=== PATIENT | male | born 1950 | race Caucasian/White ===

== ENCOUNTER 2017-08-31 21:15 | Emergency (ER) | payer MEDICARE, OTHER ==
--- NOTE | 2017-08-31 21:42 | ED ---
Recheck HPI - General Chief Complaint: Recheck/Abnormal Lab/Rx Stated Complaint: Dr Sent/Abnormal Lab Time Seen by Provider: 08/31/17 21:28 Source: patient, RN notes reviewed Mode of arrival: ambulatory Limitations: no limitations - History of Present Illness Initial Comments: This a 67-year-old male presents emergency Department with chief complaint of abnormal labs. Patient states that [facility] and told that his potassium was 6.0. Patient was advised well emergency department for evaluation. Patient has no complaints. Time. He does not take any supplemental potassium. Patient states she's had no changes medications. Denies chest pain, shortness breath, fever, chills, headache or dizziness. - Related Data Home Medications Medication Instructions Recorded Confirmed Budesonide-Formot 160-4.5 Mcg 1 puff INHALATION RT-BID 10/05/14 08/31/17 [Symbicort 160-4.5 Mcg Inhaler] Lisinopril [Zestril] 10 mg PO DAILY 10/05/14 08/31/17 Montelukast [Singulair] 10 mg PO DAILY 10/05/14 08/31/17 Naproxen [Naprosyn] 500 mg PO BID 10/05/14 08/31/17 Pravastatin Sodium [Pravachol] 80 mg PO DAILY 10/05/14 08/31/17 glipiZIDE [Glucotrol] 20 mg PO BID 10/05/14 08/31/17 Aspirin [Adult Low Dose Aspirin EC] 81 mg PO DAILY 08/31/17 08/31/17 Clopidogrel [Plavix] 75 mg PO DAILY 08/31/17 08/31/17 Insulin Glargine [Lantus] 20 unit SQ DAILY 08/31/17 08/31/17 Tamsulosin HCl [Flomax] 0.4 mg PO DAILY 08/31/17 08/31/17 metFORMIN HCL 1,000 mg PO BID 08/31/17 08/31/17 Allergies Allergy/AdvReac Type Severity Reaction Status Date / Time No Known Allergies Allergy Verified 08/31/17 21:36 Review of Systems ROS Statement: Those systems with pertinent positive or pertinent negative responses have been documented in the HPI. ROS Other: All systems not noted in ROS Statement are negative. Past Medical History Past Medical History: Asthma, Diabetes Mellitus, Hyperlipidemia, Hypertension Additional Past Medical History / Comment(s): neuropothy, pacreatitis History of Any Multi-Drug Resistant Organisms: None Reported Past Surgical History: Heart Catheterization With Stent Additional Past Surgical History / Comment(s): right hand surgery Past Anesthesia/Blood Transfusion Reactions: No Reported Reaction Past Psychological History: No Psychological Hx Reported Smoking Status: Former smoker Past Alcohol Use History: Occasional Past Drug Use History: None Reported General Exam Limitations: no limitations General appearance: alert, in no apparent distress Head exam: Present: atraumatic, normocephalic, normal inspection Eye exam: Present: normal appearance, PERRL, EOMI. Absent: scleral icterus, conjunctival injection, periorbital swelling ENT exam: Present: normal exam, normal oropharynx, mucous membranes moist Neck exam: Present: normal inspection, full ROM. Absent: tenderness, meningismus, lymphadenopathy Respiratory exam: Present: normal lung sounds bilaterally. Absent: respiratory distress, wheezes, rales, rhonchi, stridor Cardiovascular Exam: Present: regular rate, normal rhythm, normal heart sounds. Absent: systolic murmur, diastolic murmur, rubs, gallop, clicks Neurological exam: Present: alert, oriented X3, CN II-XII intact Skin exam: Present: warm, dry, intact, normal color. Absent: rash Course Vital Signs 08/31/17 21:17 Temperature 97.2 F L Pulse Rate 70 Respiratory 18 Rate Blood Pressure 180/79 O2 Sat by Pulse 97 Oximetry Medical Decision Making - Medical Decision Making 67-year-old male present emergency department for hyperglycemia on labs earlier today. Repeat lab shows potassium of 4.3. Patient will be discharged at this time. patient had mild hyperglycemia patient states he hasn't taken his medication for nighttime. Patient is requesting to be discharged home. - Lab Data Result diagrams: 08/31/17 22:03 08/31/17 22:03 Lab Results 08/31/17 08/31/17 Range/Units 22:03 22:03 WBC 6.2 (3.8-10.6) k/uL RBC 4.73 (4.30-5.90) m/uL Hgb 13.4 (13.0-17.5) gm/dL Hct 40.5 (39.0-53.0) % MCV 85.6 (80.0-100.0) fL MCH 28.3 (25.0-35.0) pg MCHC 33.1 (31.0-37.0) g/dL RDW 15.2 (11.5-15.5) % Plt Count 262 (150-450) k/uL Neutrophils % 63 % Lymphocytes % 23 % Monocytes % 7 % Eosinophils % 4 % Basophils % 1 % Neutrophils # 3.9 (1.3-7.7) k/uL Lymphocytes # 1.4 (1.0-4.8) k/uL Monocytes # 0.4 (0-1.0) k/uL Eosinophils # 0.3 (0-0.7) k/uL Basophils # 0.1 (0-0.2) k/uL Sodium 140 (137-145) mmol/L Potassium 4.3 (3.5-5.1) mmol/L Chloride 103 (98-107) mmol/L Carbon Dioxide 26 (22-30) mmol/L Anion Gap 11 mmol/L BUN 17 (9-20) mg/dL Creatinine 0.90 (0.66-1.25) mg/dL Est GFR (MDRD) Af Amer >60 (>60 ml/min/1.73 sqM) Est GFR (MDRD) Non-Af >60 (>60 ml/min/1.73 sqM) Glucose 327 H (74-99) mg/dL Calcium 9.2 (8.4-10.2) mg/dL Magnesium 1.8 (1.6-2.3) mg/dL Total Bilirubin 0.4 (0.2-1.3) mg/dL AST 22 (17-59) U/L ALT 39 (21-72) U/L Alkaline Phosphatase 78 (38-126) U/L Total Protein 6.6 (6.3-8.2) g/dL Albumin 3.9 (3.5-5.0) g/dL - EKG Data EKG Comments: EKG performed at 22:0 sign sinus rhythm with first-degree AV block rate of 69 AK 212 QRS 98 QT/QTC 418/447 Disposition Clinical Impression: Hyperglycemia Narrative: recheck abnormal labs, hyperkalemia Disposition: HOME SELF-CARE Condition: Stable Instructions: Diabetic Hyperglycemia (ED) Additional Instructions: Make sure you take your medications as directed and recheck her blood sugar. Please return to the Emergency Department if symptoms worsen or any other concerns. Referrals: Bharat Sullivan DO [Primary Care Provider] - 1-2 days Time of Disposition: 22:32
[2017-08-31 22:14] LABS: Basophils # (A) 0.1 k/uL (0-0.2); Basophils % (A) 1 %; Eosinophils # (A) 0.3 k/uL (0-0.7); Eosinophils % (A) 4 %; HCT 40.5 % (39.0-53.0); HGB 13.4 gm/dL (13.0-17.5); Lymphocytes # (A) 1.4 k/uL (1.0-4.8); Lymphocytes % (A) 23 %; MCH 28.3 pg (25.0-35.0); MCHC 33.1 g/dL (31.0-37.0); MCV 85.6 fL (80.0-100.0); Mean Platelet Volume 7.1; Monocytes # (A) 0.4 k/uL (0-1.0); Monocytes % (A) 7 %; Neutrophils # (A) 3.9 k/uL (1.3-7.7); Neutrophils % (A) 63 %; Platelet Count 262 k/uL (150-450); RBC 4.73 m/uL (4.30-5.90); RDW 15.2 % (11.5-15.5); WBC 6.2 k/uL (3.8-10.6)
[2017-08-31 22:25] LABS: ALT 39 U/L (21-72); AST 22 U/L (17-59); Albumin 3.9 g/dL (3.5-5.0); Alkaline Phosphatase 78 U/L (38-126); Anion Gap 11 mmol/L; Blood Urea Nitrogen 17 mg/dL (9-20); Calcium 9.2 mg/dL (8.4-10.2); Carbon Dioxide 26 mmol/L (22-30); Chloride 103 mmol/L (98-107); Glucose 327 mg/dL (74-99); Magnesium 1.8 mg/dL (1.6-2.3); Potassium 4.3 mmol/L (3.5-5.1); Sodium 140 mmol/L (137-145); Total Bilirubin 0.4 mg/dL (0.2-1.3); Total Protein 6.6 g/dL (6.3-8.2)
[2017-08-31 23:03] VITALS: BP 141/65; PULSE 66; RESP 16; TEMP 97.9
== END 2017-08-31 23:03 | disposition home or self-care (01) ==
LOC: EC 21:15
DX: E11.65 Type 2 diabetes mellitus with hyperglycemia (principal); J45.909 Unspecified asthma, uncomplicated; E78.5 Hyperlipidemia, unspecified; I10 Essential (primary) hypertension; E11.40 Type 2 diabetes mellitus with diabetic neuropathy, unspecified; Z87.891 Personal history of nicotine dependence; Z79.4 Long term (current) use of insulin; Z79.01 Long term (current) use of anticoagulants; Z79.82 Long term (current) use of aspirin; Z79.51 Long term (current) use of inhaled steroids; Z79.899 Other long term (current) drug therapy
CPT/HCPCS: 36415; 80053; 83735; 85025; 93005; 99283

== ENCOUNTER 2017-12-01 07:13 | Day surgery (SDC) | payer MEDICARE, OTHER ==
[2017-11-29 10:12] VITALS: BMI 30.9
[~2017-12-01 07:13] MED LIST: LACTATED RINGERS 1,000 ML IV SCH
[2017-12-01 07:29] VITALS: TEMP 97.4
[2017-12-01] MEDS ORDERED: LIDOCAINE 1% 20 ML VIAL (10MG/ML) FOR IV START INTRADERMA ONE (07:48)
[2017-12-01 07:55] LABS: Glucose,Whole Blood 176 mg/dL (75-99)
[2017-12-01] MEDS ORDERED: LIDOCAINE 1% INJ 10MG/ML (20 ML MDV) ONE (08:48)
[2017-12-01] MEDS ORDERED: PROPOFOL 10 MG/ML 20 ML VIAL IV ONE (08:48)
[2017-12-01 09:19] VITALS: RESP 16
--- NOTE | 2017-12-01 09:22 | P.PCN ---
Date of Procedure: 12/01/17 Procedure(s) Performed: Procedure: Total colonoscopy. Preoperative diagnosis: Screening for neoplasia, patient has history of polyps. Postoperative diagnosis: Less than ideal preparation, otherwise, exam to the cecum within normal limits. Preparation: HalfLytely prep. Sedation: Was provided by anesthesia. Brief clinical history: The patient is 67-year-old male with history of polyps who is scheduled for this evaluation part of screening for colon cancer. He has no abdominal complaints, bleeding or anemia. His last exam was more than 5 years ago. This would be his fourth exam. Procedure: With the patient on his left lateral decubitus position and after informed consent and adequate sedation, the perianal area was inspected and it did not show any fissures or fistulas. There were no masses felt on digital rectal examination. The Olympus CFQ 160L video colonoscope was then inserted in the rectum in the usual fashion and advanced to the cecum. Unfortunately, the preparation was less than ideal and there was thick fecal secretions and fecal debris that made it hard to wash and have a clear look of the lining of the bowel wall consistently. There were no obvious large polyps or tumors seen or obvious mucosal changes. I retroflexed the endoscope in the rectum before the endoscope was withdrawn. The patient tolerated the procedure well. Plan: The patient was reassured. In light of his preparation, I recommended repeat exam in 2-3 years after a 2 day prep. He will follow up with you as planned.
[2017-12-01 09:29] VITALS: BP 139/75; PULSE 69
== END 2017-12-01 09:51 | disposition home or self-care (01) ==
LOC: ORWHC2ENDO 07:13
DX: Z12.11 Encounter for screening for malignant neoplasm of colon (principal); Z86.010 Personal history of colon polyps; E11.40 Type 2 diabetes mellitus with diabetic neuropathy, unspecified; J45.909 Unspecified asthma, uncomplicated; I10 Essential (primary) hypertension; E78.5 Hyperlipidemia, unspecified; I25.10 Atherosclerotic heart disease of native coronary artery without angina pectoris; Z95.5 Presence of coronary angioplasty implant and graft; Z79.1 Long term (current) use of non-steroidal anti-inflammatories (NSAID); Z79.02 Long term (current) use of antithrombotics/antiplatelets; Z79.4 Long term (current) use of insulin; Z79.899 Other long term (current) drug therapy; Z87.891 Personal history of nicotine dependence
CPT/HCPCS: J2001; J2704; G0105; 45378

== ENCOUNTER → 2018-01-24 | Outpatient (CLI) | payer MEDICARE, OTHER ==
--- NOTE | 2018-01-25 08:09 | CT ---
EXAMINATION TYPE: CT chest w con DATE OF EXAM: 01/24/2018 COMPARISON: 10/05/2014 HISTORY: Left lower lobe pneumonia. CT DLP: 640 mGycm, Automated exposure control for dose reduction was used. CONTRAST: Performed injected with 100ml mL of Isovue 300. TECHNIQUE: Axial images were obtained at 5 mm thick sections. Reconstructed images are reviewed on [employer] computer in the coronal plane. FINDINGS: Portion of the thyroid visualized is normal. No suspicious lung nodules or focal infiltrates are present. Some calcifications along the central ri ght diaphragm could indicate prior asbestos exposure. Some minimal atelectasis is within the anterior right middle lobe and within the lingula within the mid lung summers. A stable 0.5 cm calcified granu renata is within the anterior lateral left upper lung field. Series 3 image 18.. Tiny stable density in the periphery of the right upper lung field estimated to measure 0.3 cm. Series 3 image 21. A stable 0.3 cm nodules within the right middle lobe. Series 3 image 30. No enlarged mediastinal or hilar adenopathy is evident. The ascending aorta diameter at the level o f the main pulmonary artery is 3.6 cm. The main pulmonary artery diameter at the bifurcation is 2.5 cm. Some coronary artery calcification is present. Limited CT sections are obtained through the upper abdomen. Abdomen is essentially unremarkable. IMPRESSIONS: 1. Mild streak opacities within the anterior lung summers, mild streak atelectasis is favored. 2. Stable Calcified granuloma left midlung. Tiny stable 3 mm densities within the right midlung.
== END | disposition home or self-care (01) ==
LOC: RADCTMAIN 18:07
PROVIDERS: ATTEND Internal Medicine Critical Care Medicine
DX: R91.8 Other nonspecific abnormal finding of lung field (principal); J84.10 Pulmonary fibrosis, unspecified
CPT/HCPCS: 82565; 84520; 71260; 36415; Q9967

== ENCOUNTER 2020-02-20 15:18 | Inpatient (IN) | payer MEDICARE, OTHER ==
--- NOTE | 2020-02-20 15:40 | ED ---
General Adult HPI - General Chief complaint: Chest Pain Stated complaint: irregular heartbeat Time Seen by Provider: 02/20/20 15:26 Source: patient, RN notes reviewed, old records reviewed Mode of arrival: wheelchair Limitations: no limitations - History of Present Illness Initial comments: 69-year-old male with several days of intermittent palpitations and chest pain. Patient states he noted that his heart rate was up to 150. He has no previous history of arrhythmia. He has a history of CAD status post stenting. He is currently on aspirin, Plavix, lisinopril. He denies current chest pain, reports a vague discomfort in the chest. No vomiting. No fever. No diarrhea. Patient has been eating and drinking well. No melena or rectal bleeding. - Related Data Home Medications Medication Instructions Recorded Confirmed Budesonide-Formot 160-4.5 Mcg 1 puff INHALATION RT-BID 10/05/14 12/01/17 [Symbicort 160-4.5 Mcg Inhaler] Montelukast [Singulair] 10 mg PO DAILY 10/05/14 12/01/17 Naproxen [Naprosyn] 500 mg PO BID 10/05/14 12/01/17 Pravastatin Sodium [Pravachol] 80 mg PO DAILY 10/05/14 12/01/17 glipiZIDE [Glucotrol] 20 mg PO BID 10/05/14 12/01/17 Aspirin [Adult Low Dose Aspirin EC] 81 mg PO DAILY 08/31/17 12/01/17 Clopidogrel [Plavix] 75 mg PO DAILY 08/31/17 12/01/17 Insulin Glargine [Lantus] 20 unit SQ DAILY 08/31/17 12/01/17 Tamsulosin HCl [Flomax] 0.4 mg PO DAILY 08/31/17 12/01/17 metFORMIN HCL 1,000 mg PO BID 08/31/17 12/01/17 Lisinopril [Zestril] 20 mg PO DAILY 11/29/17 12/01/17 Allergies Allergy/AdvReac Type Severity Reaction Status Date / Time No Known Allergies Allergy Verified 02/20/20 15:24 Review of Systems ROS Statement: Those systems with pertinent positive or pertinent negative responses have been documented in the HPI. ROS Other: All systems not noted in ROS Statement are negative. Past Medical History Past Medical History: Asthma, Diabetes Mellitus, Hyperlipidemia, Hypertension Additional Past Medical History / Comment(s): neuropothy, pancreatitis History of Any Multi-Drug Resistant Organisms: None Reported Past Surgical History: Appendectomy, Heart Catheterization With Stent, Orthopedic Surgery Additional Past Surgical History / Comment(s): right hand surgery. BILAT CATARACT. BILAT RK SX. COLONOSCOPY Past Anesthesia/Blood Transfusion Reactions: No Reported Reaction Date of Last Stent Placement:: 2015 Past Psychological History: No Psychological Hx Reported Smoking Status: Former smoker - Past Family History Mother Family Medical History: No Reported History General Exam Limitations: no limitations General appearance: alert, in no apparent distress Head exam: Present: atraumatic, normocephalic Eye exam: Present: normal appearance, PERRL ENT exam: Present: normal exam Neck exam: Present: normal inspection. Absent: tenderness, meningismus Respiratory exam: Present: normal lung sounds bilaterally. Absent: respiratory distress, wheezes Cardiovascular Exam: Present: tachycardia, irregular rhythm GI/Abdominal exam: Present: soft. Absent: distended, tenderness, guarding, rebound Extremities exam: Present: normal inspection, normal capillary refill. Absent: pedal edema Neurological exam: Present: alert, oriented X3, CN II-XII intact. Absent: motor sensory deficit Psychiatric exam: Present: normal affect, normal mood Skin exam: Present: warm, dry, intact. Absent: cyanosis, diaphoretic Course Vital Signs 02/20/20 02/20/20 15:19 15:58 Temperature 98.2 F Pulse Rate 134 H Respiratory 18 20 Rate Blood Pressure 160/90 O2 Sat by Pulse 97 Oximetry EKG Findings - EKG Comments: EKG Findings:: EKG: Atrial fibrillation with RVR, left axis, rate of 107, QRS duration 90, QTC 459, no ST segment elevation. Medical Decision Making - Medical Decision Making 69-year-old male presenting with intermittent chest pain and palpitations. Patient found to be in A. fib with RVR, no ST segment elevation EKG. CBC showed mild anemia, otherwise no acute findings, normal access, negative troponin. Patientconsented Cardizem in the emergency department. He started on heparin [id number] is 2. [facility] Patient will be admitted continued on anticoagulation and rate control, cardiology placed on consult. - Lab Data Result diagrams: 02/20/20 15:30 02/20/20 15:30 Lab Results 02/20/20 02/20/20 02/20/20 Range/Units 15:30 15:30 15:30 WBC 6.9 (3.8-10.6) k/uL RBC 4.55 (4.30-5.90) m/uL Hgb 12.4 L (13.0-17.5) gm/dL Hct 38.4 L (39.0-53.0) % MCV 84.3 (80.0-100.0) fL MCH 27.3 (25.0-35.0) pg MCHC 32.4 (31.0-37.0) g/dL RDW 14.7 (11.5-15.5) % Plt Count 282 (150-450) k/uL Neutrophils % 72 % Lymphocytes % 16 % Monocytes % 6 % Eosinophils % 3 % Basophils % 1 % Neutrophils # 4.9 (1.3-7.7) k/uL Lymphocytes # 1.1 (1.0-4.8) k/uL Monocytes # 0.4 (0-1.0) k/uL Eosinophils # 0.2 (0-0.7) k/uL Basophils # 0.0 (0-0.2) k/uL PT (9.0-12.0) sec INR (<1.2) APTT (22.0-30.0) sec Sodium 137 (137-145) mmol/L Potassium 4.9 (3.5-5.1) mmol/L Chloride 103 (98-107) mmol/L Carbon Dioxide 24 (22-30) mmol/L Anion Gap 10 mmol/L BUN 19 (9-20) mg/dL Creatinine 0.95 (0.66-1.25) mg/dL Est GFR (CKD-EPI)AfAm >90 (>60 ml/min/1.73 sqM) Est GFR (CKD-EPI)NonAf 81 (>60 ml/min/1.73 sqM) Glucose 208 H (74-99) mg/dL Calcium 9.6 (8.4-10.2) mg/dL Magnesium 1.9 (1.6-2.3) mg/dL Total Bilirubin 0.5 (0.2-1.3) mg/dL AST 22 (17-59) U/L ALT 20 (4-49) U/L Alkaline Phosphatase 69 (38-126) U/L Total Creatine Kinase 147 (55-170) U/L CK-MB (CK-2) 4.4 H (0.0-2.4) ng/mL CK-MB (CK-2) Rel Index 3.0 Troponin I <0.012 (0.000-0.034) ng/mL Total Protein 6.7 (6.3-8.2) g/dL Albumin 4.3 (3.5-5.0) g/dL 02/20/20 Range/Units 15:30 WBC (3.8-10.6) k/uL RBC (4.30-5.90) m/uL Hgb (13.0-17.5) gm/dL Hct (39.0-53.0) % MCV (80.0-100.0) fL MCH (25.0-35.0) pg MCHC (31.0-37.0) g/dL RDW (11.5-15.5) % Plt Count (150-450) k/uL Neutrophils % % Lymphocytes % % Monocytes % % Eosinophils % % Basophils % % Neutrophils # (1.3-7.7) k/uL Lymphocytes # (1.0-4.8) k/uL Monocytes # (0-1.0) k/uL Eosinophils # (0-0.7) k/uL Basophils # (0-0.2) k/uL PT 9.7 (9.0-12.0) sec INR 0.9 (<1.2) APTT 24.0 (22.0-30.0) sec Sodium (137-145) mmol/L Potassium (3.5-5.1) mmol/L Chloride (98-107) mmol/L Carbon Dioxide (22-30) mmol/L Anion Gap mmol/L BUN (9-20) mg/dL Creatinine (0.66-1.25) mg/dL Est GFR (CKD-EPI)AfAm (>60 ml/min/1.73 sqM) Est GFR (CKD-EPI)NonAf (>60 ml/min/1.73 sqM) Glucose (74-99) mg/dL Calcium (8.4-10.2) mg/dL Magnesium (1.6-2.3) mg/dL Total Bilirubin (0.2-1.3) mg/dL AST (17-59) U/L ALT (4-49) U/L Alkaline Phosphatase (38-126) U/L Total Creatine Kinase (55-170) U/L CK-MB (CK-2) (0.0-2.4) ng/mL CK-MB (CK-2) Rel Index Troponin I (0.000-0.034) ng/mL Total Protein (6.3-8.2) g/dL Albumin (3.5-5.0) g/dL Critical Care Time Critical Care Time: Yes Total Critical Care Time: 35 Disposition Clinical Impression: Atrial fibrillation with RVR Disposition: ADMITTED IP TO THIS [facility] Condition: Stable Is patient prescribed a controlled substance at d/c from ED?: No Referrals: [facility],Clinic [Primary Care Provider] - 1-2 days Decision to Admit Reason: Admit from EC Decision Date: 02/20/20 Decision Time: 18:56
[2020-02-20 15:59] LABS: Basophils % (A) 1 %; Eosinophils # (A) 0.2 k/uL (0-0.7); Eosinophils % (A) 3 %; HCT 38.4 % (39.0-53.0); HGB 12.4 gm/dL (13.0-17.5); Lymphocytes # (A) 1.1 k/uL (1.0-4.8); Lymphocytes % (A) 16 %; MCH 27.3 pg (25.0-35.0); MCHC 32.4 g/dL (31.0-37.0); MCV 84.3 fL (80.0-100.0); Mean Platelet Volume 6.9; Monocytes # (A) 0.4 k/uL (0-1.0); Monocytes % (A) 6 %; Neutrophils # (A) 4.9 k/uL (1.3-7.7); Neutrophils % (A) 72 %; Platelet Count 282 k/uL (150-450); RBC 4.55 m/uL (4.30-5.90); RDW 14.7 % (11.5-15.5); WBC 6.9 k/uL (3.8-10.6)
[2020-02-20 16:05] LABS: Creatine Kinase 147 U/L (55-170)
[2020-02-20 16:07] LABS: ALT 20 U/L (4-49); AST 22 U/L (17-59); African American GFR (CKD) >90 (>60 ml/min/1.73 sqM); Albumin 4.3 g/dL (3.5-5.0); Alkaline Phosphatase 69 U/L (38-126); Anion Gap 10 mmol/L; Blood Urea Nitrogen 19 mg/dL (9-20); Calcium 9.6 mg/dL (8.4-10.2); Carbon Dioxide 24 mmol/L (22-30); Chloride 103 mmol/L (98-107); Glucose 208 mg/dL (74-99); Magnesium 1.9 mg/dL (1.6-2.3); Non-African American GFR(CKD) 81 (>60 ml/min/1.73 sqM); Potassium 4.9 mmol/L (3.5-5.1); Sodium 137 mmol/L (137-145); Total Bilirubin 0.5 mg/dL (0.2-1.3); Total Protein 6.7 g/dL (6.3-8.2)
[2020-02-20 16:09] LABS: INR 0.9 (<1.2); Prothrombin Time 9.7 sec (9.0-12.0)
[2020-02-20] MEDS ORDERED: DILTIAZEM 125 MG in SODIUM CHLORIDE 0.9% 100 ML IV STA (16:17)
[2020-02-20] MEDS ORDERED: DILTIAZEM DRIP BOLUS FROM BAG 1 MG SOLN IV STA (16:17)
[2020-02-20 16:18] LABS: Creatine Kinase MB 4.4 ng/mL (0.0-2.4); Troponin I <0.012 ng/mL (0.000-0.034)
--- NOTE | 2020-02-20 16:19 | XR ---
EXAMINATION TYPE: XR chest 2V DATE OF EXAM: 02/20/2020 COMPARISON: 05/08/2016 INDICATION: Dysrhythmia TECHNIQUE: Frontal and lateral views of the chest are obtained. FINDINGS: The heart size is normal. The pulmonary vasculature is normal. There is some streak opacity within the left base extending towards the cardiac apex. Correlate for a telectasis. Suspicious focal consolidation is not otherwise evident.. IMPRESSION: 1. Streak atelectasis left base.
[2020-02-20] MEDS ORDERED: HEPARIN SODIUM,PORCINE 5,000 UNIT/ML 1 ML VIAL IV PRN (18:40)
[2020-02-20] MEDS ORDERED: HEPARIN SODIUM,PORCINE 5,000 UNIT/ML 1 ML VIAL IV ONE (18:40)
[2020-02-21] MEDS: INSULIN ASPART (NovoLOG) 100 UNIT/ML VIAL SQ SCH ×3 (06:07→12:26)
[2020-02-21] MEDS: HEPARIN SOD,PORK IN 0.45% NACL 25,000 UNIT in 0.45% NACL 1 250ML.BAG IV SCH ×2 (06:15→09:04)
[2020-02-21 06:26] LABS: Basophils % (A) 1 %; Eosinophils # (A) 0.3 k/uL (0-0.7); Eosinophils % (A) 5 %; HCT 35.8 % (39.0-53.0); HGB 12.3 gm/dL (13.0-17.5); Lymphocytes # (A) 1.1 k/uL (1.0-4.8); Lymphocytes % (A) 19 %; MCH 29.2 pg (25.0-35.0); MCHC 34.3 g/dL (31.0-37.0); Mean Platelet Volume 7.3; Monocytes # (A) 0.4 k/uL (0-1.0); Monocytes % (A) 8 %; Neutrophils # (A) 3.6 k/uL (1.3-7.7); Neutrophils % (A) 65 %; Platelet Count 253 k/uL (150-450); RBC 4.21 m/uL (4.30-5.90); RDW 14.6 % (11.5-15.5); WBC 5.5 k/uL (3.8-10.6)
[2020-02-21] MEDS ORDERED: SYMBICORT 160-4.5 MCG INHALER INHALATION SCH (08:00)
[2020-02-21] MEDS ORDERED: MONTELUKAST 10 MG TAB PO SCH (09:00)
[2020-02-21] MEDS ORDERED: CLOPIDOGREL 75 MG TAB PO SCH (09:00)
[2020-02-21] MEDS ORDERED: glipiZIDE 10 MG TAB PO SCH (09:00)
[2020-02-21] MEDS ORDERED: LISINOPRIL 20 MG TAB PO SCH (09:00)
[2020-02-21] MEDS ORDERED: TAMSULOSIN 0.4 MG CAP.ER.24H PO SCH (09:00)
[2020-02-21] MEDS ORDERED: ASPIRIN 81 MG PO SCH (09:00)
[2020-02-21] MEDS ORDERED: INSULIN DETEMIR (LEVEMIR) 100 UNIT/ML SYR SQ SCH (09:00)
[2020-02-21] MEDS ORDERED: metFORMIN 500 MG TAB PO SCH (09:00)
[2020-02-21] MEDS ORDERED: ATORVASTATIN 40 MG TAB PO SCH (09:00)
[2020-02-21] MEDS ORDERED: METOPROLOL TARTRATE 25 MG TAB PO SCH (11:30)
[2020-02-21 11:57] LABS: Glucose,Whole Blood 146 mg/dL (75-99)
--- NOTE | 2020-02-21 15:21 | P.HPIM ---
History of Present Illness Patient is a pleasant 69-year-old male came in with the comments of intermittent tach palpitations denied any chest pain was having some shortness of breath which appears to be his baseline patient does have asthma doesn't smoke. Prakash meyers does have history of coronary artery disease with previous stents in the past. Patient denied any fever chills patient had dysuria nausea vomiting diarrhea. Patient was on IV Cardizem drip which will be discontinued and patient was started on metoprolol if his heart rate remains controlled patient will be discharged patient remains in atrial fibrillation. Patient will be started on Eliquis discontinue heparin. Echocardiogram was ordered. Review of Systems REVIEW OF SYSTEMS: CONSTITUTIONAL: No fever, no malaise, no fatigue. HEENT: No recent visual problems or hearing problems. Denied any sore throat. CARDIOVASCULAR: No chest pain, orthopnea, PND, no syncope. PULMONARY: No shortness of breath, no cough, no hemoptysis. GASTROINTESTINAL: No diarrhea, no nausea, no vomiting, no abdominal pain. NEUROLOGICAL: No headaches, no weakness, no numbness. HEMATOLOGICAL: Denies any bleeding or petechiae. GENITOURINARY: Denies any burning micturition, frequency, or urgency. MUSCULOSKELETAL/RHEUMATOLOGICAL: Denies any joint pain, swelling, or any muscle pain. ENDOCRINE: Denies any polyuria or polydipsia. The rest of the 14-point review of systems is negative. Past Medical History Past Medical History: Asthma, Diabetes Mellitus, Hyperlipidemia, Hypertension Additional Past Medical History / Comment(s): neuropothy, pancreatitis History of Any Multi-Drug Resistant Organisms: None Reported Past Surgical History: Appendectomy, Heart Catheterization With Stent, Orthopedic Surgery Additional Past Surgical History / Comment(s): right hand surgery. BILAT CATARACT. BILAT RK SX. COLONOSCOPY Past Anesthesia/Blood Transfusion Reactions: No Reported Reaction Date of Last Stent Placement:: 2015 Past Psychological History: No Psychological Hx Reported Smoking Status: Former smoker Past Alcohol Use History: Occasional Additional Past Alcohol Use History / Comment(s): QUIT SMOKING 1997 Past Drug Use History: None Reported - Past Family History Mother Family Medical History: No Reported History Medications and Allergies Home Medications Medication Instructions Recorded Confirmed Type Budesonide-Formot 160-4.5 Mcg 2 puff INHALATION RT-BID 10/05/14 02/20/20 History [Symbicort 160-4.5 Mcg Inhaler] Montelukast [Singulair] 10 mg PO DAILY 10/05/14 02/20/20 History glipiZIDE [Glucotrol] 20 mg PO BID 10/05/14 02/20/20 History Aspirin [Adult Low Dose Aspirin EC] 81 mg PO DAILY 08/31/17 02/20/20 History Insulin Glargine [Lantus] 40 unit SQ DAILY 08/31/17 02/20/20 History Tamsulosin HCl [Flomax] 0.8 mg PO DAILY 08/31/17 02/20/20 History Rosuvastatin Calcium [Crestor] 20 mg PO DAILY 02/20/20 02/20/20 History metFORMIN HCL 1,000 mg PO BID 02/20/20 02/20/20 History Apixaban [Eliquis] 5 mg PO BID #60 tab 02/21/20 Rx Lisinopril [Zestril] 10 mg PO DAILY tab 02/21/20 Rx Metoprolol Tartrate [Lopressor] 50 mg PO BID #60 tab 02/21/20 Rx Allergies Allergy/AdvReac Type Severity Reaction Status Date / Time No Known Allergies Allergy Verified 02/20/20 15:24 Physical Exam Vitals: Vital Signs Temp Pulse Pulse Resp BP BP Pulse Ox 02/21/20 12:00 98.1 F 66 16 116/70 02/21/20 08:00 98 F 69 18 109/57 98 02/21/20 03:15 97.6 F 67 112/58 98 02/20/20 23:30 97.5 F L 80 133/75 97 02/20/20 20:45 97.5 F L 89 20 147/81 98 02/20/20 19:43 97.9 F 89 18 153/97 98 02/20/20 19:00 84 20 157/84 02/20/20 18:23 96 20 120/63 02/20/20 17:23 90 20 126/62 98 02/20/20 16:23 20 02/20/20 15:58 20 02/20/20 15:23 20 02/20/20 15:19 98.2 F 134 H 18 160/90 97 Intake and Output 02/21/20 02/21/20 02/21/20 06:59 14:59 22:59 Intake Total 236 Balance 236 Intake: Oral 236 Other: # Voids 1 1 Weight 101.5 kg PHYSICAL EXAMINATION: GENERAL: The patient is alert and oriented x3, not in any acute distress. Well developed, well nourished. HEENT: Pupils are round and equally reacting to light. EOMI. No scleral icterus. No conjunctival pallor. Normocephalic, atraumatic. No pharyngeal erythema. No thyromegaly. CARDIOVASCULAR: S1 and S2 present. No murmurs, rubs, or gallops. Irregularly irregular rhythm PULMONARY: Chest is clear to auscultation, no wheezing or crackles. ABDOMEN: Soft, nontender, nondistended, normoactive bowel sounds. No palpable organomegaly. MUSCULOSKELETAL: No joint swelling or deformity. EXTREMITIES: No cyanosis, clubbing, or pedal edema. NEUROLOGICAL: Gross neurological examination did not reveal any focal deficits. SKIN: No rashes. Results CBC & Chem 7: 02/21/20 05:56 02/20/20 15:30 Labs: Abnormal Lab Results - Last 24 Hours (Table) 02/20/20 02/20/20 02/20/20 Range/Units 15:30 15:30 15:30 RBC (4.30-5.90) m/uL Hgb 12.4 L (13.0-17.5) gm/dL Hct 38.4 L (39.0-53.0) % Glucose 208 H (74-99) mg/dL POC Glucose (mg/dL) (75-99) mg/dL CK-MB (CK-2) 4.4 H (0.0-2.4) ng/mL 02/21/20 02/21/20 Range/Units 05:56 11:55 RBC 4.21 L (4.30-5.90) m/uL Hgb 12.3 L (13.0-17.5) gm/dL Hct 35.8 L (39.0-53.0) % Glucose (74-99) mg/dL POC Glucose (mg/dL) 146 H (75-99) mg/dL CK-MB (CK-2) (0.0-2.4) ng/mL Thrombosis Risk Factor Assmnt - Choose All That Apply Any of the Below Risk Factors Present?: Yes Each Factor Represents 1 point: Obesity (BMI >25) Other Risk Factors: Yes Each Risk Factor Represents 2 Points: Age 61-74 years Thrombosis Risk Factor Assessment Total Risk Factor Score: 3 Thrombosis Risk Factor Assessment Level: Moderate Risk Assessment and Plan Plan: Atrial fibrillation with rapid unclear. Presently rate controlled remains in A. fib patient probably has proximal A. fib is new onset atrial fibrillation patient will be started on Eliquis will obtain echocardiogram his heart rate is presently controlled was switched to metoprolol if he remains rate controlled patient will be discharged later in the day will be given a dose of Eliquis before discharge. Echo results are pending. Ruled out acute chronic syndromes -Coronary artery disease: Patient cardiac catheterization stenting was done more than 40 years ago because of which are loose can you Plavix patient will continue his aspirin and patient will continue Eliquis -Hypertension -Type 2 diabetes mellitus: Patient will continue his home regimen and 10- hyperlipidemia -Benign prostatic hypertrophy -Asthma without any acute exacerbation
--- NOTE | 2020-02-21 15:22 | P.DS ---
Providers Date of admission: 02/20/20 18:45 Attending physician: Mauro Atkins Primary care physician: [facility] Course: As mentioned in HPI Patient Condition at Discharge: Stable Plan - Discharge Summary New Discharge Prescriptions: New Apixaban [Eliquis] 5 mg PO BID #60 tab Metoprolol Tartrate [Lopressor] 50 mg PO BID #60 tab Lisinopril [Zestril] 10 mg PO DAILY tab Continue glipiZIDE [Glucotrol] 20 mg PO BID Montelukast [Singulair] 10 mg PO DAILY Budesonide-Formot 160-4.5 Mcg [Symbicort 160-4.5 Mcg Inhaler] 2 puff INHALATION RT-BID Insulin Glargine [Lantus] 40 unit SQ DAILY Aspirin [Adult Low Dose Aspirin EC] 81 mg PO DAILY Tamsulosin HCl [Flomax] 0.8 mg PO DAILY metFORMIN HCL 1,000 mg PO BID Rosuvastatin Calcium [Crestor] 20 mg PO DAILY Discontinued Naproxen [Naprosyn] 500 mg PO BID Clopidogrel [Plavix] 75 mg PO DAILY Lisinopril [Zestril] 20 mg PO DAILY Hydrochlorothiazide [Hydrodiuril] 12.5 mg PO DAILY Discharge Medication List Budesonide-Formot 160-4.5 Mcg [Symbicort 160-4.5 Mcg Inhaler] 2 puff INHALATION RT-BID 10/05/14 [History] Montelukast [Singulair] 10 mg PO DAILY 10/05/14 [History] glipiZIDE [Glucotrol] 20 mg PO BID 10/05/14 [History] Aspirin [Adult Low Dose Aspirin EC] 81 mg PO DAILY 08/31/17 [History] Insulin Glargine [Lantus] 40 unit SQ DAILY 08/31/17 [History] Tamsulosin HCl [Flomax] 0.8 mg PO DAILY 08/31/17 [History] Rosuvastatin Calcium [Crestor] 20 mg PO DAILY 02/20/20 [History] metFORMIN HCL 1,000 mg PO BID 02/20/20 [History] Apixaban [Eliquis] 5 mg PO BID #60 tab 02/21/20 [Rx] Lisinopril [Zestril] 10 mg PO DAILY tab 02/21/20 [Rx] Metoprolol Tartrate [Lopressor] 50 mg PO BID #60 tab 02/21/20 [Rx] Follow up Appointment(s)/Referral(s): Summer Membreno MD [STAFF PHYSICIAN] - 1 Week [facility],Clinic [Primary Care Provider] - 1-2 days Activity/Diet/Wound Care/Special Instructions: fax new med list to [facility] [phone] Discharge Disposition: HOME SELF-CARE
[2020-02-21 15:36] LABS: Glucose,Whole Blood 200 mg/dL (75-99)
[2020-02-21 15:41] LABS: Glucose,Whole Blood 145 mg/dL (75-99)
[2020-02-21] MEDS ORDERED: APIXABAN 5 MG TAB PO SCH (21:00)
[2020-02-22] MEDS ORDERED: LISINOPRIL 10 MG TAB PO SCH (09:00)
[2020-02-22 09:33] VITALS: BP 120/72; PULSE 69; RESP 18; TEMP 98.1
--- NOTE | 2020-02-22 10:00 | ECHOF ---
Referral Reason:atrial fib MEASUREMENTS -------- HEIGHT: 177.8 cm WEIGHT: 101.2 kg BP: 116/70 RVIDd: 3.1 cm (< 3.3) IVSd: 1.4 cm (0.6 - 1.1) LVIDd: 3.8 cm (3.9 - 5.3) LVPWd: 1.3 cm (0.6 - 1.1) IVSs: 1.8 cm LVIDs: 3.0 cm LVPWs: 1.7 cm LA Diam: 3.9 cm (2.7 - 3.8) LAESV Index (A-L): 32.72 ml/m Ao Diam: 3.4 cm (2.0 - 3.7) AV Cusp: 2.0 cm (1.5 - 2.6) MV EXCURSION: 16.226 mm (> 18.000) MV EF SLOPE: 56 mm/s (70 - 150) EPSS: 0.6 cm AV maxP.29 mmHg AV meanP.00 mmHg RAP: 5.00 mmHg RVSP: 33.48 mmHg FINDINGS -------- Atrial fibrillation. This was a technically difficult study with suboptimal views. The left ventricular size is normal. There is moderate concentric left ventricular hypertrophy. O verall left ventricular systolic function is normal with, an EF between 55 - 60 %. The right ventricle is normal in size. LA is midly dilated 29-33ml/m2. The right atrial size is normal. 5.0mg of Lumason was utilized for enhancement of images There is moderate aortic valve sclerosis. There is mild aortic stenosis present. Peak/mean gradie nt across the Aortic Valve is 26.29mmHg / 16.00mmHg. Mild mitral annular calcification present. Mild mitral regurgitation is present. Mild tricuspid regurgitation present. There is no evidence of pulmonary hypertension. The right v entricular systolic pressure, as measured by Doppler, is 33.48mmHg. The pulmonic valve was not well visualized. There is no pulmonic regurgitation present. The aortic root size is normal. IVC Not well visulized. There is no pericardial effusion. CONCLUSIONS -------- 1. Atrial fibrillation. 2. There is moderate concentric left ventricular hypertrophy. 3. Overall left ventricular systolic function is normal with, an EF between 55 - 60 %. 4. LA is midly dilated 29-33ml/m2. 5. 5.0mg of Lumason was utilized for enhancement of images 6. There is moderate aortic valve sclerosis. 7. There is mild aortic stenosis present. 8. Peak/mean gradient across the Aortic Valve is 26.29mmHg / 16.00mmHg. 9. Mild mitral annular calcification present. 10. Mild mitral regurgitation is present. 11. Mild tricuspid regurgitation present. 12. There is no pericardial effusion. STEAMFITTER SUPERVISOR: Danni Baldwin RDCS
== END 2020-02-21 16:11 | disposition home or self-care (01) | DRG 310 ==
LOC: EC 15:18 → 3SCARD 18:45
PROVIDERS: ADMIT Hospitalist; ATTEND Hospitalist
DX: I48.0 Paroxysmal atrial fibrillation (principal); Z79.01 Long term (current) use of anticoagulants; D64.9 Anemia, unspecified; E11.40 Type 2 diabetes mellitus with diabetic neuropathy, unspecified; Z79.4 Long term (current) use of insulin; E78.5 Hyperlipidemia, unspecified; I10 Essential (primary) hypertension; I25.10 Atherosclerotic heart disease of native coronary artery without angina pectoris; J45.909 Unspecified asthma, uncomplicated; N40.0 Benign prostatic hyperplasia without lower urinary tract symptoms; Z79.02 Long term (current) use of antithrombotics/antiplatelets; Z79.51 Long term (current) use of inhaled steroids; Z79.82 Long term (current) use of aspirin; Z79.899 Other long term (current) drug therapy; Z87.891 Personal history of nicotine dependence; Z95.5 Presence of coronary angioplasty implant and graft; Z98.42 Cataract extraction status, left eye; Z98.41 Cataract extraction status, right eye; Z11.59 Encounter for screening for other viral diseases; Z90.49 Acquired absence of other specified parts of digestive tract
CPT/HCPCS: 36415; 71046; 80053; 82550; 82553; 83735; 84484; 85025; 85610; 85730; 93306; 94640; 99291

== ENCOUNTER 2020-04-25 23:22 | Emergency (ER) | payer MEDICARE, OTHER ==
[2020-04-26] MEDS ORDERED: ENOXAPARIN 100 MG/ML SYRINGE SQ STA (00:08)
[2020-04-26] MEDS ORDERED: METOPROLOL TARTRATE 5 MG/5 ML VIAL IVP STA (00:10)
--- NOTE | 2020-04-26 00:14 | ED ---
Chest Pain HPI - General Chief Complaint: Chest Pain Stated Complaint: chest pain Time Seen by Provider: 04/25/20 23:47 Source: patient, family Mode of arrival: ambulatory Limitations: no limitations - History of Present Illness Initial Comments: Patient is 69-year-old man who presents to be evaluated for left chest pain. States that this developed probably 2 hours ago while he was playing solitaire on computer. He also noticed that his heart was at times racing. He states he was recently diagnosed with atrial fibrillation and the [facility] had sent him a 30 day supply medications which ran out yesterday. Prior to that he had been on metoprolol and eiliquis. The patient states that his pain had resolved by time he arrived here. He denies any anginal symptoms, including no dyspnea, diaphoresis, nausea or vomiting. MD Complaint: chest pain Onset/Timin -: hour(s) Onset: during rest Pain Location: left chest Pain Radiation: none Quality: heaviness Consistency: now resolved Improves With: nothing Worsens With: nothing Treatments Prior to Arrival: none - Related Data Home Medications Medication Instructions Recorded Confirmed Budesonide-Formot 160-4.5 Mcg 2 puff INHALATION RT-BID 10/05/14 02/20/20 [Symbicort 160-4.5 Mcg Inhaler] Montelukast [Singulair] 10 mg PO DAILY 10/05/14 02/20/20 glipiZIDE [Glucotrol] 20 mg PO BID 10/05/14 02/20/20 Aspirin [Adult Low Dose Aspirin EC] 81 mg PO DAILY 08/31/17 02/20/20 Insulin Glargine [Lantus] 40 unit SQ DAILY 08/31/17 02/20/20 Tamsulosin HCl [Flomax] 0.8 mg PO DAILY 08/31/17 02/20/20 Rosuvastatin Calcium [Crestor] 20 mg PO DAILY 02/20/20 02/20/20 metFORMIN HCL 1,000 mg PO BID 02/20/20 02/20/20 Previous Rx's Medication Instructions Recorded Apixaban [Eliquis] 5 mg PO BID #60 tab 02/21/20 Metoprolol Tartrate [Lopressor] 50 mg PO BID #60 tab 02/21/20 lisinopriL [Zestril] 10 mg PO DAILY tab 02/21/20 Apixaban [Eliquis] 5 mg PO BID #60 tab 04/26/20 Metoprolol Tartrate [Lopressor] 50 mg PO BID #60 tab 04/26/20 Allergies Allergy/AdvReac Type Severity Reaction Status Date / Time No Known Allergies Allergy Verified 04/25/20 23:29 Review of Systems ROS Statement: Those systems with pertinent positive or pertinent negative responses have been documented in the HPI. ROS Other: All systems not noted in ROS Statement are negative. Constitutional: Denies: fever, chills, weakness Respiratory: Denies: cough, dyspnea Cardiovascular: Reports: as per HPI, chest pain, palpitations. Denies: orthopnea, edema, syncope Gastrointestinal: Denies: abdominal pain, nausea, vomiting, melena, hematochezia Genitourinary: Denies: dysuria, hematuria Musculoskeletal: Denies: back pain Skin: Denies: rash Neurological: Denies: headache, weakness Past Medical History Past Medical History: Atrial Fibrillation, Asthma, Diabetes Mellitus, Hyperlipidemia, Hypertension Additional Past Medical History / Comment(s): neuropothy, pancreatitis History of Any Multi-Drug Resistant Organisms: None Reported Past Surgical History: Appendectomy, Heart Catheterization With Stent, Orthopedic Surgery Additional Past Surgical History / Comment(s): right hand surgery. BILAT CATARACT. BILAT RK SX. COLONOSCOPY Past Anesthesia/Blood Transfusion Reactions: No Reported Reaction Date of Last Stent Placement:: 2015 Past Psychological History: No Psychological Hx Reported Smoking Status: Former smoker Past Alcohol Use History: Occasional Past Drug Use History: None Reported - Past Family History Mother Family Medical History: No Reported History General Exam Limitations: no limitations General appearance: alert, in no apparent distress Head exam: Present: atraumatic, normocephalic Eye exam: Present: normal appearance. Absent: scleral icterus, conjunctival injection ENT exam: Present: normal oropharynx Respiratory exam: Present: normal lung sounds bilaterally. Absent: respiratory distress, wheezes, rales, rhonchi, stridor Cardiovascular Exam: Present: tachycardia, irregular rhythm, normal heart sounds. Absent: systolic murmur, diastolic murmur, rubs, gallop GI/Abdominal exam: Present: soft. Absent: distended, tenderness, guarding, rebound, rigid, mass Extremities exam: Present: normal inspection, normal capillary refill. Absent: pedal edema, calf tenderness Back exam: Present: normal inspection. Absent: CVA tenderness (R), CVA tenderness (L) Neurological exam: Present: alert Skin exam: Present: warm, dry, intact, normal color. Absent: rash Course Vital Signs 04/25/20 04/26/20 23:25 01:00 Temperature 98.8 F 98 F Pulse Rate 122 H 89 Respiratory 20 18 Rate Blood Pressure 184/104 124/94 O2 Sat by Pulse 97 97 Oximetry Disposition Clinical Impression: Atrial fibrillation, Hyperglycemia, Chest pain Disposition: HOME SELF-CARE Condition: Good Instructions (If sedation given, give patient instructions): A-fib (Atrial Fibrillation) (DC), Diabetic Hyperglycemia (ED) Prescriptions: Apixaban [Eliquis] 5 mg PO BID #60 tab Metoprolol Tartrate [Lopressor] 50 mg PO BID #60 tab Is patient prescribed a controlled substance at d/c from ED?: No Referrals: [facility],Clinic [Primary Care Provider] - 1-2 days
[2020-04-26 00:32] LABS: Basophils # (A) 0.1 k/uL (0-0.2); Basophils % (A) 1 %; Eosinophils # (A) 0.2 k/uL (0-0.7); Eosinophils % (A) 3 %; HCT 39.4 % (39.0-53.0); HGB 13.1 gm/dL (13.0-17.5); Lymphocytes # (A) 1.3 k/uL (1.0-4.8); Lymphocytes % (A) 18 %; MCH 27.9 pg (25.0-35.0); MCHC 33.3 g/dL (31.0-37.0); MCV 83.8 fL (80.0-100.0); Mean Platelet Volume 7.5; Monocytes # (A) 0.5 k/uL (0-1.0); Monocytes % (A) 7 %; Neutrophils # (A) 4.8 k/uL (1.3-7.7); Neutrophils % (A) 69 %; Platelet Count 252 k/uL (150-450); RDW 13.8 % (11.5-15.5); WBC 7.1 k/uL (3.8-10.6)
[2020-04-26 00:41] LABS: African American GFR (CKD) >90 (>60 ml/min/1.73 sqM); Albumin 4.3 g/dL (3.5-5.0); Anion Gap 9 mmol/L; Calcium 9.4 mg/dL (8.4-10.2); Carbon Dioxide 25 mmol/L (22-30); Chloride 102 mmol/L (98-107); Glucose 359 mg/dL (74-99); Magnesium 1.8 mg/dL (1.6-2.3); Non-African American GFR(CKD) 88 (>60 ml/min/1.73 sqM); Sodium 136 mmol/L (137-145); Total Bilirubin 0.4 mg/dL (0.2-1.3); Total Protein 6.8 g/dL (6.3-8.2)
[2020-04-26 00:54] LABS: AST 26 U/L (17-59); Blood Urea Nitrogen 19 mg/dL (9-20); Potassium 4.3 mmol/L (3.5-5.1)
[2020-04-26 00:55] LABS: ALT 23 U/L (4-49); Alkaline Phosphatase 63 U/L (38-126)
--- NOTE | 2020-04-26 01:13 | XR ---
EXAMINATION TYPE: XR chest 2V DATE OF EXAM: 04/26/2020 COMPARISON: 02/20/2020 HISTORY: Chest pain TECHNIQUE: FINDINGS: There is some mild atelectasis at the lung bases. There is no heart failure. Heart size is normal. There are chest leads. Bony thorax is intact. IMPRESSION: Mild atelectasis at the lung bases similar to old exam. Normal heart.
[2020-04-26 01:17] LABS: INR 0.9 (<1.2); Partial Thromboplastin Time 25.3 sec (22.0-30.0); Prothrombin Time 9.6 sec (9.0-12.0)
[2020-04-26 01:19] VITALS: PULSE 89
[2020-04-26] MEDS ORDERED: INSULIN REGULAR 100 UNIT/ML VIAL SQ STA (01:19)
[2020-04-26] MEDS ORDERED: SODIUM CHLORIDE 0.9% 1,000 ML IV ONE (01:19)
[2020-04-26 02:32] VITALS: BP 126/79; RESP 19; TEMP 98.2
== END 2020-04-26 02:10 | disposition home or self-care (01) ==
LOC: EC 23:22
DX: I48.91 Unspecified atrial fibrillation (principal); E11.65 Type 2 diabetes mellitus with hyperglycemia; J45.909 Unspecified asthma, uncomplicated; E78.5 Hyperlipidemia, unspecified; I10 Essential (primary) hypertension; E11.40 Type 2 diabetes mellitus with diabetic neuropathy, unspecified; Z79.4 Long term (current) use of insulin; Z79.51 Long term (current) use of inhaled steroids; Z79.899 Other long term (current) drug therapy; Z79.82 Long term (current) use of aspirin; Z95.5 Presence of coronary angioplasty implant and graft; Z87.891 Personal history of nicotine dependence
CPT/HCPCS: 36415; 93005; 83880; 80053; 83735; 84484; 85025; 85610; 85730; 71046; 96374; 99285; J1650

== ENCOUNTER 2020-07-04 01:12 | Emergency (ER) | payer MEDICARE, OTHER ==
[2020-07-04 01:20] VITALS: TEMP 97.9
--- NOTE | 2020-07-04 01:33 | ED ---
Chest Pain HPI - General Chief Complaint: Chest Pain Stated Complaint: Chest pain Time Seen by Provider: 07/04/20 01:32 Source: patient, RN notes reviewed, old records reviewed Mode of arrival: ambulatory Limitations: no limitations - History of Present Illness Initial Comments: This is a 68-year-old male with significant history of heart disease and one prior stent recent diagnosis of atrial fibrillation on [place]. Patient comes in with chest pain today which she believes was heartburn secondary to [place] 8. I did again like well for sleep some sweating and shortness of breath. These are symptoms that are persistent. But now resolved on arrival to the ER. Again strong cardiac history but otherwise right now asymptomatic MD Complaint: chest pain -: hour(s) Onset: during rest Pain Location: substernal, epigastric Pain Radiation: none Severity: moderate Severity scale (1-10): 4 Quality: tightness, heaviness Consistency: constant, now resolved Improves With: nitroglycerin Worsens With: nothing Anginal Symptoms: diaphoresis, dyspnea Other Symptoms: palpitations Treatments Prior to Arrival: none - Related Data Home Medications Medication Instructions Recorded Confirmed Budesonide-Formot 160-4.5 Mcg 2 puff INHALATION RT-BID 10/05/14 02/20/20 [Symbicort 160-4.5 Mcg Inhaler] Montelukast [Singulair] 10 mg PO DAILY 10/05/14 02/20/20 glipiZIDE [Glucotrol] 20 mg PO BID 10/05/14 02/20/20 Aspirin [Adult Low Dose Aspirin EC] 81 mg PO DAILY 08/31/17 02/20/20 Insulin Glargine [Lantus] 40 unit SQ DAILY 08/31/17 02/20/20 Tamsulosin HCl [Flomax] 0.8 mg PO DAILY 08/31/17 02/20/20 Rosuvastatin Calcium [Crestor] 20 mg PO DAILY 02/20/20 02/20/20 metFORMIN HCL 1,000 mg PO BID 02/20/20 02/20/20 Previous Rx's Medication Instructions Recorded Apixaban [Eliquis] 5 mg PO BID #60 tab 02/21/20 Metoprolol Tartrate [Lopressor] 50 mg PO BID #60 tab 02/21/20 lisinopriL [Zestril] 10 mg PO DAILY tab 02/21/20 Apixaban [Eliquis] 5 mg PO BID #60 tab 04/26/20 Metoprolol Tartrate [Lopressor] 50 mg PO BID #60 tab 04/26/20 Allergies Allergy/AdvReac Type Severity Reaction Status Date / Time No Known Allergies Allergy Verified 07/04/20 01:20 Review of Systems ROS Statement: Those systems with pertinent positive or pertinent negative responses have been documented in the HPI. ROS Other: All systems not noted in ROS Statement are negative. EKG Findings - EKG Comments: EKG Findings:: EKG is sinus rhythm 64 AL 284 QRS 90 QTC 451 Past Medical History Past Medical History: Atrial Fibrillation, Asthma, Diabetes Mellitus, Hyperlipidemia, Hypertension Additional Past Medical History / Comment(s): neuropothy, pancreatitis History of Any Multi-Drug Resistant Organisms: None Reported Past Surgical History: Appendectomy, Heart Catheterization With Stent, Orthopedic Surgery Additional Past Surgical History / Comment(s): right hand surgery. BILAT CATARACT. BILAT RK SX. COLONOSCOPY Past Anesthesia/Blood Transfusion Reactions: No Reported Reaction Date of Last Stent Placement:: 2015 Past Psychological History: No Psychological Hx Reported Smoking Status: Former smoker Past Alcohol Use History: Occasional Past Drug Use History: None Reported - Past Family History Mother Family Medical History: No Reported History General Exam Limitations: no limitations General appearance: alert, in no apparent distress Head exam: Present: atraumatic, normocephalic, normal inspection Eye exam: Present: normal appearance, PERRL, EOMI. Absent: scleral icterus, conjunctival injection, periorbital swelling ENT exam: Present: normal exam, mucous membranes moist Neck exam: Present: normal inspection. Absent: tenderness, meningismus, lymphadenopathy Respiratory exam: Present: normal lung sounds bilaterally. Absent: respiratory distress, wheezes, rales, rhonchi, stridor Cardiovascular Exam: Present: regular rate, normal rhythm, normal heart sounds. Absent: systolic murmur, diastolic murmur, rubs, gallop, clicks GI/Abdominal exam: Present: soft, normal bowel sounds. Absent: distended, tenderness, guarding, rebound, rigid Extremities exam: Present: normal inspection, full ROM, normal capillary refill. Absent: tenderness, pedal edema, joint swelling, calf tenderness Back exam: Present: normal inspection Neurological exam: Present: alert, oriented X3, CN II-XII intact Psychiatric exam: Present: normal affect, normal mood Skin exam: Present: warm, dry, intact, normal color. Absent: rash Course Vital Signs 07/04/20 07/04/20 01:15 01:32 Temperature 97.9 F Pulse Rate 63 76 Respiratory 18 16 Rate Blood Pressure 175/76 170/83 O2 Sat by Pulse 98 98 Oximetry - Reevaluation(s) Reevaluation #1: 07/04/20 03:34 Medical records reviewed Reevaluation #2: 07/04/20 03:34 Resting comfortably with no chest pain here in the ER Reevaluation #3: 07/04/20 03:34 Patient informed of results and questions answered Reevaluation #4: 07/04/20 03:34 Patient advised for admission which she refuses Chest Pain MDM - [facility] 70 male with history of heart disease and ACS coming in with chest pain. EKG and troponin are unremarkable here in the ER patient refusing admission and will be discharged home Disposition Clinical Impression: Chest pain Disposition: HOME SELF-CARE Condition: Undetermined Instructions (If sedation given, give patient instructions): Chest Pain (ED) Is patient prescribed a controlled substance at d/c from ED?: No Referrals: [facility],Clinic [Primary Care Provider] - 1-2 days
[2020-07-04 01:48] LABS: Basophils # (A) 0.1 k/uL (0-0.2); Basophils % (A) 1 %; Eosinophils # (A) 0.2 k/uL (0-0.7); Eosinophils % (A) 3 %; HCT 36.7 % (39.0-53.0); HGB 12.5 gm/dL (13.0-17.5); Lymphocytes # (A) 1.4 k/uL (1.0-4.8); Lymphocytes % (A) 23 %; MCH 28.1 pg (25.0-35.0); MCV 82.8 fL (80.0-100.0); Monocytes # (A) 0.4 k/uL (0-1.0); Monocytes % (A) 7 %; Neutrophils # (A) 3.9 k/uL (1.3-7.7); Neutrophils % (A) 64 %; Platelet Count 247 k/uL (150-450); RBC 4.44 m/uL (4.30-5.90); RDW 13.9 % (11.5-15.5); WBC 6.1 k/uL (3.8-10.6)
[2020-07-04 01:53] LABS: ALT 21 U/L (4-49); AST 21 U/L (17-59); African American GFR (CKD) >90 (>60 ml/min/1.73 sqM); Alkaline Phosphatase 66 U/L (38-126); Anion Gap 6 mmol/L; Blood Urea Nitrogen 18 mg/dL (9-20); Calcium 9.2 mg/dL (8.4-10.2); Carbon Dioxide 27 mmol/L (22-30); Chloride 104 mmol/L (98-107); Glucose 289 mg/dL (74-99); INR 0.9 (<1.2); Lipase 104 U/L (23-300); Non-African American GFR(CKD) 78 (>60 ml/min/1.73 sqM); Partial Thromboplastin Time 27.3 sec (22.0-30.0); Potassium 4.3 mmol/L (3.5-5.1); Prothrombin Time 9.6 sec (9.0-12.0); Sodium 137 mmol/L (137-145); Total Bilirubin 0.4 mg/dL (0.2-1.3); Total Protein 6.6 g/dL (6.3-8.2)
--- NOTE | 2020-07-04 02:10 | XR ---
EXAM: XR Chest, 2 Views CLINICAL HISTORY: ITS.REASON XR Reason: Chest Pain TECHNIQUE: Frontal and lateral views of the chest. COMPARISON: April 26, 2020 FINDINGS: Lungs: There is linear scarring in the left lung base, similar to previous. No acute airspace infiltrate is identified. Pleural space: Unremarkable. No pneumothorax. Heart: The cardiac silhouette is mildly enlarged. Mediastinum: Unremarkable. Bones/joints: Mild to moderate osteophytosis throughout the mid to lower thoracic spine, similar to previous. Upper abdomen: No pneumoperitoneum under the diaphragm. IMPRESSION: Mild cardiomegaly and left basilar scarring, similar to previous. No acute process or acute change identified.
[2020-07-04 03:46] VITALS: BP 142/65; PULSE 67; RESP 17
== END 2020-07-04 03:43 | disposition home or self-care (01) ==
LOC: EC 01:12
DX: R07.9 Chest pain, unspecified (principal); R00.2 Palpitations; R06.00 Dyspnea, unspecified; I48.91 Unspecified atrial fibrillation; J45.909 Unspecified asthma, uncomplicated; I10 Essential (primary) hypertension; E78.5 Hyperlipidemia, unspecified; E11.9 Type 2 diabetes mellitus without complications; Z79.51 Long term (current) use of inhaled steroids; Z79.82 Long term (current) use of aspirin; Z79.899 Other long term (current) drug therapy; Z79.4 Long term (current) use of insulin; Z95.5 Presence of coronary angioplasty implant and graft; Z87.891 Personal history of nicotine dependence
CPT/HCPCS: 36415; 71046; 80053; 83690; 83735; 83880; 84484; 85025; 85610; 85730; 93005; 99285

== ENCOUNTER 2020-10-23 15:26 | Emergency (ER) | payer MEDICARE, OTHER ==
--- NOTE | 2020-10-23 16:48 | US ---
EXAMINATION TYPE: US venous doppler duplex LE RT DATE OF EXAM: 10/23/2020 4:17 PM COMPARISON: NONE CLINICAL HISTORY: r/o dvt. edema SIDE PERFORMED: Right TECHNIQUE: The lower extremity deep venous system is examined utilizing real time linear array sonog adriana with graded compression, doppler sonography and color-flow sonography. VESSELS IMAGED: Common Femoral Vein Deep Femoral Vein Greater Saphenous Vein * Femoral Vein Popliteal Vein Small Saphenous Vein * Proximal Calf Veins (* superficial vessels) Grayscale, color doppler, spectral doppler imaging performed of the deep veins of the right lower ext remity. There is normal flow, compressibility, vascular waveforms. Right Leg: Negative for DVT IMPRESSION: No ultrasound evidence for acute DVT in the right lower extremity.
--- NOTE | 2020-10-23 17:18 | ED ---
Extremity Problem HPI - General Chief complaint: Extremity Problem,Nontraumatic Stated complaint: Leg Swelling Time Seen by Provider: 10/23/20 16:03 Source: patient Mode of arrival: ambulatory Limitations: no limitations - History of Present Illness Initial comments: 70-year-old male presents to emergency room with a chief complaint of leg swelling. Patient reports for the past 2 weeks she developed bilateral lower extremity edema. Right side greater versus left. He denies any calf tenderness. States he saw his primary care physician at the [facility] who advised him to come to emergency department for DVT rule out. Patient denies any chest pain or shortness of breath. He denies one-sided weakness or paresthesias. Denies any numbness or tingling in the lower extremities. Denies changes in urine output. Denies any hematuria. - Related Data Home Medications Medication Instructions Recorded Confirmed Budesonide-Formot 160-4.5 Mcg 2 puff INHALATION RT-BID 10/05/14 10/23/20 [Symbicort 160-4.5 Mcg Inhaler] Montelukast [Singulair] 10 mg PO HS 10/05/14 10/23/20 glipiZIDE [Glucotrol] 20 mg PO BID 10/05/14 10/23/20 Aspirin [Adult Low Dose Aspirin EC] 81 mg PO DAILY 08/31/17 10/23/20 Tamsulosin HCl [Flomax] 0.8 mg PO DAILY 08/31/17 10/23/20 Rosuvastatin Calcium [Crestor] 40 mg PO HS 02/20/20 10/23/20 Albuterol Sulfate [Proair Hfa] 2 puff INHALATION RT-Q6H PRN 10/23/20 10/23/20 Insulin Glargine,Hum.rec.anlog 40 unit SQ DAILY 10/23/20 10/23/20 [Lantus Solostar] lisinopriL [Zestril] 20 mg PO DAILY 10/23/20 10/23/20 metFORMIN HCL [Glucophage] 1,000 mg PO BID 10/23/20 10/23/20 Previous Rx's Medication Instructions Recorded Apixaban [Eliquis] 5 mg PO BID #60 tab 04/26/20 Metoprolol Tartrate [Lopressor] 50 mg PO BID #60 tab 04/26/20 Allergies Allergy/AdvReac Type Severity Reaction Status Date / Time No Known Allergies Allergy Verified 10/23/20 16:42 Review of Systems ROS Statement: Those systems with pertinent positive or pertinent negative responses have been documented in the HPI. ROS Other: All systems not noted in ROS Statement are negative. Past Medical History Past Medical History: Atrial Fibrillation, Asthma, Diabetes Mellitus, Hyperlipidemia, Hypertension Additional Past Medical History / Comment(s): neuropothy, pancreatitis History of Any Multi-Drug Resistant Organisms: None Reported Past Surgical History: Appendectomy, Heart Catheterization With Stent, Orthopedic Surgery Additional Past Surgical History / Comment(s): right hand surgery. BILAT CATARACT. BILAT RK SX. COLONOSCOPY Past Anesthesia/Blood Transfusion Reactions: No Reported Reaction Date of Last Stent Placement:: 2015 Past Psychological History: No Psychological Hx Reported Smoking Status: Former smoker Past Alcohol Use History: Occasional Past Drug Use History: None Reported - Past Family History Mother Family Medical History: No Reported History General Exam Limitations: no limitations General appearance: alert, in no apparent distress Head exam: Present: atraumatic, normocephalic, normal inspection Eye exam: Present: normal appearance, PERRL, EOMI Pupils: Present: normal accommodation ENT exam: Present: normal exam, normal oropharynx, mucous membranes moist Neck exam: Present: normal inspection, full ROM. Absent: tenderness Respiratory exam: Present: normal lung sounds bilaterally. Absent: respiratory distress Cardiovascular Exam: Present: regular rate, normal rhythm, normal heart sounds Extremities exam: Present: normal inspection, full ROM, normal capillary refill, pedal edema (+2 bilateral lower extremity edema. Right > left.), other (Palpable DP and PT bilaterally.). Absent: tenderness (Tenderness), joint swelling, calf tenderness (Negative Homans bilaterally) Back exam: Present: normal inspection, full ROM Neurological exam: Present: alert, oriented X3, normal gait Psychiatric exam: Present: normal affect, normal mood Skin exam: Present: warm, dry, intact, normal color Course Vital Signs 10/23/20 10/23/20 15:46 18:23 Temperature 98.2 F 98.1 F Pulse Rate 64 66 Respiratory 18 17 Rate Blood Pressure 159/69 146/78 O2 Sat by Pulse 96 98 Oximetry Medical Decision Making - Medical Decision Making 70-year-old male presents to emergency Department with chief complaint of leg swelling. Patient was sent from his [place] clinic for DVT rule out. Bilateral lower extremity Doppler ultrasound reveals no signs of a DVT. He does not have any chest pain or shortness of breath. His primary care physician is doing further workup. Vitals within normal limits. Strict return parameters were thoroughly discussed patient was upsetting agreeable. Case discussed with Dr. Powell. Disposition Clinical Impression: Lower extremity edema Disposition: HOME SELF-CARE Condition: Stable Instructions (If sedation given, give patient instructions): Leg Edema (ED) Additional Instructions: Please return to the Emergency Department if symptoms worsen or any other concerns. Is patient prescribed a controlled substance at d/c from ED?: No Referrals: [facility],Clinic [Primary Care Provider] - 1-2 days Time of Disposition: 17:51
--- NOTE | 2020-10-23 17:34 | US ---
EXAMINATION TYPE: US venous doppler duplex LE LT DATE OF EXAM: 10/23/2020 5:24 PM COMPARISON: Right lower extremity venous ultrasound performed earlier today CLINICAL HISTORY: r/o dvt. mild swelling in left leg, no pain, no h/o dvt SIDE PERFORMED: Left TECHNIQUE: The lower extremity deep venous system is examined utilizing real time linear array sonog adriana with graded compression, doppler sonography and color-flow sonography. VESSELS IMAGED: Common Femoral Vein Deep Femoral Vein Greater Saphenous Vein * Femoral Vein- duplicate mid fv Popliteal Vein Small Saphenous Vein * Proximal Calf Veins (* superficial vessels) Left Leg: Negative for DVT Grayscale, color doppler, spectral doppler imaging performed of the deep veins of the left lower extr emity. There is normal flow, compressibility, vascular waveforms. IMPRESSION: No ultrasound evidence for acute DVT in the left lower extremity.
[2020-10-23 18:24] VITALS: BP 146/78; PULSE 66; RESP 17; TEMP 98.1
== END 2020-10-23 18:23 | disposition home or self-care (01) ==
LOC: EC 15:26
DX: R60.0 Localized edema (principal); I48.91 Unspecified atrial fibrillation; J45.909 Unspecified asthma, uncomplicated; E11.9 Type 2 diabetes mellitus without complications; E78.5 Hyperlipidemia, unspecified; I10 Essential (primary) hypertension; Z95.5 Presence of coronary angioplasty implant and graft; Z90.49 Acquired absence of other specified parts of digestive tract; Z87.891 Personal history of nicotine dependence; Z79.4 Long term (current) use of insulin; Z79.01 Long term (current) use of anticoagulants; Z79.82 Long term (current) use of aspirin
CPT/HCPCS: 99283

== ENCOUNTER 2022-02-24 06:48 | Day surgery (SDC) | payer MEDICARE, OTHER ==
[2022-02-19 13:59] VITALS: BMI 29.8
[2022-02-24 08:07] VITALS: TEMP 97
[2022-02-24 08:10] LABS: Glucose,Whole Blood 152 mg/dL (70-110)
[2022-02-24] MEDS ORDERED: PROPOFOL 10 MG/ML 20 ML VIAL IV ONE (08:41)
--- NOTE | 2022-02-24 09:07 | P.PCN ---
Date of Procedure: 02/24/22 Procedure(s) Performed: BRIEF HISTORY: Patient is a 71-year-old pleasant white male scheduled for an elective colonoscopy as a part of screening for colorectal neoplasia. PROCEDURE PERFORMED: Colonoscopy with snare polypectomy. PREOPERATIVE DIAGNOSIS: Screening for colon cancer. IV sedation per Anesthesia. PROCEDURE: After informed consent was obtained, the patient, was brought into the endoscopy unit. IV sedation was administered by Anesthesia under continuous monitoring. Digital rectal examination was normal. Initially the Olympus CF-160 flexible video colonoscope was then inserted in the rectum, gradually advanced into the cecum without any difficulty. Careful examination was performed as the scope was gradually being withdrawn. Ileocecal valve and the appendiceal orifice were visualized and appeared normal. Prep was excellent. Mucosa of the cecum, ascending colon, transverse colon, appeared normal. In the descending colon there was a 5 mm polyp that was removed by snare polypectomy. Rest of the descending colon, sigmoid colon, and rectum appeared normal. Retroflexion was performed in the rectum and no lesions were seen. The patient tolerated the procedure well. IMPRESSION: 5 mm descending colon polyp status post polypectomy Rest of the colon appeared normal RECOMMENDATIONS: Findings of this examination were discussed with the patient well as his family. He was advised to follow with the biopsy results. If the biopsy reveals adenoma he can have a repeat colonoscopy in 5 years..
[2022-02-24 09:30] VITALS: BP 154/92; PULSE 88; RESP 17
== END 2022-02-24 09:47 | disposition home or self-care (01) ==
LOC: ORWHC2ENDO 06:48
PROVIDERS: ATTEND Internal Medicine Gastroenterology
DX: Z12.11 Encounter for screening for malignant neoplasm of colon (principal); D12.4 Benign neoplasm of descending colon; I48.91 Unspecified atrial fibrillation; I10 Essential (primary) hypertension; E78.5 Hyperlipidemia, unspecified; Z87.891 Personal history of nicotine dependence; M19.90 Unspecified osteoarthritis, unspecified site; Z97.2 Presence of dental prosthetic device (complete) (partial); E11.9 Type 2 diabetes mellitus without complications; Z79.4 Long term (current) use of insulin; Z79.01 Long term (current) use of anticoagulants; Z79.84 Long term (current) use of oral hypoglycemic drugs; Z79.899 Other long term (current) drug therapy
CPT/HCPCS: 88305; 45385; J2704

== ENCOUNTER 2022-07-20 09:46 | Inpatient (IN) | payer OTHER, MEDICARE ==
[2022-07-20] MEDS ORDERED: FUROSEMIDE 10 MG/ML 4 ML VIAL IV STA (10:05)
--- NOTE | 2022-07-20 10:14 | ED ---
General Adult HPI - General Chief complaint: Shortness of Breath Stated complaint: SOB Time Seen by Provider: 07/20/22 10:00 Source: patient, EMS, RN notes reviewed, old records reviewed Mode of arrival: EMS Limitations: no limitations - History of Present Illness Initial comments: This is a 72-year-old male who presents to the emergency department complaining of difficulty breathing. Patient states he recently had open heart surgery approximately 2 weeks ago. Surgery was for an aortic valve replacement and he also at the time had an ablation done but was unsuccessful. Patient states since then he's been getting more swelling in the legs and difficulty breathing. Patient denies any chest pain or palpitations. Patient denies any fevers chil ls or cough. Patient denies any lightheadedness dizziness. Patient denies any headache patient has numbness weakness per patient denies abdominal pain patient denies nausea vomiting diarrhea. Patient states the swelling is legs his slowly increased. Eyes any calf pain. Patient states she's on eliquis. - Related Data Home Medications Medication Instructions Recorded Confirmed Montelukast [Singulair] 10 mg PO DAILY 10/05/14 02/19/22 Tamsulosin HCl [Flomax] 0.8 mg PO DAILY 08/31/17 02/19/22 Insulin Glargine,Hum.rec.anlog 40 unit SQ QAM 10/23/20 02/19/22 [Lantus Solostar] lisinopriL [Zestril] 20 mg PO QAM 10/23/20 02/19/22 Apixaban [Eliquis] 10 mg PO DAILY 02/19/22 02/19/22 DULoxetine HCL [Cymbalta] 30 mg PO QAM 02/19/22 02/19/22 Dulera (Unknown Dose) 2 puff INHALATION BID 02/19/22 02/19/22 Empagliflozin [Jardiance] 10 mg PO DAILY 02/19/22 02/19/22 Finasteride [Proscar] 5 mg PO DAILY 02/19/22 02/19/22 Insulin Aspart [NovoLOG] 10 units SQ TID 02/19/22 02/19/22 Omeprazole (Unknown Dose) 1 tab PO QAM 02/19/22 02/19/22 Rosuvastatin [Crestor] 20 mg PO DAILY 02/19/22 02/19/22 metFORMIN HCL [Glucophage] 1,000 mg PO BID 02/19/22 02/19/22 Previous Rx's Medication Instructions Recorded Metoprolol Tartrate [Lopressor] 50 mg PO BID #60 tab 04/26/20 Allergies Allergy/AdvReac Type Severity Reaction Status Date / Time No Known Allergies Allergy Verified 02/19/22 14:00 Review of Systems ROS Statement: Those systems with pertinent positive or pertinent negative responses have been documented in the HPI. ROS Other: All systems not noted in ROS Statement are negative. Past Medical History Past Medical History: Atrial Fibrillation, Asthma, Diabetes Mellitus, Hearing Disorder / Deafness, Hyperlipidemia, Hypertension, Osteoarthritis (OA) Additional Past Medical History / Comment(s): Neuropathy, hx pancreatitis, bilateral hearing aid use. History of Any Multi-Drug Resistant Organisms: None Reported Past Surgical History: Appendectomy, Heart Catheterization With Stent, Orthopedic Surgery Additional Past Surgical History / Comment(s): Right hand surgery, bilateral cataract surgery, bilateral eye surgery, colonoscopy. Past Anesthesia/Blood Transfusion Reactions: No Reported Reaction Date of Last Stent Placement:: 2015 Past Psychological History: No Psychological Hx Reported Smoking Status: Former smoker Past Alcohol Use History: Occasional Past Drug Use History: None Reported - Past Family History Mother Family Medical History: No Reported History General Exam - General Exam Comments Initial Comments: GENERAL: Patient is well-developed and well-nourished. Patient is nontoxic and well- hydrated and is in mild distress. ENT: Neck is soft and supple. No significant lymphadenopathy is noted. Oropharynx is clear. Moist mucous membranes. Neck has full range of motion without eliciting any pain. EYES: The sclera were anicteric and conjunctiva were pink and moist. Extraocular movements were intact and pupils were equal round and reactive to light. E yelids were unremarkable. PULMONARY: Unlabored respirations. Good breath sounds bilaterally. Patient has crackles in the bases.. CARDIOVASCULAR: Patient has no regularly irregular heartbeat. Strong the chest is healing nicely. ABDOMEN: Soft and nontender with normal bowel sounds. SKIN: Skin is clear with no lesions or rashes and otherwise unremarkable. NEUROLOGIC: Patient is alert and oriented x3. Cranial nerves II through XII are grossly intact. Motor and sensory are also intact. Normal speech, volume and content. Symmetrical smile. MUSCULOSKELETAL: Normal extremities with adequate strength and full range of motion. 2+ edema LYMPHATICS: No significant lymphadenopathy is noted PSYCHIATRIC: Normal psychiatric evaluation. Limitations: no limitations Course Vital Signs 07/20/22 09:51 Temperature 97.8 F Pulse Rate 107 H Respiratory 18 Rate Blood Pressure 142/92 O2 Sat by Pulse 100 Oximetry Medical Decision Making - Medical Decision Making I interpreted EKG EKG shows atrial fibrillation with rapid ventricular response at 107 bpm QRS is 96 QT interval 357 QTC is 420. Patient's EKG shows no ST segment elevation or depression. Chest x-ray was ordered by me. Chest x-ray shows bilateral pleural effusions and cardiomegaly. Cephalization. Consistent with pulmonary edema. Patient received Lasix in the emergency department. Family and patient is requesting to stay at our facility. I spoke with sheet agreed to accept the patient I sent the patient I wrote admitting orders. Patient will have repeat CBCs done - Lab Data Result diagrams: 07/20/22 10:41 07/20/22 10:41 Lab Results 07/20/22 07/20/22 07/20/22 Range/Units 10:41 10:41 10:41 WBC 12.6 H (3.8-10.6) k/uL RBC 3.16 L (4.30-5.90) m/uL Hgb 7.7 L (13.0-17.5) gm/dL Hct 25.0 L (39.0-53.0) % MCV 79.4 L (80.0-100.0) fL MCH 24.4 L (25.0-35.0) pg MCHC 30.7 L (31.0-37.0) g/dL RDW 17.2 H (11.5-15.5) % Plt Count 472 H (150-450) k/uL MPV 7.2 Neutrophils % 90 % Lymphocytes % 4 % Monocytes % 5 % Eosinophils % 1 % Basophils % 0 % Neutrophils # 11.3 H (1.3-7.7) k/uL Lymphocytes # 0.5 L (1.0-4.8) k/uL Monocytes # 0.6 (0-1.0) k/uL Eosinophils # 0.1 (0-0.7) k/uL Basophils # 0.0 (0-0.2) k/uL Hypochromasia Marked Poikilocytosis Slight Anisocytosis Slight Microcytosis Slight PT 11.1 (9.0-12.0) sec INR 1.1 (<1.2) APTT 27.3 (22.0-30.0) sec Sodium 137 (137-145) mmol/L Potassium 5.3 H (3.5-5.1) mmol/L Chloride 102 (98-107) mmol/L Carbon Dioxide 27 (22-30) mmol/L Anion Gap 8 mmol/L BUN 37 H (9-20) mg/dL Creatinine 1.71 H (0.66-1.25) mg/dL Est GFR (CKD-EPI)AfAm 45 (>60 ml/min/1.73 sqM) Est GFR (CKD-EPI)NonAf 39 (>60 ml/min/1.73 sqM) Glucose 126 H (74-99) mg/dL Plasma Lactic Acid Antony (0.7-2.0) mmol/L Calcium 8.4 (8.4-10.2) mg/dL Magnesium 2.3 (1.6-2.3) mg/dL Total Bilirubin 0.4 (0.2-1.3) mg/dL AST 30 (17-59) U/L ALT 23 (4-49) U/L Alkaline Phosphatase 148 H (38-126) U/L Troponin I (0.000-0.034) ng/mL NT-Pro-B Natriuret Pep pg/mL Total Protein 6.3 (6.3-8.2) g/dL Albumin 3.6 (3.5-5.0) g/dL 07/20/22 07/20/22 07/20/22 Range/Units 10:41 10:41 10:41 WBC (3.8-10.6) k/uL RBC (4.30-5.90) m/uL Hgb (13.0-17.5) gm/dL Hct (39.0-53.0) % MCV (80.0-100.0) fL MCH (25.0-35.0) pg MCHC (31.0-37.0) g/dL RDW (11.5-15.5) % Plt Count (150-450) k/uL MPV Neutrophils % % Lymphocytes % % Monocytes % % Eosinophils % % Basophils % % Neutrophils # (1.3-7.7) k/uL Lymphocytes # (1.0-4.8) k/uL Monocytes # (0-1.0) k/uL Eosinophils # (0-0.7) k/uL Basophils # (0-0.2) k/uL Hypochromasia Poikilocytosis Anisocytosis Microcytosis PT (9.0-12.0) sec INR (<1.2) APTT (22.0-30.0) sec Sodium (137-145) mmol/L Potassium (3.5-5.1) mmol/L Chloride (98-107) mmol/L Carbon Dioxide (22-30) mmol/L Anion Gap mmol/L BUN (9-20) mg/dL Creatinine (0.66-1.25) mg/dL Est GFR (CKD-EPI)AfAm (>60 ml/min/1.73 sqM) Est GFR (CKD-EPI)NonAf (>60 ml/min/1.73 sqM) Glucose (74-99) mg/dL Plasma Lactic Acid Antony 1.3 (0.7-2.0) mmol/L Calcium (8.4-10.2) mg/dL Magnesium (1.6-2.3) mg/dL Total Bilirubin (0.2-1.3) mg/dL AST (17-59) U/L ALT (4-49) U/L Alkaline Phosphatase (38-126) U/L Troponin I 0.394 H* (0.000-0.034) ng/mL NT-Pro-B Natriuret Pep 2180 pg/mL Total Protein (6.3-8.2) g/dL Albumin (3.5-5.0) g/dL Critical Care Time Critical Care Time: Yes Total Critical Care Time: 35 Disposition Clinical Impression: Pulmonary edema, Status post aortic valve repair, Anemia, Elevated troponin, Acute renal failure Disposition: ADMITTED IP TO THIS HOSP Referrals: [facility],Clinic [Primary Care Provider] - 1-2 days Time of Disposition: 12:00
[2022-07-20 10:52] LABS: Anisocytosis Slight; Basophils % (A) 0 %; Eosinophils # (A) 0.1 k/uL (0-0.7); Eosinophils % (A) 1 %; HGB 7.7 gm/dL (13.0-17.5); Hypochromasia Marked; Lymphocytes # (A) 0.5 k/uL (1.0-4.8); Lymphocytes % (A) 4 %; MCH 24.4 pg (25.0-35.0); MCHC 30.7 g/dL (31.0-37.0); MCV 79.4 fL (80.0-100.0); Mean Platelet Volume 7.2; Microcytosis Slight; Monocytes # (A) 0.6 k/uL (0-1.0); Monocytes % (A) 5 %; Neutrophils # (A) 11.3 k/uL (1.3-7.7); Neutrophils % (A) 90 %; Platelet Count 472 k/uL (150-450); Poikilocytosis Slight; RBC 3.16 m/uL (4.30-5.90); RDW 17.2 % (11.5-15.5); WBC 12.6 k/uL (3.8-10.6)
--- NOTE | 2022-07-20 11:04 | XR ---
EXAMINATION TYPE: XR chest 2V DATE OF EXAM: 07/20/2022 10:54 AM COMPARISON: Chest radiographs from 11/28/2020. TECHNIQUE: XR chest 2V Frontal and lateral views of the chest. CLINICAL INDICATION:Male, 72 years old with history of difficulty breathing; FINDINGS: Lungs/Pleura: Small bilateral pleural effusions with patchy left basilar opacities. No pneumothorax. Heart/mediastinum: Cardiomediastinal silhouette is enlarged and stable. Atherosclerotic calcificatio ns are seen in the aorta. Musculoskeletal: No acute osseous pathology. Midline sternotomy wires are noted and stable. Old left- sided rib fractures. IMPRESSION: Small bilateral pleural effusions with left basilar patchy airspace opacities which may represent ate lectasis and/or infiltrate.
[2022-07-20 11:11] LABS: Albumin 3.6 g/dL (3.5-5.0); Calcium 8.4 mg/dL (8.4-10.2); Magnesium 2.3 mg/dL (1.6-2.3); Potassium 5.3 mmol/L (3.5-5.1); Total Bilirubin 0.4 mg/dL (0.2-1.3); Total Protein 6.3 g/dL (6.3-8.2)
[2022-07-20 11:16] LABS: INR 1.1 (<1.2); Partial Thromboplastin Time 27.3 sec (22.0-30.0); Prothrombin Time 11.1 sec (9.0-12.0)
[2022-07-20 14:44] LABS: Anisocytosis Slight; HCT 25.5 % (39.0-53.0); HGB 7.7 gm/dL (13.0-17.5); Hypochromasia Marked; MCH 24.2 pg (25.0-35.0); MCV 80.5 fL (80.0-100.0); Mean Platelet Volume 8.3; Microcytosis Slight; Platelet Count 497 k/uL (150-450); RBC 3.16 m/uL (4.30-5.90); RDW 17.2 % (11.5-15.5); WBC 13.2 k/uL (3.8-10.6)
[2022-07-20] MEDS ORDERED: DEXTROSE 50% SYRINGE 50 ML IVP PRN ×2 (16:25)
[2022-07-20 18:31] LABS: Glucose,Whole Blood 222 mg/dL (70-110)
[2022-07-20] MEDS: INSULIN ASPART (NovoLOG) 100 UNIT/ML VIAL SQ SCH ×2 (18:51→21:28)
[2022-07-20 19:59] LABS: Glucose,Whole Blood 221 mg/dL (70-110)
[2022-07-20] MEDS: ALBUTEROL NEBULIZED 2.5 MG/3 ML INHALATION PRN (20:02)
[2022-07-20] MEDS ORDERED: APIXABAN 5 MG TAB PO SCH (21:00)
[2022-07-20] MEDS: FUROSEMIDE 10 MG/ML 4 ML VIAL IV SCH (21:28)
[2022-07-20] MEDS: TAMSULOSIN 0.4 MG CAP.ER.24H PO SCH (21:29)
--- NOTE | 2022-07-20 21:50 | P.HPIM ---
History of Present Illness H&P Date: 07/20/22 Chief Complaint: Shortness of breath Patient is a 72-year-old male with a known history of recent open heart surgery with aortic valve replacement followed by ablation on number 2021, atrial fibrillation on anticoagulation with Eliquis, hypertension, diabetes type 2 ins ulin-dependent, coronary disease history of stent placement, COPD, prior history of smoking presents to ER with complaints of shortness of breath and worsening bilateral leg swelling. Patient states that he had aortic valve replacement and ablation the following day which was unsuccessful. Patient states that he has been having worsening leg swelling and shortness of breath for the past 2 weeks since his discharge from hospital. Denies any complaints of chest pain. No palpitations. No fever no chills. No nausea vomiting abdominal pain or diarrhea. Denied any dizziness or lightheadedness. EKG showed atrial fibrillation with rapid regular rate heart rate 107 Chest x-ray showed small bilateral pleural effusions with left basilar patchy airspace opacities which may represent atelectasis/infiltrate. Laboratory test showed WBC 12.6 hemoglobin 7.7 and platelets 472 MCV 79.4 and RDW 17.2 Sodium 137 potassium 5.3 chloride 102 bicarb is 27 BUN 37 creatinine 1.31 Alk phos 148 and troponin 0.394, 0.382 and proBNP is 2180 Review of Systems Constitutional: Patient denies any fever or chills . Generalized weakness and fatigue.. Abdomen: Patient denied any nausea or vomiting or abd. pain Cardiovascular: Patient denies any chest pain. No palpitations. Patient does have shortness of breath and worsening leg swelling. Respiratory: patient denied any cough . no sputum production. Positive for shortness of breath Neurologic: Patient denied any numbness or tingling headache. Musculoskeletal: Patient denies any complaints of joint swelling or deformity. Skin: Negative Psychiatric: Negative Endocrine: No heat or cold intolerance. No recent weight gain. Genitourinary: No dysuria or hematuria. All other 14 point ROS negative except the above Past Medical History Past Medical History: Atrial Fibrillation, Asthma, Diabetes Mellitus, Hearing Disorder / Deafness, Hyperlipidemia, Hypertension, Osteoarthritis (OA) Additional Past Medical History / Comment(s): Neuropathy, hx pancreatitis, bi lateral hearing aid use. History of Any Multi-Drug Resistant Organisms: None Reported Past Surgical History: Appendectomy, Heart Catheterization With Stent, Orthopedic Surgery Additional Past Surgical History / Comment(s): Right hand surgery, bilateral cataract surgery, bilateral eye surgery, colonoscopy. Past Anesthesia/Blood Transfusion Reactions: No Reported Reaction Date of Last Stent Placement:: 2015 Smoking Status: Former smoker - Past Family History Mother Family Medical History: No Reported History Medications and Allergies Home Medications Medication Instructions Recorded Confirmed Type Montelukast [Singulair] 10 mg PO DAILY 10/05/14 07/20/22 History Tamsulosin HCl [Flomax] 0.8 mg PO HS 08/31/17 07/20/22 History Insulin Glargine,Hum.rec.anlog 40 unit SQ DAILY 10/23/20 07/20/22 History [Lantus Solostar] Apixaban [Eliquis] 5 mg PO BID 02/19/22 07/20/22 History DULoxetine HCL [Cymbalta] 30 mg PO DAILY 02/19/22 07/20/22 History Finasteride [Proscar] 5 mg PO DAILY 02/19/22 07/20/22 History Insulin Aspart [NovoLOG] 6 - 10 units SQ AC-TID 02/19/22 07/20/22 History Albuterol Nebulized [Ventolin 2.5 mg INHALATION Q4H PRN 07/20/22 07/20/22 History Nebulized] Albuterol Sulfate [Albuterol 1 puff PO RT-TID PRN 07/20/22 07/20/22 History Sulfate Hfa] Alprostadil 40mcg/Cartridge Inj 40 mcg INTRA-CAVE DIRECTED PRN 07/20/22 07/20/22 History System Amiodarone HCl [Pacerone] 200 mg PO DAILY 07/20/22 07/20/22 History Aspirin EC [Ecotrin Low Dose] 81 mg PO DAILY 07/20/22 07/20/22 History Empagliflozin [Jardiance] 25 mg PO DAILY 07/20/22 07/20/22 History Furosemide [Lasix] 20 mg PO DAILY 07/20/22 07/20/22 History Mometasone/Formoterol [Dulera 100 2 puff PO RT-BID 07/20/22 07/20/22 History Mcg-5 Mcg Inhaler] Omeprazole [PriLOSEC] 20 mg PO DAILY 07/20/22 07/20/22 History Rosuvastatin Calcium [Crestor] 20 mg PO DAILY 07/20/22 07/20/22 History metFORMIN HCL ER [Glucophage XR] 1,000 mg PO BID 07/20/22 07/20/22 History oxyCODONE HCL 5 mg PO Q4H PRN 07/20/22 07/20/22 History Allergies Allergy/AdvReac Type Severity Reaction Status Date / Time No Known Allergies Allergy Verified 07/20/22 12:05 Physical Exam Vitals: Vital Signs Temp Pulse Pulse Resp BP BP Pulse Ox 07/20/22 20:13 118 H 07/20/22 20:05 121 H 98 07/20/22 17:15 98.2 F 107 H 18 126/73 97 07/20/22 16:53 83 24 162/63 94 L 07/20/22 16:44 78 18 136/76 98 07/20/22 15:44 99 18 118/76 100 07/20/22 15:13 95 18 133/84 100 07/20/22 12:32 117 H 18 121/75 99 07/20/22 11:00 99 16 138/88 98 07/20/22 09:51 97.8 F 107 H 18 142/92 100 Intake and Output 07/20/22 07/20/22 07/20/22 06:59 14:59 22:59 Other: Voiding Method Toilet Urinal Weight 102.33 kg 102.33 kg PHYSICAL EXAMINATION: Patient is lying in the bed comfortably, no acute distress, awake alert and oriented.. HEENT: Normocephalic. Neck is supple. Pupils reactive. Nostrils clear. Oral cavity is moist. Neck reveals no JVD, carotid bruits, or thyromegaly. CHEST EXAMINATION: Trachea is central. Symmetrical expansion. Bibasilar crackles and diminished sounds.. CARDIAC: Normal S1, S2 with no gallops. No murmurs ABDOMEN: Soft. Bowel sounds present. Nontender. No organomegaly. No abdominal bruits. Extremities: Bilateral 2+ pedal edema. No clubbing or cyanosis Neurologically awake, alert, oriented x3 with well-coordinated movements. No focal deficits noted Skin: No rash or skin lesions. Psychiatric: Coperative. Nonsuicidal, Musculoskeletal: No joint swelling or deformity. Normal range of motion. Results CBC & Chem 7: 07/20/22 14:10 07/20/22 10:41 Labs: Abnormal Lab Results - Last 24 Hours (Table) 07/20/22 07/20/22 07/20/22 Range/Units 10:41 10:41 10:41 WBC 12.6 H (3.8-10.6) k/uL RBC 3.16 L (4.30-5.90) m/uL Hgb 7.7 L (13.0-17.5) gm/dL Hct 25.0 L (39.0-53.0) % MCV 79.4 L (80.0-100.0) fL MCH 24.4 L (25.0-35.0) pg MCHC 30.7 L (31.0-37.0) g/dL RDW 17.2 H (11.5-15.5) % Plt Count 472 H (150-450) k/uL Neutrophils # 11.3 H (1.3-7.7) k/uL Lymphocytes # 0.5 L (1.0-4.8) k/uL Potassium 5.3 H (3.5-5.1) mmol/L BUN 37 H (9-20) mg/dL Creatinine 1.71 H (0.66-1.25) mg/dL Glucose 126 H (74-99) mg/dL POC Glucose (mg/dL) (70-110) mg/dL Alkaline Phosphatase 148 H (38-126) U/L Troponin I 0.394 H* (0.000-0.034) ng/mL 07/20/22 07/20/22 07/20/22 Range/Units 14:10 14:10 18:30 WBC 13.2 H (3.8-10.6) k/uL RBC 3.16 L (4.30-5.90) m/uL Hgb 7.7 L (13.0-17.5) gm/dL Hct 25.5 L (39.0-53.0) % MCV (80.0-100.0) fL MCH 24.2 L (25.0-35.0) pg MCHC 30.0 L (31.0-37.0) g/dL RDW 17.2 H (11.5-15.5) % Plt Count 497 H (150-450) k/uL Neutrophils # (1.3-7.7) k/uL Lymphocytes # (1.0-4.8) k/uL Potassium (3.5-5.1) mmol/L BUN (9-20) mg/dL Creatinine (0.66-1.25) mg/dL Glucose (74-99) mg/dL POC Glucose (mg/dL) 222 H (70-110) mg/dL Alkaline Phosphatase (38-126) U/L Troponin I 0.382 H* (0.000-0.034) ng/mL 07/20/22 Range/Units 19:57 WBC (3.8-10.6) k/uL RBC (4.30-5.90) m/uL Hgb (13.0-17.5) gm/dL Hct (39.0-53.0) % MCV (80.0-100.0) fL MCH (25.0-35.0) pg MCHC (31.0-37.0) g/dL RDW (11.5-15.5) % Plt Count (150-450) k/uL Neutrophils # (1.3-7.7) k/uL Lymphocytes # (1.0-4.8) k/uL Potassium (3.5-5.1) mmol/L BUN (9-20) mg/dL Creatinine (0.66-1.25) mg/dL Glucose (74-99) mg/dL POC Glucose (mg/dL) 221 H (70-110) mg/dL Alkaline Phosphatase (38-126) U/L Troponin I (0.000-0.034) ng/mL Thrombosis Risk Factor Assmnt - DVT/VTE Prophylaxis DVT/VTE Prophylaxis: Pharmacologic Prophylaxis ordered Assessment and Plan Assessment: Worsening shortness of breath secondary to acute CHF. Ejection fraction not known at this time. Possible anemia contributing. Recent history of aortic valve replacement on July 07 2022 Elevated troponin level Coronary artery disease with history of stent placement Chronic atrial fibrillation on anticoagulation with Eliquis Acute on chronic kidney disease stage III. Creatinine 1.71 on admission Mild hyperkalemia secondary to acute kidney injury Microcytic anemia rule out iron deficiency Hypertension Diabetes type 2 insulin-dependent COPD Prior history of smoking Osteoarthritis Diabetic peripheral neuropathy DVT and GI prophylaxis Plan: Patient will be continued on telemetry monitoring. Continue with Lasix 40 mg twice daily. Continue with amiodarone Continue with aspirin, statins. Cardiology and pulmonary consult. Monitor H&H. Follow-up FOBT level. Anticoagulation on hold pending anemia work-up. Continue with PPI and general surgery evaluation. Continue with insulin regimen and follow closely. Prognosis is guarded with multiple medical problems and comorbid conditions. Time with Patient: Greater than 30
[2022-07-20] MEDS: PANTOPRAZOLE 40 MG TABLET PO SCH (23:16)
[2022-07-21] MEDS: ACETAMINOPHEN TAB 325 MG TAB PO PRN (05:02)
[2022-07-21 05:53] LABS: Glucose,Whole Blood 155 mg/dL (70-110)
[2022-07-21] MEDS: PANTOPRAZOLE 40 MG TABLET PO SCH (06:51)
[2022-07-21] MEDS: INSULIN ASPART (NovoLOG) 100 UNIT/ML VIAL SQ SCH ×4 (06:52→21:04)
[2022-07-21] MEDS ORDERED: PANTOPRAZOLE 40 MG TABLET PO SCH (07:30)
[2022-07-21 08:09] LABS: Anisocytosis Slight; Basophils # (A) 0.1 k/uL (0-0.2); Basophils % (A) 1 %; Eosinophils # (A) 0.1 k/uL (0-0.7); Eosinophils % (A) 1 %; HCT 25.5 % (39.0-53.0); HGB 7.5 gm/dL (13.0-17.5); Hypochromasia Marked; Lymphocytes # (A) 0.6 k/uL (1.0-4.8); Lymphocytes % (A) 5 %; MCH 23.5 pg (25.0-35.0); MCHC 29.3 g/dL (31.0-37.0); MCV 80.3 fL (80.0-100.0); Mean Platelet Volume 7.4; Microcytosis Slight; Monocytes # (A) 0.7 k/uL (0-1.0); Monocytes % (A) 6 %; Neutrophils # (A) 10.9 k/uL (1.3-7.7); Neutrophils % (A) 86 %; Platelet Count 530 k/uL (150-450); RBC 3.18 m/uL (4.30-5.90); RDW 17.1 % (11.5-15.5); WBC 12.6 k/uL (3.8-10.6)
[2022-07-21 08:22] LABS: Calcium 8.7 mg/dL (8.4-10.2); Potassium 4.7 mmol/L (3.5-5.1)
[2022-07-21] MEDS ORDERED: APIXABAN 5 MG TAB PO SCH (09:00)
[2022-07-21] MEDS: SYMBICORT 80-4.5 MCG INHALER INHALATION SCH ×2 (09:05→20:09)
[2022-07-21] MEDS: INSULIN DETEMIR (LEVEMIR) 100 UNIT/ML SYR SQ SCH (09:44)
[2022-07-21] MEDS: DULoxetine HCL 30 MG CAPSULE.DR PO SCH (09:45)
[2022-07-21] MEDS: MONTELUKAST 10 MG TAB PO SCH (09:45)
[2022-07-21] MEDS: AMIODARONE 200 MG TAB PO SCH (09:45)
[2022-07-21] MEDS: ATORVASTATIN 40 MG TAB PO SCH (09:45)
[2022-07-21] MEDS: ASPIRIN 81 MG PO SCH (09:45)
[2022-07-21] MEDS: FUROSEMIDE 10 MG/ML 4 ML VIAL IV SCH ×2 (09:45→21:03)
[2022-07-21] MEDS: FINASTERIDE 5 MG TAB PO SCH (09:45)
--- NOTE | 2022-07-21 10:39 | P.CRDCN ---
History of Present Illness History of present illness: Patient is a 72-year-old male with a known history of recent open heart surgery with aortic valve replacement July 07 2022 at [facility] in [place], persistent atrial fibrillation on anticoagulation with Eliquis s/p ablation after Valve surgery which was unsuccessful, hypertension, diabetes type 2 insulin-dependent, coronary disease history of stent placement, COPD, prior history of smoking. He follows with [facility] at [facility]. We are consulted for CHF. Patient presents to ER with complaints of shortness of breath and worsening bilateral leg swelling. He underwent aortic valve replacement on 07/07/2022 he was discharged on Tuesday07/16/2022, the day after On Tuesday 07/17 he began to have worsening shortness of breath, bilateral lower extremity edema, orthopnea, PND. His symptoms p rogressively got worse. He presented to the emergency department for further evaluation. He was started on IV Lasix and admitted. He endorses compliance to his medication. He is not as compliant with his diet. He denies any current tobacco use. He denies any lightheadedness, dizziness, syncope or near syncope. He denies any dark stools or bleeding. DIAGNOSTICS * EKG reveals atrial fibrillation, heart rate 107, no significant ST- T wave abnormalities to suggests ischemia * Telemetry tracings indicate atrial fibrillation HR 90s-115 * Chest xray bilateral pleural effusions, small with left basilar patchy airspace opacity. * Laboratory reviewed, WC 12.621 7.5, platelets 530, sodium 135, potassium 4.7, BUN 32, serum creatinine 1.72, troponin 0.39, 0.38, magnesium 2.3 * Current home cardiac medications include amiodarone 200 mg daily, aspirin 81 mg daily, Eliquis 5 mg twice a day, Lasix 20 mg daily, simvastatin 20 mg daily * Echocardiogram in 2019 revealed EF 5560 percent, moderate aortic valve sclerosis, mild aortic stenosis, peak/mean gradient of 26 mmHg/60 no murmurs were creatinine at time. REVIEW OF SYSTEMS At the time of my exam: CONSTITUTIONAL: Denies fever or chills. CARDIOVASCULAR: Denies chest pain, +shortness of breath,+ orthopnea,+ PND Denies palpitations. RESPIRATORY: Denies cough. GASTROINTESTINAL: Denies abdominal pain, diarrhea, constipation, nausea or vomiting. MUSCULOSKELETAL: Denies myalgias. NEUROLOGIC: Denies numbness, tingling, headacbe or weakness. ENDOCRINE: Denies fatigue, weight change, polydipsia or polyurina. GENITOURINARY: Denies burning, hematuria or urgency with micturation. HEMATOLOGIC: +anemia, denies bleeding PHYSICAL EXAMINATION Vitals reviewed CONSTITUTIONAL: No apparent distress. HEENT: Head is normocephalic. Pupils are equal, round. Sclerae anicteric. Mucous membranes of the mouth are moist. CHEST EXAMINATION: Lungs are diminished, mild crackles in the basesto auscultation. No chest wall tenderness is noted on palpation or with deep breathing. HEART EXAMINATION: Irregular rate and rhythm. S1, S2 heard. No murmurs, gallops or rub. ABDOMEN: Soft, nontender. Positive bowel sounds. EXTREMITIES: 2+ peripheral pulses, severe 4+ bilateral lower extremity edema and no calf tenderness. NEUROLOGIC EXAMINATION: Patient is awake, alert and oriented x3. ASSESSMENT Acute on chronic heart failure, echocardiogram pending Elevated troponin, likely related to recent AV surgery Aortic valve replacement recently on July 07 2022 at [facility] in [place] Persistent atrial fibrillation on anticoagulation with Eliquis s/p ablation a fter Valve surgery which was unsuccessful Hypertension, diabetes type 2 insulin-dependent Coronary artery disease history of stent placement, unknown details COPD Prior history of tobacco use PLAN Obtain 2D echocardiogram and doppler study to assess cardiac structure and function. Continue IV Lasix Stop IV heparin, transition to Eliquis 5mg BID Monitor renal function and electrolytes Monitor I/Os, daily weights Continue home medications amiodarone, atorvastatin Further recommendations based on clinical course Nurse practitioner note has been reviewed by physician. Signing provider agrees with the documented findings, assessment, and plan of care. Past Medical History Past Medical History: Atrial Fibrillation, Asthma, Diabetes Mellitus, Hearing Disorder / Deafness, Hyperlipidemia, Hypertension, Osteoarthritis (OA) Additional Past Medical History / Comment(s): Neuropathy, hx pancreatitis, bilateral hearing aid use. History of Any Multi-Drug Resistant Organisms: None Reported Past Surgical History: Appendectomy, Heart Catheterization With Stent, Orthopedic Surgery Additional Past Surgical History / Comment(s): Right hand surgery, bilateral cataract surgery, bilateral eye surgery, colonoscopy. Past Anesthesia/Blood Transfusion Reactions: No Reported Reaction Date of Last Stent Placement:: 2015 Smoking Status: Former smoker - Past Family History Mother Family Medical History: No Reported History Medications and Allergies Home Medications Medication Instructions Recorded Confirmed Type Montelukast [Singulair] 10 mg PO DAILY 10/05/14 07/20/22 History Tamsulosin HCl [Flomax] 0.8 mg PO HS 08/31/17 07/20/22 History Insulin Glargine,Hum.rec.anlog 40 unit SQ DAILY 10/23/20 07/20/22 History [Lantus Solostar] Apixaban [Eliquis] 5 mg PO BID 02/19/22 07/20/22 History DULoxetine HCL [Cymbalta] 30 mg PO DAILY 02/19/22 07/20/22 History Finasteride [Proscar] 5 mg PO DAILY 02/19/22 07/20/22 History Insulin Aspart [NovoLOG] 6 - 10 units SQ AC-TID 02/19/22 07/20/22 History Albuterol Nebulized [Ventolin 2.5 mg INHALATION Q4H PRN 07/20/22 07/20/22 History Nebulized] Albuterol Sulfate [Albuterol 1 puff PO RT-TID PRN 07/20/22 07/20/22 History Sulfate Hfa] Alprostadil 40mcg/Cartridge Inj 40 mcg INTRA-CAVE DIRECTED PRN 07/20/22 07/20/22 History System Amiodarone HCl [Pacerone] 200 mg PO DAILY 07/20/22 07/20/22 History Aspirin EC [Ecotrin Low Dose] 81 mg PO DAILY 07/20/22 07/20/22 History Empagliflozin [Jardiance] 25 mg PO DAILY 07/20/22 07/20/22 History Furosemide [Lasix] 20 mg PO DAILY 07/20/22 07/20/22 History Mometasone/Formoterol [Dulera 100 2 puff PO RT-BID 07/20/22 07/20/22 History Mcg-5 Mcg Inhaler] Omeprazole [PriLOSEC] 20 mg PO DAILY 07/20/22 07/20/22 History Rosuvastatin Calcium [Crestor] 20 mg PO DAILY 07/20/22 07/20/22 History metFORMIN HCL ER [Glucophage XR] 1,000 mg PO BID 07/20/22 07/20/22 History oxyCODONE HCL 5 mg PO Q4H PRN 07/20/22 07/20/22 History Allergies Allergy/AdvReac Type Severity Reaction Status Date / Time No Known Allergies Allergy Verified 07/20/22 12:05 Physical Exam Vitals: Vital Signs Temp Pulse Pulse Resp BP BP Pulse Ox 07/21/22 04:00 98.0 F 98 22 98/58 91 L 07/21/22 02:00 114 H 18 07/21/22 00:00 97.8 F 114 H 18 100/54 94 L 07/20/22 20:13 118 H 07/20/22 20:05 121 H 98 07/20/22 20:00 98.5 F 110 H 20 145/70 95 07/20/22 17:15 98.2 F 107 H 18 126/73 97 07/20/22 16:53 83 24 162/63 94 L 07/20/22 16:44 78 18 136/76 98 07/20/22 15:44 99 18 118/76 100 07/20/22 15:13 95 18 133/84 100 07/20/22 12:32 117 H 18 121/75 99 07/20/22 11:00 99 16 138/88 98 07/20/22 09:51 97.8 F 107 H 18 142/92 100 Intake and Output 07/20/22 07/21/22 07/21/22 22:59 06:59 14:59 Output Total 1825 Balance -1825 Output: Urine 1825 Other: Voiding Method Toilet Urinal # Voids 2 Weight 102.33 kg 100.2 kg Results 07/21/22 07:17 07/21/22 07:17 Cardiac Enzymes 07/20/22 07/20/22 07/20/22 Range/Units 10:41 10:41 14:10 AST 30 (17-59) U/L Troponin I 0.394 H* 0.382 H* (0.000-0.034) ng/mL Coagulation 07/20/22 Range/Units 10:41 PT 11.1 (9.0-12.0) sec APTT 27.3 (22.0-30.0) sec CBC 07/20/22 07/20/22 Range/Units 10:41 14:10 WBC 12.6 H 13.2 H (3.8-10.6) k/uL RBC 3.16 L 3.16 L (4.30-5.90) m/uL Hgb 7.7 L 7.7 L (13.0-17.5) gm/dL Hct 25.0 L 25.5 L (39.0-53.0) % Plt Count 472 H 497 H (150-450) k/uL Comprehensive Metabolic Panel 07/20/22 Range/Units 10:41 Sodium 137 (137-145) mmol/L Potassium 5.3 H (3.5-5.1) mmol/L Chloride 102 (98-107) mmol/L Carbon Dioxide 27 (22-30) mmol/L BUN 37 H (9-20) mg/dL Creatinine 1.71 H (0.66-1.25) mg/dL Glucose 126 H (74-99) mg/dL Calcium 8.4 (8.4-10.2) mg/dL AST 30 (17-59) U/L ALT 23 (4-49) U/L Alkaline Phosphatase 148 H (38-126) U/L Total Protein 6.3 (6.3-8.2) g/dL Albumin 3.6 (3.5-5.0) g/dL Current Medications Generic Name Dose Route Start Last Admin Trade Name Freq PRN Reason Stop Dose Admin Acetaminophen 650 mg 07/21/22 04:43 07/21/22 05:02 Acetaminophen Tab 325 Mg Tab PO 650 mg Q6HR PRN Administration Fever and/ or Pain Albuterol Sulfate 2.5 mg 07/20/22 16:22 07/20/22 20:02 Albuterol Nebulized 2.5 Mg/3 Ml INHALATION 2.5 mg Q4H PRN Administration Shortness Of Breath Amiodarone HCl 200 mg 07/21/22 09:00 Amiodarone 200 Mg Tab PO DAILY [facility] Aspirin 81 mg 07/21/22 09:00 Aspirin 81 Mg PO DAILY [facility] Atorvastatin Calcium 40 mg 07/21/22 09:00 Atorvastatin 40 Mg Tab PO DAILY [facility] Budesonide/Formoterol Fumarate 2 puff 07/21/22 08:00 Symbicort 80-4.5 Mcg Inhaler INHALATION RT-BID [facility] Dextrose/Water 25 ml 07/20/22 16:25 Dextrose 50% Syringe 50 Ml IVP PER PROTOCOL PRN Hypoglycemia Protocol Dextrose/Water 50 ml 07/20/22 16:25 Dextrose 50% Syringe 50 Ml IVP PER PROTOCOL PRN Hypoglycemia Protocol Duloxetine HCl 30 mg 07/21/22 09:00 Duloxetine Hcl 30 Mg Capsule.Dr PO DAILY CORINNA Finasteride 5 mg 07/21/22 09:00 Finasteride 5 Mg Tab PO DAILY [facility] Furosemide 40 mg 07/20/22 21:00 07/20/22 21:28 Furosemide 10 Mg/Ml 4 Ml Vial IV 40 mg Q12HR CORINNA Administration Insulin Aspart 0 unit 07/20/22 17:30 07/21/22 06:52 Insulin Aspart (Novolog) 100 Unit/Ml Vial SQ 1 unit ACHS CORINNA Administration Protocol Insulin Detemir 30 unit 07/21/22 07:00 Insulin Detemir (Levemir) 100 Unit/Ml Syr SQ DAILY@0700 [facility] Montelukast Sodium 10 mg 07/21/22 09:00 Montelukast 10 Mg Tab PO DAILY CORINNA Pantoprazole Sodium 40 mg 07/20/22 21:15 07/21/22 06:51 Pantoprazole 40 Mg Tablet PO 40 mg AC-BRKFST CORINNA Administration Tamsulosin HCl 0.8 mg 07/20/22 21:00 07/20/22 21:29 Tamsulosin 0.4 Mg Cap.Er.24h PO 0.8 mg HS CORINNA Administration Intake and Output 07/20/22 07/21/22 07/21/22 22:59 06:59 14:59 Output Total 1825 Balance -1825 Output: Urine 1825 Other: Voiding Method Toilet Urinal # Voids 2 Weight 102.33 kg 100.2 kg 07/20/22 14:10 07/20/22 10:41
[2022-07-21 10:59] LABS: % Iron Saturation 21.78 (15.00-50.00)
[2022-07-21 11:38] LABS: Glucose,Whole Blood 192 mg/dL (70-110)
--- NOTE | 2022-07-21 12:55 | CA ---
Transthoracic Echo Report Name: Fermin Stallworth Age: 72 Gender: M : 1950 Exam Date: 07/21/2022 08:37 Exam Location: [place] [facility] Ht (in): 62 Wt (lb): 220 Ordering Physician: Pepe Sctot MD Attending/Referring Phys: [employer] Clothier Carole Dodge RDCS Procedure CPT: Indications: chf Cardiac Hx: PT IS S/P AOV REPLACMENT 07/07/22 Technical Quality: Contrast 1: Total Dose (mL): Contrast 2: Total Dose (mL): MEASUREMENTS (Male / Female) Normal Values 2D ECHO LV Diastolic Diameter PLAX 5.1 cm 4.2 - 5.9 / 3.9 - 5.3 cm LV Systolic Diameter PLAX 3.0 cm IVS Diastolic Thickness 1.4 cm 0.6 - 1.0 / 0.6 - 0.9 cm LVPW Diastolic Thickness 2.5 cm 0.6 - 1.0 / 0.6 - 0.9 cm LV Relative Wall Thickness 0.8 RV Internal Dim ED PLAX 3.4 cm LA Systolic Diameter LX 4.4 cm 3.0 - 4.0 / 2.7 - 3.8 cm LA Volume 75.0 cm??? 18 - 58 / 22 - 52 cm??? M-MODE Aortic Root Diameter MM 2.3 cm LA Systolic Diameter MM 4.5 cm LA Ao Ratio MM 2.0 AV Cusp Separation MM 1.5 cm DOPPLER AV Peak Velocity 180.3 cm/s AV Peak Gradient 13.0 mmHg AV Mean Velocity 116.2 cm/s AV Mean Gradient 6.3 mmHg AV Velocity Time Integral 23.0 cm LVOT Peak Velocity 110.2 cm/s LVOT Peak Gradient 4.9 mmHg MV Area PHT 5.6 cm??? Mitral E Point Velocity 80.9 cm/s Mitral A Point Velocity 26.1 cm/s Mitral E to A Ratio 3.1 MV Deceleration Time 134.7 ms TR Peak Velocity 216.4 cm/s TR Peak Gradient 18.7 mmHg Right Ventricular Systolic Press 23.7 mmHg FINDINGS Left Ventricle Moderately increased septal wall thickness. Left ventricular ejection fraction is estimated at 55%. Right Ventricle Normal right ventricular size and function. Right ventricular systolic pressure within normal limits. Right Atrium Normal right atrial size. Left Atrium Mildly increased left atrial diameter. Moderately increased left atrial volume. Mitral Valve Structurally normal mitral valve. Mild mitral regurgitation. Aortic Valve Normally functioning bioprosthetic aortic valve without stenosis with a peak velocity of 1m/s, peak gradient 13 mmHg, mean gradient 6mmHg,. Tricuspid Valve Structurally normal tricuspid valve. Mild tricuspid regurgitation. Pulmonic Valve Structurally normal pulmonic valve. Pericardium Moderate pericardial effusion. Aorta Normal size aortic root and proximal ascending aorta. CONCLUSIONS Normally functioning bioprosthetic aortic valve Preserved LV systolic function Previewed by: Dr. Blu Figueroa MD (Electronically Signed) Final Date: 21 July 2022 12:54
[2022-07-21 13:36] VITALS: BMI 31.6
--- NOTE | 2022-07-21 14:34 | P.CNPUL ---
History of Present Illness Consult date: 07/21/22 Requesting physician: Ander Salas Reason for consult: dyspnea, hypoxemia, abnormal CXR/CT Chief complaint: Shortness of breath. History of present illness: Pulmonary consult dated 07/21/2022. 72-year-old male who presents to the emergency department on July complaining of shortness of breath. He was brought in by EMS. The patient had recent open heart surgery done at [facility], on July 07. He had a valve replacement there. He had an aortic valve replacement. In addition, he had an ablation. He apparently was complaining of shortness of breath, weight gain, and swelling in the legs, but denied any chest pain, fever, chills, or phlegm production. He also mentioned to me that he was quite anemic. White count 12.6, he will been some 0.5, hematocrit 25.5, and platelet count 530,000. Sodium 135, potassium 4.7, chlorides 100, CO2 25, BUN 32, and cre atinine 1.75. The patient's troponin was 0.382. N-terminal proBNP was 2180. Chest x-ray shows small bilateral pleural effusions, with patchy basilar airspace opacities, which could represent atelectasis or infiltrate. Currently, the patient's resting comfortably. He is not on any IV fluids, or on any oxygen at this time. His resting saturation was apparently 98%. Review of Systems REVIEW OF SYSTEMS: CONSTITUTIONAL: [Negative.] NEUROLOGIC: [ Negative.] HEENT: [ Negative.] CARDIAC: Recent aortic valve replacement. Worsening leg edema. PULMONARY: Shortness of breath. GI: [Negative.] : [Negative.] RHEUMATOLOGIC: [ Negative.] IMMUNOLOGIC: [ Negative.] ENDOCRINE: [Negative. ] DERMATOLOGIC: [Negative.] Past Medical History Past Medical History: Atrial Fibrillation, Asthma, Diabetes Mellitus, Hearing Disorder / Deafness, Hyperlipidemia, Hypertension, Osteoarthritis (OA) Additional Past Medical History / Comment(s): Neuropathy, hx pancreatitis, bilateral hearing aid use. History of Any Multi-Drug Resistant Organisms: None Reported Past Surgical History: Appendectomy, Heart Catheterization With Stent, Orthopedic Surgery Additional Past Surgical History / Comment(s): Right hand surgery, bilateral cataract surgery, bilateral eye surgery, colonoscopy. Past Anesthesia/Blood Transfusion Reactions: No Reported Reaction Date of Last Stent Placement:: 2015 Smoking Status: Former smoker - Past Family History Mother Family Medical History: No Reported History Medications and Allergies Home Medications Medication Instructions Recorded Confirmed Type Montelukast [Singulair] 10 mg PO DAILY 10/05/14 07/20/22 History Tamsulosin HCl [Flomax] 0.8 mg PO HS 08/31/17 07/20/22 History Insulin Glargine,Hum.rec.anlog 40 unit SQ DAILY 10/23/20 07/20/22 History [Lantus Solostar] Apixaban [Eliquis] 5 mg PO BID 02/19/22 07/20/22 History DULoxetine HCL [Cymbalta] 30 mg PO DAILY 02/19/22 07/20/22 History Finasteride [Proscar] 5 mg PO DAILY 02/19/22 07/20/22 History Insulin Aspart [NovoLOG] 6 - 10 units SQ AC-TID 02/19/22 07/20/22 History Albuterol Nebulized [Ventolin 2.5 mg INHALATION Q4H PRN 07/20/22 07/20/22 His tory Nebulized] Albuterol Sulfate [Albuterol 1 puff PO RT-TID PRN 07/20/22 07/20/22 History Sulfate Hfa] Alprostadil 40mcg/Cartridge Inj 40 mcg INTRA-CAVE DIRECTED PRN 07/20/22 07/20/22 History System Amiodarone HCl [Pacerone] 200 mg PO DAILY 07/20/22 07/20/22 History Aspirin EC [Ecotrin Low Dose] 81 mg PO DAILY 07/20/22 07/20/22 History Empagliflozin [Jardiance] 25 mg PO DAILY 07/20/22 07/20/22 History Furosemide [Lasix] 20 mg PO DAILY 07/20/22 07/20/22 History Mometasone/Formoterol [Dulera 100 2 puff PO RT-BID 07/20/22 07/20/22 History Mcg-5 Mcg Inhaler] Omeprazole [PriLOSEC] 20 mg PO DAILY 07/20/22 07/20/22 History Rosuvastatin Calcium [Crestor] 20 mg PO DAILY 07/20/22 07/20/22 History metFORMIN HCL ER [Glucophage XR] 1,000 mg PO BID 07/20/22 07/20/22 History oxyCODONE HCL 5 mg PO Q4H PRN 07/20/22 07/20/22 History Allergies Allergy/AdvReac Type Severity Reaction Status Date / Time No Known Allergies Allergy Verified 07/20/22 12:05 Physical Exam Osteopathic Statement: *. No significant issues noted on an osteopathic structural exam other than those noted in the History and Physical/Consult. Vitals: Vital Signs Temp Pulse Pulse Resp BP BP Pulse Ox 07/21/22 12:19 97.7 F 103 H 18 134/74 98 07/21/22 08:31 97.9 F 102 H 20 129/72 96 07/21/22 04:00 98.0 F 98 22 98/58 91 L 07/21/22 02:00 114 H 18 07/21/22 00:00 97.8 F 114 H 18 100/54 94 L 07/20/22 20:13 118 H 07/20/22 20:05 121 H 98 07/20/22 20:00 98.5 F 110 H 20 145/70 95 07/20/22 17:15 98.2 F 107 H 18 126/73 97 07/20/22 16:53 83 24 162/63 94 L 07/20/22 16:44 78 18 136/76 98 07/20/22 15:44 99 18 118/76 100 07/20/22 15:13 95 18 133/84 100 Intake and Output 07/20/22 07/21/22 07/21/22 22:59 06:59 14:59 Intake Total 480 Output Total 1825 1200 Balance -1825 -720 Intake: Oral 480 Output: Urine 1825 1200 Other: Voiding Method Toilet Toilet Urinal Urinal # Voids 2 2 # Bowel Movements 1 Weight 102.33 kg 100.2 kg 100.2 kg No acute distress, oriented 3. No use of accessory muscles or conversational dyspnea. Room air saturation 98%. HEENT examination is grossly unremarkable. Neck supple. Full range of motion. No adenopathy thyromegaly or neck vein distention. Cardiovascular examination reveals regular rhythm rate. S1-S2 normal. No S3 or S4. No discernible murmur noted. Heart rate 98 bpm. Lungs reveal mild scattered rhonchi. No wheezes or crackles. Breath sounds equal. A fresh median sternotomy scar is noted. Abdomen soft bowel sounds are heard. No masses or tenderness. Extremities are intact. No cyanosis clubbing or edema. Skin is without rash or lesion. Neurologic examination is brief but nonfocal. Results - Laboratory Findings CBC and BMP: 07/21/22 07:17 07/21/22 07:17 PT/INR, D-dimer PT 11.1 sec (9.0-12.0) 07/20/22 10:41 INR 1.1 (<1.2) 07/20/22 10:41 Abnormal lab findings: Abnormal Labs 07/20/22 07/20/22 07/20/22 10:41 10:41 10:41 WBC 12.6 H RBC 3.16 L Hgb 7.7 L Hct 25.0 L MCV 79.4 L MCH 24.4 L MCHC 30.7 L RDW 17.2 H Plt Count 472 H Neutrophils # 11.3 H Lymphocytes # 0.5 L Sodium Potassium 5.3 H BUN 37 H Creatinine 1.71 H Glucose 126 H POC Glucose (mg/dL) Alkaline Phosphatase 148 H Troponin I 0.394 H* 07/20/22 07/20/22 07/20/22 14:10 14:10 18:30 WBC 13.2 H RBC 3.16 L Hgb 7.7 L Hct 25.5 L MCV MCH 24.2 L MCHC 30.0 L RDW 17.2 H Plt Count 497 H Neutrophils # Lymphocytes # Sodium Potassium BUN Creatinine Glucose POC Glucose (mg/dL) 222 H Alkaline Phosphatase Troponin I 0.382 H* 07/20/22 07/21/22 07/21/22 19:57 05:52 07:17 WBC RBC Hgb Hct MCV MCH MCHC RDW Plt Count Neutrophils # Lymphocytes # Sodium 135 L Potassium BUN 32 H Creatinine 1.75 H Glucose 137 H POC Glucose (mg/dL) 221 H 155 H Alkaline Phosphatase Troponin I 07/21/22 07/21/22 07:17 11:37 WBC 12.6 H RBC 3.18 L Hgb 7.5 L Hct 25.5 L MCV MCH 23.5 L MCHC 29.3 L RDW 17.1 H Plt Count 530 H Neutrophils # 10.9 H Lymphocytes # 0.6 L Sodium Potassium BUN Creatinine Glucose POC Glucose (mg/dL) 192 H Alkaline Phosphatase Troponin I - Diagnostic Findings Chest x-ray: image reviewed Assessment and Plan Assessment: Shortness of breath, likely multifactorial, in part related to fluid overload, but also secondary to underlying anemia. Recent aortic valve replacement, [facility], July 07. History of chronic atrial fibrillation. History of hypertension. History of CAD with previous stent placement. History of COPD. History of diabetes mellitus. History of hyperlipidemia. History of osteoarthritis. Prior history of tobacco use. Plan: Plan dated the 07/21/2022. The patient appears to be doing reasonably well. He is on room air. Saturations are 98%. He's not receiving any IV fluids. Labs, x-rays, and medications are all reviewed. He has been seen by cardiology. The patient COPD does not appear to be active. He continues on Symbicort, Singulair, and a rescue inhaler. We will continue to follow make recommendations were appropriate. Prognosis is guarded. Time with Patient: Greater than 30
--- NOTE | 2022-07-21 15:25 | P.GSCN ---
History of Present Illness Consult date: 07/21/22 History of present illness: CHIEF COMPLAINT: Shortness of breath HISTORY OF PRESENT ILLNESS: This is a 72-year-old male who presented to the hospital for complaints of shortness of breath. Patient had aortic valve replacement with an unsuccessful cardiac ablation 2 weeks ago at [facility]. He is on Eliquis for his atrial fibrillation. Patient is currently on IV Lasix for an acute CHF exacerbation. Patient's hemoglobin is low at 7.5. His stool for occult blood is positive. Patient denies any bloody or black stools. He denies abdominal pain. Denies any nausea or vomiting. He reports his last EGD was in May of this year 2021 reported as negative. Last colonoscopy 2 months ago reports that is negative. He has had colon polyps in the past. On patient is followed by both cardiology and pulmonary service. Surgical service is consulted for evaluation of patient's anemia. Patient seen and examined with Dr. gomez PAST MEDICAL HISTORY: See below PAST SURGICAL HISTORY: See below MEDICATIONS: See below ALLERGIES: See below SOCIAL HISTORY: No illicit drug use. REVIEW OF SYSTEMS: CONSTITUTIONAL: Denies fever or chills. HEENT: Denies blurred vision, vision changes, or eye pain. Denies hemoptysis CARDIOVASCULAR: Denies chest pain or pressure. RESPIRATORY: No shortness of breath. GASTROINTESTINAL: See HPI for pertinent findings HEMATOLOGIC: Denies bleeding disorders. GENITOURINARY: Denies any blood in urine or increased urinary frequency. SKIN: Denies pruitis. Denies rash. PHYSICAL EXAM: VITAL SIGNS: Reviewed GENERAL: Well-developed in no acute distress. HEENT: No sclera icterus. Extraocular movements grossly intact. Moist buccal mucosa. Head is atraumatic, normocephalic. No nasal drainage. ABDOMEN: Soft. Nondistended. Nontender NEUROLOGIC: Alert and oriented. Cranial nerves II through XII grossly intact. Extremities: Bilateral lower extremity edema LABORATORY DATA: WBC 13.2 down to 12.6 hemoglobin 7.7-7.5 platelets 530. Hemoglobin in June 2020 11.5 Sodium is 135 potassium 4.7 creatinine 1.75 iron 99 Stool for occult blood positive IMAGING: Chest x-ray small bilateral pleural effusions with left basilar patchy airspace opacities which may represent atelectasis and/or infiltrate ASSESSMENT: 1. Microcytic anemia with stool for occult blood positive 2. Shortness of breath likely multifactorial due to patient's anemia and CHF exacerbation 3. Acute CHF exacerbation managed by cardiology service PLAN: -Recommended both EGD and colonoscopy for patient for further evaluation of his anemia. Patient has declined colonoscopy at this time. But he is agreeable to proceed with EGD -Patient is scheduled for EGD tomorrow with Dr. gomez -Okay for regular diet today -Nothing by mouth after midnight -Hold anticoagulation -Change by mouth Protonix to IV -Continue to monitor hemoglobin -Continue monitor for any signs or symptoms of bleeding Physician Soft Tile Setter note has been reviewed by physician. Signing provider agrees with the documented findings, assessment, and plan of care. Past Medical History Past Medical History: Atrial Fibrillation, Asthma, Diabetes Mellitus, Hearing Disorder / Deafness, Hyperlipidemia, Hypertension, Osteoarthritis (OA) Additional Past Medical History / Comment(s): Neuropathy, hx pancreatitis, bilateral hearing aid use. History of Any Multi-Drug Resistant Organisms: None Reported Past Surgical History: Appendectomy, Heart Catheterization With Stent, Orthopedic Surgery Additional Past Surgical History / Comment(s): Right hand surgery, bilateral cataract surgery, bilateral eye surgery, colonoscopy. Past Anesthesia/Blood Transfusion Reactions: No Reported Reaction Date of Last Stent Placement:: 2015 Smoking Status: Former smoker - Past Family History Mother Family Medical History: No Reported History Medications and Allergies Home Medications Medication Instructions Recorded Confirmed Type Montelukast [Singulair] 10 mg PO DAILY 10/05/14 07/20/22 History Tamsulosin HCl [Flomax] 0.8 mg PO HS 08/31/17 07/20/22 History Insulin Glargine,Hum.rec.anlog 40 unit SQ DAILY 10/23/20 07/20/22 History [Lantus Solostar] Apixaban [Eliquis] 5 mg PO BID 02/19/22 07/20/22 History DULoxetine HCL [Cymbalta] 30 mg PO DAILY 02/19/22 07/20/22 History Finasteride [Proscar] 5 mg PO DAILY 02/19/22 07/20/22 History Insulin Aspart [NovoLOG] 6 - 10 units SQ AC-TID 02/19/22 07/20/22 History Albuterol Nebulized [Ventolin 2.5 mg INHALATION Q4H PRN 07/20/22 07/20/22 History Nebulized] Albuterol Sulfate [Albuterol 1 puff PO RT-TID PRN 07/20/22 07/20/22 History Sulfate Hfa] Alprostadil 40mcg/Cartridge Inj 40 mcg INTRA-CAVE DIRECTED PRN 07/20/22 07/20/22 History System Amiodarone HCl [Pacerone] 200 mg PO DAILY 07/20/22 07/20/22 History Aspirin EC [Ecotrin Low Dose] 81 mg PO DAILY 07/20/22 07/20/22 History Empagliflozin [Jardiance] 25 mg PO DAILY 07/20/22 07/20/22 History Furosemide [Lasix] 20 mg PO DAILY 07/20/22 07/20/22 History Mometasone/Formoterol [Dulera 100 2 puff PO RT-BID 07/20/22 07/20/22 History Mcg-5 Mcg Inhaler] Omeprazole [PriLOSEC] 20 mg PO DAILY 07/20/22 07/20/22 History Rosuvastatin Calcium [Crestor] 20 mg PO DAILY 07/20/22 07/20/22 History metFORMIN HCL ER [Glucophage XR] 1,000 mg PO BID 07/20/22 07/20/22 History oxyCODONE HCL 5 mg PO Q4H PRN 07/20/22 07/20/22 History Allergies Allergy/AdvReac Type Severity Reaction Status Date / Time No Known Allergies Allergy Verified 07/20/22 12:05 Surgical - Exam Vital Signs Temp Pulse Resp BP Pulse Ox 97.8 F 107 H 18 142/92 100 07/20/22 09:51 07/20/22 09:51 07/20/22 09:51 07/20/22 09:51 07/20/22 09:51 Results - Labs 07/21/22 07:17 07/21/22 07:17 Abnormal Lab Results - Last 24 Hours (Table) 07/20/22 07/20/22 07/20/22 Range/Units 10:41 10:41 10:41 WBC 12.6 H (3.8-10.6) k/uL RBC 3.16 L (4.30-5.90) m/uL Hgb 7.7 L (13.0-17.5) gm/dL Hct 25.0 L (39.0-53.0) % MCV 79.4 L (80.0-100.0) fL MCH 24.4 L (25.0-35.0) pg MCHC 30.7 L (31.0-37.0) g/dL RDW 17.2 H (11.5-15.5) % Plt Count 472 H (150-450) k/uL Neutrophils # 11.3 H (1.3-7.7) k/uL Lymphocytes # 0.5 L (1.0-4.8) k/uL Sodium (137-145) mmol/L Potassium 5.3 H (3.5-5.1) mmol/L BUN 37 H (9-20) mg/dL Creatinine 1.71 H (0.66-1.25) mg/dL Glucose 126 H (74-99) mg/dL POC Glucose (mg/dL) (70-110) mg/dL Alkaline Phosphatase 148 H (38-126) U/L Troponin I 0.394 H* (0.000-0.034) ng/mL 07/20/22 07/20/22 07/20/22 Range/Units 14:10 14:10 18:30 WBC 13.2 H (3.8-10.6) k/uL RBC 3.16 L (4.30-5.90) m/uL Hgb 7.7 L (13.0-17.5) gm/dL Hct 25.5 L (39.0-53.0) % MCV (80.0-100.0) fL MCH 24.2 L (25.0-35.0) pg MCHC 30.0 L (31.0-37.0) g/dL RDW 17.2 H (11.5-15.5) % Plt Count 497 H (150-450) k/uL Neutrophils # (1.3-7.7) k/uL Lymphocytes # (1.0-4.8) k/uL Sodium (137-145) mmol/L Potassium (3.5-5.1) mmol/L BUN (9-20) mg/dL Creatinine (0.66-1.25) mg/dL Glucose (74-99) mg/dL POC Glucose (mg/dL) 222 H (70-110) mg/dL Alkaline Phosphatase (38-126) U/L Troponin I 0.382 H* (0.000-0.034) ng/mL 07/20/22 07/21/22 07/21/22 Range/Units 19:57 05:52 07:17 WBC (3.8-10.6) k/uL RBC (4.30-5.90) m/uL Hgb (13.0-17.5) gm/dL Hct (39.0-53.0) % MCV (80.0-100.0) fL MCH (25.0-35.0) pg MCHC (31.0-37.0) g/dL RDW (11.5-15.5) % Plt Count (150-450) k/uL Neutrophils # (1.3-7.7) k/uL Lymphocytes # (1.0-4.8) k/uL Sodium 135 L (137-145) mmol/L Potassium (3.5-5.1) mmol/L BUN 32 H (9-20) mg/dL Creatinine 1.75 H (0.66-1.25) mg/dL Glucose 137 H (74-99) mg/dL POC Glucose (mg/dL) 221 H 155 H (70-110) mg/dL Alkaline Phosphatase (38-126) U/L Troponin I (0.000-0.034) ng/mL 07/21/22 Range/Units 07:17 WBC 12.6 H (3.8-10.6) k/uL RBC 3.18 L (4.30-5.90) m/uL Hgb 7.5 L (13.0-17.5) gm/dL Hct 25.5 L (39.0-53.0) % MCV (80.0-100.0) fL MCH 23.5 L (25.0-35.0) pg MCHC 29.3 L (31.0-37.0) g/dL RDW 17.1 H (11.5-15.5) % Plt Count 530 H (150-450) k/uL Neutrophils # 10.9 H (1.3-7.7) k/uL Lymphocytes # 0.6 L (1.0-4.8) k/uL Sodium (137-145) mmol/L Potassium (3.5-5.1) mmol/L BUN (9-20) mg/dL Creatinine (0.66-1.25) mg/dL Glucose (74-99) mg/dL POC Glucose (mg/dL) (70-110) mg/dL Alkaline Phosphatase (38-126) U/L Troponin I (0.000-0.034) ng/mL Diabetes panel 07/20/22 07/21/22 Range/Units 10:41 07:17 Sodium 137 135 L (137-145) mmol/L Potassium 5.3 H 4.7 (3.5-5.1) mmol/L Chloride 102 100 (98-107) mmol/L Carbon Dioxide 27 25 (22-30) mmol/L BUN 37 H 32 H (9-20) mg/dL Creatinine 1.71 H 1.75 H (0.66-1.25) mg/dL Glucose 126 H 137 H (74-99) mg/dL Calcium 8.4 8.7 (8.4-10.2) mg/dL AST 30 (17-59) U/L ALT 23 (4-49) U/L Alkaline Phosphatase 148 H (38-126) U/L Total Protein 6.3 (6.3-8.2) g/dL Albumin 3.6 (3.5-5.0) g/dL Calcium panel 07/20/22 07/21/22 Range/Units 10:41 07:17 Calcium 8.4 8.7 (8.4-10.2) mg/dL Albumin 3.6 (3.5-5.0) g/dL Pituitary panel 07/20/22 07/21/22 Range/Units 10:41 07:17 Sodium 137 135 L (137-145) mmol/L Potassium 5.3 H 4.7 (3.5-5.1) mmol/L Chloride 102 100 (98-107) mmol/L Carbon Dioxide 27 25 (22-30) mmol/L BUN 37 H 32 H (9-20) mg/dL Creatinine 1.71 H 1.75 H (0.66-1.25) mg/dL Glucose 126 H 137 H (74-99) mg/dL Calcium 8.4 8.7 (8.4-10.2) mg/dL Adrenal panel 07/20/22 07/21/22 Range/Units 10:41 07:17 Sodium 137 135 L (137-145) mmol/L Potassium 5.3 H 4.7 (3.5-5.1) mmol/L Chloride 102 100 (98-107) mmol/L Carbon Dioxide 27 25 (22-30) mmol/L BUN 37 H 32 H (9-20) mg/dL Creatinine 1.71 H 1.75 H (0.66-1.25) mg/dL Glucose 126 H 137 H (74-99) mg/dL Calcium 8.4 8.7 (8.4-10.2) mg/dL Total Bilirubin 0.4 (0.2-1.3) mg/dL AST 30 (17-59) U/L ALT 23 (4-49) U/L Alkaline Phosphatase 148 H (38-126) U/L Total Protein 6.3 (6.3-8.2) g/dL Albumin 3.6 (3.5-5.0) g/dL
[2022-07-21 16:34] LABS: Glucose,Whole Blood 282 mg/dL (70-110)
[2022-07-21] MEDS: ALBUTEROL NEBULIZED 2.5 MG/3 ML INHALATION PRN (19:54)
[2022-07-21 20:04] LABS: Glucose,Whole Blood 246 mg/dL (70-110)
[2022-07-21] MEDS: PANTOPRAZOLE 40 MG/10 ML VIAL IVP SCH (21:03)
[2022-07-21] MEDS: TAMSULOSIN 0.4 MG CAP.ER.24H PO SCH (21:04)
--- NOTE | 2022-07-22 05:35 | P.PN ---
Subjective Progress Note Date: 07/21/22 Patient is a 72-year-old male with a known history of recent open heart surgery with aortic valve replacement followed by ablation on number 2021, atrial fibrillation on anticoagulation with Eliquis, hypertension, diabetes type 2 insulin-dependent, coronary disease history of stent placement, COPD, prior history of smoking presents to ER with complaints of shortness of breath and worsening bilateral leg swelling. Patient states that he had aortic valve replacement and ablation the following day which was unsuccessful. Patient states that he has been having worsening leg swelling and shortness of breath for the past 2 weeks since his discharge from hospital. Denies any complaints of chest pain. No palpitations. No fever no chills. No nausea vomiting abdominal pain or diarrhea. Denied any dizziness or lightheadedness. EKG showed atrial fibrillation with rapid regular rate heart rate 107 Chest x-ray showed small bilateral pleural effusions with left basilar patchy airspace opacities which may represent atelectasis/infiltrate. Laboratory test showed WBC 12.6 hemoglobin 7.7 and platelets 472 MCV 79.4 and RDW 17.2 Sodium 137 potassium 5.3 chloride 102 bicarb is 27 BUN 37 creatinine 1.31 Alk phos 148 and troponin 0.394, 0.382 and proBNP is 2180 07/21/2022 Patient is seen and evaluated in follow-up this morning with no acute overnight issues noted. Patient with multiple medical consultations including pulmonary, cardiology, and general surgery following. Patient with acute CHF exacerbation maintained on IV Lasix twice daily. 2-D echo is currently ordered and pending at this time. Patient was continued on IV heparin although being transitioned to eliquis per cardiology. Hemoglobin has been dropping and general surgery was consulted for positive vocal blood. Patient denies any active bleeding and denies any dark stools noted. Patient recently had an EGD and colonoscopy within this year that were negative. General surgery recommending EGD/colonoscopy to assess for any bleeding. Recommend holding anticoagulation and possible EGD tomorrow. Patient refused colonoscopy. Patient is afebrile denies chest pain or worsening shortness of breath. Patient continued on current diet and will be nothing by mouth at midnight. Review of systems: Constitutional: No reports of fatigue, fever, or chills Cardiovascular: No reports of chest pain or palpitations Respiratory: reports of shortness of breath GI: No reports of nausea, vomiting, or diarrhea : No reports of dysuria or retention Neurovascular: No reports of weakness or numbness All medications have been reviewed Active Medications Acetaminophen (Acetaminophen Tab 325 Mg Tab) 650 mg PO Q6HR PRN PRN Reason: Fever and/ or Pain Last Admin: 07/21/22 05:02 Dose: 650 mg Albuterol Sulfate (Albuterol Nebulized 2.5 Mg/3 Ml) 2.5 mg INHALATION Q4H PRN PRN Reason: Shortness Of Breath Last Admin: 07/20/22 20:02 Dose: 2.5 mg Amiodarone HCl (Amiodarone 200 Mg Tab) 200 mg PO DAILY [facility] Last Admin: 07/21/22 09:45 Dose: 200 mg Aspirin (Aspirin 81 Mg) 81 mg PO DAILY [facility] Last Admin: 07/21/22 09:45 Dose: 81 mg Atorvastatin Calcium (Atorvastatin 40 Mg Tab) 40 mg PO DAILY [facility] Last Admin: 07/21/22 09:45 Dose: 40 mg Budesonide/Formoterol Fumarate (Symbicort 80-4.5 Mcg Inhaler) 2 puff INHALATION RT-BID [facility] Last Admin: 07/21/22 09:05 Dose: Not Given Dextrose/Water (Dextrose 50% Syringe 50 Ml) 25 ml IVP PER PROTOCOL PRN; Protocol PRN Reason: Hypoglycemia Dextrose/Water (Dextrose 50% Syringe 50 Ml) 50 ml IVP PER PROTOCOL PRN; Protocol PRN Reason: Hypoglycemia Duloxetine HCl (Duloxetine Hcl 30 Mg Capsule.Dr) 30 mg PO DAILY [facility] Last Admin: 07/21/22 09:45 Dose: 30 mg Finasteride (Finasteride 5 Mg Tab) 5 mg PO DAILY [facility] Last Admin: 07/21/22 09:45 Dose: 5 mg Furosemide (Furosemide 10 Mg/Ml 4 Ml Vial) 40 mg IV Q12HR [facility] Last Admin: 07/21/22 09:45 Dose: 40 mg Insulin Aspart (Insulin Aspart (Novolog) 100 Unit/Ml Vial) 0 unit SQ [facility]; Protocol Last Admin: 07/21/22 12:14 Dose: 1 unit Insulin Detemir (Insulin Detemir (Levemir) 100 Unit/Ml Syr) 30 unit SQ DAILY@0700 [facility] Last Admin: 07/21/22 09:44 Dose: 30 unit Montelukast Sodium (Montelukast 10 Mg Tab) 10 mg PO DAILY [facility] Last Admin: 07/21/22 09:45 Dose: 10 mg Pantoprazole Sodium (Pantoprazole 40 Mg/10 Ml Vial) 40 mg IVP BID [facility] Tamsulosin HCl (Tamsulosin 0.4 Mg Cap.Er.24h) 0.8 mg PO HS [facility] Last Admin: 07/20/22 21:29 Dose: 0.8 mg Physical exam: Patient is sitting up in the bed comfortably, no acute distress, awake alert and oriented.. HEENT: Normocephalic. Neck is supple. Pupils reactive. Nostrils clear. Oral cavity is moist. Neck reveals no JVD, carotid bruits, or thyromegaly. CHEST EXAMINATION: Trachea is central. Symmetrical expansion. Bibasilar crackles and diminished sounds.. CARDIAC: Normal S1, S2 with no gallops. No murmurs ABDOMEN: Soft. Bowel sounds present. Nontender. No organomegaly. No abdominal bruits. Extremities: Bilateral 2+ pedal edema. No clubbing or cyanosis Neurologically awake, alert, oriented x3 with well-coordinated movements. No focal deficits noted Skin: No rash or skin lesions. Psychiatric: Cooperative. Non-suicidal, Musculoskeletal: No joint swelling or deformity. Normal range of motion. Assessment: Worsening shortness of breath secondary to acute CHF. Ejection fraction not known at this time. Possible anemia contributing. Recent history of aortic valve replacement on July 07 2022 Elevated troponin level Coronary artery disease with history of stent placement Chronic atrial fibrillation on anticoagulation with Eliquis Acute on chronic kidney disease stage III. Creatinine 1.71 on admission Mild hyperkalemia secondary to acute kidney injury Microcytic anemia rule out iron deficiency Hypertension Diabetes type 2 insulin-dependent COPD Prior history of smoking Osteoarthritis Diabetic peripheral neuropathy DVT and GI prophylaxis Plan: Patient will be continued on telemetry monitoring. Continue with Lasix 40 mg twice daily. Continue with amiodarone, aspirin, and statin Cardiology and pulmonary following along with general surgery for evaluation of anemia. Recommending EGD/colonoscopy, plan is for EGD in am Monitor H&H. Anticoagulation on hold pending anemia work-up. Continue with PPI Recommend accuchecks achs and will continue current medication regimen Due to multiple complex medical issues, prognosis is guarded Recommend am labs. The impression and plan of care has been dictated by Joselin Woodson, Nurse Practitioner as directed. Dr. Sonia MD I have performed a history and examination and MDM of this patient, discussed the same with the dictator, and agree with the dictator's assessment and plan as written ,documented as a scribe. Based on total visit time, I have performed more than 50% of the visit. Objective - Vital Signs Vital signs: Vital Signs Temp 97.9 F 07/21/22 08:31 Pulse 102 H 07/21/22 08:31 Resp 20 07/21/22 08:31 BP 129/72 07/21/22 08:31 Pulse Ox 96 07/21/22 08:31 FiO2 Intake & Output 07/20/22 07/21/22 07/21/22 18:59 06:59 18:59 Intake Total 480 Output Total 1825 Balance -1825 480 Weight 102.33 kg 100.2 kg Intake: Oral 480 Output: Urine 1825 Other: Voiding Method Toilet Toilet Urinal Urinal # Voids 2 - Labs CBC & Chem 7: 07/21/22 07:17 07/21/22 07:17 Labs: Abnormal Lab Results - Last 24 Hours (Table) 07/20/22 07/20/22 07/20/22 Range/Units 10:41 10:41 10:41 WBC 12.6 H (3.8-10.6) k/uL RBC 3.16 L (4.30-5.90) m/uL Hgb 7.7 L (13.0-17.5) gm/dL Hct 25.0 L (39.0-53.0) % MCV 79.4 L (80.0-100.0) fL MCH 24.4 L (25.0-35.0) pg MCHC 30.7 L (31.0-37.0) g/dL RDW 17.2 H (11.5-15.5) % Plt Count 472 H (150-450) k/uL Neutrophils # 11.3 H (1.3-7.7) k/uL Lymphocytes # 0.5 L (1.0-4.8) k/uL Sodium (137-145) mmol/L Potassium 5.3 H (3.5-5.1) mmol/L BUN 37 H (9-20) mg/dL Creatinine 1.71 H (0.66-1.25) mg/dL Glucose 126 H (74-99) mg/dL POC Glucose (mg/dL) (70-110) mg/dL Alkaline Phosphatase 148 H (38-126) U/L Troponin I 0.394 H* (0.000-0.034) ng/mL 07/20/22 07/20/22 07/20/22 Range/Units 14:10 14:10 18:30 WBC 13.2 H (3.8-10.6) k/uL RBC 3.16 L (4.30-5.90) m/uL Hgb 7.7 L (13.0-17.5) gm/dL Hct 25.5 L (39.0-53.0) % MCV (80.0-100.0) fL MCH 24.2 L (25.0-35.0) pg MCHC 30.0 L (31.0-37.0) g/dL RDW 17.2 H (11.5-15.5) % Plt Count 497 H (150-450) k/uL Neutrophils # (1.3-7.7) k/uL Lymphocytes # (1.0-4.8) k/uL Sodium (137-145) mmol/L Potassium (3.5-5.1) mmol/L BUN (9-20) mg/dL Creatinine (0.66-1.25) mg/dL Glucose (74-99) mg/dL POC Glucose (mg/dL) 222 H (70-110) mg/dL Alkaline Phosphatase (38-126) U/L Troponin I 0.382 H* (0.000-0.034) ng/mL 07/20/22 07/21/22 07/21/22 Range/Units 19:57 05:52 07:17 WBC (3.8-10.6) k/uL RBC (4.30-5.90) m/uL Hgb (13.0-17.5) gm/dL Hct (39.0-53.0) % MCV (80.0-100.0) fL MCH (25.0-35.0) pg MCHC (31.0-37.0) g/dL RDW (11.5-15.5) % Plt Count (150-450) k/uL Neutrophils # (1.3-7.7) k/uL Lymphocytes # (1.0-4.8) k/uL Sodium 135 L (137-145) mmol/L Potassium (3.5-5.1) mmol/L BUN 32 H (9-20) mg/dL Creatinine 1.75 H (0.66-1.25) mg/dL Glucose 137 H (74-99) mg/dL POC Glucose (mg/dL) 221 H 155 H (70-110) mg/dL Alkaline Phosphatase (38-126) U/L Troponin I (0.000-0.034) ng/mL 07/21/22 Range/Units 07:17 WBC 12.6 H (3.8-10.6) k/uL RBC 3.18 L (4.30-5.90) m/uL Hgb 7.5 L (13.0-17.5) gm/dL Hct 25.5 L (39.0-53.0) % MCV (80.0-100.0) fL MCH 23.5 L (25.0-35.0) pg MCHC 29.3 L (31.0-37.0) g/dL RDW 17.1 H (11.5-15.5) % Plt Count 530 H (150-450) k/uL Neutrophils # 10.9 H (1.3-7.7) k/uL Lymphocytes # 0.6 L (1.0-4.8) k/uL Sodium (137-145) mmol/L Potassium (3.5-5.1) mmol/L BUN (9-20) mg/dL Creatinine (0.66-1.25) mg/dL Glucose (74-99) mg/dL POC Glucose (mg/dL) (70-110) mg/dL Alkaline Phosphatase (38-126) U/L Troponin I (0.000-0.034) ng/mL
[2022-07-22] MEDS: INSULIN ASPART (NovoLOG) 100 UNIT/ML VIAL SQ SCH ×4 (05:42→21:17)
[2022-07-22] MEDS: INSULIN DETEMIR (LEVEMIR) 100 UNIT/ML SYR SQ SCH (05:42)
[2022-07-22 05:54] LABS: Glucose,Whole Blood 173 mg/dL (70-110)
[2022-07-22 08:15] LABS: Calcium 8.6 mg/dL (8.4-10.2); Potassium 4.6 mmol/L (3.5-5.1)
[2022-07-22 08:47] LABS: Anisocytosis Slight; HCT 25.5 % (39.0-53.0); HGB 7.7 gm/dL (13.0-17.5); Hypochromasia Marked; MCH 24.5 pg (25.0-35.0); MCHC 30.3 g/dL (31.0-37.0); Mean Platelet Volume 7.1; Platelet Count 514 k/uL (150-450); RBC 3.15 m/uL (4.30-5.90); RDW 16.9 % (11.5-15.5); WBC 10.3 k/uL (3.8-10.6)
[2022-07-22] MEDS: SYMBICORT 80-4.5 MCG INHALER INHALATION SCH ×2 (08:55→20:33)
[2022-07-22] MEDS: ASPIRIN 81 MG PO SCH (09:57)
[2022-07-22] MEDS: ATORVASTATIN 40 MG TAB PO SCH (09:57)
[2022-07-22] MEDS: PANTOPRAZOLE 40 MG/10 ML VIAL IVP SCH ×2 (09:58→21:17)
[2022-07-22] MEDS: DULoxetine HCL 30 MG CAPSULE.DR PO SCH (09:58)
[2022-07-22] MEDS: MONTELUKAST 10 MG TAB PO SCH (09:58)
[2022-07-22] MEDS: FINASTERIDE 5 MG TAB PO SCH (09:58)
[2022-07-22] MEDS: AMIODARONE 200 MG TAB PO SCH (09:58)
--- NOTE | 2022-07-22 11:24 | P.PN ---
Subjective Patient is a 72-year-old male with a known history of recent open heart surgery with aortic valve replacement July 07 2022 at [facility] in [place], persistent atrial fibrillation on anticoagulation with Eliquis s/p ablation after Valve surgery which was unsuccessful, hypertension, diabetes type 2 insulin-dependent, coronary disease history of stent placement, COPD, prior history of smoking. He follows with Nurse Administrator at [facility]. We are consulted for CHF. Patient presents to ER with complaints of shortness of breath and worsening bilateral leg swelling. He underwent aortic valve replacement on 07/07/2022 he was discharged on Tuesday07/16/2022, the day after On Tuesday 07/17 he began to have worsening shortness of breath, bilateral lower extremity edema, orthopnea, PND. His symptoms progressively got worse. He presented to the emergency department for further evaluation. He was started on IV Lasix and admitted. 07/22/2022 Patient seen and examined at bedside, continues to have significant Shortness of breath and bilateral lower extremity edema, slowly improving. Continues to be on IV Lasix. His anticoagulation is on hold secondary to an EGD being performed for evaluation of anemia. He has had 1.8 liter urine output the past 5 hours, decreased weight noted. Echocardiogram revealed EF 55%, normally functioning bioprosthetic aortic valve PHYSICAL EXAMINATION Vitals reviewed CONSTITUTIONAL: No apparent distress. HEENT: Head is normocephalic. Pupils are equal, round. Sclerae anicteric. Mucous membranes of the mouth are moist. CHEST EXAMINATION: Lungs are diminished, mild crackles in the basesto auscultation. No chest wall tenderness is noted on palpation or with deep breathing. HEART EXAMINATION: Irregular rate and rhythm. S1, S2 heard. No murmurs, gallops or rub. ABDOMEN: Soft, nontender. Positive bowel sounds. EXTREMITIES: 2+ peripheral pulses, 3+ bilateral lower extremity edema and no calf tenderness. NEUROLOGIC EXAMINATION: Patient is awake, alert and oriented x3. ASSESSMENT Acute on chronic heart failure with preserved ejection fraction Elevated troponin, likely related to recent AV surgery Aortic valve replacement recently on July 07 2022 at [facility] in [place] Persistent atrial fibrillation on anticoagulation with Eliquis s/p ablation after Valve surgery which was unsuccessful Hypertension, diabetes type 2 insulin-dependent Coronary artery disease history of stent placement, unknown details COPD Prior history of tobacco use Anemia, recent AV surgery PLAN Continue IV Lasix Continue Eliquis 5mg BID, currently on hold per surgery for EGD, restart when cleared by surgery Monitor renal function and electrolytes Monitor I/Os, daily weights Continue home medications amiodarone, atorvastatin Further recommendations based on clinical course Nurse practitioner note has been reviewed by physician. Signing provider agrees with the documented findings, assessment, and plan of care. Objective - Vital Signs Vital signs: Vital Signs Temp 98.6 F 07/22/22 09:55 Pulse 102 H 07/22/22 10:06 Resp 17 07/22/22 09:55 BP 143/73 07/22/22 09:55 Pulse Ox 94 L 07/22/22 09:55 FiO2 Intake & Output 07/21/22 07/22/22 07/22/22 18:59 06:59 18:59 Intake Total 480 Output Total 1800 800 650 Balance -1320 -800 -650 Weight 100.2 kg 99.7 kg Intake: Oral 480 Output: Urine 1800 800 650 Other: Voiding Method Toilet Toilet Toilet Urinal Urinal Urinal # Voids 2 # Bowel Movements 1 - Labs CBC & Chem 7: 07/22/22 07:20 07/22/22 07:20 Labs: Abnormal Lab Results - Last 24 Hours (Table) 07/21/22 07/21/22 07/21/22 Range/Units 11:37 16:33 20:01 RBC (4.30-5.90) m/uL Hgb (13.0-17.5) gm/dL Hct (39.0-53.0) % MCH (25.0-35.0) pg MCHC (31.0-37.0) g/dL RDW (11.5-15.5) % Plt Count (150-450) k/uL BUN (9-20) mg/dL Creatinine (0.66-1.25) mg/dL Glucose (74-99) mg/dL POC Glucose (mg/dL) 192 H 282 H 246 H (70-110) mg/dL 07/22/22 07/22/22 07/22/22 Range/Units 05:53 07:20 07:20 RBC 3.15 L (4.30-5.90) m/uL Hgb 7.7 L (13.0-17.5) gm/dL Hct 25.5 L (39.0-53.0) % MCH 24.5 L (25.0-35.0) pg MCHC 30.3 L (31.0-37.0) g/dL RDW 16.9 H (11.5-15.5) % Plt Count 514 H (150-450) k/uL BUN 29 H (9-20) mg/dL Creatinine 1.72 H (0.66-1.25) mg/dL Glucose 171 H (74-99) mg/dL POC Glucose (mg/dL) 173 H (70-110) mg/dL
[2022-07-22 11:46] LABS: Glucose,Whole Blood 184 mg/dL (70-110)
--- NOTE | 2022-07-22 12:26 | P.PN ---
Subjective Progress Note Date: 07/22/22 Principal diagnosis: Shortness of breath. Pulmonary consult dated 07/21/2022. 72-year-old male who presents to the emergency department on July complaining of shortness of breath. He was brought in by EMS. The patient had recent open heart surgery done at [facility], on July 07. He had a valve replacement there. He had an aortic valve replacement. In addition, he had an ablation. He apparently was complaining of shortness of breath, weight gain, and swelling in the legs, but denied any chest pain, fever, chills, or phlegm production. He also mentioned to me that he was quite anemic. White count 12.6, he will been some 0.5, hematocrit 25.5, and platelet count 530,000. Sodium 135, potassium 4.7, chlorides 100, CO2 25, BUN 32, and cre atinine 1.75. The patient's troponin was 0.382. N-terminal proBNP was 2180. Chest x-ray shows small bilateral pleural effusions, with patchy basilar airspace opacities, which could represent atelectasis or infiltrate. Currently, the patient's resting comfortably. He is not on any IV fluids, or on any oxygen at this time. His resting saturation was apparently 98%. Progress note dated 07/22/2022. The patient is seen in room 360. He is resting comfortably. He is currently on room air. No IV fluids. He is scheduled for an EGD today, because of his anemia. He apparently was seen by cardiology and had an echocardiogram. He states that everything was fine according to them. White count 10.3, hemoglobin 7.7, hematocrit 25.5, platelet count 514,000. Electrolytes normal. BUN 29, and creatinine 1.72. Objective - Vital Signs Vital signs: Vital Signs Temp 98.6 F 07/22/22 09:55 Pulse 105 H 07/22/22 12:04 Resp 16 07/22/22 12:04 BP 138/80 07/22/22 12:04 Pulse Ox 96 07/22/22 12:04 FiO2 Intake & Output 07/21/22 07/22/22 07/22/22 18:59 06:59 18:59 Intake Total 480 Output Total 1800 800 950 Balance -1320 -800 -950 Weight 100.2 kg 99.7 kg Intake: Oral 480 Output: Urine 1800 800 950 Other: Voiding Method Toilet Toilet Toilet Urinal Urinal Urinal # Voids 2 # Bowel Movements 1 - Exam No acute distress, oriented 3. No use of accessory muscles or conversational dyspnea. Room air saturation 96 %. HEENT examination is grossly unremarkable. Neck supple. Full range of motion. No adenopathy thyromegaly or neck vein distention. Cardiovascular examination reveals regular rhythm rate. S1-S2 normal. No S3 or S4. No discernible murmur noted. Heart rate 98 bpm. Lungs reveal mild scattered rhonchi. No wheezes or crackles. Breath sounds equal. A fresh median sternotomy scar is noted. Abdomen soft bowel sounds are heard. No masses or tenderness. Extremities are intact. No cyanosis or clubbing. Mild edema. Skin is without rash or lesion. Neurologic examination is brief but nonfocal. - Labs CBC & Chem 7: 07/22/22 07:20 07/22/22 07:20 Labs: Abnormal Lab Results - Last 24 Hours (Table) 07/21/22 07/21/22 07/22/22 Range/Units 16:33 20:01 05:53 RBC (4.30-5.90) m/uL Hgb (13.0-17.5) gm/dL Hct (39.0-53.0) % MCH (25.0-35.0) pg MCHC (31.0-37.0) g/dL RDW (11.5-15.5) % Plt Count (150-450) k/uL BUN (9-20) mg/dL Creatinine (0.66-1.25) mg/dL Glucose (74-99) mg/dL POC Glucose (mg/dL) 282 H 246 H 173 H (70-110) mg/dL 07/22/22 07/22/22 07/22/22 Range/Units 07:20 07:20 11:44 RBC 3.15 L (4.30-5.90) m/uL Hgb 7.7 L (13.0-17.5) gm/dL Hct 25.5 L (39.0-53.0) % MCH 24.5 L (25.0-35.0) pg MCHC 30.3 L (31.0-37.0) g/dL RDW 16.9 H (11.5-15.5) % Plt Count 514 H (150-450) k/uL BUN 29 H (9-20) mg/dL Creatinine 1.72 H (0.66-1.25) mg/dL Glucose 171 H (74-99) mg/dL POC Glucose (mg/dL) 184 H (70-110) mg/dL Assessment and Plan Assessment: Shortness of breath, likely multifactorial, in part related to fluid overload, but also secondary to underlying anemia. Recent aortic valve replacement, [facility], July 07. History of chronic atrial fibrillation. History of hypertension. History of CAD with previous stent placement. History of COPD. History of diabetes mellitus. History of hyperlipidemia. History of osteoarthritis. Prior history of tobacco use. Plan: Plan dated the 07/21/2022. The patient appears to be doing reasonably well. He is on room air. Saturations are 98%. He's not receiving any IV fluids. Labs, x-rays, and medications are all reviewed. He has been seen by cardiology. The patient COPD does not appear to be active. He continues on Symbicort, Singulair, and a rescue inhaler. We will continue to follow make recommendations were appropriate. Prognosis is guarded. Plan dated 07/22/2022. The patient's currently on room air. He denies being short of breath at this time. He's not receiving any IV fluids. Because of his anemia, the patient is scheduled to have an EGD today. We will continue to follow make recommendations along the way. Labs, x-rays, medications are all reviewed. Prognosis is guarded. He was seen in consultation yesterday. Time with Patient: Less than 30
[2022-07-22] MEDS ORDERED: SODIUM CHLORIDE 0.9% 500 ML 500 ML IV ONE (12:48)
[2022-07-22] MEDS ORDERED: LIDOCAINE 2% INJ 20 MG/ML (2 ML VIAL) ONE (12:50)
[2022-07-22] MEDS ORDERED: PROPOFOL 10 MG/ML 20 ML VIAL IV ONE (12:50)
--- NOTE | 2022-07-22 12:58 | P.OP ---
Date of Procedure: 07/22/22 Preoperative Diagnosis: Anemia GI bleed Postoperative Diagnosis: Mild antral gastritis No evidence of GI bleed Procedure(s) Performed: EGD Anesthesia: MAC Surgeon: iMn Rhodes Pathology: other (Antrum) Condition: stable Disposition: PACU Description of Procedure: The patient's placed on the endoscopy table in the lateral position. He received IV sedation. The gastroscope placed oropharynx passed in the esophagus and into the stomach. The scope was then placed through the pylorus. The first and second portion of the duodenum appeared normal. There is no blood in the duodenum. The scope was then brought back the antrum and this appeared minimally inflamed. A biopsies performed. The scope was then retroflexed and the remainder the stomach appeared normal. There is no evidence of upper GI bleed in the stomach. The GE junction was at 40 cm. The distal esophagus. Normal the proximal esophagus appeared normal. Scope withdrawn for patient. No evidence of upper GI bleed.
[2022-07-22] MEDS: FUROSEMIDE 10 MG/ML 4 ML VIAL IV SCH ×2 (13:42→21:17)
[2022-07-22 16:22] LABS: Glucose,Whole Blood 304 mg/dL (70-110)
[2022-07-22 20:26] LABS: Glucose,Whole Blood 260 mg/dL (70-110)
[2022-07-22] MEDS: ALBUTEROL NEBULIZED 2.5 MG/3 ML INHALATION PRN (20:33)
[2022-07-22] MEDS: TAMSULOSIN 0.4 MG CAP.ER.24H PO SCH (21:17)
[2022-07-23 04:51] VITALS: RESP 18
--- NOTE | 2022-07-23 05:37 | P.PN ---
Subjective Progress Note Date: 07/22/22 Patient is a 72-year-old male with a known history of recent open heart surgery with aortic valve replacement followed by ablation on number 2021, atrial fibrillation on anticoagulation with Eliquis, hypertension, diabetes type 2 insulin-dependent, coronary disease history of stent placement, COPD, prior history of smoking presents to ER with complaints of shortness of breath and worsening bilateral leg swelling. Patient states that he had aortic valve replacement and ablation the following day which was unsuccessful. Patient states that he has been having worsening leg swelling and shortness of breath for the past 2 weeks since his discharge from hospital. Denies any complaints of chest pain. No palpitations. No fever no chills. No nausea vomiting abdominal pain or diarrhea. Denied any dizziness or lightheadedness. EKG showed atrial fibrillation with rapid regular rate heart rate 107 Chest x-ray showed small bilateral pleural effusions with left basilar patchy airspace opacities which may represent atelectasis/infiltrate. Laboratory test showed WBC 12.6 hemoglobin 7.7 and platelets 472 MCV 79.4 and RDW 17.2 Sodium 137 potassium 5.3 chloride 102 bicarb is 27 BUN 37 creatinine 1.31 Alk phos 148 and troponin 0.394, 0.382 and proBNP is 2180 07/21/2022 Patient is seen and evaluated in follow-up this morning with no acute overnight issues noted. Patient with multiple medical consultations including pulmonary, cardiology, and general surgery following. Patient with acute CHF exacerbation maintained on IV Lasix twice daily. 2-D echo is currently ordered and pending at this time. Patient was continued on IV heparin although being transitioned to eliquis per cardiology. Hemoglobin has been dropping and general surgery was consulted for positive vocal blood. Patient denies any active bleeding and denies any dark stools noted. Patient recently had an EGD and colonoscopy within this year that were negative. General surgery recommending EGD/colonoscopy to assess for any bleeding. Recommend holding anticoagulation and possible EGD tomorrow. Patient refused colonoscopy. Patient is afebrile denies chest pain or worsening shortness of breath. Patient continued on current diet and will be nothing by mouth at midnight. 07/22/2022 Patient is seen this morning and follow-up currently nothing by mouth awaiting to undergo EGD with general surgery today. Hemoglobin is currently stable at 7.7. Patient reports he did notice some blood in his stool yesterday. Continues to refuse colonoscopy. Patient continues with lower extremity swelling although somewhat improved. Will continue IV lasix. Recommend repeat am labs. Hold eliquis for now per surgery. Cardiology is following. Encouraged elevating lower extremities while at rest. Review of systems: Constitutional: No reports of fatigue, fever, or chills Cardiovascular: No reports of chest pain or palpitations Respiratory: reports of shortness of breath GI: No reports of nausea, vomiting, or diarrhea : No reports of dysuria or retention Neurovascular: No reports of weakness or numbness, reports lower extremity swelling All medications have been reviewed Active Medications Acetaminophen (Acetaminophen Tab 325 Mg Tab) 650 mg PO Q6HR PRN PRN Reason: Fever and/ or Pain Last Admin: 07/21/22 05:02 Dose: 650 mg Albuterol Sulfate (Albuterol Nebulized 2.5 Mg/3 Ml) 2.5 mg INHALATION Q4H PRN PRN Reason: Shortness Of Breath Last Admin: 07/21/22 19:54 Dose: 2.5 mg Amiodarone HCl (Amiodarone 200 Mg Tab) 200 mg PO DAILY [facility] Last Admin: 07/22/22 09:58 Dose: 200 mg Aspirin (Aspirin 81 Mg) 81 mg PO DAILY [facility] Last Admin: 07/22/22 09:57 Dose: 81 mg Atorvastatin Calcium (Atorvastatin 40 Mg Tab) 40 mg PO DAILY [facility] Last Admin: 07/22/22 09:57 Dose: 40 mg Budesonide/Formoterol Fumarate (Symbicort 80-4.5 Mcg Inhaler) 2 puff INHALATION RT-BID [facility] Last Admin: 07/22/22 08:55 Dose: 2 puff Dextrose/Water (Dextrose 50% Syringe 50 Ml) 25 ml IVP PER PROTOCOL PRN; Protocol PRN Reason: Hypoglycemia Dextrose/Water (Dextrose 50% Syringe 50 Ml) 50 ml IVP PER PROTOCOL PRN; Protocol PRN Reason: Hypoglycemia Duloxetine HCl (Duloxetine Hcl 30 Mg Capsule.Dr) 30 mg PO DAILY [facility] Last Admin: 07/22/22 09:58 Dose: 30 mg Finasteride (Finasteride 5 Mg Tab) 5 mg PO DAILY [facility] Last Admin: 07/22/22 09:58 Dose: 5 mg Furosemide (Furosemide 10 Mg/Ml 4 Ml Vial) 40 mg IV Q12HR [facility] Last Admin: 07/21/22 21:03 Dose: 40 mg Insulin Aspart (Insulin Aspart (Novolog) 100 Unit/Ml Vial) 0 unit SQ ACHS [facility]; Protocol Last Admin: 07/22/22 12:03 Dose: 1 unit Insulin Detemir (Insulin Detemir (Levemir) 100 Unit/Ml Syr) 30 unit SQ DAILY@0700 [facility] Last Admin: 07/22/22 05:42 Dose: Not Given Montelukast Sodium (Montelukast 10 Mg Tab) 10 mg PO DAILY [facility] Last Admin: 07/22/22 09:58 Dose: 10 mg Pantoprazole Sodium (Pantoprazole 40 Mg/10 Ml Vial) 40 mg IVP BID [facility] Last Admin: 07/22/22 09:58 Dose: 40 mg Tamsulosin HCl (Tamsulosin 0.4 Mg Cap.Er.24h) 0.8 mg PO HS [facility] Last Admin: 07/21/22 21:04 Dose: 0.8 mg Physical exam: Patient is sitting up at the side of the bed comfortably, no acute distress, awake alert and oriented.. HEENT: Normocephalic. Neck is supple. Pupils reactive. Nostrils clear. Oral cavity is moist. Neck reveals no JVD, carotid bruits, or thyromegaly. CHEST EXAMINATION: Trachea is central. Symmetrical expansion. Bibasilar crackles and diminished sounds.. CARDIAC: Normal S1, S2 with no gallops. No murmurs ABDOMEN: Soft. Bowel sounds present. Nontender. No organomegaly. No abdominal bruits. Extremities: Bilateral 1+ pedal edema, improved from yesterday. No clubbing or cyanosis Neurologically awake, alert, oriented x3 with well-coordinated movements. No focal deficits noted Skin: No rash or skin lesions. Psychiatric: Cooperative. Non-suicidal, Musculoskeletal: No joint swelling or deformity. Normal range of motion. Assessment: Worsening shortness of breath secondary to acute CHF. Ejection fraction not known at this time. Possible anemia contributing. Recent history of aortic valve replacement on July 07 2022 Elevated troponin level Coronary artery disease with history of stent placement Chronic atrial fibrillation on anticoagulation with Eliquis Acute on chronic kidney disease stage III. Creatinine 1.71 on admission Mild hyperkalemia secondary to acute kidney injury Microcytic anemia rule out iron deficiency Hypertension Diabetes type 2 insulin-dependent COPD Prior history of smoking Osteoarthritis Diabetic peripheral neuropathy DVT and GI prophylaxis Plan: Patient will be continued on telemetry monitoring. Continue with Lasix 40 mg IV twice daily. Continue with amiodarone, aspirin, and statin Cardiology and pulmonary following along with general surgery for evaluation of anemia. plan is for EGD today and pending. Refusing colonoscopy Monitor H&H. Anticoagulation on hold pending anemia work-up. Continue with PPI Recommend accuchecks achs and will continue current medication regimen Due to multiple complex medical issues, prognosis is guarded Recommend am labs. The impression and plan of care has been dictated by Joselin Woodson Nurse Pr actitioner as directed. Dr. Sonia MD I have performed a history and examination and MDM of this patient, discussed the same with the dictator, and agree with the dictator's assessment and plan as written ,documented as a scribe. Based on total visit time, I have performed more than 50% of the visit. Objective - Vital Signs Vital signs: Vital Signs Temp 98.6 F 07/22/22 09:55 Pulse 105 H 07/22/22 12:04 Resp 16 07/22/22 12:04 BP 138/80 07/22/22 12:04 Pulse Ox 96 07/22/22 12:04 FiO2 Intake & Output 07/21/22 07/22/22 07/22/22 18:59 06:59 18:59 Intake Total 480 200 Output Total 1800 800 950 Balance -1320 -800 -750 Weight 100.2 kg 99.7 kg Intake: IV 200 Oral 480 Output: Urine 1800 800 950 Other: Voiding Method Toilet Toilet Toilet Urinal Urinal Urinal # Voids 2 # Bowel Movements 1 - Labs CBC & Chem 7: 07/22/22 07:20 07/22/22 07:20 Labs: Abnormal Lab Results - Last 24 Hours (Table) 07/21/22 07/21/22 07/22/22 Range/Units 16:33 20:01 05:53 RBC (4.30-5.90) m/uL Hgb (13.0-17.5) gm/dL Hct (39.0-53.0) % MCH (25.0-35.0) pg MCHC (31.0-37.0) g/dL RDW (11.5-15.5) % Plt Count (150-450) k/uL BUN (9-20) mg/dL Creatinine (0.66-1.25) mg/dL Glucose (74-99) mg/dL POC Glucose (mg/dL) 282 H 246 H 173 H (70-110) mg/dL 07/22/22 07/22/22 07/22/22 Range/Units 07:20 07:20 11:44 RBC 3.15 L (4.30-5.90) m/uL Hgb 7.7 L (13.0-17.5) gm/dL Hct 25.5 L (39.0-53.0) % MCH 24.5 L (25.0-35.0) pg MCHC 30.3 L (31.0-37.0) g/dL RDW 16.9 H (11.5-15.5) % Plt Count 514 H (150-450) k/uL BUN 29 H (9-20) mg/dL Creatinine 1.72 H (0.66-1.25) mg/dL Glucose 171 H (74-99) mg/dL POC Glucose (mg/dL) 184 H (70-110) mg/dL
[2022-07-23 06:33] LABS: Glucose,Whole Blood 270 mg/dL (70-110)
[2022-07-23] MEDS: INSULIN ASPART (NovoLOG) 100 UNIT/ML VIAL SQ SCH ×2 (06:38→12:26)
[2022-07-23] MEDS: INSULIN DETEMIR (LEVEMIR) 100 UNIT/ML SYR SQ SCH (06:38)
[2022-07-23] MEDS: SYMBICORT 80-4.5 MCG INHALER INHALATION SCH (08:14)
[2022-07-23] MEDS: ALBUTEROL NEBULIZED 2.5 MG/3 ML INHALATION PRN ×2 (08:14→12:31)
[2022-07-23] MEDS: ATORVASTATIN 40 MG TAB PO SCH (08:58)
[2022-07-23] MEDS: MONTELUKAST 10 MG TAB PO SCH (08:58)
[2022-07-23] MEDS: AMIODARONE 200 MG TAB PO SCH (08:58)
[2022-07-23] MEDS: ASPIRIN 81 MG PO SCH (08:58)
[2022-07-23] MEDS: FINASTERIDE 5 MG TAB PO SCH (08:59)
[2022-07-23] MEDS: DULoxetine HCL 30 MG CAPSULE.DR PO SCH (08:59)
[2022-07-23] MEDS: PANTOPRAZOLE 40 MG/10 ML VIAL IVP SCH (08:59)
[2022-07-23] MEDS ORDERED: FUROSEMIDE 40 MG TAB PO SCH (09:00)
[2022-07-23 09:06] VITALS: TEMP 98.1
[2022-07-23 09:08] LABS: Anisocytosis Slight; Basophils % (A) 1 %; Eosinophils # (A) 0.2 k/uL (0-0.7); Eosinophils % (A) 3 %; HCT 25.7 % (39.0-53.0); HGB 7.8 gm/dL (13.0-17.5); Hypochromasia Marked; Lymphocytes # (A) 0.5 k/uL (1.0-4.8); Lymphocytes % (A) 6 %; MCH 24.3 pg (25.0-35.0); MCHC 30.6 g/dL (31.0-37.0); MCV 79.4 fL (80.0-100.0); Microcytosis Slight; Monocytes # (A) 0.6 k/uL (0-1.0); Monocytes % (A) 7 %; Neutrophils # (A) 6.3 k/uL (1.3-7.7); Neutrophils % (A) 81 %; Platelet Count 542 k/uL (150-450); Poikilocytosis Slight; RBC 3.23 m/uL (4.30-5.90); RDW 16.6 % (11.5-15.5); WBC 7.7 k/uL (3.8-10.6)
[2022-07-23 09:19] LABS: Calcium 8.6 mg/dL (8.4-10.2); Potassium 4.4 mmol/L (3.5-5.1)
[2022-07-23] MEDS: ACETAMINOPHEN TAB 325 MG TAB PO PRN (09:26)
[2022-07-23 12:20] LABS: Glucose,Whole Blood 316 mg/dL (70-110)
--- NOTE | 2022-07-23 12:41 | P.PN ---
Subjective Progress Note Date: 07/23/22 CHIEF COMPLAINT: Shortness of breath HISTORY OF PRESENT ILLNESS: Patient reports improvement in his shortness of breath. He is status post EGD had revealed gastritis. Patient reports that his bowel movements have been dark brown. Denies any blood in his stools. His last colonoscopy was 2 months ago and reported as normal. Hgb 7.8 stable. Patient possibly will be discharge later today. Afebrile. WBC 7.7 Hgb 7.8 platelets 452 Na 136 potassium 4.4 creatinine 1.68 Patient seen and examined with Dr. Rhodes PHYSICAL EXAM: VITAL SIGNS: Reviewed. GENERAL: Well-developed in no acute distress. HEENT: No sclera icterus. Extraocular movements grossly intact. Moist buccal mucosa. Head is atraumatic, normocephalic. ABDOMEN: Soft. Nondistended. Nontender. NEUROLOGIC: Alert and oriented. Cranial nerves II through XII grossly intact. ASSESSMENT: 1. Microcytic anemia with stool for occult blood positive 2. Shortness of breath likely multifactorial due to patient's anemia and CHF exacerbation 3. Acute CHF exacerbation managed by cardiology service PLAN: -Due to patient's anemia and stool for occult blood positive would recommend colonoscopy. Patient at this time is declining colonoscopy. -Recommend to continue holding Eliquis due to anemia and occult blood positive Physician Float Builder note has been reviewed by physician. Signing provider agrees with the documented findings, assessment, and plan of care. Objective - Vital Signs Vital signs: Vital Signs Temp 98.1 F 07/23/22 09:05 Pulse 111 H 07/23/22 12:31 Resp 18 07/23/22 09:05 BP 123/73 07/23/22 09:05 Pulse Ox 96 07/23/22 09:05 FiO2 Intake & Output 07/22/22 07/23/22 07/23/22 18:59 06:59 18:59 Intake Total 200 10 150 Output Total 1800 2049 250 Balance -1600 -2039 -100 Weight 98.1 kg Intake: IV 200 10 Invasive Line 1 10 Oral 150 Output: Urine 1800 2049 250 Other: Voiding Method Toilet Toilet Toilet Urinal Urinal Urinal - Labs CBC & Chem 7: 07/23/22 08:07 07/23/22 08:07 Labs: Abnormal Lab Results - Last 24 Hours (Table) 12/03/0507/22/22 07/22/22 Range/Units 07:17 16:20 20:25 RBC (4.30-5.90) m/uL Hgb (13.0-17.5) gm/dL Hct (39.0-53.0) % MCV (80.0-100.0) fL MCH (25.0-35.0) pg MCHC (31.0-37.0) g/dL RDW (11.5-15.5) % Plt Count (150-450) k/uL Lymphocytes # (1.0-4.8) k/uL Sodium (137-145) mmol/L Chloride (98-107) mmol/L BUN (9-20) mg/dL Creatinine (0.66-1.25) mg/dL Glucose (74-99) mg/dL POC Glucose (mg/dL) 304 H 260 H (70-110) mg/dL RBC Folate 1,164 H (280 - 791) ng/mL 07/23/22 07/23/22 07/23/22 Range/Units 06:32 08:07 08:07 RBC 3.23 L (4.30-5.90) m/uL Hgb 7.8 L (13.0-17.5) gm/dL Hct 25.7 L (39.0-53.0) % MCV 79.4 L (80.0-100.0) fL MCH 24.3 L (25.0-35.0) pg MCHC 30.6 L (31.0-37.0) g/dL RDW 16.6 H (11.5-15.5) % Plt Count 542 H (150-450) k/uL Lymphocytes # 0.5 L (1.0-4.8) k/uL Sodium 136 L (137-145) mmol/L Chloride 96 L (98-107) mmol/L BUN 28 H (9-20) mg/dL Creatinine 1.68 H (0.66-1.25) mg/dL Glucose 207 H (74-99) mg/dL POC Glucose (mg/dL) 270 H (70-110) mg/dL RBC Folate (280 - 791) ng/mL 07/23/22 Range/Units 12:17 RBC (4.30-5.90) m/uL Hgb (13.0-17.5) gm/dL Hct (39.0-53.0) % MCV (80.0-100.0) fL MCH (25.0-35.0) pg MCHC (31.0-37.0) g/dL RDW (11.5-15.5) % Plt Count (150-450) k/uL Lymphocytes # (1.0-4.8) k/uL Sodium (137-145) mmol/L Chloride (98-107) mmol/L BUN (9-20) mg/dL Creatinine (0.66-1.25) mg/dL Glucose (74-99) mg/dL POC Glucose (mg/dL) 316 H (70-110) mg/dL RBC Folate (280 - 791) ng/mL
[2022-07-23 12:46] VITALS: BP 132/76; PULSE 106
--- NOTE | 2022-07-23 14:16 | P.PN ---
Subjective Patient is a 72-year-old male with a known history of recent open heart surgery with aortic valve replacement July 07 2022 at [facility] in [place], persistent atrial fibrillation on anticoagulation with Eliquis s/p ablation after Valve surgery which was unsuccessful, hypertension, diabetes type 2 insulin-dependent, coronary disease history of stent placement, COPD, prior history of smoking. He follows with [facility]. We are consulted for CHF. Patient presents to ER with complaints of shortness of breath and worsening bilateral leg swelling. He underwent aortic valve replacement on 07/07/2022 he was discharged on Tuesday07/16/2022, the day after On Tuesday 07/17 he began to have worsening shortness of breath, bilateral lower extremity edema, orthopnea, PND. His symptoms progressively got worse. He presented to the emergency department for further evaluation. He was started on IV Lasix and admitted. 07/23/2022 Patient seen and examined at bedside, His shortness of breath and LE edema has significantly improved over the past 24 hours. He feels as his edema is back to his baseline. Continues to be on IV Lasix. His anticoagulation is on hold secondary to an EGD being performed for evaluation of anemia. He underwent and E GD that revealed no active bleed, mild antral gastritis. His stool occult blood was positive. He has had 3.8 liter urine output the past 5 hours, decreased weight noted. Echocardiogram revealed EF 55%, normally functioning bioprosthetic aortic valve PHYSICAL EXAMINATION Vitals reviewed CONSTITUTIONAL: No apparent distress. HEENT: Head is normocephalic. Pupils are equal, round. Sclerae anicteric. Mucous membranes of the mouth are moist. CHEST EXAMINATION: Lungs are diminished, mild crackles in the basesto auscultation. No chest wall tenderness is noted on palpation or with deep breathing. HEART EXAMINATION: Irregular rate and rhythm. S1, S2 heard. No murmurs, gallops or rub. ABDOMEN: Soft, nontender. Positive bowel sounds. EXTREMITIES: 2+ peripheral pulses, 3+ bilateral lower extremity edema and no calf tenderness. NEUROLOGIC EXAMINATION: Patient is awake, alert and oriented x3. ASSESSMENT Acute on chronic heart failure with preserved ejection fraction Elevated troponin, likely related to recent AV surgery Aortic valve replacement recently on July 07 2022 at [facility] in [place] Persistent atrial fibrillation on anticoagulation with Eliquis s/p ablation after Valve surgery which was unsuccessful Hypertension, diabetes type 2 insulin-dependent Coronary artery disease history of stent placement, unknown details COPD Prior history of tobacco use Anemia, recent AV surgery PLAN Increase PO Lasix 40mg daily Continue Eliquis 5mg BID, currently on hold per surgery for evaluation of stool occult blood being positive. Recommend restarting as soon as possible when justin red by surgery Continue home medications amiodarone, atorvastatin From a cardiology perspective, patient is stable. 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 Signing provider agrees with the documented findings, assessment, and plan of care. Objective - Vital Signs Vital signs: Vital Signs Temp 98.1 F 07/23/22 09:05 Pulse 115 H 07/23/22 12:42 Resp 18 07/23/22 12:00 BP 132/76 07/23/22 12:00 Pulse Ox 96 07/23/22 12:00 FiO2 Intake & Output 07/22/22 07/23/22 07/23/22 18:59 06:59 18:59 Intake Total 200 10 150 Output Total 1800 2050 250 Balance -1600 -2039 -100 Weight 98.1 kg Intake: IV 200 10 Invasive Line 1 10 Oral 150 Output: Urine 1800 2050 250 Other: Voiding Method Toilet Toilet Toilet Urinal Urinal Urinal - Labs CBC & Chem 7: 07/23/22 08:07 07/23/22 08:07 Labs: Abnormal Lab Results - Last 24 Hours (Table) 07/21/22 07/22/22 07/22/22 Range/Units 07:17 16:20 20:25 RBC (4.30-5.90) m/uL Hgb (13.0-17.5) gm/dL Hct (39.0-53.0) % MCV (80.0-100.0) fL MCH (25.0-35.0) pg MCHC (31.0-37.0) g/dL RDW (11.5-15.5) % Plt Count (150-450) k/uL Lymphocytes # (1.0-4.8) k/uL Sodium (137-145) mmol/L Chloride (98-107) mmol/L BUN (9-20) mg/dL Creatinine (0.66-1.25) mg/dL Glucose (74-99) mg/dL POC Glucose (mg/dL) 304 H 260 H (70-110) mg/dL RBC Folate 1,164 H (280 - 791) ng/mL 07/23/22 07/23/22 07/23/22 Range/Units 06:32 08:07 08:07 RBC 3.23 L (4.30-5.90) m/uL Hgb 7.8 L (13.0-17.5) gm/dL Hct 25.7 L (39.0-53.0) % MCV 79.4 L (80.0-100.0) fL MCH 24.3 L (25.0-35.0) pg MCHC 30.6 L (31.0-37.0) g/dL RDW 16.6 H (11.5-15.5) % Plt Count 542 H (150-450) k/uL Lymphocytes # 0.5 L (1.0-4.8) k/uL Sodium 136 L (137-145) mmol/L Chloride 96 L (98-107) mmol/L BUN 28 H (9-20) mg/dL Creatinine 1.68 H (0.66-1.25) mg/dL Glucose 207 H (74-99) mg/dL POC Glucose (mg/dL) 270 H (70-110) mg/dL RBC Folate (280 - 791) ng/mL 07/23/22 Range/Units 12:17 RBC (4.30-5.90) m/uL Hgb (13.0-17.5) gm/dL Hct (39.0-53.0) % MCV (80.0-100.0) fL MCH (25.0-35.0) pg MCHC (31.0-37.0) g/dL RDW (11.5-15.5) % Plt Count (150-450) k/uL Lymphocytes # (1.0-4.8) k/uL Sodium (137-145) mmol/L Chloride (98-107) mmol/L BUN (9-20) mg/dL Creatinine (0.66-1.25) mg/dL Glucose (74-99) mg/dL POC Glucose (mg/dL) 316 H (70-110) mg/dL RBC Folate (280 - 791) ng/mL
--- NOTE | 2022-07-23 14:33 | P.PN ---
Subjective Progress Note Date: 07/23/22 Principal diagnosis: Shortness of breath. Pulmonary consult dated 07/21/2022. 72-year-old male who presents to the emergency department on July complaining of shortness of breath. He was brought in by EMS. The patient had recent open heart surgery done at [facility], on July 07. He had a valve replacement there. He had an aortic valve replacement. In addition, he had an ablation. He apparently was complaining of shortness of breath, weight gain, and swelling in the legs, but denied any chest pain, fever, chills, or phlegm production. He also mentioned to me that he was quite anemic. White count 12.6, he will been some 0.5, hematocrit 25.5, and platelet count 530,000. Sodium 135, potassium 4.7, chlorides 100, CO2 25, BUN 32, and cre atinine 1.75. The patient's troponin was 0.382. N-terminal proBNP was 2180. Chest x-ray shows small bilateral pleural effusions, with patchy basilar airspace opacities, which could represent atelectasis or infiltrate. Currently, the patient's resting comfortably. He is not on any IV fluids, or on any oxygen at this time. His resting saturation was apparently 98%. Progress note dated 07/22/2022. The patient is seen in room 360. He is resting comfortably. He is currently on room air. No IV fluids. He is scheduled for an EGD today, because of his anemia. He apparently was seen by cardiology and had an echocardiogram. He states that everything was fine according to them. White count 10.3, hemoglobin 7.7, hematocrit 25.5, platelet count 514,000. Electrolytes normal. BUN 29, and creatinine 1.72. Progress note dated 07/23/2022. 72-year-old male again seen in room 360. The patient had an EGD done yesterday, which showed some antral gastritis. No active bleeding. Clinically he is doing well. The patient is on room air. No IV fluids. The patient is hoping to be discharged soon. He denies any chest pain or chest discomfort. He also denies any shortness of breath, cough, wheezing, or phlegm production. White count 7.7, hemoglobin 7.8, hematocrit 25.7, and platelet count 542,000. Sodium 136, potassium 4.4, chlorides 96, CO2 30, BUN 28, and creatinine 1.68. Objective - Vital Signs Vital signs: Vital Signs Temp 98.1 F 07/23/22 09:05 Pulse 115 H 07/23/22 12:42 Resp 18 07/23/22 12:00 BP 132/76 07/23/22 12:00 Pulse Ox 96 07/23/22 12:00 FiO2 Intake & Output 07/22/22 07/23/22 07/23/22 18:59 06:59 18:59 Intake Total 200 10 150 Output Total 1800 2049 250 Balance -1600 -2039 -100 Weight 98.1 kg Intake: IV 200 10 Invasive Line 1 10 Oral 150 Output: Urine 1800 2049 250 Other: Voiding Method Toilet Toilet Toilet Urinal Urinal Urinal - Exam No acute distress, oriented 3. No use of accessory muscles or conversational dyspnea. Room air saturation 96 %. HEENT examination is grossly unremarkable. Neck supple. Full range of motion. No adenopathy thyromegaly or neck vein distention. Cardiovascular examination reveals regular rhythm rate. S1-S2 normal. No S3 or S4. No discernible murmur noted. Heart rate 99 bpm. Lungs reveal mild scattered rhonchi. No wheezes or crackles. Breath sounds equal. A fresh median sternotomy scar is noted. Abdomen soft bowel sounds are heard. No masses or tenderness. Extremities are intact. No cyanosis or clubbing. Mild edema. Skin is without rash or lesion. Neurologic examination is brief but nonfocal. - Labs CBC & Chem 7: 07/23/22 08:07 07/23/22 08:07 Labs: Abnormal Lab Results - Last 24 Hours (Table) 07/21/22 07/22/22 07/22/22 Range/Units 07:17 16:20 20:25 RBC (4.30-5.90) m/uL Hgb (13.0-17.5) gm/dL Hct (39.0-53.0) % MCV (80.0-100.0) fL MCH (25.0-35.0) pg MCHC (31.0-37.0) g/dL RDW (11.5-15.5) % Plt Count (150-450) k/uL Lymphocytes # (1.0-4.8) k/uL Sodium (137-145) mmol/L Chloride (98-107) mmol/L BUN (9-20) mg/dL Creatinine (0.66-1.25) mg/dL Glucose (74-99) mg/dL POC Glucose (mg/dL) 304 H 260 H (70-110) mg/dL RBC Folate 1,164 H (280 - 791) ng/mL 07/23/22 07/23/22 07/23/22 Range/Units 06:32 08:07 08:07 RBC 3.23 L (4.30-5.90) m/uL Hgb 7.8 L (13.0-17.5) gm/dL Hct 25.7 L (39.0-53.0) % MCV 79.4 L (80.0-100.0) fL MCH 24.3 L (25.0-35.0) pg MCHC 30.6 L (31.0-37.0) g/dL RDW 16.6 H (11.5-15.5) % Plt Count 542 H (150-450) k/uL Lymphocytes # 0.5 L (1.0-4.8) k/uL Sodium 136 L (137-145) mmol/L Chloride 96 L (98-107) mmol/L BUN 28 H (9-20) mg/dL Creatinine 1.68 H (0.66-1.25) mg/dL Glucose 207 H (74-99) mg/dL POC Glucose (mg/dL) 270 H (70-110) mg/dL RBC Folate (280 - 791) ng/mL 07/23/22 Range/Units 12:17 RBC (4.30-5.90) m/uL Hgb (13.0-17.5) gm/dL Hct (39.0-53.0) % MCV (80.0-100.0) fL MCH (25.0-35.0) pg MCHC (31.0-37.0) g/dL RDW (11.5-15.5) % Plt Count (150-450) k/uL Lymphocytes # (1.0-4.8) k/uL Sodium (137-145) mmol/L Chloride (98-107) mmol/L BUN (9-20) mg/dL Creatinine (0.66-1.25) mg/dL Glucose (74-99) mg/dL POC Glucose (mg/dL) 316 H (70-110) mg/dL RBC Folate (280 - 791) ng/mL Assessment and Plan Assessment: Shortness of breath, likely multifactorial, in part related to fluid overload, but also secondary to underlying anemia. Recent aortic valve replacement, [facility], July 07. History of anemia, with recent EGD showing antral gastritis, but no active bleeding. History of chronic atrial fibrillation. History of hypertension. History of CAD with previous stent placement. History of COPD. History of diabetes mellitus. History of hyperlipidemia. History of osteoarthritis. Prior history of tobacco use. Plan: Plan dated the 07/21/2022. The patient appears to be doing reasonably well. He is on room air. Saturations are 98%. He's not receiving any IV fluids. Labs, x-rays, and medications are all reviewed. He has been seen by cardiology. The patient COPD does not appear to be active. He continues on Symbicort, Singulair, and a rescue inhaler. We will continue to follow make recommendations were appropriate. Prognosis is guarded. Plan dated 07/22/2022. The patient's currently on room air. He denies being short of breath at this time. He's not receiving any IV fluids. Because of his anemia, the patient is scheduled to have an EGD today. We will continue to follow make recommendations along the way. Labs, x-rays, medications are all reviewed. Prognosis is guarded. He was seen in consultation yesterday. Plan dated 07/23/2022. The patient appears be doing relatively well. Discharge soon. His room air saturation is 96%. His most recent hemoglobin 7.8. There was no active reading on his EGD. There was evidence of antral gastritis. Additional recommendations and suggestions are forthcoming. The patient will follow with me in the office. From the pulmonary standpoint, the patient is stable for discharge. Time with Patient: Less than 30
--- NOTE | 2022-07-25 16:29 | P.DS ---
Providers Date of admission: 07/20/22 12:01 Expected date of discharge: 07/23/22 Attending physician: Ander Salas MD Consults: 07/20/22 12:01 Consult Physician Routine Consulting Provider: [facility] Consult Reason/Comments: Elevated troponin, pulmonary edema, anemia Do you want consulting provider notified?: Yes 07/20/22 21:02 Consult Physician Routine Consulting Provider: Min Rhodes Consult Reason/Comments: Anemia Do you want consulting provider notified?: Yes, Notify in am 07/20/22 21:03 Consult Physician Routine Consulting Provider: Kaleb Stahl Consult Reason/Comments: COPD Do you want consulting provider notified?: Yes, Notify in am Primary care physician: [facility] Hospital Course: Final diagnosis Worsening shortness of breath secondary to acute CHF. Ejection fraction not known at this time. Possible anemia contributing. Recent history of aortic valve replacement on July 07 2022 Elevated troponin level Coronary artery disease with history of stent placement Chronic atrial fibrillation on anticoagulation with Eliquis Acute on chronic kidney disease stage III. Creatinine 1.71 on admission Mild hyperkalemia secondary to acute kidney injury Microcytic anemia rule out iron deficiency Hypertension Diabetes type 2 insulin-dependent COPD Prior history of smoking Osteoarthritis Diabetic peripheral neuropathy DVT and GI prophylaxis Discharge disposition Patient is being discharged in a stable condition with guarded prognosis to home. Patient will follow-up with [facility] in the outpatient setting upon discharge. Patient is to follow up with cardiology as scheduled. Recommend holding eliquis until follow up outpatient per surgery recommendations. Total time taken is greater than 35 minutes. Hospital course This is a 72-year-old male who was recently admitted with shortness of breath lower extremity swelling and chf exacerbation. Patient was on eliquis and currently being held per surgery for possible GI bleed. Patient has had anemia and underwent egd that was negative and recommending colonoscopy although patient is adamantly refusing and will follow up with his pcp on discharge. Continue oral lasix. Recommend repeat labs. Closely monitor hemoglobin. Currently no reports of chest pain, shortness of breath, or palpitations. Patient is afebrile. No reports of nausea or vomiting and patient is tolerating diet. Patient will be discharged home today. Guarded prognosis. Physical exam: Gen: This is a 72 year old male who is awake, alert and oriented x3, well developed, well nourished, obese HEENT: Head is atraumatic, normocephalic. Pupils equal, round. Sclerae is anicteric. NECK: Supple. No JVD. No lymphadenopathy. No thyromegaly. LUNGS: Clear to auscultation. No wheezes or rhonchi. No intercostal retractions. HEART: Regular rate and rhythm. No murmur. ABDOMEN: Soft. Bowel sounds are present. No masses. No tenderness. EXTREMITIES: No pedal edema. No calf tenderness. lower extremity edema improved NEUROLOGICAL: Patient is awake, alert and oriented x3. Cranial nerves 2 through 12 are grossly intact. Please refer to medication reconciliation sheet for a list of medications. The impression and plan of care has been dictated by Joselin Woodson, Nurse Practitioner as directed. MD Korin I have performed a history and examination and MDM of this patient, discussed the same with the dictator, and agree with the dictator's assessment and plan as written ,documented as a scribe. Based on total visit time, I have performed more than 50% of the visit. Patient Condition at Discharge: Fair Plan - Discharge Summary Discharge Rx Participant: No New Discharge Prescriptions: New Furosemide [Lasix] 40 mg PO DAILY 30 Days #30 tab Continue Montelukast [Singulair] 10 mg PO DAILY Tamsulosin HCl [Flomax] 0.8 mg PO HS Insulin Glargine,Hum.rec.anlog [Lantus Solostar Pen] 40 unit SQ DAILY Insulin Aspart [NovoLOG] 6 - 10 units SQ AC-TID DULoxetine HCL [Cymbalta] 30 mg PO DAILY Finasteride [Proscar] 5 mg PO DAILY Rosuvastatin Calcium [Crestor] 20 mg PO DAILY Albuterol Sulfate [Albuterol Sulfate Hfa] 1 puff PO RT-TID PRN PRN Reason: Shortness Of Breath Aspirin EC [Ecotrin Low Dose] 81 mg PO DAILY Amiodarone HCl [Pacerone] 200 mg PO DAILY Omeprazole [PriLOSEC] 20 mg PO DAILY metFORMIN HCL ER [Glucophage XR] 1,000 mg PO BID Mometasone/Formoterol [Dulera 100 Mcg-5 Mcg Inhaler] 2 puff PO RT-BID Empagliflozin [Jardiance] 25 mg PO DAILY Alprostadil 40mcg/Cartridge Inj System 40 mcg INTRA-CAVE DIRECTED PRN PRN Reason: E.D oxyCODONE HCL 5 mg PO Q4H PRN PRN Reason: Pain Albuterol Nebulized [Ventolin Nebulized] 2.5 mg INHALATION Q4H PRN PRN Reason: Shortness Of Breath Discontinued Furosemide [Lasix] 20 mg PO DAILY Apixaban [Eliquis] 5 mg PO BID Discharge Medication List Montelukast [Singulair] 10 mg PO DAILY 10/05/14 [History] Tamsulosin HCl [Flomax] 0.8 mg PO HS 08/31/17 [History] Insulin Glargine,Hum.rec.anlog [Lantus Solostar Pen] 40 unit SQ DAILY 10/23/20 [History] DULoxetine HCL [Cymbalta] 30 mg PO DAILY 02/19/22 [History] Finasteride [Proscar] 5 mg PO DAILY 02/19/22 [History] Insulin Aspart [NovoLOG] 6 - 10 units SQ AC-TID 02/19/22 [History] Albuterol Nebulized [Ventolin Nebulized] 2.5 mg INHALATION Q4H PRN 07/20/22 [History] Albuterol Sulfate [Albuterol Sulfate Hfa] 1 puff PO RT-TID PRN 07/20/22 [History] Alprostadil 40mcg/Cartridge Inj System 40 mcg INTRA-CAVE DIRECTED PRN 07/20/22 [History] Amiodarone HCl [Pacerone] 200 mg PO DAILY 07/20/22 [History] Aspirin EC [Ecotrin Low Dose] 81 mg PO DAILY 07/20/22 [History] Empagliflozin [Jardiance] 25 mg PO DAILY 07/20/22 [History] Mometasone/Formoterol [Dulera 100 Mcg-5 Mcg Inhaler] 2 puff PO RT-BID 07/20/22 [History] Omeprazole [PriLOSEC] 20 mg PO DAILY 07/20/22 [History] Rosuvastatin Calcium [Crestor] 20 mg PO DAILY 07/20/22 [History] metFORMIN HCL ER [Glucophage XR] 1,000 mg PO BID 07/20/22 [History] oxyCODONE HCL 5 mg PO Q4H PRN 07/20/22 [History] Furosemide [Lasix] 40 mg PO DAILY 30 Days #30 tab 07/23/22 [Rx] Follow up Appointment(s)/Referral(s): [facility],Clinic [Primary Care Provider] - 07/28/22 2:00 pm Ambulatory/Diagnostic Orders: Complete Blood Count w/diff [LAB.AMB] Time Frame: 3 Days, Location: None Selected Patient Instructions/Handouts: Pulmonary Edema (DC) Activity/Diet/Wound Care/Special Instructions: [facility] - If you do not hear anything by Tuesday or Tuesday call the [facility] to follow up. Discharge Disposition: HOME SELF-CARE
== END 2022-07-23 16:35 | disposition home or self-care (01) | DRG 291 ==
LOC: EC 09:46 → 3SCARD 12:01 → UNDODISIN 16:35
PROVIDERS: ADMIT Internal Medicine; ATTEND Internal Medicine
PROC: 0DB78ZX Excision of Stomach, Pylorus, Via Natural or Artificial Opening Endoscopic, Diagnostic (ICD-10-PCS; principal; 2022-07-22 12:20)
DX: I13.0 Hypertensive heart and chronic kidney disease with heart failure and stage 1 through stage 4 chronic kidney disease, or unspecified chronic kidney disease (principal); I50.33 Acute on chronic diastolic (congestive) heart failure; K29.51 Unspecified chronic gastritis with bleeding; I31.39 Other pericardial effusion (noninflammatory); N17.9 Acute kidney failure, unspecified; I48.19 Other persistent atrial fibrillation; K92.1 Melena; E11.22 Type 2 diabetes mellitus with diabetic chronic kidney disease; E11.42 Type 2 diabetes mellitus with diabetic polyneuropathy; D50.9 Iron deficiency anemia, unspecified; I08.1 Rheumatic disorders of both mitral and tricuspid valves; N18.30 Chronic kidney disease, stage 3 unspecified; J44.9 Chronic obstructive pulmonary disease, unspecified; Z79.01 Long term (current) use of anticoagulants; Z95.3 Presence of xenogenic heart valve; E87.5 Hyperkalemia; I25.10 Atherosclerotic heart disease of native coronary artery without angina pectoris; E78.5 Hyperlipidemia, unspecified; H91.93 Unspecified hearing loss, bilateral; R77.8 Other specified abnormalities of plasma proteins; M79.89 Other specified soft tissue disorders; Z53.20 Procedure and treatment not carried out because of patient's decision for unspecified reasons; M19.90 Unspecified osteoarthritis, unspecified site; R09.02 Hypoxemia; Z87.891 Personal history of nicotine dependence; Z87.19 Personal history of other diseases of the digestive system; Z79.82 Long term (current) use of aspirin; Z95.5 Presence of coronary angioplasty implant and graft; Z79.899 Other long term (current) drug therapy; Z79.84 Long term (current) use of oral hypoglycemic drugs; Z79.51 Long term (current) use of inhaled steroids; Z79.4 Long term (current) use of insulin; Z97.4 Presence of external hearing-aid
CPT/HCPCS: 36415; 43239; 71046; 80048; 80053; 82272; 82607; 82747; 83540; 83550; 83605; 83735; 83880; 84484; 85025; 85027; 85610; 85730; 88305; 93005; 93306; 94640; 94760; 96374; 99291

== ENCOUNTER 2022-08-05 12:54 | Emergency (ER) | payer MEDICARE, OTHER ==
[2022-08-05 13:05] VITALS: RESP 18; TEMP 98.3
[2022-08-05 13:36] LABS: Anisocytosis Slight; Basophils # (A) 0.1 k/uL (0-0.2); Basophils % (A) 1 %; Eosinophils # (A) 0.4 k/uL (0-0.7); Eosinophils % (A) 5 %; HCT 28.4 % (39.0-53.0); HGB 8.7 gm/dL (13.0-17.5); Hypochromasia Marked; Lymphocytes # (A) 0.5 k/uL (1.0-4.8); Lymphocytes % (A) 8 %; MCH 23.5 pg (25.0-35.0); MCHC 30.5 g/dL (31.0-37.0); Mean Platelet Volume 7.5; Microcytosis Slight; Monocytes # (A) 0.4 k/uL (0-1.0); Monocytes % (A) 6 %; Neutrophils # (A) 5.3 k/uL (1.3-7.7); Neutrophils % (A) 78 %; Platelet Count 345 k/uL (150-450); Poikilocytosis Moderate; RDW 17.2 % (11.5-15.5); WBC 6.8 k/uL (3.8-10.6)
[2022-08-05 13:46] LABS: Calcium 8.9 mg/dL (8.4-10.2); Potassium 4.7 mmol/L (3.5-5.1); Total Bilirubin 0.4 mg/dL (0.2-1.3); Total Protein 7.1 g/dL (6.3-8.2)
[2022-08-05 15:33] VITALS: BP 134/74; PULSE 103
--- NOTE | 2022-08-05 15:48 | ED ---
Recheck HPI - General Chief Complaint: Recheck/Abnormal Lab/Rx Stated Complaint: low hemoglobin Time Seen by Provider: 08/05/22 14:34 Source: patient, family, RN notes reviewed Mode of arrival: ambulatory Limitations: no limitations - History of Present Illness Initial Comments: This is a 72-year-old male who presents to the emergency department for abnormal lab work. Patient states that his primary care provider contacted him this morning and told him that he had a low hemoglobin level. He did have open-heart surgery for an aortic valve replacement on 07/07, and since has had problems with a low hemoglobin level. He is unsure what this is from and has had multiple rounds of testing done with no results. However, he has never been evaluated by student services dean. He is taking sn iron supplement daily. He did express shortness of breath, however he states that this had been present since before the surgery, and it is slowly started to improve. He was also admitted earlier this month and was found to have a CHF exacerbation and after that was treated, he felt much better. Overall, he does believe that he is slowly improving. Other than the low hemoglobin level, he does not have any other concerns that he feels like he needs to address today. Denies any fevers, chills, sore throat, cough, chest pain, palpitations, abdominal pain, nausea, vomiting, diarrhea, back pain, or headaches. MD Complaint: abnormal lab - Related Data Home Medications Medication Instructions Recorded Confirmed Montelukast [Singulair] 10 mg PO DAILY 10/05/14 08/05/22 Tamsulosin HCl [Flomax] 0.8 mg PO HS 08/31/17 08/05/22 Insulin Glargine,Hum.rec.anlog 40 unit SQ DAILY 10/23/20 08/05/22 [Lantus Solostar Pen] DULoxetine HCL [Cymbalta] 30 mg PO DAILY 02/19/22 08/05/22 Finasteride [Proscar] 5 mg PO DAILY 02/19/22 08/05/22 Insulin Aspart [NovoLOG] 6 - 10 units SQ AC-TID 02/19/22 08/05/22 Albuterol Nebulized [Ventolin 2.5 mg INHALATION RT-Q4H PRN 07/20/22 08/05/22 Nebulized] Albuterol Sulfate [Albuterol 1 puff PO RT-TID PRN 07/20/22 08/05/22 Sulfate Hfa] Alprostadil 40mcg/Cartridge Inj 40 mcg INTRA-CAVE DIRECTED PRN 07/20/22 08/05/22 System Amiodarone HCl [Pacerone] 200 mg PO DAILY 07/20/22 08/05/22 Aspirin EC [Ecotrin Low Dose] 81 mg PO DAILY 07/20/22 08/05/22 Empagliflozin [Jardiance] 25 mg PO DAILY 07/20/22 08/05/22 Mometasone/Formoterol [Dulera 100 2 puff INHALATION RT-BID 07/20/22 08/05/22 Mcg-5 Mcg Inhaler] Omeprazole [PriLOSEC] 20 mg PO DAILY 07/20/22 08/05/22 Rosuvastatin Calcium [Crestor] 20 mg PO DAILY 07/20/22 08/05/22 metFORMIN HCL ER [Glucophage XR] 1,000 mg PO BID 07/20/22 08/05/22 oxyCODONE HCL 5 mg PO Q4H PRN 07/20/22 08/05/22 Previous Rx's Medication Instructions Recorded Furosemide [Lasix] 40 mg PO DAILY 30 Days #30 tab 07/23/22 Allergies Allergy/AdvReac Type Severity Reaction Status Date / Time No Known Allergies Allergy Verified 08/05/22 13:05 Review of Systems ROS Statement: Those systems with pertinent positive or pertinent negative responses have been documented in the HPI. ROS Other: All systems not noted in ROS Statement are negative. Past Medical History Past Medical History: Atrial Fibrillation, Asthma, Diabetes Mellitus, Hearing Disorder / Deafness, Hyperlipidemia, Hypertension, Osteoarthritis (OA) Additional Past Medical History / Comment(s): Neuropathy, hx pancreatitis, bilateral hearing aid use. History of Any Multi-Drug Resistant Organisms: None Reported Past Surgical History: Appendectomy, Heart Catheterization With Stent, Orthopedic Surgery Additional Past Surgical History / Comment(s): Right hand surgery, bilateral cataract surgery, bilateral eye surgery, colonoscopy. Past Anesthesia/Blood Transfusion Reactions: No Reported Reaction Date of Last Stent Placement:: 2015 Past Psychological History: No Psychological Hx Reported Smoking Status: Former smoker Past Alcohol Use History: Occasional Past Drug Use History: None Reported - Past Family History Mother Family Medical History: No Reported History General Exam Limitations: no limitations General appearance: alert, in no apparent distress Head exam: Present: atraumatic, normocephalic, normal inspection Respiratory exam: Present: normal lung sounds bilaterally. Absent: respiratory distress, wheezes, rales, rhonchi, stridor Cardiovascular Exam: Present: regular rate, normal rhythm, normal heart sounds. Absent: systolic murmur, diastolic murmur, rubs, gallop, clicks Extremities exam: Absent: pedal edema Neurological exam: Present: alert, oriented X3, CN II-XII intact Psychiatric exam: Present: normal affect, normal mood Skin exam: Present: warm, dry, intact, normal color. Absent: rash Course Vital Signs 08/05/22 08/05/22 08/05/22 13:01 14:51 15:32 Temperature 98.3 F Pulse Rate 67 105 H 103 H Respiratory 18 18 18 Rate Blood Pressure 131/71 136/80 134/74 O2 Sat by Pulse 99 98 98 Oximetry Medical Decision Making - Medical Decision Making This is a 72-year-old male who presents to the emergency department for abnormal lab work. Lab work rechecked and found to be improved with a hemoglobin of 8.7. Findings discussed with the patient, in that this had actually improved and no further action is necessary. Instructed him to continue taking the iron supplement. Information for hematology/oncology follow up was provided. Recom mended he contact their office and see if they recommend he come in for an appointment to discuss further testing. Return precautions reviewed in depth, the patient is instructed to return to the emergency department with any new, worsening, or concerning symptoms. Patient verbalized understanding. This case was discussed in detail with the attending ED physician. Presentation, findings, and treatment plan discussed in detail as well. Was pt. sent in by a medical professional or institution? @ -[facility] Did you speak to anyone other than the patient for history? @ - Did you review nursing and triage notes? @ -Agree, applicable to the patient's visit. Were old charts reviewed? @ -Admission records from 07/20-07/23 here including lab work, the echocardiogram, and any additional testing performed. Differential Diagnosis? @ -Alpha thalassemia, aplastic anemia, beta thalassemia, hemolytic anemia, iron deficiency anemia, megaloblastic anemia, myelophthisic anemia. This is not meant to be an all inclusive list. What testing was considered but not performed? (CT, X-rays, U/S, labs)? Why? @ Consideration of additional testing such as chest x-ray and additional labs due to concerns of shortness of breath, however the patient had noted that this was improved and he declined the need any additional testing. Did you reconcile home meds? @ -No Was there de-escalation of care discussed even if they declined? (Discuss DNR or withdrawal of care, Hospice)? @ -No What co-morbidities impacted this encounter? (DM, HTN, Smoking, COPD, CAD, Cancer, CVA, Hep., AIDS, mental health diagnosis, sleep apnea, morbid obesity)? @ -Anemia Was patient admitted / discharged? @ -discharged Drug Therapy requiring intensive monitoring for toxicity (Heparin, Nitro, Insulin, Cardizem)? @ -none Were any procedures done? @ -none Diagnosis/symptom? @ -anemia Acute, or Chronic, or Acute on Chronic? @ -ongoing since the end of June 2022, neither acute or chronic. Side effects of treatment? @ -No treatment administered. Exacerbation, Progression, or Severe Exacerbation] @ -improvement of anemia Poses a threat to life or bodily function? @ -there is a threat if his hemoglobin began to decrease in that it can lead to an irregular beat or heart failure. - Lab Data Result diagrams: 08/05/22 13:15 08/05/22 13:16 Lab Results 08/05/22 08/05/22 08/05/22 Range/Units 13:15 13:16 13:16 WBC 6.8 (3.8-10.6) k/uL RBC 3.70 L (4.30-5.90) m/uL Hgb 8.7 L (13.0-17.5) gm/dL Hct 28.4 L (39.0-53.0) % MCV 77.0 L (80.0-100.0) fL MCH 23.5 L (25.0-35.0) pg MCHC 30.5 L (31.0-37.0) g/dL RDW 17.2 H (11.5-15.5) % Plt Count 345 (150-450) k/uL MPV 7.5 Neutrophils % 78 % Lymphocytes % 8 % Monocytes % 6 % Eosinophils % 5 % Basophils % 1 % Neutrophils # 5.3 (1.3-7.7) k/uL Lymphocytes # 0.5 L (1.0-4.8) k/uL Monocytes # 0.4 (0-1.0) k/uL Eosinophils # 0.4 (0-0.7) k/uL Basophils # 0.1 (0-0.2) k/uL Hypochromasia Marked Poikilocytosis Moderate Anisocytosis Slight Microcytosis Slight APTT 25.7 (22.0-30.0) sec Sodium 142 (137-145) mmol/L Potassium 4.7 (3.5-5.1) mmol/L Chloride 105 (98-107) mmol/L Carbon Dioxide 28 (22-30) mmol/L Anion Gap 9 mmol/L BUN 17 (9-20) mg/dL Creatinine 1.43 H (0.66-1.25) mg/dL Est GFR (CKD-EPI)AfAm 56 (>60 ml/min/1.73 sqM) Est GFR (CKD-EPI)NonAf 48 (>60 ml/min/1.73 sqM) Glucose 122 H (74-99) mg/dL Calcium 8.9 (8.4-10.2) mg/dL Total Bilirubin 0.4 (0.2-1.3) mg/dL AST 21 (17-59) U/L ALT 16 (4-49) U/L Alkaline Phosphatase 147 H (38-126) U/L Total Protein 7.1 (6.3-8.2) g/dL Albumin 4.0 (3.5-5.0) g/dL Blood Type Blood Type Recheck Bld Type Recheck Status Antibody Screen Spec Expiration Date 08/05/22 Range/Units 13:24 WBC (3.8-10.6) k/uL RBC (4.30-5.90) m/uL Hgb (13.0-17.5) gm/dL Hct (39.0-53.0) % MCV (80.0-100.0) fL MCH (25.0-35.0) pg MCHC (31.0-37.0) g/dL RDW (11.5-15.5) % Plt Count (150-450) k/uL MPV Neutrophils % % Lymphocytes % % Monocytes % % Eosinophils % % Basophils % % Neutrophils # (1.3-7.7) k/uL Lymphocytes # (1.0-4.8) k/uL Monocytes # (0-1.0) k/uL Eosinophils # (0-0.7) k/uL Basophils # (0-0.2) k/uL Hypochromasia Poikilocytosis Anisocytosis Microcytosis APTT (22.0-30.0) sec Sodium (137-145) mmol/L Potassium (3.5-5.1) mmol/L Chloride (98-107) mmol/L Carbon Dioxide (22-30) mmol/L Anion Gap mmol/L BUN (9-20) mg/dL Creatinine (0.66-1.25) mg/dL Est GFR (CKD-EPI)AfAm (>60 ml/min/1.73 sqM) Est GFR (CKD-EPI)NonAf (>60 ml/min/1.73 sqM) Glucose (74-99) mg/dL Calcium (8.4-10.2) mg/dL Total Bilirubin (0.2-1.3) mg/dL AST (17-59) U/L ALT (4-49) U/L Alkaline Phosphatase (38-126) U/L Total Protein (6.3-8.2) g/dL Albumin (3.5-5.0) g/dL Blood Type O Positive Blood Type Recheck O Pos Bld Type Recheck Status No Antibody Screen NEGATIVE Spec Expiration Date 08/08/20222323 Disposition Clinical Impression: Anemia Disposition: HOME SELF-CARE Instructions (If sedation given, give patient instructions): Anemia (ED) Additional Instructions: Return to the emergency department with any new, worsening, or concerning symptoms. Contact Dr. Dutta as listed below for a follow up appointment to discuss the new onset anemia. Follow up with your primary care provider in 1-2 days. Is patient prescribed a controlled substance at d/c from ED?: No Referrals: [facility],Clinic [Primary Care Provider] - 1-2 days Mac Dutta MD [STAFF PHYSICIAN] - 1-2 days
== END 2022-08-05 15:59 | disposition home or self-care (01) ==
LOC: EC 12:54
DX: D64.9 Anemia, unspecified (principal); I48.91 Unspecified atrial fibrillation; J45.909 Unspecified asthma, uncomplicated; E11.9 Type 2 diabetes mellitus without complications; E78.5 Hyperlipidemia, unspecified; I10 Essential (primary) hypertension; M19.90 Unspecified osteoarthritis, unspecified site; Z87.891 Personal history of nicotine dependence; Z79.4 Long term (current) use of insulin; Z79.82 Long term (current) use of aspirin; Z79.899 Other long term (current) drug therapy
CPT/HCPCS: 36415; 80053; 85025; 85730; 86850; 86900; 86901; 99284

== ENCOUNTER 2022-08-23 23:26 | Emergency (ER) | payer MEDICARE, OTHER ==
[2022-08-23 23:38] VITALS: RESP 18; TEMP 98.2
[2022-08-24 00:05] LABS: Anisocytosis Slight; Basophils # (A) 0.1 k/uL (0-0.2); Basophils % (A) 1 %; Eosinophils # (A) 0.3 k/uL (0-0.7); Eosinophils % (A) 3 %; HGB 7.5 gm/dL (13.0-17.5); Hypochromasia Marked; Lymphocytes # (A) 0.8 k/uL (1.0-4.8); Lymphocytes % (A) 8 %; MCH 22.6 pg (25.0-35.0); MCHC 30.1 g/dL (31.0-37.0); MCV 75.2 fL (80.0-100.0); Mean Platelet Volume 7.2; Microcytosis Slight; Monocytes # (A) 0.7 k/uL (0-1.0); Monocytes % (A) 7 %; Neutrophils # (A) 7.7 k/uL (1.3-7.7); Neutrophils % (A) 79 %; Platelet Count 481 k/uL (150-450); Poikilocytosis Moderate; RBC 3.33 m/uL (4.30-5.90); RDW 16.8 % (11.5-15.5); WBC 9.7 k/uL (3.8-10.6)
[2022-08-24 00:24] LABS: Calcium 9.2 mg/dL (8.4-10.2); Potassium 4.7 mmol/L (3.5-5.1); Total Bilirubin 0.4 mg/dL (0.2-1.3); Total Protein 6.9 g/dL (6.3-8.2)
[2022-08-24 00:37] LABS: Partial Thromboplastin Time 25.2 sec (22.0-30.0); Prothrombin Time 10.7 sec (9.0-12.0)
--- NOTE | 2022-08-24 01:42 | ED ---
General Adult HPI - General Chief complaint: Recheck/Abnormal Lab/Rx Stated complaint: abn labs/low hemoglobin Time Seen by Provider: 08/24/22 01:26 Source: patient Mode of arrival: ambulatory Limitations: no limitations - History of Present Illness Initial comments: This is 72-year-old male with a past medical history including recent aortic valve replacement, hypertension, diabetes, congestive heart failure presents emergency department because he was told by the [facility] that he had low hemoglobin. The patient had laboratory workup performed in the morning and he was told at 10:30 at night that he had a hemoglobin of 6.5 and presents emergency department. The patient did not complain of any acute pain or distress but stated that he came to the emergency department get reevaluated for this low hemoglobin level. The patient stated that he has had low hemoglobin at baseline but was just following instructions. The patient denied any shortness of breath, lightheadedness or dizziness. The patient was resting in bed comfortabl y without any pain. - Related Data Home Medications Medication Instructions Recorded Confirmed Montelukast [Singulair] 10 mg PO DAILY 10/05/14 08/05/22 Tamsulosin HCl [Flomax] 0.8 mg PO HS 08/31/17 08/05/22 Insulin Glargine,Hum.rec.anlog 40 unit SQ DAILY 10/23/20 08/05/22 [Lantus Solostar Pen] DULoxetine HCL [Cymbalta] 30 mg PO DAILY 02/19/22 08/05/22 Finasteride [Proscar] 5 mg PO DAILY 02/19/22 08/05/22 Insulin Aspart [NovoLOG] 6 - 10 units SQ AC-TID 02/19/22 08/05/22 Albuterol Nebulized [Ventolin 2.5 mg INHALATION RT-Q4H PRN 07/20/22 08/05/22 Nebulized] Albuterol Sulfate [Albuterol 1 puff PO RT-TID PRN 07/20/22 08/05/22 Sulfate Hfa] Alprostadil 40mcg/Cartridge Inj 40 mcg INTRA-CAVE DIRECTED PRN 07/20/2208/05 System Amiodarone HCl [Pacerone] 200 mg PO DAILY 07/20/22 08/05/22 Aspirin EC [Ecotrin Low Dose] 81 mg PO DAILY 07/20/22 08/05/22 Empagliflozin [Jardiance] 25 mg PO DAILY 07/20/22 08/05/22 Mometasone/Formoterol [Dulera 100 2 puff INHALATION RT-BID 07/20/22 08/05/22 Mcg-5 Mcg Inhaler] Omeprazole [PriLOSEC] 20 mg PO DAILY 07/20/22 08/05/22 Rosuvastatin Calcium [Crestor] 20 mg PO DAILY 07/20/22 08/05/22 metFORMIN HCL ER [Glucophage XR] 1,000 mg PO BID 07/20/22 08/05/22 oxyCODONE HCL 5 mg PO Q4H PRN 07/20/22 08/05/22 Previous Rx's Medication Instructions Recorded Furosemide [Lasix] 40 mg PO DAILY 30 Days #30 tab 07/23/22 Allergies Allergy/AdvReac Type Severity Reaction Status Date / Time No Known Allergies Allergy Verified 08/23/22 23:35 Review of Systems ROS Statement: Those systems with pertinent positive or pertinent negative responses have been documented in the HPI. ROS Other: All systems not noted in ROS Statement are negative. Past Medical History Past Medical History: Atrial Fibrillation, Asthma, Diabetes Mellitus, Hearing Disorder / Deafness, Hyperlipidemia, Hypertension, Osteoarthritis (OA) Additional Past Medical History / Comment(s): Neuropathy, hx pancreatitis, bilateral hearing aid use. History of Any Multi-Drug Resistant Organisms: None Reported Past Surgical History: Appendectomy, Heart Catheterization With Stent, Orthopedic Surgery Additional Past Surgical History / Comment(s): Right hand surgery, bilateral cataract surgery, bilateral eye surgery, colonoscopy. Aortic valve replacement Past Anesthesia/Blood Transfusion Reactions: No Reported Reaction Date of Last Stent Placement:: 2015 Past Psychological History: No Psychological Hx Reported Smoking Status: Former smoker Past Alcohol Use History: Occasional Past Drug Use History: None Reported - Past Family History Mother Family Medical History: No Reported History General Exam Limitations: no limitations General appearance: alert, in no apparent distress Head exam: Present: atraumatic, normocephalic, normal inspection Eye exam: Present: normal appearance, PERRL Pupils: Present: normal accommodation ENT exam: Present: normal exam, normal oropharynx, mucous membranes moist Neck exam: Present: normal inspection, full ROM Respiratory exam: Present: normal lung sounds bilaterally Cardiovascular Exam: Present: regular rate, normal rhythm, normal heart sounds GI/Abdominal exam: Present: soft, normal bowel sounds Extremities exam: Present: normal inspection, full ROM Back exam: Present: normal inspection, full ROM Neurological exam: Present: alert, oriented X3, CN II-XII intact Psychiatric exam: Present: normal affect, normal mood Skin exam: Present: warm, dry Course Vital Signs 08/23/22 08/24/22 23:35 02:17 Temperature 98.2 F Pulse Rate 114 H 102 H Respiratory 18 18 Rate Blood Pressure 157/75 148/68 O2 Sat by Pulse 98 99 Oximetry Medical Decision Making - Medical Decision Making Was pt. sent in by a medical professional or institution (, [facility], RAIL GANG SUPERVISOR, urgent c are, hospital, or detention...) When possible be specific @ -Yes, [facility] Did you speak to anyone other than the patient for history (EMS, parent, family, police, friend...)? What history was obtained from this source @ -No Did you review nursing and triage notes (agree or disagree)? Why? @ -I reviewed and agree with nursing and triage notes Were old charts reviewed (outside hosp., previous admission, EMS record, old EKG, old radiological studies, urgent care reports/EKG's, detention records)? Report findings @ -No old charts were reviewed Differential Diagnosis (chest pain, altered mental status, abdominal pain women, abdominal pain men, vaginal bleeding, weakness, fever, dyspnea, syncope, headache, dizziness, GI bleed, back pain, seizure, CVA, palpatations, mental health)? @ -Acute anemia, symptomatic anemia EKG interpreted by me (3pts min.). @ -None X-rays interpreted by me (1pt min.). @ -None done CT interpreted by me (1pt min.). @ -None done U/S interpreted by me (1pt. min.). @ -None done What testing was considered but not performed or refused? (CT, X-rays, U/S, labs)? Why? @ -None What meds were considered but not given or refused? Why? @ -None Did you discuss the management of the patient with other professionals (professionals i.e. [facility] Arredondo, RAIL GANG SUPERVISOR, lab, RT, psych nurse, social media editor, industrial engineering manager, teacher, real estate officer, case aide)? Give summary @ -No Was smoking cessation discussed for >3mins.? @ -No Was critical care preformed (if so, how long)? @ -No Were there social determinants of health that impacted care today? How? (Homeles sness, low income, unemployed, alcoholism, drug addiction, transportation, low edu. Level, literacy, decrease access to med. care, retirement, rehab)? @ -No Was there de-escalation of care discussed even if they declined (Discuss DNR or withdrawal of care, Hospice)? DNR status @ -No What co-morbidities impacted this encounter? (DM, HTN, Smoking, COPD, CAD, Cancer, CVA, ARF, Chemo, Hep., AIDS, mental health diagnosis, sleep apnea, morbid obesity)? @ -Hypertension, congestive heart failure, recent aortic valve replacement Was patient admitted / discharged? Hospital course, mention meds given and route, prescriptions, significant lab abnormalities, going to OR and other pertinent info. @ -The patient was seen and evaluated emergency department. Physical exam, the patient was resting in bed without any acute complaints. Vital signs were stable. Laboratory workup did show a stable hemoglobin at 7.5 and was at his baseline. The rest of laboratory workup was within normal limits. Because the patient did not have a low hemoglobin from his baseline and had no further symptoms, the patient was stable for discharge home. The patient was [facility] and evaluations report back to the emergency department if his pain became acutely worse. The patient was agreeable to this and all discretions were answered. The patient was discharged home in stable condition. Undiagnosed new problem with uncertain prognosis? @ -No Drug Therapy requiring intensive monitoring for toxicity (Heparin, Nitro, Insulin, Cardizem)? @ -No Were any procedures done? @ -No Diagnosis/symptom? @ -Lab redraw, normal physical exam Acute, or Chronic, or Acute on Chronic? @ -Acute Uncomplicated (without systemic symptoms) or Complicated (systemic symptoms)? @ -Uncomplicated Side effects of treatment? @ -No Exacerbation, Progression, or Severe Exacerbation? @ -No Poses a threat to life or bodily function? How? (Chest pain, [place], [place], pneumonia, PE, COPD, DKA, ARF, appy, cholecystitis, CVA, Diverticulitis, Homicidal, S uicidal, threat to staff... and all critical care pts) @ -No - Lab Data Result diagrams: 08/23/22 23:35 08/23/22 23:35 Lab Results 08/23/22 08/23/22 08/23/22 Range/Units 23:35 23:35 23:35 WBC 9.7 (3.8-10.6) k/uL RBC 3.33 L (4.30-5.90) m/uL Hgb 7.5 L (13.0-17.5) gm/dL Hct 25.0 L (39.0-53.0) % MCV 75.2 L (80.0-100.0) fL MCH 22.6 L (25.0-35.0) pg MCHC 30.1 L (31.0-37.0) g/dL RDW 16.8 H (11.5-15.5) % Plt Count 481 H (150-450) k/uL MPV 7.2 Neutrophils % 79 % Lymphocytes % 8 % Monocytes % 7 % Eosinophils % 3 % Basophils % 1 % Neutrophils # 7.7 (1.3-7.7) k/uL Lymphocytes # 0.8 L (1.0-4.8) k/uL Monocytes # 0.7 (0-1.0) k/uL Eosinophils # 0.3 (0-0.7) k/uL Basophils # 0.1 (0-0.2) k/uL Hypochromasia Marked Poikilocytosis Moderate Anisocytosis Slight Microcytosis Slight PT 10.7 (9.0-12.0) sec INR 1.0 (<1.2) APTT 25.2 (22.0-30.0) sec Sodium 137 (137-145) mmol/L Potassium 4.7 (3.5-5.1) mmol/L Chloride 102 (98-107) mmol/L Carbon Dioxide 22 (22-30) mmol/L Anion Gap 13 mmol/L BUN 32 H (9-20) mg/dL Creatinine 1.40 H (0.66-1.25) mg/dL Est GFR (CKD-EPI)AfAm 57 (>60 ml/min/1.73 sqM) Est GFR (CKD-EPI)NonAf 49 (>60 ml/min/1.73 sqM) Glucose 222 H (74-99) mg/dL Calcium 9.2 (8.4-10.2) mg/dL Total Bilirubin 0.4 (0.2-1.3) mg/dL AST 25 (17-59) U/L ALT 21 (4-49) U/L Alkaline Phosphatase 105 (38-126) U/L Total Protein 6.9 (6.3-8.2) g/dL Albumin 4.0 (3.5-5.0) g/dL Blood Type Blood Type Recheck Bld Type Recheck Status Antibody Screen Spec Expiration Date 08/23/22 Range/Units 23:35 WBC (3.8-10.6) k/uL RBC (4.30-5.90) m/uL Hgb (13.0-17.5) gm/dL Hct (39.0-53.0) % MCV (80.0-100.0) fL MCH (25.0-35.0) pg MCHC (31.0-37.0) g/dL RDW (11.5-15.5) % Plt Count (150-450) k/uL MPV Neutrophils % % Lymphocytes % % Monocytes % % Eosinophils % % Basophils % % Neutrophils # (1.3-7.7) k/uL Lymphocytes # (1.0-4.8) k/uL Monocytes # (0-1.0) k/uL Eosinophils # (0-0.7) k/uL Basophils # (0-0.2) k/uL Hypochromasia Poikilocytosis Anisocytosis Microcytosis PT (9.0-12.0) sec INR (<1.2) APTT (22.0-30.0) sec Sodium (137-145) mmol/L Potassium (3.5-5.1) mmol/L Chloride (98-107) mmol/L Carbon Dioxide (22-30) mmol/L Anion Gap mmol/L BUN (9-20) mg/dL Creatinine (0.66-1.25) mg/dL Est GFR (CKD-EPI)AfAm (>60 ml/min/1.73 sqM) Est GFR (CKD-EPI)NonAf (>60 ml/min/1.73 sqM) Glucose (74-99) mg/dL Calcium (8.4-10.2) mg/dL Total Bilirubin (0.2-1.3) mg/dL AST (17-59) U/L ALT (4-49) U/L Alkaline Phosphatase (38-126) U/L Total Protein (6.3-8.2) g/dL Albumin (3.5-5.0) g/dL Blood Type O Positive Blood Type Recheck O Pos Bld Type Recheck Status No Antibody Screen NEGATIVE Spec Expiration Date 08/26/2022 - 2334 Disposition Clinical Impression: Abnormal laboratory test result Disposition: HOME SELF-CARE Condition: Stable Instructions (If sedation given, give patient instructions): Anemia (ED) Is patient prescribed a controlled substance at d/c from ED?: No Referrals: None,Stated [REFERRING] - 1-2 days Time of Disposition: 01:30
[2022-08-24 02:28] VITALS: BP 148/68; PULSE 102
== END 2022-08-24 02:17 | disposition home or self-care (01) ==
LOC: EC 23:26
DX: R79.9 Abnormal finding of blood chemistry, unspecified (principal); I48.91 Unspecified atrial fibrillation; J45.909 Unspecified asthma, uncomplicated; E11.40 Type 2 diabetes mellitus with diabetic neuropathy, unspecified; E78.5 Hyperlipidemia, unspecified; M19.90 Unspecified osteoarthritis, unspecified site; I11.0 Hypertensive heart disease with heart failure; I50.9 Heart failure, unspecified; Z87.891 Personal history of nicotine dependence; Z79.4 Long term (current) use of insulin; Z79.899 Other long term (current) drug therapy; Z79.84 Long term (current) use of oral hypoglycemic drugs; Z79.82 Long term (current) use of aspirin; Z79.1 Long term (current) use of non-steroidal anti-inflammatories (NSAID)
CPT/HCPCS: 36415; 80053; 85025; 85610; 85730; 86850; 86900; 86901; 99284

== ENCOUNTER 2022-09-02 22:32 | Inpatient (IN) | payer OTHER, MEDICARE ==
--- NOTE | 2022-09-02 23:04 | ED ---
Recheck HPI - General Chief Complaint: Recheck/Abnormal Lab/Rx Stated Complaint: Abnormal Labs Time Seen by Provider: 09/02/22 22:43 Source: patient Mode of arrival: wheelchair Limitations: no limitations - History of Present Illness Initial Comments: Patient is a 72-year-old male presenting for suspected low hemoglobin. Patient received a phone call from the [facility] today stating that his hemoglobin was 5.6, he had his blood drawn earlier this morning. Patient has had recurrent issues with anemia since his aortic valve replacement surgery in June. He was here on 08/24 after [facility] a [facility] hemoglobin, here in the ER his hemoglobin was found to be 7.5 and he was discharged home. At this time he is complaining of some shortness of breath, however he states that he is normally like this at baseline. Denies chest pain, abdominal pain, dizziness, syncope, palpitations, weakness. - Related Data Home Medications Medication Instructions Recorded Confirmed Montelukast [Singulair] 10 mg PO DAILY 10/05/14 08/05/22 Tamsulosin HCl [Flomax] 0.8 mg PO HS 08/31/17 08/05/22 Insulin Glargine,Hum.rec.anlog 40 unit SQ DAILY 10/23/20 08/05/22 [Lantus Solostar Pen] DULoxetine HCL [Cymbalta] 30 mg PO DAILY 02/19/22 08/05/22 Finasteride [Proscar] 5 mg PO DAILY 02/19/22 08/05/22 Insulin Aspart [NovoLOG] 6 - 10 units SQ AC-TID 02/19/22 08/05/22 Albuterol Nebulized [Ventolin 2.5 mg INHALATION RT-Q4H PRN 07/20/22 08/05/22 Nebulized] Albuterol Sulfate [Albuterol 1 puff PO RT-TID PRN 07/20/22 08/05/22 Sulfate Hfa] Alprostadil 40mcg/Cartridge Inj 40 mcg INTRA-CAVE DIRECTED PRN 07/20/22 08/05/22 System Amiodarone HCl [Pacerone] 200 mg PO DAILY 07/20/22 08/05/22 Aspirin EC [Ecotrin Low Dose] 81 mg PO DAILY 07/20/22 08/05/22 Empagliflozin [Jardiance] 25 mg PO DAILY 07/20/22 08/05/22 Mometasone/Formoterol [Dulera 100 2 puff INHALATION RT-BID 07/20/22 08/05/22 Mcg-5 Mcg Inhaler] Omeprazole [PriLOSEC] 20 mg PO DAILY 07/20/22 08/05/22 Rosuvastatin Calcium [Crestor] 20 mg PO DAILY 07/20/22 08/05/22 metFORMIN HCL ER [Glucophage XR] 1,000 mg PO BID 07/20/22 08/05/22 oxyCODONE HCL 5 mg PO Q4H PRN 07/20/22 08/05/22 Previous Rx's Medication Instructions Recorded Furosemide [Lasix] 40 mg PO DAILY 30 Days #30 tab 07/23/22 Allergies Allergy/AdvReac Type Severity Reaction Status Date / Time No Known Allergies Allergy Verified 09/02/22 22:32 Review of Systems ROS Statement: Those systems with pertinent positive or pertinent negative responses have been documented in the HPI. ROS Other: All systems not noted in ROS Statement are negative. Past Medical History Past Medical History: Atrial Fibrillation, Asthma, Diabetes Mellitus, Hearing Disorder / Deafness, Hyperlipidemia, Hypertension, Osteoarthritis (OA) Additional Past Medical History / Comment(s): Neuropathy, hx pancreatitis, bilateral hearing aid use. Anemia History of Any Multi-Drug Resistant Organisms: None Reported Past Surgical History: Appendectomy, Heart Catheterization With Stent, Orthopedic Surgery Additional Past Surgical History / Comment(s): Right hand surgery, bilateral cataract surgery, bilateral eye surgery, colonoscopy. Aortic valve replacement Past Anesthesia/Blood Transfusion Reactions: No Reported Reaction Date of Last Stent Placement:: 2015 Past Psychological History: No Psychological Hx Reported Smoking Status: Former smoker Past Alcohol Use History: Occasional Past Drug Use History: None Reported - Past Family History Mother Family Medical History: No Reported History General Exam Limitations: no limitations General appearance: alert, in no apparent distress Head exam: Present: atraumatic, normocephalic, normal inspection Eye exam: Present: other (Pallor of the conjunctiva) Neck exam: Present: normal inspection, full ROM Respiratory exam: Present: normal lung sounds bilaterally. Absent: respiratory distress, wheezes, rales, rhonchi, stridor Cardiovascular Exam: Present: regular rate, normal rhythm, normal heart sounds. Absent: systolic murmur, diastolic murmur, rubs, gallop, clicks Neurological exam: Present: alert, oriented X3, CN II-XII intact Psychiatric exam: Present: normal affect, normal mood Skin exam: Present: warm, dry, intact, pallor Course Vital Signs 09/02/22 09/03/22 09/03/22 22:32 00:46 00:59 Temperature 97.6 F 97.4 F L 97.5 F L Pulse Rate 99 105 H 100 Respiratory 18 18 18 Rate Blood Pressure 107/58 154/82 149/72 O2 Sat by Pulse 100 98 97 Oximetry 09/03/22 09/03/22 09/03/22 01:19 02:20 02:41 Temperature 97.9 F 98 F 98 F Pulse Rate 88 98 73 Respiratory 18 18 18 Rate Blood Pressure 125/66 122/74 131/78 O2 Sat by Pulse 99 98 98 Oximetry Medical Decision Making - Medical Decision Making Was pt. sent in by a medical professional or institution (, PA, SENIOR INTERNATIONAL TAX MANAGER, urgent care, hospital, or skilled nursing...) When possible be specific @ -Yes by the [facility] Did you speak to anyone other than the patient for history (EMS, parent, family, police, friend...)? What history was obtained from this source @ -No Did you review nursing and triage notes (agree or disagree)? Why? @ -I reviewed and agree with nursing and triage notes Were old charts reviewed (outside hosp., previous admission, EMS record, old EKG, old radiological studies, urgent care reports/EKG's, skilled nursing records)? Report findings @ -Previous visits reviewed Differential Diagnosis (chest pain, altered mental status, abdominal pain women, abdominal pain men, vaginal bleeding, weakness, fever, dyspnea, syncope, headache, dizziness, GI bleed, back pain, seizure, CVA, palpatations, mental health)? @Differential includes anemia of chronic disease, hemolytic anemia, GI bleed, this is not meant to be an all-inclusive list EKG interpreted by me (3pts min.). @ -As above X-rays interpreted by me (1pt min.). @ -Chest x-ray shows no acute process CT interpreted by me (1pt min.). @ -None done U/S interpreted by me (1pt. min.). @ -None done What testing was considered but not performed or refused? (CT, X-rays, U/S, labs)? Why? @ -None What meds were considered but not given or refused? Why? @ -None Did you discuss the management of the patient with other professionals (professionals i.e. , PA, SENIOR INTERNATIONAL TAX MANAGER, lab, RT, psych nurse, social studies teacher, aircraft shipping checker, teacher, promotions officer, caser up)? Give summary @ -No Was smoking cessation discussed for >3mins.? @ -No Was critical care preformed (if so, how long)? @ -No Were there social determinants of health that impacted care today? How? (Home lessness, low income, unemployed, alcoholism, drug addiction, transportation, low edu. Level, literacy, decrease access to med. care, assisted, rehab)? @ -No Was there de-escalation of care discussed even if they declined (Discuss DNR or withdrawal of care, Hospice)? DNR status @ -No What co-morbidities impacted this encounter? (DM, HTN, Smoking, COPD, CAD, Cancer, CVA, ARF, Chemo, Hep., AIDS, mental health diagnosis, sleep apnea, morbid obesity)? @ -Atrial fibrillation, diabetes, hyperlipidemia, hypertension, history of aortic valve replacement, CHF Was patient admitted / discharged? Hospital course, mention meds given and route, prescriptions, significant lab abnormalities, going to OR and other pertinent info. @ -Patient is a 72-year-old male presenting for evaluation of low hemoglobin. Patient has chronically low hemoglobin, [facility] his [facility] 5.6. Patient states he has no complaints at this time. No chest pain, difficulty breathing, abdominal pain. Denies rectal bleeding, bloody stool, or dark stool. On physical examination patient is pale, mucous membranes are pale. Heart and lungs are clear to auscultation. Hemoglobin is 6.1, 1 unit of RBCs was ordered. BUN and creatinine are consistent with b aseline. Chest x-ray shows no acute process. I spoke with Dr. Ndiaye accepted admission. At admitting physician's request I contacted the general surgeon on- call Dr. Rhodes to see if he would be okay with being on consult, he was agreeable to being placed on consult. Patient is agreeable with plan. I discussed this case with my attending Dr. Morrow. Undiagnosed new problem with uncertain prognosis? @ -No Drug Therapy requiring intensive monitoring for toxicity (Heparin, Nitro, Insulin, Cardizem)? @ -No Were any procedures done? @ -No Diagnosis/symptom? @ -Anemia Acute, or Chronic, or Acute on Chronic? @ -Acute on chronic Uncomplicated (without systemic symptoms) or Complicated (systemic symptoms)? @ -Complicated Side effects of treatment? @ -No Exacerbation, Progression, or Severe Exacerbation? @ -Exacerbation Poses a threat to life or bodily function? How? (Chest pain, [place], [place], pneumonia, PE, COPD, DKA, ARF, appy, cholecystitis, CVA, Diverticulitis, Homicidal, Suicidal, threat to staff... and all critical care pts) @ -Yes - Lab Data Result diagrams: 09/02/22 23:01 09/02/22 23:01 Lab Results 09/02/22 09/02/22 09/02/22 Range/Units 22:40 23:01 23:01 WBC 10.7 H (3.8-10.6) k/uL RBC 2.92 L (4.30-5.90) m/uL Hgb 6.1 L* (13.0-17.5) gm/dL Hct 21.0 L (39.0-53.0) % MCV 71.9 L (80.0-100.0) fL MCH 21.0 L (25.0-35.0) pg MCHC 29.2 L (31.0-37.0) g/dL RDW 17.1 H (11.5-15.5) % Plt Count 296 (150-450) k/uL MPV 7.1 Neutrophils % 79 % Lymphocytes % 9 % Monocytes % 6 % Eosinophils % 3 % Basophils % 1 % Neutrophils # 8.5 H (1.3-7.7) k/uL Lymphocytes # 1.0 (1.0-4.8) k/uL Monocytes # 0.6 (0-1.0) k/uL Eosinophils # 0.3 (0-0.7) k/uL Basophils # 0.1 (0-0.2) k/uL Hypochromasia Marked Poikilocytosis Moderate Anisocytosis Slight Microcytosis Moderate PT 10.4 (9.0-12.0) sec INR 1.0 (<1.2) APTT 25.5 (22.0-30.0) sec Sodium (137-145) mmol/L Potassium (3.5-5.1) mmol/L Chloride (98-107) mmol/L Carbon Dioxide (22-30) mmol/L Anion Gap mmol/L BUN (9-20) mg/dL Creatinine (0.66-1.25) mg/dL Est GFR (CKD-EPI)AfAm (>60 ml/min/1.73 sqM) Est GFR (CKD-EPI)NonAf (>60 ml/min/1.73 sqM) Glucose (74-99) mg/dL Calcium (8.4-10.2) mg/dL Total Bilirubin (0.2-1.3) mg/dL AST (17-59) U/L ALT (4-49) U/L Alkaline Phosphatase (38-126) U/L Total Protein (6.3-8.2) g/dL Albumin (3.5-5.0) g/dL Blood Type O Positive Blood Type Recheck O Pos Bld Type Recheck Status No Antibody Screen NEGATIVE Crossmatch See Detail Spec Expiration Date 09/05/2022 - 233909/02/22 Range/Units 23:01 WBC (3.8-10.6) k/uL RBC (4.30-5.90) m/uL Hgb (13.0-17.5) gm/dL Hct (39.0-53.0) % MCV (80.0-100.0) fL MCH (25.0-35.0) pg MCHC (31.0-37.0) g/dL RDW (11.5-15.5) % Plt Count (150-450) k/uL MPV Neutrophils % % Lymphocytes % % Monocytes % % Eosinophils % % Basophils % % Neutrophils # (1.3-7.7) k/uL Lymphocytes # (1.0-4.8) k/uL Monocytes # (0-1.0) k/uL Eosinophils # (0-0.7) k/uL Basophils # (0-0.2) k/uL Hypochromasia Poikilocytosis Anisocytosis Microcytosis PT (9.0-12.0) sec INR (<1.2) APTT (22.0-30.0) sec Sodium 136 L (137-145) mmol/L Potassium 4.4 (3.5-5.1) mmol/L Chloride 102 (98-107) mmol/L Carbon Dioxide 19 L (22-30) mmol/L Anion Gap 15 mmol/L BUN 32 H (9-20) mg/dL Creatinine 1.40 H (0.66-1.25) mg/dL Est GFR (CKD-EPI)AfAm 57 (>60 ml/min/1.73 sqM) Est GFR (CKD-EPI)NonAf 49 (>60 ml/min/1.73 sqM) Glucose 177 H (74-99) mg/dL Calcium 8.7 (8.4-10.2) mg/dL Total Bilirubin 0.4 (0.2-1.3) mg/dL AST 30 (17-59) U/L ALT 20 (4-49) U/L Alkaline Phosphatase 92 (38-126) U/L Total Protein 7.0 (6.3-8.2) g/dL Albumin 4.2 (3.5-5.0) g/dL Blood Type Blood Type Recheck Bld Type Recheck Status Antibody Screen Crossmatch Spec Expiration Date Disposition Clinical Impression: Anemia Disposition: ADMITTED IP TO THIS [facility] Condition: Fair Time of Disposition: 00:26
[2022-09-02 23:12] LABS: Anisocytosis Slight; Basophils # (A) 0.1 k/uL (0-0.2); Basophils % (A) 1 %; Eosinophils # (A) 0.3 k/uL (0-0.7); Eosinophils % (A) 3 %; Hypochromasia Marked; Lymphocytes % (A) 9 %; MCHC 29.2 g/dL (31.0-37.0); MCV 71.9 fL (80.0-100.0); Mean Platelet Volume 7.1; Microcytosis Moderate; Monocytes # (A) 0.6 k/uL (0-1.0); Monocytes % (A) 6 %; Neutrophils # (A) 8.5 k/uL (1.3-7.7); Neutrophils % (A) 79 %; Platelet Count 296 k/uL (150-450); Poikilocytosis Moderate; RBC 2.92 m/uL (4.30-5.90); RDW 17.1 % (11.5-15.5); WBC 10.7 k/uL (3.8-10.6)
[2022-09-02 23:35] LABS: Albumin 4.2 g/dL (3.5-5.0); Calcium 8.7 mg/dL (8.4-10.2); Potassium 4.4 mmol/L (3.5-5.1); Total Bilirubin 0.4 mg/dL (0.2-1.3)
[2022-09-02 23:42] LABS: Partial Thromboplastin Time 25.5 sec (22.0-30.0); Prothrombin Time 10.4 sec (9.0-12.0)
[2022-09-03 00:16] LABS: HGB 6.1 gm/dL (13.0-17.5)
--- NOTE | 2022-09-03 00:53 | XR ---
EXAMINATION TYPE: XR chest 2V DATE OF EXAM: 09/03/2022 COMPARISON: NONE HISTORY: Shortness of breath TECHNIQUE: 2 views FINDINGS: There is some coarse linear density at the lung bases. Heart size is normal. There are ster nal wires. There is cardiac valve surgery. There is spurring in the thoracic spine. IMPRESSION: Scarring and subsegmental atelectasis at the lung bases. No change. No heart failure.
[2022-09-03] MEDS ORDERED: NALOXONE 0.4 MG/ML 1 ML VIAL IV PRN (01:36)
[2022-09-03] MEDS ORDERED: PANTOPRAZOLE 40 MG/10 ML VIAL IVP ONE (02:45)
--- NOTE | 2022-09-03 02:46 | P.HPIM ---
History of Present Illness H&P Date: 09/03/22 The patient is a 72-year-old male with a PMH of A. fib on Eliquis, CAD status post stents, recent bovine aortic valve replacement on 07/07/22, chronic kidney disease, type II DM, COPD, and hypertension who was sent to the emergency room due to an abnormal blood test. [facility] and was called and informed that his hemoglobin was 5.6 and that he needed to go to the emergency room. The patient states that he has been feeling at his baseline and had no active complaints. He did report a recent darkening of his stools. Of note, the patient was recently admitted to the hospital on 07/20 with a CHF exacerbation and suspected GI bleed. The patient's Eliquis was held at that time and an EGD revealed no obvious source for bleeding. A colonoscopy was refused by the patient with plans to follow-up as an outpatient. The patient states however that on 08/12, he was restarted on his Eliquis by his cardiologists in [place]. In the emergency room today, hemoglobin was 6.1, down from 7.8 on discharge on 07/23. MCV was 71.9, BUN 32, creatinine 1.4 (better than baseline). The patient denied experiencing chest discomfort, shortness of breath, fever, chills, cough, abdominal pain, diarrhea. Chest x-ray was unremarkable. 1 unit PRBCs was ordered and administered in the emergency room. Review of systems: Pertinent positives and negatives as discussed in HPI, a complete review of systems was performed and all other systems are negative. Physical examination: General: non toxic, no distress, appears at stated age, overweight Derm: no unusual rashes/lesions, warm Head: atraumatic, normocephalic, symmetric Eyes: EOMI, no lid lag, anicteric sclera, pupils equal round reactive to light ENT: Nose and ears atraumatic Neck: No cervical lymphadenopathy, trachea midline, supple Mouth: no lip lesion, mucus membranes moist Cardiovascular: S1S2 reg, no murmur, positive dorsalis pedis pulse bilateral, no edema Lungs: CTA bilateral, no rhonchi, no rales, no accessory muscle use Abdominal: soft, nontender to palpation, no guarding Ext: muscle strength 5 out of 5 in all 4 extremities grossly, no gross muscle atrophy, no contractures, Neuro: CN II-XI grossly intact, no gross focal neuro deficits Psych: Alert, oriented, appropriate affect Assessment/plan Microcytic anemia, GI bleed versus hemolytic anemia -Obtain fecal occult blood testing -Surgery consulted for possible EGD/colonoscopy -Hold Eliquis -Protonix -NPO Chronic conditions: COPD, CKD, type II DM, CAD, hypertension -Continue with home meds DVT prophylaxis -IPCDs The patient is admitted with an anticipated greater than 2 midnight stay for evaluation of anemia CODE STATUS: Full Code Discussed with: Patient Anticipated discharge date: 2-[address]: Home Past Medical History Past Medical History: Atrial Fibrillation, Asthma, Diabetes Mellitus, Hearing Disorder / Deafness, Hyperlipidemia, Hypertension, Osteoarthritis (OA) Additional Past Medical History / Comment(s): Neuropathy, hx pancreatitis, bilateral hearing aid use. Anemia History of Any Multi-Drug Resistant Organisms: None Reported Past Surgical History: Appendectomy, Heart Catheterization With Stent, Orthopedic Surgery Additional Past Surgical History / Comment(s): Right hand surgery, bilateral cataract surgery, bilateral eye surgery, colonoscopy. Aortic valve replacement Past Anesthesia/Blood Transfusion Reactions: No Reported Reaction Date of Last Stent Placement:: 2015 Past Psychological History: No Psychological Hx Reported Smoking Status: Former smoker Past Alcohol Use History: Occasional Past Drug Use History: None Reported - Past Family History Mother Family Medical History: Coronary Artery Disease (CAD) Medications and Allergies Home Medications Medication Instructions Recorded Confirmed Type Montelukast [Singulair] 10 mg PO DAILY 10/05/14 08/05/22 History Tamsulosin HCl [Flomax] 0.8 mg PO HS 08/31/17 08/05/22 History Insulin Glargine,Hum.rec.anlog 40 unit SQ DAILY 10/23/20 08/05/22 History [Lantus Solostar Pen] DULoxetine HCL [Cymbalta] 30 mg PO DAILY 02/19/22 08/05/22 History Finasteride [Proscar] 5 mg PO DAILY 02/19/22 08/05/22 History Insulin Aspart [NovoLOG] 6 - 10 units SQ AC-TID 02/19/22 08/05/22 History Albuterol Nebulized [Ventolin 2.5 mg INHALATION RT-Q4H PRN 07/20/22 08/05/22 History Nebulized] Albuterol Sulfate [Albuterol 1 puff PO RT-TID PRN 07/20/22 08/05/22 History Sulfate Hfa] Alprostadil 40mcg/Cartridge Inj 40 mcg INTRA-CAVE DIRECTED PRN 07/20/22 08/05/22 History System Amiodarone HCl [Pacerone] 200 mg PO DAILY 07/20/22 08/05/22 History Aspirin EC [Ecotrin Low Dose] 81 mg PO DAILY 07/20/22 08/05/22 History Empagliflozin [Jardiance] 25 mg PO DAILY 07/20/22 08/05/22 History Mometasone/Formoterol [Dulera 100 2 puff INHALATION RT-BID 07/20/22 08/05/22 History Mcg-5 Mcg Inhaler] Omeprazole [PriLOSEC] 20 mg PO DAILY 07/20/22 08/05/22 History Rosuvastatin Calcium [Crestor] 20 mg PO DAILY 07/20/22 08/05/22 History metFORMIN HCL ER [Glucophage XR] 1,000 mg PO BID 07/20/22 08/05/22 History oxyCODONE HCL 5 mg PO Q4H PRN 07/20/22 08/05/22 History Furosemide [Lasix] 40 mg PO DAILY 30 Days #30 tab 07/23/22 08/05/22 Rx Allergies Allergy/AdvReac Type Severity Reaction Status Date / Time No Known Allergies Allergy Verified 09/02/22 22:32 Physical Exam Vitals: Vital Signs Temp Pulse Resp BP Pulse Ox 09/03/22 02:41 98 F 73 18 131/78 98 09/03/22 02:20 98 F 98 18 122/74 98 09/03/22 01:19 97.9 F 88 18 125/66 99 09/03/22 00:59 97.5 F L 100 18 149/72 97 09/03/22 00:46 97.4 F L 105 H 18 154/82 98 09/02/22 22:32 97.6 F 99 18 107/58 100 Intake and Output 09/02/22 09/02/22 09/03/22 14:59 22:59 06:59 Intake Total 310 Balance 310 Intake: Blood Product 310 Rc Pheresis 2 As3 Unit 310 [id number] Other: Weight 86.636 kg Results CBC & Chem 7: 09/02/22 23:01 09/02/22 23:01 Labs: Abnormal Lab Results - Last 24 Hours (Table) 09/02/22 09/02/22 09/02/22 Range/Units 22:40 23:01 23:01 WBC 10.7 H (3.8-10.6) k/uL RBC 2.92 L (4.30-5.90) m/uL Hgb 6.1 L* (13.0-17.5) gm/dL Hct 21.0 L (39.0-53.0) % MCV 71.9 L (80.0-100.0) fL MCH 21.0 L (25.0-35.0) pg MCHC 29.2 L (31.0-37.0) g/dL RDW 17.1 H (11.5-15.5) % Neutrophils # 8.5 H (1.3-7.7) k/uL Sodium 136 L (137-145) mmol/L Carbon Dioxide 19 L (22-30) mmol/L BUN 32 H (9-20) mg/dL Creatinine 1.40 H (0.66-1.25) mg/dL Glucose 177 H (74-99) mg/dL Crossmatch See Detail
[2022-09-03 03:41] LABS: Anisocytosis Slight; HCT 20.5 % (39.0-53.0); Hypochromasia Marked; MCH 22.1 pg (25.0-35.0); MCHC 30.1 g/dL (31.0-37.0); MCV 73.5 fL (80.0-100.0); Mean Platelet Volume 7.4; Microcytosis Moderate; Platelet Count 244 k/uL (150-450); Poikilocytosis Marked; RDW 17.5 % (11.5-15.5); WBC 8.2 k/uL (3.8-10.6)
[2022-09-03 04:02] LABS: HGB 6.2 gm/dL (13.0-17.5)
[2022-09-03 05:59] LABS: Glucose,Whole Blood 128 mg/dL (70-110)
[2022-09-03 07:46] LABS: Anisocytosis Slight; Calcium 8.3 mg/dL (8.4-10.2); HCT 20.3 % (39.0-53.0); Hypochromasia Marked; MCHC 30.1 g/dL (31.0-37.0); MCV 73.2 fL (80.0-100.0); Mean Platelet Volume 6.9; Microcytosis Moderate; Platelet Count 237 k/uL (150-450); Poikilocytosis Marked; RBC 2.77 m/uL (4.30-5.90); RDW 17.6 % (11.5-15.5); WBC 7.1 k/uL (3.8-10.6)
[2022-09-03 07:51] LABS: HGB 6.1 gm/dL (13.0-17.5)
[2022-09-03] MEDS ORDERED: DEXTROSE 50% SYRINGE 50 ML IVP PRN ×2 (09:52)
[2022-09-03 10:12] LABS: Anisocytosis Slight; Basophils % (A) 1 %; Eosinophils # (A) 0.3 k/uL (0-0.7); Eosinophils % (A) 4 %; HCT 21.7 % (39.0-53.0); Hypochromasia Marked; Lymphocytes # (A) 0.5 k/uL (1.0-4.8); Lymphocytes % (A) 8 %; MCH 22.1 pg (25.0-35.0); MCHC 30.7 g/dL (31.0-37.0); MCV 72.2 fL (80.0-100.0); Mean Platelet Volume 7.1; Microcytosis Moderate; Monocytes # (A) 0.4 k/uL (0-1.0); Monocytes % (A) 6 %; Neutrophils # (A) 5.2 k/uL (1.3-7.7); Neutrophils % (A) 79 %; Platelet Count 243 k/uL (150-450); Poikilocytosis Marked; RBC 3.01 m/uL (4.30-5.90); RDW 17.2 % (11.5-15.5); WBC 6.5 k/uL (3.8-10.6)
[2022-09-03 10:28] LABS: HGB 6.7 gm/dL (13.0-17.5)
[2022-09-03] MEDS: INSULIN ASPART (NovoLOG) 100 UNIT/ML VIAL SQ SCH ×4 (10:45→21:20)
[2022-09-03 11:40] LABS: Glucose,Whole Blood 94 mg/dL (70-110)
[2022-09-03] MEDS: INSULIN DETEMIR (LEVEMIR) 100 UNIT/ML SYR SQ SCH (11:52)
--- NOTE | 2022-09-03 12:14 | P.PN ---
Progress Note - Text Progress Note Date: 09/03/22 Hospitalist Interval Note Patient seen and examined at bedside. Vital signs reviewed General: non toxic, no distress, appears at stated age, overweight Derm: no unusual rashes/lesions, warm Head: atraumatic, normocephalic, symmetric Eyes: EOMI, no lid lag, anicteric sclera, pupils equal round reactive to light ENT: Nose and ears atraumatic Neck: No cervical lymphadenopathy, trachea midline, supple Mouth: no lip lesion, mucus membranes moist Cardiovascular: S1S2 reg, no murmur, positive dorsalis pedis pulse bilateral, no edema Lungs: CTA bilateral, no rhonchi, no rales, no accessory muscle use Abdominal: soft, nontender to palpation, no guarding Ext: muscle strength 5 out of 5 in all 4 extremities grossly, no gross muscle atrophy, no contractures, Neuro: CN II-XI grossly intact, no gross focal neuro deficits Psych: Alert, oriented, appropriate affect Assessment/Plan: Symptomatic microcytic anemia Possible GI bleed - Hemoglobin slightly up recommended with 1 unit of PRBCs - Transfuse another unit -Surgery consult - IV PPI twice a day - Hold anticoagulation This is an update note for patient. There is no charge associated with this note.
[2022-09-03 12:42] LABS: Glucose,Whole Blood 203 mg/dL (70-110)
[2022-09-03 12:58] LABS: Anisocytosis Slight; Basophils # (A) 0.1 k/uL (0-0.2); Basophils % (A) 1 %; Eosinophils # (A) 0.3 k/uL (0-0.7); Eosinophils % (A) 4 %; HCT 22.2 % (39.0-53.0); Hypochromasia Marked; Lymphocytes # (A) 0.6 k/uL (1.0-4.8); Lymphocytes % (A) 7 %; MCH 21.5 pg (25.0-35.0); MCHC 29.3 g/dL (31.0-37.0); MCV 73.2 fL (80.0-100.0); Mean Platelet Volume 7.1; Microcytosis Moderate; Monocytes # (A) 0.4 k/uL (0-1.0); Monocytes % (A) 6 %; Neutrophils % (A) 80 %; Platelet Count 256 k/uL (150-450); Poikilocytosis Marked; RBC 3.04 m/uL (4.30-5.90); RDW 17.5 % (11.5-15.5); WBC 7.5 k/uL (3.8-10.6)
[2022-09-03 13:13] LABS: HGB 6.5 gm/dL (13.0-17.5)
--- NOTE | 2022-09-03 13:42 | P.GSCN ---
History of Present Illness Consult date: 09/03/22 History of present illness: CHIEF COMPLAINT: Low hemoglobin HISTORY OF PRESENT ILLNESS: This is a 72-year-old male who came into the ER [facility] a low hemoglobin of 5.6 outpatient setting. Patient's hemoglobin on admission 6.1. He did receive 1 unit of blood to go up to 6.7. Patient denies any bloody stools or melanotic stools. Denies any abdominal pain. Patient was recently hospitalized in July with GI bleed and hemoglobin of 7. At that time patient refused colonoscopy but did undergo an EGD which had shown gastritis. Patient has still been taking the Eliquis for his atrial fibrillation. Last colonoscopy was in February 2022 with evidence of a colon polyp. Patient does have history of aortic valve replacement in June. Surgical service consult regards to patient's anemia. PAST MEDICAL HISTORY: See below PAST SURGICAL HISTORY: See below MEDICATIONS: See below ALLERGIES: See below SOCIAL HISTORY: No illicit drug use. REVIEW OF SYSTEMS: CONSTITUTIONAL: Denies fever or chills. HEENT: Denies blurred vision, vision changes, or eye pain. Denies hemoptysis CARDIOVASCULAR: Denies chest pain or pressure. RESPIRATORY: No shortness of breath. GASTROINTESTINAL: See HPI for pertinent findings HEMATOLOGIC: Denies bleeding disorders. GENITOURINARY: Denies any blood in urine or increased urinary frequency. SKIN: Denies pruitis. Denies rash. PHYSICAL EXAM: VITAL SIGNS: Reviewed GENERAL: Well-developed in no acute distress. HEENT: No sclera icterus. Extraocular movements grossly intact. Moist buccal mucosa. Head is atraumatic, normocephalic. No nasal drainage. ABDOMEN: Soft. Nondistended. Nontender NEUROLOGIC: Alert and oriented. Cranial nerves II through XII grossly intact. LABORATORY DATA: WBC 7.5 hemoglobin 6.1 on admission up to 6.7. Repeat hemoglobin of 6.5 platelets 256 Sodium is 13 potassiums 4 creatinine 1.36 IMAGING: ASSESSMENT: 1. Microcytic Anemia on anticoagulation at home 2. Recent EGD in July showing gastritis 3. Atrial fibrillation on Eliquis 4. Depression on cymbalta PLAN: -Patient scheduled for EGD and colonoscopy on Tuesday with Dr. gomez -Hold Eliquis -Continue monitor hemoglobin -Continue to monitor for any signs or symptoms of bleeding -Agree with blood transfusion -Check stool for occult blood -Continue PPI Thank you for this consultation Physician Digital Advertising Specialist note has been reviewed by physician. Signing provider agrees with the documented findings, assessment, and plan of care. Past Medical History Past Medical History: Atrial Fibrillation, Asthma, Diabetes Mellitus, Hearing Disorder / Deafness, Hyperlipidemia, Hypertension, Osteoarthritis (OA) Additional Past Medical History / Comment(s): Neuropathy, hx pancreatitis, bilateral hearing aid use. Anemia History of Any Multi-Drug Resistant Organisms: None Reported Past Surgical History: Appendectomy, Heart Catheterization With Stent, Orthopedic Surgery Additional Past Surgical History / Comment(s): Right hand surgery, bilateral cataract surgery, bilateral eye surgery, colonoscopy. Aortic valve replacement Past Anesthesia/Blood Transfusion Reactions: No Reported Reaction Date of Last Stent Placement:: 2015 Past Psychological History: No Psychological Hx Reported Smoking Status: Former smoker Past Alcohol Use History: Occasional Past Drug Use History: None Reported - Past Family History Mother Family Medical History: No Reported History Medications and Allergies Home Medications Medication Instructions Recorded Confirmed Type Montelukast [Singulair] 10 mg PO DAILY 10/05/14 09/03/22 History Tamsulosin HCl [Flomax] 0.8 mg PO HS 08/31/17 09/03/22 History Insulin Glargine,Hum.rec.anlog 40 unit SQ DAILY 10/23/20 09/03/22 History [Lantus Solostar Pen] DULoxetine HCL [Cymbalta] 30 mg PO DAILY 02/19/22 09/03/22 History Finasteride [Proscar] 5 mg PO DAILY 02/19/22 09/03/22 History Empagliflozin [Jardiance] 25 mg PO DAILY 07/20/22 09/03/22 History Mometasone/Formoterol [Dulera 100 2 puff INHALATION RT-BID 07/20/22 09/03/22 History Mcg-5 Mcg Inhaler] Omeprazole [PriLOSEC] 20 mg PO DAILY 07/20/22 09/03/22 History Rosuvastatin Calcium [Crestor] 20 mg PO DAILY 07/20/22 09/03/22 History metFORMIN HCL ER [Glucophage XR] 1,000 mg PO BID 07/20/22 09/03/22 History Furosemide [Lasix] 40 mg PO DAILY 30 Days #30 tab 07/23/22 09/03/22 Rx Apixaban [Eliquis] 5 mg PO BID 09/03/22 09/03/22 History Azelastine HCl [Astepro] 2 spray EA NOSTRIL BID 09/03/22 09/03/22 History Insulin Aspart [NovoLOG Flexpen] 6 - 10 units SQ AC-TID 09/03/22 09/03/22 H istory Ipratropium Sanderson 0.06%Nasal 2 spray EA NOSTRIL TID 09/03/22 09/03/22 History [Atrovent Nasal 0.06%] Metoprolol Tartrate [Lopressor] 25 mg PO BID 09/03/22 09/03/22 History lisinopriL 40 mg PO DAILY 09/03/22 09/03/22 History Allergies Allergy/AdvReac Type Severity Reaction Status Date / Time No Known Allergies Allergy Verified 09/03/22 07:39 Surgical - Exam Vital Signs Temp Pulse Resp BP Pulse Ox 97.6 F 99 18 107/58 100 09/02/22 22:32 09/02/22 22:32 09/02/22 22:32 09/02/22 22:32 09/02/22 22:32 Results - Labs 09/03/22 12:39 09/03/22 06:45 Abnormal Lab Results - Last 24 Hours (Table) 09/02/22 09/02/22 09/02/22 Range/Units 22:40 23:01 23:01 WBC 10.7 H (3.8-10.6) k/uL RBC 2.92 L (4.30-5.90) m/uL Hgb 6.1 L* (13.0-17.5) gm/dL Hct 21.0 L (39.0-53.0) % MCV 71.9 L (80.0-100.0) fL MCH 21.0 L (25.0-35.0) pg MCHC 29.2 L (31.0-37.0) g/dL RDW 17.1 H (11.5-15.5) % Neutrophils # 8.5 H (1.3-7.7) k/uL Lymphocytes # (1.0-4.8) k/uL Sodium 136 L (137-145) mmol/L Carbon Dioxide 19 L (22-30) mmol/L BUN 32 H (9-20) mg/dL Creatinine 1.40 H (0.66-1.25) mg/dL Glucose 177 H (74-99) mg/dL POC Glucose (mg/dL) (70-110) mg/dL Calcium (8.4-10.2) mg/dL Crossmatch See Detail 09/03/22 09/03/22 09/03/22 Range/Units 03:21 05:58 06:45 WBC (3.8-10.6) k/uL RBC 2.80 L 2.77 L (4.30-5.90) m/uL Hgb 6.2 L* 6.1 L* (13.0-17.5) gm/dL Hct 20.5 L 20.3 L (39.0-53.0) % MCV 73.5 L 73.2 L (80.0-100.0) fL MCH 22.1 L 22.0 L (25.0-35.0) pg MCHC 30.1 L 30.1 L (31.0-37.0) g/dL RDW 17.5 H 17.6 H (11.5-15.5) % Neutrophils # (1.3-7.7) k/uL Lymphocytes # (1.0-4.8) k/uL Sodium (137-145) mmol/L Carbon Dioxide (22-30) mmol/L BUN (9-20) mg/dL Creatinine (0.66-1.25) mg/dL Glucose (74-99) mg/dL POC Glucose (mg/dL) 128 H (70-110) mg/dL Calcium (8.4-10.2) mg/dL Crossmatch 09/03/22 09/03/22 Range/Units 06:45 10:02 WBC (3.8-10.6) k/uL RBC 3.01 L (4.30-5.90) m/uL Hgb 6.7 L* (13.0-17.5) gm/dL Hct 21.7 L (39.0-53.0) % MCV 72.2 L (80.0-100.0) fL MCH 22.1 L (25.0-35.0) pg MCHC 30.7 L (31.0-37.0) g/dL RDW 17.2 H (11.5-15.5) % Neutrophils # (1.3-7.7) k/uL Lymphocytes # 0.5 L (1.0-4.8) k/uL Sodium (137-145) mmol/L Carbon Dioxide (22-30) mmol/L BUN 31 H (9-20) mg/dL Creatinine 1.36 H (0.66-1.25) mg/dL Glucose 100 H (74-99) mg/dL POC Glucose (mg/dL) (70-110) mg/dL Calcium 8.3 L (8.4-10.2) mg/dL Crossmatch Diabetes panel 09/02/22 09/03/22 Range/Units 23:01 06:45 Sodium 136 L 138 (137-145) mmol/L Potassium 4.4 4.0 (3.5-5.1) mmol/L Chloride 102 104 (98-107) mmol/L Carbon Dioxide 19 L 26 (22-30) mmol/L BUN 32 H 31 H (9-20) mg/dL Creatinine 1.40 H 1.36 H (0.66-1.25) mg/dL Glucose 177 H 100 H (74-99) mg/dL Calcium 8.7 8.3 L (8.4-10.2) mg/dL AST 30 (17-59) U/L ALT 20 (4-49) U/L Alkaline Phosphatase 92 (38-126) U/L Total Protein 7.0 (6.3-8.2) g/dL Albumin 4.2 (3.5-5.0) g/dL Calcium panel 09/02/22 09/03/22 Range/Units 23:01 06:45 Calcium 8.7 8.3 L (8.4-10.2) mg/dL Albumin 4.2 (3.5-5.0) g/dL Pituitary panel 09/02/22 09/03/22 Range/Units 23:01 06:45 Sodium 136 L 138 (137-145) mmol/L Potassium 4.4 4.0 (3.5-5.1) mmol/L Chloride 102 104 (98-107) mmol/L Carbon Dioxide 19 L 26 (22-30) mmol/L BUN 32 H 31 H (9-20) mg/dL Creatinine 1.40 H 1.36 H (0.66-1.25) mg/dL Glucose 177 H 100 H (74-99) mg/dL Calcium 8.7 8.3 L (8.4-10.2) mg/dL Adrenal panel 09/02/22 09/03/22 Range/Units 23:01 06:45 Sodium 136 L 138 (137-145) mmol/L Potassium 4.4 4.0 (3.5-5.1) mmol/L Chloride 102 104 (98-107) mmol/L Carbon Dioxide 19 L 26 (22-30) mmol/L BUN 32 H 31 H (9-20) mg/dL Creatinine 1.40 H 1.36 H (0.66-1.25) mg/dL Glucose 177 H 100 H (74-99) mg/dL Calcium 8.7 8.3 L (8.4-10.2) mg/dL Total Bilirubin 0.4 (0.2-1.3) mg/dL AST 30 (17-59) U/L ALT 20 (4-49) U/L Alkaline Phosphatase 92 (38-126) U/L Total Protein 7.0 (6.3-8.2) g/dL Albumin 4.2 (3.5-5.0) g/dL
[2022-09-03] MEDS ORDERED: LIDOCAINE 1% (10MG/ML) FOR IV START INTRADERMA PRN (14:45)
[2022-09-03 16:28] LABS: Glucose,Whole Blood 242 mg/dL (70-110)
[2022-09-03] MEDS: LACTATED RINGERS 1,000 ML IV SCH (16:29)
[2022-09-03 18:30] LABS: Reticulocyte % 2.3 % (0.5-2.0)
[2022-09-03 20:17] LABS: Glucose,Whole Blood 205 mg/dL (70-110)
[2022-09-03] MEDS: SYMBICORT 80-4.5 MCG INHALER INHALATION SCH (20:25)
[2022-09-03] MEDS: PANTOPRAZOLE 40 MG/10 ML VIAL IVP SCH (20:33)
[2022-09-03] MEDS: TAMSULOSIN 0.4 MG CAP.ER.24H PO SCH (21:19)
[2022-09-03] MEDS: METOPROLOL TARTRATE 25 MG TAB PO SCH (21:20)
[2022-09-04 06:05] LABS: Glucose,Whole Blood 123 mg/dL (70-110)
[2022-09-04] MEDS: INSULIN DETEMIR (LEVEMIR) 100 UNIT/ML SYR SQ SCH (06:26)
[2022-09-04] MEDS: INSULIN ASPART (NovoLOG) 100 UNIT/ML VIAL SQ SCH ×4 (06:27→20:27)
[2022-09-04 07:12] LABS: Anisocytosis Slight; HCT 23.8 % (39.0-53.0); HGB 7.3 gm/dL (13.0-17.5); Hypochromasia Marked; MCH 22.9 pg (25.0-35.0); MCHC 30.8 g/dL (31.0-37.0); MCV 74.2 fL (80.0-100.0); Mean Platelet Volume 7.2; Microcytosis Moderate; Platelet Count 238 k/uL (150-450); Poikilocytosis Marked; RBC 3.21 m/uL (4.30-5.90); RDW 17.5 % (11.5-15.5); WBC 7.4 k/uL (3.8-10.6)
[2022-09-04 07:28] LABS: Calcium 7.9 mg/dL (8.4-10.2); Potassium 4.2 mmol/L (3.5-5.1)
[2022-09-04] MEDS: SYMBICORT 80-4.5 MCG INHALER INHALATION SCH ×2 (08:33→20:47)
[2022-09-04] MEDS: DULoxetine HCL 30 MG CAPSULE.DR PO SCH (09:44)
[2022-09-04] MEDS: ATORVASTATIN 40 MG TAB PO SCH (09:44)
[2022-09-04] MEDS: MONTELUKAST 10 MG TAB PO SCH (09:44)
[2022-09-04] MEDS: FINASTERIDE 5 MG TAB PO SCH (09:44)
[2022-09-04] MEDS: FUROSEMIDE 40 MG TAB PO SCH (09:44)
[2022-09-04] MEDS: lisinopriL 20 MG TAB PO SCH (09:44)
[2022-09-04] MEDS: METOPROLOL TARTRATE 25 MG TAB PO SCH ×2 (09:44→20:26)
[2022-09-04] MEDS: PANTOPRAZOLE 40 MG/10 ML VIAL IVP SCH ×2 (09:45→20:27)
--- NOTE | 2022-09-04 11:25 | P.PN ---
Subjective Progress Note Date: 09/04/22 Hospital Course: 72-year-old male with a PMH of Thuan patrick on Eliquis, CAD status post stents, recent bovine aortic valve replacement on 07/07/22, chronic kidney disease, type II DM, COPD, and hypertension presenting with acute on chronic symptomatic microcytic anemia. In the emergency room today, hemoglobin was 6.1, down from 7.8 on discharge on 07/23. MCV was 71.9, BUN 32, creatinine 1.4 (better than baseline). Chest x-ray was unremarkable. Hemoglobin improved. 2 units of PRBCs. Surgery consulted. Patient pending EGD and colonoscopy. Subjective: Patient seen and examined at bedside. No acute events overnight. He claims that his shortness of breath is slightly better compared to yesterday. He still denies any further bowel movements. Pertinent positives and negatives as discussed above, a complete review of systems was performed and all other systems are negative. Vitals Signs Reviewed. General: non toxic, no distress, appears at stated age, overweight Derm: no unusual rashes/lesions, warm Head: atraumatic, normocephalic, symmetric Eyes: EOMI, no lid lag, anicteric sclera, pupils equal round reactive to light ENT: Nose and ears atraumatic Neck: No cervical lymphadenopathy, trachea midline, supple Mouth: no lip lesion, mucus membranes moist Cardiovascular: S1S2 irreg, no murmur, positive dorsalis pedis pulse bilateral, no edema Lungs: CTA bilateral, no rhonchi, no rales, no accessory muscle use Abdominal: soft, nontender to palpation, no guarding Ext: muscle strength 5 out of 5 in all 4 extremities grossly, no gross muscle atrophy, no contractures, Neuro: CN II-XI grossly intact, no gross focal neuro deficits Psych: Alert, oriented, appropriate affect Assessment and Plan: Symptomatic microcytic anemia Possible GI bleed - Hemoglobin stable at 7.3 -Status post 2 units of PRBCs -Surgery consult - pending EGD and colonoscopy on Tuesday - IV PPI twice a day - Hold anticoagulation Type 2 diabetes -On reduce dose of long-acting insulin due to decreased by mouth intake -Sliding-scale insulin Chronic conditions: COPD, CKD, CAD, hypertension -Continue with home meds DVT ppx: SCD Code status: Full code Anticipated discharge place: Home Anticipated discharge time: Pending clinical course Objective - Vital Signs Vital signs: Vital Signs Temp 97.6 F 09/04/22 04:00 Pulse 73 09/04/22 04:00 Resp 16 09/04/22 04:00 BP 114/69 09/04/22 04:00 Pulse Ox 95 09/04/22 04:00 FiO2 Intake & Output 09/03/22 09/04/22 09/04/22 18:59 06:59 18:59 Intake Total 730 240 Output Total 525 400 Balance 205 -400 240 Weight 86.636 kg Intake: Oral 420 240 Blood Product 310 Rc As-1 Unit 310 [id number] Output: Urine 525 400 Other: Voiding Method Urinal Urinal # Voids 2 - Labs CBC & Chem 7: 09/04/22 06:24 09/04/22 06:24 Labs: Abnormal Lab Results - Last 24 Hours (Table) 09/02/22 09/03/22 09/03/22 Range/Units 22:40 06:45 06:45 RBC (4.30-5.90) m/uL Hgb (13.0-17.5) gm/dL Hct (39.0-53.0) % MCV (80.0-100.0) fL MCH (25.0-35.0) pg MCHC (31.0-37.0) g/dL RDW (11.5-15.5) % Lymphocytes # (1.0-4.8) k/uL Retic Count 2.3 H (0.5-2.0) % Haptoglobin 278.0 H (31.2-198.0) mg/dL BUN (9-20) mg/dL Glucose (74-99) mg/dL POC Glucose (mg/dL) (70-110) mg/dL Hemoglobin A1c (0.0-6.0) % Calcium (8.4-10.2) mg/dL Crossmatch See Detail 09/03/22 09/03/22 09/03/22 Range/Units 10:02 12:39 12:40 RBC 3.04 L (4.30-5.90) m/uL Hgb 6.5 L* (13.0-17.5) gm/dL Hct 22.2 L (39.0-53.0) % MCV 73.2 L (80.0-100.0) fL MCH 21.5 L (25.0-35.0) pg MCHC 29.3 L (31.0-37.0) g/dL RDW 17.5 H (11.5-15.5) % Lymphocytes # 0.6 L (1.0-4.8) k/uL Retic Count (0.5-2.0) % Haptoglobin (31.2-198.0) mg/dL BUN (9-20) mg/dL Glucose (74-99) mg/dL POC Glucose (mg/dL) 203 H (70-110) mg/dL Hemoglobin A1c 8.4 H (0.0-6.0) % Calcium (8.4-10.2) mg/dL Crossmatch 09/03/22 09/03/22 09/04/22 Range/Units 16:27 20:16 06:03 RBC (4.30-5.90) m/uL Hgb (13.0-17.5) gm/dL Hct (39.0-53.0) % MCV (80.0-100.0) fL MCH (25.0-35.0) pg MCHC (31.0-37.0) g/dL RDW (11.5-15.5) % Lymphocytes # (1.0-4.8) k/uL Retic Count (0.5-2.0) % Haptoglobin (31.2-198.0) mg/dL BUN (9-20) mg/dL Glucose (74-99) mg/dL POC Glucose (mg/dL) 242 H 205 H 123 H (70-110) mg/dL Hemoglobin A1c (0.0-6.0) % Calcium (8.4-10.2) mg/dL Crossmatch 09/04/22 09/04/22 Range/Units 06:24 06:24 RBC 3.21 L (4.30-5.90) m/uL Hgb 7.3 L (13.0-17.5) gm/dL Hct 23.8 L (39.0-53.0) % MCV 74.2 L (80.0-100.0) fL MCH 22.9 L (25.0-35.0) pg MCHC 30.8 L (31.0-37.0) g/dL RDW 17.5 H (11.5-15.5) % Lymphocytes # (1.0-4.8) k/uL Retic Count (0.5-2.0) % Haptoglobin (31.2-198.0) mg/dL BUN 21 H (9-20) mg/dL Glucose 106 H (74-99) mg/dL POC Glucose (mg/dL) (70-110) mg/dL Hemoglobin A1c (0.0-6.0) % Calcium 7.9 L (8.4-10.2) mg/dL Crossmatch
[2022-09-04 11:59] LABS: Glucose,Whole Blood 236 mg/dL (70-110)
--- NOTE | 2022-09-04 14:35 | P.PN ---
Subjective Progress Note Date: 09/04/22 CHIEF COMPLAINT: Anemia HISTORY OF PRESENT ILLNESS: The patient is a 72-year-old male with chronic ane sincere. He had prior upper endoscopy demonstrating gastritis. Hemoglobin on admission 6.1 up to 7.3. Patient reports having recent upper lower endoscopies 05/04/2022 by dip painter which states was unremarkable for polyps. No reports of abdominal pain. He denies signs of bleeding. No blood in stools. No hematemesis. ROS: Chronic anticoagulation due to atrial fibrillation. Status post blood transfusion 2 units during hospitalization. No shortness of breath. PHYSICAL EXAM: VITAL SIGNS: Reviewed CONSTITUTIONAL: Well developed and in no acute distress. EYES: Conjuctivae without sclera icterus. Extraocular movements grossly intact. HEAD, EARS, NOSE, THROAT: Moist buccal mucosa. Head is atraumatic, normocephalic. Hears conversational speech. No nasal drainage. RESPIRATORY: Non-labored respirations and equal bilateral excursions. CARDIOVASCULAR: Palpable 2+ radial pulses. ABDOMEN: No peritonitis MUSCULOSKELETAL: No gross deformity of the lower extremities noted. No c lubbing. No cyanosis. SKIN: Good skin turgor. Well perfused. NEUROLOGIC: Cranial nerves II through XII grossly intact. No focal or lateralizing signs. PSYCH: Appropriate affect. Alert and oriented to person, place and time. CLINICAL LABS: Reviewed. Hemoglobin on admission 6.1 up to 7.3. ASSESSMENT: 1. Chronic anemia 2. Status post blood transfusion, 2 units 3. Chronic anticoagulation 4. Atrial fibrillation PLAN: 1. Upper and lower endoscopies on this admission due to persistent anemia despite transfusions Objective - Vital Signs Vital signs: Vital Signs Temp 97.6 F 09/04/22 04:00 Pulse 73 09/04/22 04:00 Resp 16 09/04/22 04:00 BP 114/69 09/04/22 04:00 Pulse Ox 95 09/04/22 04:00 FiO2 Intake & Output 09/03/22 09/04/22 09/04/22 18:59 06:59 18:59 Intake Total 730 240 Output Total 525 400 Balance 205 -400 240 Weight 86.636 kg Intake: Oral 420 240 Blood Product 310 Rc As-1 Unit 310 [id number] Output: Urine 525 400 Other: Voiding Method Urinal Urinal # Voids 2 - Labs CBC & Chem 7: 09/04/22 06:24 09/04/22 06:24 Labs: Abnormal Lab Results - Last 24 Hours (Table) 09/02/22 09/03/22 09/03/22 Range/Units 22:40 06:45 06:45 RBC (4.30-5.90) m/uL Hgb (13.0-17.5) gm/dL Hct (39.0-53.0) % MCV (80.0-100.0) fL MCH (25.0-35.0) pg MCHC (31.0-37.0) g/dL RDW (11.5-15.5) % Lymphocytes # (1.0-4.8) k/uL Retic Count 2.3 H (0.5-2.0) % Haptoglobin 278.0 H (31.2-198.0) mg/dL BUN (9-20) mg/dL Glucose (74-99) mg/dL POC Glucose (mg/dL) (70-110) mg/dL Hemoglobin A1c (0.0-6.0) % Calcium (8.4-10.2) mg/dL Crossmatch See Detail 09/03/22 09/03/22 09/03/22 Range/Units 10:02 12:39 12:40 RBC 3.04 L (4.30-5.90) m/uL Hgb 6.5 L* (13.0-17.5) gm/dL Hct 22.2 L (39.0-53.0) % MCV 73.2 L (80.0-100.0) fL MCH 21.5 L (25.0-35.0) pg MCHC 29.3 L (31.0-37.0) g/dL RDW 17.5 H (11.5-15.5) % Lymphocytes # 0.6 L (1.0-4.8) k/uL Retic Count (0.5-2.0) % Haptoglobin (31.2-198.0) mg/dL BUN (9-20) mg/dL Glucose (74-99) mg/dL POC Glucose (mg/dL) 203 H (70-110) mg/dL Hemoglobin A1c 8.4 H (0.0-6.0) % Calcium (8.4-10.2) mg/dL Crossmatch 09/03/22 09/03/22 09/04/22 Range/Units 16:27 20:16 06:03 RBC (4.30-5.90) m/uL Hgb (13.0-17.5) gm/dL Hct (39.0-53.0) % MCV (80.0-100.0) fL MCH (25.0-35.0) pg MCHC (31.0-37.0) g/dL RDW (11.5-15.5) % Lymphocytes # (1.0-4.8) k/uL Retic Count (0.5-2.0) % Haptoglobin (31.2-198.0) mg/dL BUN (9-20) mg/dL Glucose (74-99) mg/dL POC Glucose (mg/dL) 242 H 205 H 123 H (70-110) mg/dL Hemoglobin A1c (0.0-6.0) % Calcium (8.4-10.2) mg/dL Crossmatch 09/04/22 09/04/22 Range/Units 06:24 06:24 RBC 3.21 L (4.30-5.90) m/uL Hgb 7.3 L (13.0-17.5) gm/dL Hct 23.8 L (39.0-53.0) % MCV 74.2 L (80.0-100.0) fL MCH 22.9 L (25.0-35.0) pg MCHC 30.8 L (31.0-37.0) g/dL RDW 17.5 H (11.5-15.5) % Lymphocytes # (1.0-4.8) k/uL Retic Count (0.5-2.0) % Haptoglobin (31.2-198.0) mg/dL BUN 21 H (9-20) mg/dL Glucose 106 H (74-99) mg/dL POC Glucose (mg/dL) (70-110) mg/dL Hemoglobin A1c (0.0-6.0) % Calcium 7.9 L (8.4-10.2) mg/dL Crossmatch
[2022-09-04 16:36] LABS: Glucose,Whole Blood 174 mg/dL (70-110)
[2022-09-04 19:58] LABS: Glucose,Whole Blood 184 mg/dL (70-110)
[2022-09-04] MEDS: TAMSULOSIN 0.4 MG CAP.ER.24H PO SCH (20:26)
[2022-09-04] MEDS: LACTATED RINGERS 1,000 ML IV SCH (20:27)
[2022-09-05 06:01] LABS: Glucose,Whole Blood 149 mg/dL (70-110)
[2022-09-05 06:04] LABS: Anisocytosis Slight; Basophils % (A) 1 %; Eosinophils # (A) 0.4 k/uL (0-0.7); Eosinophils % (A) 6 %; HCT 23.8 % (39.0-53.0); HGB 7.5 gm/dL (13.0-17.5); Hypochromasia Marked; Lymphocytes # (A) 0.7 k/uL (1.0-4.8); Lymphocytes % (A) 10 %; MCH 23.6 pg (25.0-35.0); MCHC 31.5 g/dL (31.0-37.0); MCV 74.9 fL (80.0-100.0); Mean Platelet Volume 7.5; Microcytosis Moderate; Monocytes # (A) 0.5 k/uL (0-1.0); Monocytes % (A) 7 %; Neutrophils # (A) 4.8 k/uL (1.3-7.7); Neutrophils % (A) 73 %; Platelet Count 240 k/uL (150-450); Poikilocytosis Marked; RBC 3.18 m/uL (4.30-5.90); RDW 17.9 % (11.5-15.5); WBC 6.6 k/uL (3.8-10.6)
[2022-09-05] MEDS: INSULIN ASPART (NovoLOG) 100 UNIT/ML VIAL SQ SCH ×4 (06:30→20:33)
[2022-09-05] MEDS: INSULIN DETEMIR (LEVEMIR) 100 UNIT/ML SYR SQ SCH (06:31)
[2022-09-05] MEDS: SYMBICORT 80-4.5 MCG INHALER INHALATION SCH ×2 (07:42→20:19)
[2022-09-05] MEDS: DULoxetine HCL 30 MG CAPSULE.DR PO SCH (08:50)
[2022-09-05] MEDS: FINASTERIDE 5 MG TAB PO SCH (08:50)
[2022-09-05] MEDS: FUROSEMIDE 40 MG TAB PO SCH (08:50)
[2022-09-05] MEDS: MONTELUKAST 10 MG TAB PO SCH (08:50)
[2022-09-05] MEDS: METOPROLOL TARTRATE 25 MG TAB PO SCH ×2 (08:50→20:33)
[2022-09-05] MEDS: PANTOPRAZOLE 40 MG/10 ML VIAL IVP SCH ×2 (08:50→20:34)
[2022-09-05] MEDS: ATORVASTATIN 40 MG TAB PO SCH (08:50)
[2022-09-05] MEDS: lisinopriL 20 MG TAB PO SCH (08:51)
[2022-09-05] MEDS ORDERED: PEG 3350 (236 GM/BTL) + LYTES 4,000 ML BOTTLE PO ONE (09:00)
--- NOTE | 2022-09-05 11:33 | P.PN ---
Subjective Progress Note Date: 09/05/22 Hospital Course: 72-year-old male with a PMH of Thuan patrick on Eliis, CAD status post stents, recent bovine aortic valve replacement on 07/07/22, chronic kidney disease, type II DM, COPD, and hypertension presenting with acute on chronic symptomatic microcytic anemia. In the emergency room today, hemoglobin was 6.1, down from 7.8 on discharge on 07/23. MCV was 71.9, BUN 32, creatinine 1.4 (better than baseline). Chest x-ray was unremarkable. Hemoglobin improved and stable. 2 units of PRBCs. Surgery consulted. Patient pending EGD and colonoscopy. Subjective: Patient seen and examined at bedside. No acute events overnight. He claims that his shortness of breath is slightly better compared to yesterday. He had one brown bowel movement yesterday. Pertinent positives and negatives as discussed above, a complete review of systems was performed and all other systems are negative. Vitals Signs Reviewed. General: non toxic, no distress, appears at stated age, overweight Derm: no unusual rashes/lesions, warm Head: atraumatic, normocephalic, symmetric Eyes: EOMI, no lid lag, anicteric sclera, pupils equal round reactive to light ENT: Nose and ears atraumatic Neck: No cervical lymphadenopathy, trachea midline, supple Mouth: no lip lesion, mucus membranes moist Cardiovascular: S1S2 irreg, no murmur, positive dorsalis pedis pulse bilateral, no edema Lungs: CTA bilateral, no rhonchi, no rales, no accessory muscle use Abdominal: soft, nontender to palpation, no guarding Ext: muscle strength 5 out of 5 in all 4 extremities grossly, no gross muscle atrophy, no contractures, Neuro: CN II-XI grossly intact, no gross focal neuro deficits Psych: Alert, oriented, appropriate affect Assessment and Plan: Symptomatic microcytic anemia Possible GI bleed - Hemoglobin stable at 7.5 -Status post 2 units of PRBCs -Surgery consult - pending EGD and colonoscopy on Tuesday - IV PPI twice a day - Hold anticoagulation Type 2 diabetes -On reduce dose of long-acting insulin due to decreased by mouth intake -Sliding-scale insulin Chronic conditions: COPD, CKD, CAD, hypertension -Continue with home meds DVT ppx: SCD Code status: Full code Anticipated discharge place: Home Anticipated discharge time: Pending clinical course Objective - Vital Signs Vital signs: Vital Signs Temp 97.5 F L 09/05/22 08:00 Pulse 80 09/05/22 08:00 Resp 18 09/05/22 08:00 BP 92/52 09/05/22 08:00 Pulse Ox 99 09/05/22 08:00 FiO2 Intake & Output 09/04/22 09/05/22 09/05/22 18:59 06:59 18:59 Intake Total 360 400 660 Output Total 200 Balance 160 400 660 Intake: Oral 360 400 660 Output: Urine 200 Other: Voiding Method Urinal Urinal # Voids 2 - Labs CBC & Chem 7: 09/05/22 05:23 09/04/22 06:24 Labs: Abnormal Lab Results - Last 24 Hours (Table) 09/04/22 09/04/22 09/04/22 Range/Units 11:53 16:34 19:56 RBC (4.30-5.90) m/uL Hgb (13.0-17.5) gm/dL Hct (39.0-53.0) % MCV (80.0-100.0) fL MCH (25.0-35.0) pg RDW (11.5-15.5) % Lymphocytes # (1.0-4.8) k/uL POC Glucose (mg/dL) 236 H 174 H 184 H (70-110) mg/dL 09/05/22 09/05/22 Range/Units 05:23 06:00 RBC 3.18 L (4.30-5.90) m/uL Hgb 7.5 L (13.0-17.5) gm/dL Hct 23.8 L (39.0-53.0) % MCV 74.9 L (80.0-100.0) fL MCH 23.6 L (25.0-35.0) pg RDW 17.9 H (11.5-15.5) % Lymphocytes # 0.7 L (1.0-4.8) k/uL POC Glucose (mg/dL) 149 H (70-110) mg/dL
[2022-09-05 11:42] LABS: Glucose,Whole Blood 279 mg/dL (70-110)
--- NOTE | 2022-09-05 14:41 | P.PN ---
Subjective Progress Note Date: 09/05/22 CHIEF COMPLAINT: Anemia HISTORY OF PRESENT ILLNESS: The patient is a 72-year-old male with chronic ane sincere. He is undergoing bowel prep. No blood in stools. He is having bowel movements. No hematemesis. Tolerating clear liquid diet. ROS: Chronic anticoagulation due to atrial fibrillation. Status post blood transfusion 2 units during hospitalization. No shortness of breath. Hemoglobin on admission 6.1 up to 7.3. PHYSICAL EXAM: VITAL SIGNS: Reviewed CONSTITUTIONAL: Well developed and in no acute distress. EYES: Conjuctivae without sclera icterus. Extraocular movements grossly intact. HEAD, EARS, NOSE, THROAT: Moist buccal mucosa. Head is atraumatic, normocephalic. Hears conversational speech. No nasal drainage. RESPIRATORY: Non-labored respirations and equal bilateral excursions. CARDIOVASCULAR: Palpable 2+ radial pulses. ABDOMEN: No peritonitis MUSCULOSKELETAL: No gross deformity of the lower extremities noted. No clubbing. No cyanosis. SKIN: Good skin turgor. Well perfused. NEUROLOGIC: Cranial nerves II through XII grossly intact. No focal or lateralizing signs. PSYCH: Appropriate affect. Alert and oriented to person, place and time. CLINICAL LABS: Reviewed. Hemoglobin on admission 6.1 up to 7.3, now 7.5 ASSESSMENT: 1. Chronic anemia 2. Status post blood transfusion, 2 units 3. Chronic anticoagulation 4. Atrial fibrillation PLAN: 1. Continue bowel prep until stools are clear. 2. Recommend upper and lower endoscopy. 3. Patient's elevated risk for complications due to pre-existing cardiac comorbidities Objective - Vital Signs Vital signs: Vital Signs Temp 97.5 F L 09/05/22 08:00 Pulse 68 09/05/22 14:00 Resp 18 09/05/22 14:00 BP 109/69 09/05/22 12:00 Pulse Ox 96 09/05/22 12:00 FiO2 Intake & Output 09/04/22 09/05/22 09/05/22 18:59 06:59 18:59 Intake Total 521 486 8803 Output Total 200 Balance 094 689 6062 Intake: Oral 433 414 3358 Output: Urine 200 Other: Voiding Method Urinal Urinal Urinal # Voids 2 - Labs CBC & Chem 7: 09/05/22 05:23 09/04/22 06:24 Labs: Abnormal Lab Results - Last 24 Hours (Table) 09/04/22 09/04/22 09/05/22 Range/Units 16:34 19:56 05:23 RBC 3.18 L (4.30-5.90) m/uL Hgb 7.5 L (13.0-17.5) gm/dL Hct 23.8 L (39.0-53.0) % MCV 74.9 L (80.0-100.0) fL MCH 23.6 L (25.0-35.0) pg RDW 17.9 H (11.5-15.5) % Lymphocytes # 0.7 L (1.0-4.8) k/uL POC Glucose (mg/dL) 174 H 184 H (70-110) mg/dL 09/05/22 09/05/22 Range/Units 06:00 11:37 RBC (4.30-5.90) m/uL Hgb (13.0-17.5) gm/dL Hct (39.0-53.0) % MCV (80.0-100.0) fL MCH (25.0-35.0) pg RDW (11.5-15.5) % Lymphocytes # (1.0-4.8) k/uL POC Glucose (mg/dL) 149 H 279 H (70-110) mg/dL
[2022-09-05 16:46] LABS: Glucose,Whole Blood 88 mg/dL (70-110)
[2022-09-05 16:55] LABS: Glucose,Whole Blood 107 mg/dL (70-110)
[2022-09-05] MEDS: LACTATED RINGERS 1,000 ML IV SCH (18:32)
[2022-09-05 20:10] LABS: Glucose,Whole Blood 206 mg/dL (70-110)
[2022-09-05] MEDS: TAMSULOSIN 0.4 MG CAP.ER.24H PO SCH (20:33)
[2022-09-06 06:05] LABS: Glucose,Whole Blood 93 mg/dL (70-110)
[2022-09-06] MEDS: INSULIN ASPART (NovoLOG) 100 UNIT/ML VIAL SQ SCH ×3 (06:17→17:33)
[2022-09-06] MEDS: INSULIN DETEMIR (LEVEMIR) 100 UNIT/ML SYR SQ SCH (06:17)
[2022-09-06] MEDS: SYMBICORT 80-4.5 MCG INHALER INHALATION SCH (07:54)
[2022-09-06 08:13] LABS: Anisocytosis Slight; HCT 24.3 % (39.0-53.0); HGB 7.5 gm/dL (13.0-17.5); Hypochromasia Marked; MCH 23.1 pg (25.0-35.0); MCHC 30.9 g/dL (31.0-37.0); Mean Platelet Volume 7.3; Microcytosis Moderate; Platelet Count 218 k/uL (150-450); Poikilocytosis Marked; RBC 3.25 m/uL (4.30-5.90); RDW 18.7 % (11.5-15.5); WBC 6.8 k/uL (3.8-10.6)
[2022-09-06 08:29] LABS: Potassium 4.1 mmol/L (3.5-5.1)
[2022-09-06] MEDS ORDERED: lisinopriL 20 MG TAB PO SCH (09:00)
[2022-09-06] MEDS: DULoxetine HCL 30 MG CAPSULE.DR PO SCH (09:20)
[2022-09-06] MEDS: MONTELUKAST 10 MG TAB PO SCH (09:20)
[2022-09-06] MEDS: FINASTERIDE 5 MG TAB PO SCH (09:20)
[2022-09-06] MEDS: METOPROLOL TARTRATE 25 MG TAB PO SCH (09:20)
[2022-09-06] MEDS: PANTOPRAZOLE 40 MG/10 ML VIAL IVP SCH (09:21)
[2022-09-06 10:56] VITALS: RESP 18
[2022-09-06 12:08] LABS: Glucose,Whole Blood 70 mg/dL (70-110)
[2022-09-06 14:14] LABS: Glucose,Whole Blood 55 mg/dL (70-110)
[2022-09-06 14:35] LABS: Glucose,Whole Blood 158 mg/dL (70-110)
--- NOTE | 2022-09-06 15:02 | P.PN ---
Subjective Progress Note Date: 09/06/22 Hospital Course: 72-year-old male with a PMH of Thuan patrick on Eliis, CAD status post stents, recent bovine aortic valve replacement on 07/07/22, chronic kidney disease, type II DM, COPD, and hypertension presenting with acute on chronic symptomatic microcytic anemia. In the emergency room today, hemoglobin was 6.1, down from 7.8 on discharge on 07/23. MCV was 71.9, BUN 32, creatinine 1.4 (better than baseline). Chest x-ray was unremarkable. Hemoglobin improved and stable. 2 units of PRBCs. Surgery consulted. Patient pending EGD and colonoscopy. Subjective: Patient seen and examined at bedside. No acute events overnight. Completed prep. No bleeding. Pertinent positives and negatives as discussed above, a complete review of systems was performed and all other systems are negative. Vitals Signs Reviewed. General: non toxic, no distress, appears at stated age, overweight Derm: no unusual rashes/lesions, warm Head: atraumatic, normocephalic, symmetric Eyes: EOMI, no lid lag, anicteric sclera, pupils equal round reactive to light ENT: Nose and ears atraumatic Neck: No cervical lymphadenopathy, trachea midline, supple Mouth: no lip lesion, mucus membranes moist Cardiovascular: S1S2 irreg, no murmur, positive dorsalis pedis pulse bilateral, no edema Lungs: CTA bilateral, no rhonchi, no rales, no accessory muscle use Abdominal: soft, nontender to palpation, no guarding Ext: muscle strength 5 out of 5 in all 4 extremities grossly, no gross muscle atrophy, no contractures, Neuro: CN II-XI grossly intact, no gross focal neuro deficits Psych: Alert, oriented, appropriate affect Assessment and Plan: Symptomatic microcytic anemia Possible GI bleed - Hemoglobin stable at 7.5 -Status post 2 units of PRBCs -Surgery consult - pending EGD and colonoscopy on Tuesday - IV PPI twice a day - Hold anticoagulation Type 2 diabetes -On reduce dose of long-acting insulin due to decreased by mouth intake -Sliding-scale insulin Chronic conditions: COPD, CKD, CAD, hypertension -Continue with home meds DVT ppx: SCD Code status: Full code Anticipated discharge place: Home Anticipated discharge time: Pending clinical course Objective - Vital Signs Vital signs: Vital Signs Temp 98.8 F 09/06/22 12:00 Pulse 82 09/06/22 13:43 Resp 18 09/06/22 13:43 BP 113/62 09/06/22 12:00 Pulse Ox 97 09/06/22 12:00 FiO2 Intake & Output 09/05/22 09/06/22 09/06/22 18:59 06:59 18:59 Intake Total 2365 Balance 2365 Intake: Oral 2365 Other: Voiding Method Urinal Urinal Urinal # Voids 3 1 3 # Bowel Movements 1 - Labs CBC & Chem 7: 09/06/22 07:46 09/06/22 07:46 Labs: Abnormal Lab Results - Last 24 Hours (Table) 09/05/22 09/06/22 09/06/22 Range/Units 20:09 07:46 07:46 RBC 3.25 L (4.30-5.90) m/uL Hgb 7.5 L (13.0-17.5) gm/dL Hct 24.3 L (39.0-53.0) % MCV 75.0 L (80.0-100.0) fL MCH 23.1 L (25.0-35.0) pg MCHC 30.9 L (31.0-37.0) g/dL RDW 18.7 H (11.5-15.5) % Sodium 135 L (137-145) mmol/L POC Glucose (mg/dL) 206 H (70-110) mg/dL Calcium 8.0 L (8.4-10.2) mg/dL 09/06/22 09/06/22 Range/Units 14:11 14:34 RBC (4.30-5.90) m/uL Hgb (13.0-17.5) gm/dL Hct (39.0-53.0) % MCV (80.0-100.0) fL MCH (25.0-35.0) pg MCHC (31.0-37.0) g/dL RDW (11.5-15.5) % Sodium (137-145) mmol/L POC Glucose (mg/dL) 55 L 158 H (70-110) mg/dL Calcium (8.4-10.2) mg/dL
[2022-09-06] MEDS ORDERED: LACTATED RINGERS 1,000 ML IV ONE ×2 (15:25)
[2022-09-06] MEDS ORDERED: LIDOCAINE 2% INJ 20 MG/ML (2 ML VIAL) ONE (15:27)
[2022-09-06] MEDS ORDERED: PROPOFOL 10 MG/ML 20 ML VIAL IV ONE (15:27)
--- NOTE | 2022-09-06 15:59 | P.OP ---
Date of Procedure: 09/06/22 Preoperative Diagnosis: GI bleed Postoperative Diagnosis: Diverticulosis Mild antral gastritis Procedure(s) Performed: EGD Colonoscopy Anesthesia: MAC Surgeon: Min Rhodes Pathology: other (Antrum) Condition: stable Disposition: PACU Description of Procedure: The patient's placed on the endoscopy table in the lateral position. He received IV sedation. The gastro-/oropharynx passed in the esophagus into the stomach. Scope was then placed through the pylorus. The first and second portion of the duodenum appeared normal. Scope was then brought back the antrum and this appeared mildly inflamed. A biopsies performed. Scope was then retroflexed and the remainder the stomach appeared normal. The GE junction was at 40 cm. The distal esophagus appeared normal. The proximal esophagus appeared normal. Scope withdrawn for patient. Next digital rectal exam was performed. This revealed a few internal hemorrhoids. The possible colonoscope was then placed patient anus and passed throughout the entire colon. The ileocecal valve was visually is. The cecum, ascending and transverse colon appeared normal. The descending and sigmoid colon contained a few scattered diverticula. Scope summer back the rectum and this appeared normal. Scope withdrawn for patient. There is no evidence of any upper or lower GI bleed. Presumed patient may have had bleeding from hemorrhoids or diverticulosis.
[2022-09-06 16:28] VITALS: TEMP 97.8
--- NOTE | 2022-09-06 16:29 | P.DS ---
Providers Date of admission: 09/03/22 01:39 Expected date of discharge: 09/06/22 Attending physician: Sugar Ndiaye MD Consults: 09/03/22 02:39 Consult Physician Urgent Consulting Provider: Min Rhodes Consult Reason/Comments: GIB Do you want consulting provider notified?: Yes Primary care physician: [facility] Hospital Course: Discharge Diagnosis: Symptomatic microcytic anemia GI bleed Internal hemorrhoids Antral gastritis Diverticulosis Chronic Atrial fibrillation on Eliquis Type 2 diabetes COPD not in exacerbation Chronic kidney disease History of coronary artery disease History of hypertension Hospital Course: 72-year-old male with a PMH of A. fib on Eliquis, CAD status post stents, recent bovine aortic valve replacement on 07/07/22, chronic kidney disease, type II DM, COPD, and hypertension presenting with acute on chronic symptomatic microcytic anemia. In the emergency room today, hemoglobin was 6.1, down from 7.8 on discharge on 07/23. MCV was 71.9, BUN 32, creatinine 1.4 (better than baseline). Chest x-ray was unremarkable. Hemoglobin improved and stable. 2 units of PRBCs. Surgery consulted. EGD and colonoscopy showed mild antral gastritis, few internal hemorrhoids, descending and sigmoid colon diverticula. No evidence of upper or lower GI bleed. Patient to resume Eliquis for atrial fibrillation. He will follow up with GI and PCP. Should consider push endoscopy versus capsule endoscopy as an outpatient. Lisinopril decreased to 20 mg daily, furosemide discontinued. Follow-up with PCP for further blood pressure medication titration. Patient seen and examined at bedside. Vital signs reviewed and stable. General: non toxic, no distress, appears at stated age, overweight Derm: no unusual rashes/lesions, warm Head: atraumatic, normocephalic, symmetric Eyes: EOMI, no lid lag, anicteric sclera, pupils equal round reactive to light ENT: Nose and ears atraumatic Neck: No cervical lymphadenopathy, trachea midline, supple Mouth: no lip lesion, mucus membranes moist Cardiovascular: S1S2 irreg, no murmur, positive dorsalis pedis pulse bilateral, no edema Lungs: CTA bilateral, no rhonchi, no rales, no accessory muscle use Abdominal: soft, nontender to palpation, no guarding Ext: muscle strength 5 out of 5 in all 4 extremities grossly, no gross muscle atrophy, no contractures, Neuro: CN II-XI grossly intact, no gross focal neuro deficits Psych: Alert, oriented, appropriate affect A total of 35 minutes of time were spent preparing this complex discharge summary. Patient was discharged on 09/06/22 at 16:28. Patient Condition at Discharge: Stable Plan - Discharge Summary Discharge Rx Participant: No New Discharge Prescriptions: New lisinopriL [Zestril] 20 mg PO DAILY #30 tab Continue Montelukast [Singulair] 10 mg PO DAILY Tamsulosin HCl [Flomax] 0.8 mg PO HS Insulin Glargine,Hum.rec.anlog [Lantus Solostar Pen] 40 unit SQ DAILY DULoxetine HCL [Cymbalta] 30 mg PO DAILY Finasteride [Proscar] 5 mg PO DAILY Rosuvastatin Calcium [Crestor] 20 mg PO DAILY Azelastine HCl [Astepro] 2 spray EA NOSTRIL BID Insulin Aspart [NovoLOG Flexpen] 6 - 10 units SQ AC-TID Omeprazole [PriLOSEC] 20 mg PO DAILY metFORMIN HCL ER [Glucophage XR] 1,000 mg PO BID Mometasone/Formoterol [Dulera 100 Mcg-5 Mcg Inhaler] 2 puff INHALATION RT-BID Empagliflozin [Jardiance] 25 mg PO DAILY Apixaban [Eliquis] 5 mg PO BID Ipratropium [place] 0.06%Nasal [Atrovent Nasal 0.06%] 2 spray EA NOSTRIL TID lisinopriL 40 mg PO DAILY Metoprolol Tartrate [Lopressor] 25 mg PO BID Discontinued Furosemide [Lasix] 40 mg PO DAILY 30 Days #30 tab Discharge Medication List Montelukast [Singulair] 10 mg PO DAILY 10/05/14 [History] Tamsulosin HCl [Flomax] 0.8 mg PO HS 08/31/17 [History] Insulin Glargine,Hum.rec.anlog [Lantus Solostar Pen] 40 unit SQ DAILY 10/23/20 [History] DULoxetine HCL [Cymbalta] 30 mg PO DAILY 02/19/22 [History] Finasteride [Proscar] 5 mg PO DAILY 02/19/22 [History] Empagliflozin [Jardiance] 25 mg PO DAILY 07/20/22 [History] Mometasone/Formoterol [Dulera 100 Mcg-5 Mcg Inhaler] 2 puff INHALATION RT-BID 07/20/22 [History] Omeprazole [PriLOSEC] 20 mg PO DAILY 07/20/22 [History] Rosuvastatin Calcium [Crestor] 20 mg PO DAILY 07/20/22 [History] metFORMIN HCL ER [Glucophage XR] 1,000 mg PO BID 07/20/22 [History] Apixaban [Eliquis] 5 mg PO BID 09/03/22 [History] Azelastine HCl [Astepro] 2 spray EA NOSTRIL BID 09/03/22 [History] Insulin Aspart [NovoLOG Flexpen] 6 - 10 units SQ AC-TID 09/03/22 [History] Ipratropium [place] 0.06%Nasal [Atrovent Nasal 0.06%] 2 spray EA NOSTRIL TID 09/03/22 [History] Metoprolol Tartrate [Lopressor] 25 mg PO BID 09/03/22 [History] lisinopriL 40 mg PO DAILY 09/03/22 [History] lisinopriL [Zestril] 20 mg PO DAILY #30 tab 09/06/22 [Rx] Follow up Appointment(s)/Referral(s): [facility],Clinic [Primary Care Provider] - 1-2 days Grace Brink MD [STAFF PHYSICIAN] - 1 Week Patient Instructions/Handouts: *Surgery [facility] - (Anesthesia) Endoscopy Discharge Instructions Activity/Diet/Wound Care/Special Instructions: Please see your PCP as soon as possible. Please see GI for further work up of bleeding, including capsule endoscopy. Discharge Disposition: HOME SELF-CARE
[2022-09-06 16:50] VITALS: BP 111/59; PULSE 62
[2022-09-06 16:55] LABS: Glucose,Whole Blood 92 mg/dL (70-110)
[2022-09-06] MEDS: LACTATED RINGERS 1,000 ML IV SCH (17:33)
== END 2022-09-06 18:50 | disposition home or self-care (01) | DRG 378 ==
LOC: EC 22:32 → 3SCARD 09-03 01:39
PROVIDERS: ADMIT Internal Medicine; ATTEND Internal Medicine
PROC: 0DD78ZX Extraction of Stomach, Pylorus, Via Natural or Artificial Opening Endoscopic, Diagnostic (ICD-10-PCS; principal; 2022-09-03)
PROC: 0DJD8ZZ Inspection of Lower Intestinal Tract, Via Natural or Artificial Opening Endoscopic (ICD-10-PCS; 2022-09-03)
PROC: 30233N1 Transfusion of Nonautologous Red Blood Cells into Peripheral Vein, Percutaneous Approach (ICD-10-PCS; 2022-09-03)
DX: K57.31 Diverticulosis of large intestine without perforation or abscess with bleeding (principal); D62 Acute posthemorrhagic anemia; I13.0 Hypertensive heart and chronic kidney disease with heart failure and stage 1 through stage 4 chronic kidney disease, or unspecified chronic kidney disease; I48.20 Chronic atrial fibrillation, unspecified; I50.9 Heart failure, unspecified; K29.60 Other gastritis without bleeding; K64.8 Other hemorrhoids; F32.A Depression, unspecified; M19.90 Unspecified osteoarthritis, unspecified site; E11.22 Type 2 diabetes mellitus with diabetic chronic kidney disease; I25.10 Atherosclerotic heart disease of native coronary artery without angina pectoris; E78.5 Hyperlipidemia, unspecified; J45.909 Unspecified asthma, uncomplicated; E11.42 Type 2 diabetes mellitus with diabetic polyneuropathy; H91.90 Unspecified hearing loss, unspecified ear; Z79.01 Long term (current) use of anticoagulants; Z79.51 Long term (current) use of inhaled steroids; Z79.82 Long term (current) use of aspirin; Z79.84 Long term (current) use of oral hypoglycemic drugs; Z79.899 Other long term (current) drug therapy; Z87.891 Personal history of nicotine dependence; Z95.3 Presence of xenogenic heart valve; Z95.5 Presence of coronary angioplasty implant and graft; Z97.4 Presence of external hearing-aid; Z79.4 Long term (current) use of insulin; Z98.42 Cataract extraction status, left eye; Z98.41 Cataract extraction status, right eye
CPT/HCPCS: 36415; 43239; 45378; 71046; 80048; 80053; 83010; 83036; 83615; 85025; 85027; 85045; 85610; 85730; 86850; 86900; 86901; 86920; 94640; 96374; 99285

== ENCOUNTER 2023-02-23 08:51 | Day surgery (SDC) | payer MEDICARE, OTHER ==
[2023-02-18 09:16] VITALS: BMI 26.4
[~2023-02-23 08:51] MED LIST changes: +LIDOCAINE 1% (10MG/ML) FOR IV START INTRADERMA PRN
[2023-02-23 09:13] VITALS: RESP 16; TEMP 96.8
[2023-02-23 09:22] LABS: Glucose,Whole Blood 230 mg/dL (70-110)
[2023-02-23] MEDS ORDERED: METOPROLOL TARTRATE 5 MG/5 ML VIAL IVP ONE (09:34)
[2023-02-23] MEDS ORDERED: PROPOFOL 10 MG/ML 20 ML VIAL IV ONE (09:40)
[2023-02-23] MEDS ORDERED: LIDOCAINE 2% INJ 20 MG/ML (2 ML VIAL) ONE (09:40)
--- NOTE | 2023-02-23 09:49 | P.PCN ---
Date of Procedure: 02/23/23 Procedure(s) Performed: BRIEF HISTORY: Patient is a 72-year-old, pleasant, white male scheduled for an upper endoscopy as a part of follow-up of recent upper GI bleed which underwent an upper endoscopy when he was in [place] in October of this year and apparently was told he has esophageal varices. PROCEDURE PERFORMED: Esophagogastroduodenoscopy. PREOPERATIVE DIAGNOSIS: Follow-up esophageal varices. IV sedation per anesthesia. PROCEDURE: After informed consent was obtained, the patient was brought into the endoscopy unit. IV sedation was administered by Anesthesia under continuous monitoring. Initially the Olympus GIF-140 video endoscope was inserted into the mouth. Esophagus intubated without any difficulty. It was gradually advanced into the stomach and duodenum and carefully examined. The bulb and the second part of the duodenum appeared normal. The scope at this time was withdrawn to t he stomach, adequately insufflated with air, and upon careful examination, mucosa of the antrum, body, cardia and the fundus appeared normal. The scope was then withdrawn into the esophagus. The GE junction was located at 39 cm from the incisors. The esophagus appeared normal. There were no erosions or ulcerations seen and the patient tolerated the procedure well. IMPRESSION: 1. No evidence of gastric or esophageal varices. 2. No evidence of peptic ulcer disease. RECOMMENDATIONS: The findings of this examination were discussed with the patient as well as his family. He was advised to resume his medications and follow up in office as needed..
[2023-02-23 10:06] VITALS: PULSE 100
[2023-02-23 10:22] VITALS: BP 152/94
== END 2023-02-23 10:44 | disposition home or self-care (01) ==
LOC: ORWHC2ENDO 08:51
PROVIDERS: ATTEND Internal Medicine Gastroenterology
DX: I85.00 Esophageal varices without bleeding (principal); I25.10 Atherosclerotic heart disease of native coronary artery without angina pectoris; I48.91 Unspecified atrial fibrillation; I10 Essential (primary) hypertension; E78.5 Hyperlipidemia, unspecified; J45.909 Unspecified asthma, uncomplicated; E11.9 Type 2 diabetes mellitus without complications; Z90.89 Acquired absence of other organs; Z79.01 Long term (current) use of anticoagulants; Z79.899 Other long term (current) drug therapy
CPT/HCPCS: 43235; J2704; J2001

== ENCOUNTER 2025-02-07 13:34 | Inpatient (IN) | payer MEDICARE, OTHER ==
--- NOTE | 2025-02-07 14:45 | XR ---
EXAMINATION TYPE: XR chest 2V DATE OF EXAM: 02/07/2025 2:41 PM COMPARISON: 09/03/2022 CLINICAL INDICATION: Male, 74 years old with history of difficulty breathing, TECHNIQUE: XR chest 2V view(s) obtained. FINDINGS: The heart size is normal. The pulmonary vasculature is normal. Right lower lobe infiltrate is present. Small right pleural fluid appears to be present. Sternotomy wires are in the midline. IMPRESSION: 1. Right lower lobe infiltrate and small right pleural effusion. Correlate for pneumonia. Follow-up i s recommended. [facility], , 02/07/2025 2:42 PM
--- NOTE | 2025-02-07 14:56 | ED ---
General Adult HPI - General Source: patient, RN notes reviewed Mode of arrival: ambulatory Limitations: no limitations <Bharat Dc - Last Filed: 02/07/25 14:55> <Carly Chen - Last Filed: 02/08/25 13:03> - General Chief complaint: Shortness of Breath Stated complaint: Shortness of Breath Time Seen by Provider: 02/07/25 14:30 - History of Present Illness Initial comments: Quick note 74-year-old male presents emergency department complaint shortness of breath. Patient states he has been having worsening shortness of breath over the last 1 week states is worse with laying down, exertion. Patient does have a history of aortic valve replacement, history of asthma. Patient states he is on Eliquis, Plavix. Patient denies any fevers chills no significant cough and cold symptoms he does complain of right leg swelling. No history of CHF. Denies being on any diuretics. (Bharat Dc) Patient is a 74 old with a past medical history of PAD, asthma, hypertension, aortic valve replacement atrial fibrillation on Eliquis, Plavix hyperlipidemia presenting today for shortness of breath. Patient endorses increasing shortness breath x 1 to 2 weeks. Worsens with laying flat and exertion. Endorses cough with increased sputum production but no hemoptysis. Worsening right lower extremity swelling. No prior history of CHF. Is not on any diuretics. NO hx prior PE/DVT. No recent travel/surgeries or hospitalizations. Denies fevers, chills, chest pain, abdominal pain, melena, hematochezia though he is on iron supplements but does denies any change in stool color. Denies any lightheadedness, new numbness. (Carly Chen) - Related Data Home Medications Medication Instructions Recorded Confirmed Montelukast [Singulair] 10 mg PO DAILY 10/05/14 02/08/25 Tamsulosin HCl [Flomax] 0.8 mg PO HS 08/31/17 02/08/25 Insulin Glargine,Hum.rec.anlog 35 unit SQ DAILY 10/23/20 02/08/25 [Lantus Solostar Pen] DULoxetine HCL [Cymbalta] 30 mg PO DAILY 02/19/22 02/08/25 Finasteride [Proscar] 5 mg PO DAILY 02/19/22 02/08/25 Empagliflozin [Jardiance] 25 mg PO DAILY 07/20/22 02/08/25 Omeprazole [PriLOSEC] 20 mg PO DAILY 07/20/22 02/08/25 Rosuvastatin Calcium [Crestor] 20 mg PO DAILY 07/20/22 02/08/25 Insulin Aspart [NovoLOG Flexpen] 6 - 10 units SQ AC-TID 09/03/22 02/08/25 Ferrous Sulfate [Iron] 325 mg PO DAILY 02/18/23 02/08/25 Albuterol Sulfate [Albuterol 1 puff INHALATION RT-QID PRN 02/08/25 02/08/25 Sulfate Hfa] Apixaban [Eliquis] 2.5 mg PO BID 02/08/25 02/08/25 Clopidogrel [Plavix] 75 mg PO DAILY 02/08/25 02/08/25 Allergies Allergy/AdvReac Type Severity Reaction Status Date / Time No Known Allergies Allergy Verified 02/07/25 13:55 Review of Systems ROS Other: All systems not noted in ROS Statement are negative. <Bharat Dc - Last Filed: 02/07/25 14:55> ROS Other: All systems not noted in ROS Statement are negative. <Carly Chen - Last Filed: 02/08/25 13:03> ROS Statement: Those systems with pertinent positive or pertinent negative responses have been documented in the HPI. Past Medical History Past Medical History: Atrial Fibrillation, Asthma, Cancer, Diabetes Mellitus, GERD/Reflux, Hearing Disorder / Deafness, Hyperlipidemia, Hypertension, Osteoarthritis (OA), Prostate Disorder Additional Past Medical History / Comment(s): Neuropathy, hx pancreatitis, bilateral hearing aid use. Anemia,hearing aids, enlarged prostate History of Any Multi-Drug Resistant Organisms: None Reported Past Surgical History: Appendectomy, Heart Catheterization With Stent, Orthopedic Surgery Additional Past Surgical History / Comment(s): Right hand surgery, bilateral cataract surgery, bilateral eye surgery, colonoscopy. Aortic valve replacement,Egd. Open heart june 2023 Past Anesthesia/Blood Transfusion Reactions: No Reported Reaction Additional Past Anesthesia/Blood Transfusion Reaction / Comment(s): No reaction Date of Last Stent Placement:: 2015 Past Psychological History: No Psychological Hx Reported, PTSD Smoking Status: Former smoker Past Alcohol Use History: Occasional Past Drug Use History: None Reported - Past Family History Mother Family Medical History: No Reported History Son(s) Family Medical History: Pulmonary Embolus <Bharat Dc - Last Filed: 02/07/25 14:55> General Exam Limitations: no limitations <Bharat Dc - Last Filed: 02/07/25 14:55> <Carly - Last Filed: 02/08/25 13:03> - General Exam Comments Initial Comments: Visual Physical Exam Vital signs reviewed General: Well-appearing, nontoxic, no acute distress. Head: Normocephalic, atraumatic Eyes: PERRLA, EOMI ENT: Airway patent Chest: Nonlabored breathing Skin: No visual rash, normal skin tone Neuro: Alert and oriented 3 Musculoskeletal: No gross abnormalities (Bharat Dc) PE: CONSTITUTIONAL: No apparent distress, well appearing SKIN: Warm, dry, no jaundice, hives or petechiae EYES: Pupils are equally round, extraocular movements intact without nystagmus, clear conjunctiva, non-icteric sclera HENT: Normocephalic, atraumatic, moist mucus membranes, oropharynx clear without exudates NECK: , Full range of motion, normal appearance PULMONARY: Wheezes in the lung bases bilaterally, otherwise no rhonchi or, rales or stridor normal excursion accessory muscle use CARDIOVASCULAR: Tachycardia, irregularly irregular rate and rhythm, normal S1 and S2. No appreciated murmurs, rubs or gallops. Strong radial pulses with intact distal perfusion. Right lower extremity edema GASTROINTESTINAL: Soft, active bowel sounds throughout, non-tender, non-di stended, no palpable masses, no rebound or guarding. No hepatosplenomegaly GENITOURINARY: MUSCULOSKELETAL: Extremities have no gross deformity, redness, or swelling. No calf swelling, 1+ right lower extremity edema up to ankle NEUROLOGIC:_a/o x 3, GCS 15, normal mentation and speech. Moves all extremities x 4 without motor or sensory deficit PSYCHIATRIC:_normal mood and affect, thought process is clear and linear (Carly Chen) Course Vital Signs 02/07/25 02/07/25 02/07/25 13:56 21:00 21:17 Temperature 98.8 F Pulse Rate 72 108 H 108 H Respiratory 20 24 Rate Blood Pressure 127/67 143/79 O2 Sat by Pulse 96 97 Oximetry 02/07/25 02/07/25 02/07/25 21:23 22:32 23:00 Temperature Pulse Rate 105 H 101 H 105 H Respiratory 18 20 Rate Blood Pressure 155/78 140/107 O2 Sat by Pulse 96 95 Oximetry 02/08/25 02/08/25 02/08/25 00:00 01:00 02:00 Temperature Pulse Rate 110 H 97 86 Respiratory 20 18 18 Rate Blood Pressure 141/79 150/86 118/81 O2 Sat by Pulse 94 L 94 L 94 L Oximetry 02/08/25 02/08/25 02/08/25 03:00 04:00 05:00 Temperature Pulse Rate 62 102 H 93 Respiratory 16 18 20 Rate Blood Pressure 121/82 109/78 120/86 O2 Sat by Pulse 95 95 96 Oximetry 02/08/25 02/08/25 02/08/25 06:00 09:00 12:00 Temperature Pulse Rate 101 H 97 55 L Respiratory 20 18 18 Rate Blood Pressure 121/94 127/74 116/78 O2 Sat by Pulse 96 95 97 Oximetry EKG Findings - EKG Comments: EKG Findings:: Atrial fibrillation, rate 80 bpm intervals within acceptable limits, borderline left axis deviation, no significant ST elevations or d epressions <Carly Chen - Last Filed: 02/08/25 13:03> Medical Decision Making <Bharat Dc - Last Filed: 02/07/25 14:55> - Lab Data Result diagrams: 02/07/25 15:01 02/07/25 15:01 <Carly Chen - Last Filed: 02/08/25 13:03> - Medical Decision Making I completed the quick note portion of this chart signed Bharat Dc PA-C (Bharat cD) Was pt. sent in by a medical professional or institution ([facility], [employer], urgent care, hospital, or retirement...) When possible be specific @ -No Did you speak to anyone other than the patient for history (EMS, parent, family, police, friend...)? What history was obtained from this source @ -No Did you review nursing and triage notes (agree or disagree)? Why? @ -I reviewed nursing and triage notes-disagree with nursing/triage note, patient has had ongoing shortness of breath x 2 weeks and right lower extremity swelling Were old charts reviewed (outside hosp., previous admission, EMS record, old EKG, old radiological studies, urgent care reports/EKG's, retirement records)? Report findings @ -Medical records reviewed patient was last seen in the ER on 09/02/2022, reviewed that note patient had presented for low hemoglobin, outpatient labs showed a hemoglobin of 5.6 hemoglobin 6.1, patient was admitted Differential Diagnosis (chest pain, altered mental status, abdominal pain women, abdominal pain men, vaginal bleeding, weakness, fever, dyspnea, syncope, headache, dizziness, GI bleed, back pain, seizure, CVA, palpatations, mental health, musculoskeletal)? @ -Differential Dyspnea: Coronary syndrome, arrhythmia, tamponade, asthma, COPD, pulmonary embolism, pneumonia, pneumothorax, pulmonary effusion, anaphylaxis, diabetic ketoacidosis, flailed chest, pulmonary contusion, diaphragmatic rupture, anemia, neuromuscular, this is not meant to be an all-inclusive list. EKG interpreted by me (3pts min.). @ -As above X-rays interpreted by me (1pt min.). @ -Reviewed chest x-ray, appears to show right lower lobe pleural effusion CT interpreted by me (1pt min.). @ Pending at time of admission U/S interpreted by me (1pt. min.). @ -Personally reviewed US RLE, I see no evidence of vasoocclusive DVT, agree with radiologist interpretation What testing was considered but not performed or refused? (CT, X-rays, U/S, labs)? Why? @ -None What meds were considered but not given or refused? Why? @ -None Did you discuss the management of the patient with other professionals (professionals i.e. , PA, [employer], lab, RT, psych nurse, manager social media, cost estimating engineer, teacher, deportation officer, case finisher)? Give summary @ -No Was smoking cessation discussed for >3mins.? @ -No Was critical care preformed (if so, how long)? @ -No Were there social determinants of health that impacted care today? How? (Homelessness, low income, unemployed, alcoholism, drug addiction, t ransportation, low edu. Level, literacy, decrease access to med. care, [facility], rehab)? @ -No Was there de-escalation of care discussed even if they declined (Discuss DNR or withdrawal of care, Hospice)? @ -No What co-morbidities impacted this encounter? (DM, HTN, Smoking, COPD, CAD, Cancer, CVA, ARF, Chemo, Hep., AIDS, mental health diagnosis, sleep apnea, morbid obesity)? @PAD, asthma, atrial fibrillation, hyperlipidemia Was patient admitted / discharged? Hospital course, mention meds given and route, prescriptions, significant lab abnormalities, going to OR and other pertinent info. Admission- patient is a 74-year-old gentleman presenting today for shortness of breath x 2 weeks. Patient was initially seen and assessed as part of triage protocol given bed shortage to the ER. Reviewed labs imaging ordered by triage provider.White blood cell count 16.81, hemoglobin 12.6, BUN 30, BNP 1080, previously in 2021. Chest x-ray shows possible right lower lobe pneumonia. Added D-dimer and ultrasound of the right lower extremity. Anticipate admission for failed outpatient treatment of pneumonia new onset CHF. Pt agreeable with POC. US RLE showed no DVT. D Dimer was elevated so CT PE study was ordered. Updated pt to findings and discussed plan for admission to which he was agreeable. Case discussed with Dr. Eller who kindly accepted pt for admission. CT PE study pending at time of admission, of note pt is anticoagulated on eliquis. Undiagnosed new problem with uncertain prognosis? @ -No Drug Therapy requiring intensive monitoring for toxicity (Heparin, Nitro, Insulin, Cardizem)? @ -No Were any procedures done? @ -No Diagnosis/symptom? Community acquired pneumonia, CHF Acute, or Chronic, or Acute on Chronic? @ acute Uncomplicated (without systemic symptoms) or Complicated (systemic symptoms)? @complicated Side effects of treatment? @ -No Exacerbation, Progression, or Severe Exacerbation? @ -No Poses a threat to life or bodily function? How? (Chest pain, [place], [place], pneumonia, PE, COPD, DKA, ARF, appy, cholecystitis, CVA, Diverticulitis, Homicidal, Suicidal, threat to staff... and all critical care pts) @Yes (Carly Chen) - Lab Data Lab Results 02/07/25 02/07/25 02/07/25 Range/Units 15:01 15:01 15:01 WBC 6.81 (4.50-10.00) 10*3/uL RBC 4.81 (4.40-5.60) 10*6/uL Hgb 12.6 L (13.0-17.0) g/dL Hct 38.9 L (39.6-50.0) % MCV 80.9 (80.0-97.0) fL MCH 26.2 L (27.0-32.0) pg MCHC 32.4 (32.0-37.0) g/dL Plt Count 293 (140-440) 10*3/uL MPV 9.0 L (9.5-12.2) fL Immature Gran % (Auto) 0.3 % Neutrophils % 72.4 % Lymphocytes % 7.9 % Monocytes % 11.6 % Eosinophils % 6.3 % Basophils % 1.5 % Immature Gran # 0.02 (0.00-0.04) 10*3/uL Neutrophils # 4.93 (1.80-7.70) 10*3/uL Lymphocytes # 0.54 L (0.90-5.00) 10*3/uL Monocytes # 0.79 (0.20-1.00) 10*3/uL Eosinophils # 0.43 H (0.04-0.35) 10*3/uL Basophils # 0.10 (0.00-0.10) 10*3/uL PT 10.7 (10.0-12.5) sec INR 1.0 (<1.2) APTT 26.5 (22.0-30.0) sec D-Dimer (<0.60) mg/L FEU Sodium 139 (137-145) mmol/L Potassium 4.3 (3.5-5.1) mmol/L Chloride 103 (98-107) mmol/L Carbon Dioxide 25 (22-30) mmol/L Anion Gap 11 mmol/L BUN 30 H (9-20) mg/dL Creatinine 1.12 (0.66-1.25) mg/dL Est GFR (CKD-EPI)AfAm 74 (>60 ml/min/1.73 sqM) Est GFR (CKD-EPI)NonAf 64 (>60 ml/min/1.73 sqM) Glucose 101 H (74-99) mg/dL Plasma Lactic Acid Antony (0.7-2.0) mmol/L Calcium 9.7 (8.4-10.2) mg/dL Total Bilirubin 0.5 (0.2-1.3) mg/dL AST 26 (17-59) U/L ALT 15 (4-49) U/L Alkaline Phosphatase 123 (38-126) U/L Troponin I (0.000-0.034) ng/mL C-Reactive Protein (<1.0) mg/dL NT-Pro-B Natriuret Pep 1080 pg/mL Total Protein 7.5 (6.3-8.2) g/dL Albumin 4.3 (3.5-5.0) g/dL Procalcitonin (0.02-0.50) ng/mL 02/07/25 02/07/25 02/07/25 Range/Units 15:01 15:01 15:01 WBC (4.50-10.00) 10*3/uL RBC (4.40-5.60) 10*6/uL Hgb (13.0-17.0) g/dL Hct (39.6-50.0) % MCV (80.0-97.0) fL MCH (27.0-32.0) pg MCHC (32.0-37.0) g/dL Plt Count (140-440) 10*3/uL MPV (9.5-12.2) fL Immature Gran % (Auto) % Neutrophils % % Lymphocytes % % Monocytes % % Eosinophils % % Basophils % % Immature Gran # (0.00-0.04) 10*3/uL Neutrophils # (1.80-7.70) 10*3/uL Lymphocytes # (0.90-5.00) 10*3/uL Monocytes # (0.20-1.00) 10*3/uL Eosinophils # (0.04-0.35) 10*3/uL Basophils # (0.00-0.10) 10*3/uL PT (10.0-12.5) sec INR (<1.2) APTT (22.0-30.0) sec D-Dimer (<0.60) mg/L FEU Sodium (137-145) mmol/L Potassium (3.5-5.1) mmol/L Chloride (98-107) mmol/L Carbon Dioxide (22-30) mmol/L Anion Gap mmol/L BUN (9-20) mg/dL Creatinine (0.66-1.25) mg/dL Est GFR (CKD-EPI)AfAm (>60 ml/min/1.73 sqM) Est GFR (CKD-EPI)NonAf (>60 ml/min/1.73 sqM) Glucose (74-99) mg/dL Plasma Lactic Acid Antony 1.4 (0.7-2.0) mmol/L Calcium (8.4-10.2) mg/dL Total Bilirubin (0.2-1.3) mg/dL AST (17-59) U/L ALT (4-49) U/L Alkaline Phosphatase (38-126) U/L Troponin I <0.012 (0.000-0.034) ng/mL C-Reactive Protein 3.2 H (<1.0) mg/dL NT-Pro-B Natriuret Pep pg/mL Total Protein (6.3-8.2) g/dL Albumin (3.5-5.0) g/dL Procalcitonin (0.02-0.50) ng/mL 02/07/25 02/07/25 Range/Units 15:01 21:50 WBC (4.50-10.00) 10*3/uL RBC (4.40-5.60) 10*6/uL Hgb (13.0-17.0) g/dL Hct (39.6-50.0) % MCV (80.0-97.0) fL MCH (27.0-32.0) pg MCHC (32.0-37.0) g/dL Plt Count (140-440) 10*3/uL MPV (9.5-12.2) fL Immature Gran % (Auto) % Neutrophils % % Lymphocytes % % Monocytes % % Eosinophils % % Basophils % % Immature Gran # (0.00-0.04) 10*3/uL Neutrophils # (1.80-7.70) 10*3/uL Lymphocytes # (0.90-5.00) 10*3/uL Monocytes # (0.20-1.00) 10*3/uL Eosinophils # (0.04-0.35) 10*3/uL Basophils # (0.00-0.10) 10*3/uL PT (10.0-12.5) sec INR (<1.2) APTT (22.0-30.0) sec D-Dimer 1.27 H (<0.60) mg/L FEU Sodium (137-145) mmol/L Potassium (3.5-5.1) mmol/L Chloride (98-107) mmol/L Carbon Dioxide (22-30) mmol/L Anion Gap mmol/L BUN (9-20) mg/dL Creatinine (0.66-1.25) mg/dL Est GFR (CKD-EPI)AfAm (>60 ml/min/1.73 sqM) Est GFR (CKD-EPI)NonAf (>60 ml/min/1.73 sqM) Glucose (74-99) mg/dL Plasma Lactic Acid Antony (0.7-2.0) mmol/L Calcium (8.4-10.2) mg/dL Total Bilirubin (0.2-1.3) mg/dL AST (17-59) U/L ALT (4-49) U/L Alkaline Phosphatase (38-126) U/L Troponin I (0.000-0.034) ng/mL C-Reactive Protein (<1.0) mg/dL NT-Pro-B Natriuret Pep pg/mL Total Protein (6.3-8.2) g/dL Albumin (3.5-5.0) g/dL Procalcitonin <0.20 (0.02-0.50) ng/mL Disposition <Bharat Dc - Last Filed: 02/07/25 14:55> <Carly Chen - Last Filed: 02/08/25 13:03> Clinical Impression: Community acquired pneumonia, Acute congestive heart failure Disposition: ADMITTED IP TO THIS HOSP Condition: Stable
[2025-02-07 15:12] LABS: Basophils % (A) 1.5 %; Eosinophils # (A) 0.43 10*3/uL (0.04-0.35); Eosinophils % (A) 6.3 %; HCT 38.9 % (39.6-50.0); HGB 12.6 g/dL (13.0-17.0); Lymphocytes # (A) 0.54 10*3/uL (0.90-5.00); Lymphocytes % (A) 7.9 %; MCH 26.2 pg (27.0-32.0); MCHC 32.4 g/dL (32.0-37.0); MCV 80.9 fL (80.0-97.0); Monocytes # (A) 0.79 10*3/uL (0.20-1.00); Monocytes % (A) 11.6 %; Neutrophils # (A) 4.93 10*3/uL (1.80-7.70); Neutrophils % (A) 72.4 %; Platelet Count 293 10*3/uL (140-440); RBC 4.81 10*6/uL (4.40-5.60); RDW 15.8 % (11.5-14.5); WBC 6.81 10*3/uL (4.50-10.00)
[2025-02-07 15:27] LABS: Partial Thromboplastin Time 26.5 sec (22.0-30.0); Prothrombin Time 10.7 sec (10.0-12.5)
[2025-02-07 15:34] LABS: ALT 15 U/L (4-49); AST 26 U/L (17-59); African American GFR (CKD) 74 (>60 ml/min/1.73 sqM); Albumin 4.3 g/dL (3.5-5.0); Alkaline Phosphatase 123 U/L (38-126); Anion Gap 11 mmol/L; Blood Urea Nitrogen 30 mg/dL (9-20); Calcium 9.7 mg/dL (8.4-10.2); Carbon Dioxide 25 mmol/L (22-30); Chloride 103 mmol/L (98-107); Glucose 101 mg/dL (74-99); Non-African American GFR(CKD) 64 (>60 ml/min/1.73 sqM); Potassium 4.3 mmol/L (3.5-5.1); Sodium 139 mmol/L (137-145); Total Bilirubin 0.5 mg/dL (0.2-1.3); Total Protein 7.5 g/dL (6.3-8.2)
[2025-02-07 15:43] LABS: NT-Pro-B-Type Natriuretic Pept 1080 pg/mL
[2025-02-07] MEDS: IPRATROPIUM-ALBUTEROL 3 ML NEB INHALATION STA (21:13)
[2025-02-07] MEDS: FUROSEMIDE 10 MG/ML 10 ML VIAL IV STA (22:22)
[2025-02-07] MEDS: PIPERACILLIN-TAZOBACTAM 3.375 GM in SODIUM CHLORIDE 0.9% 100 ML IVPB STA (22:28)
--- NOTE | 2025-02-07 22:58 | US ---
EXAMINATION TYPE: US venous doppler duplex LE RT DATE OF EXAM: 02/07/2025 8:30 PM COMPARISON: Right lower extremity venous ultrasound 10/23/2020 CLINICAL INDICATION: Male, 74 years old with history of RLE swelling, BARBARA; right leg swelling. states stents placed in leg in sep. no hx dvt. on 2 different blood thinners, TECHNIQUE: The lower extremity deep venous system is examined utilizing real time linear array sonog adriana with graded compression, color doppler sonography, and spectral doppler. SIDE PERFORMED: Right FINDINGS: VESSELS IMAGED: Common Femoral Vein Deep Femoral Vein Greater Saphenous Vein * Femoral Vein Popliteal Vein Small Saphenous Vein * Proximal Calf Veins (* superficial vessels) Right Leg: appears negative for dvt, Color Doppler imaging shows patency of the vessels. Spectral wa veforms are within normal limits. IMPRESSION: No evidence of deep vein thrombosis of the right lower extremity. [facility], , 02/07/2025 10:55 PM
[2025-02-07] MEDS ORDERED: PNEUMONIA PROTOCOL UTILIZED 1 EACH MISC PO PRN (23:12)
[2025-02-08] MEDS: TAMSULOSIN 0.4 MG CAP.ER.24H PO SCH (00:02)
[2025-02-08] MEDS: APIXABAN 5 MG TAB PO SCH (00:02)
[2025-02-08] MEDS: ASPIRIN 81 MG PO STA (00:02)
--- NOTE | 2025-02-08 02:43 | CT ---
EXAM: CT Angiography Chest With Intravenous Contrast CLINICAL HISTORY: ITS.REASON CT Reason: BARBARA, elevated dimer, RLE swelling TECHNIQUE: Axial computed tomographic angiography images of the chest with intravenous contrast. CTDI is 24.4 mGy and DLP is 442.3 mGy-cm. This CT exam was performed using one or more of the following dose reduction techniques: automated exposure control, adjustment of the mA and/or kV according to patient size, and/or use of iterative reconstruction technique. MIP reconstructed images were created and reviewed. COMPARISON: No relevant prior studies available. FINDINGS: Pulmonary arteries: Unremarkable. No pulmonary embolism. Aorta: No acute findings. No thoracic aortic aneurysm. Lungs: Airspace consolidations at the right lung base, preferentially involving the right lower lobe, consistent with multilobar pneumonia. Right parapneumonic effusion, with mild thickening of the pleura, which may indicated empyema. Correlate clinically. Pleural space: See above. Heart: Cardiomegaly. Prosthetic aortic valve. Atrial appendage clip. No significant pericardial effusion. No evidence of RV dysfunction. Bones/joints: Sternotomy wires. No acute fracture. No dislocation. Soft tissues: Unremarkable. Lymph nodes: Unremarkable. No enlarged lymph nodes. IMPRESSION: 1. No pulmonary embolism. 2. Airspace consolidations at the right lung base, preferentially involving the right lower lobe, consistent with multilobar pneumonia. Right parapneumonic effusion, with mild thickening of the pleura, which may indicated empyema. Correlate clinically.
[2025-02-08] MEDS ORDERED: ALBUTEROL NEBULIZED 2.5 MG/3 ML INHALATION PRN (04:24)
--- NOTE | 2025-02-08 04:28 | P.CNPUL ---
History of Present Illness Consult date: 02/08/25 Requesting physician: Carly Chen Reason for consult: pneumonia Chief complaint: Shortness of breath History of present illness: Patient is a 74-year-old male with past medical history significant for previous aortic valve replacement at the [facility], chronic atrial fibrillation anticoagulated on Eliquis, coronary disease with previous stent, hypertension, diabetes mellitus, prior history of tobacco use, COPD/asthma, among other things. Patient presents the emergency department yesterday afternoon with a chief complaint of progressively worsening shortness of breath over the last 2 weeks. Workup in the emergency department including chest x-ray remarkable for right lower lobe infiltrate and small right pleural effusion. Follow-up chest CT angiogram which was unremarkable for pulmonary embolism. Airspace consolidation noted at the right lung base with associated loculated parapneumonic effusion with mild thickening pleura. Labs including a CBC unremarkable for leukocytosis, WBC count 6.8, hemoglobin 12.6, platelets 293. CMP was unremarkable, electrolytes WDL, creatinine 1.12, glucose 101. Troponin less than 0.012. NT proBNP 1080. Patient currently being evaluated in the emergency department. He is resting comfortably on room air. Does not appear in any respiratory distress. Denies fevers, chills. Endorsing cough with yellow sputum production. Denies hemoptysis.. Denies pleuritic chest pain. He does reportedly see Dr. Stahl in the pulmonary office for his COPD/asthma. Uses an albuterol inhaler as needed and Symbicort inhaler. States he came down with something at the end of November, treated with Z-Nicolás and steroids on outpatient basis. Denies any chest pain, heart palpitations, syncopal events, lower extremity edema. He follows with a first coat operator in [place]. Recently had a stress test and echocardiogram, which were reportedly unremarkable. Also, recently had skin cancer removed on his left shoulder. Current vital signs: Heart rate 62 bpm, blood pressure 121/82 mmHg, nontachypneic, SpO2 recorded 95% on room air. Review of Systems Constitutional: Denies chills, Denies fatigue, Denies fever, Denies night sweats, Denies poor appetite, Denies weight gain, Denies weight loss Ears, nose, mouth and throat: Reports nasal congestion, Reports nasal discharge, Reports post-nasal drip, Denies headache, Denies sinus pain, Denies sinus pressure, Denies sore throat Cardiovascular: Reports dyspnea on exertion, Denies chest pain, Denies leg soraya ma, Denies lightheadedness, Denies orthopnea, Denies palpitations, Denies paroxysmal nocturnal dyspnea, Denies syncope Respiratory: Reports cough with sputum, Reports dyspnea, Denies congestion, Denies excessive sputum, Denies home oxygen, Denies pain on inspiration, Denies wheezing Gastrointestinal: Denies abdominal pain, Denies change in bowel habits, Denies constipation, Denies diarrhea, Denies hematemesis, Denies hematochezia, Denies melena, Denies nausea, Denies vomiting Genitourinary: Denies dysuria Musculoskeletal: Denies limitation of motion Integumentary: Denies rash Neurological: Denies seizures, Denies syncope Psychiatric: Denies anxiety, Denies depression Past Medical History Past Medical History: Atrial Fibrillation, Asthma, Cancer, Diabetes Mellitus, GERD/Reflux, Hearing Disorder / Deafness, Hyperlipidemia, Hypertension, Osteoarthritis (OA), Prostate Disorder Additional Past Medical History / Comment(s): Neuropathy, hx pancreatitis, bilateral hearing aid use. Anemia,hearing aids, enlarged prostate History of Any Multi-Drug Resistant Organisms: None Reported Past Surgical History: Appendectomy, Heart Catheterization With Stent, Orthopedic Surgery Additional Past Surgical History / Comment(s): Right hand surgery, bilateral cataract surgery, bilateral eye surgery, colonoscopy. Aortic valve replacement,Egd. Open heart june 2023 Past Anesthesia/Blood Transfusion Reactions: No Reported Reaction Additional Past Anesthesia/Blood Transfusion Reaction / Comment(s): No reaction Date of Last Stent Placement:: 2015 Past Psychological History: No Psychological Hx Reported, PTSD Smoking Status: Former smoker Past Alcohol Use History: Occasional Past Drug Use History: None Reported - Past Family History Mother Family Medical History: No Reported History Son(s) Family Medical History: Pulmonary Embolus Medications and Allergies Home Medications Medication Instructions Recorded Confirmed Type Montelukast [Singulair] 10 mg PO DAILY 10/05/14 02/08/25 History Tamsulosin HCl [Flomax] 0.8 mg PO HS 08/31/17 02/08/25 History Insulin Glargine,Hum.rec.anlog 35 unit SQ DAILY 10/23/20 02/08/25 History [Lantus Solostar Pen] DULoxetine HCL [Cymbalta] 30 mg PO DAILY 02/19/22 02/08/25 History Finasteride [Proscar] 5 mg PO DAILY 02/19/22 02/08/25 History Empagliflozin [Jardiance] 25 mg PO DAILY 07/20/22 02/08/25 History Omeprazole [PriLOSEC] 20 mg PO DAILY 07/20/22 02/08/25 History Rosuvastatin Calcium [Crestor] 20 mg PO DAILY 07/20/22 02/08/25 History Insulin Aspart [NovoLOG Flexpen] 6 - 10 units SQ AC-TID 09/03/22 02/08/25 History Ferrous Sulfate [Iron] 325 mg PO DAILY 02/18/23 02/08/25 History Albuterol Sulfate [Albuterol 1 puff INHALATION RT-QID PRN 02/08/25 02/08/25 History Sulfate Hfa] Apixaban [Eliquis] 2.5 mg PO BID 02/08/25 02/08/25 History Clopidogrel [Plavix] 75 mg PO DAILY 02/08/25 02/08/25 History Allergies Allergy/AdvReac Type Severity Reaction Status Date / Time No Known Allergies Allergy Verified 02/07/25 13:55 Physical Exam Vitals: Vital Signs Temp Pulse Resp BP Pulse Ox 02/08/25 03:00 62 16 121/82 95 02/08/25 02:00 86 18 118/81 94 L 02/08/25 01:00 97 18 150/86 94 L 02/08/25 00:00 110 H 20 141/79 94 L 02/07/25 23:00 105 H 20 140/107 95 02/07/25 22:32 101 H 18 155/78 96 02/07/25 21:23 105 H 02/07/25 21:17 108 H 02/07/25 21:00 108 H 24 143/79 97 02/07/25 13:56 98.8 F 72 20 127/67 96 Intake and Output 02/07/25 02/07/25 02/08/25 14:59 22:59 06:59 Output Total 2700 Balance -2700 Output: Urine 2700 Other: # Bowel Movements 0 Weight 88.451 kg GENERAL EXAM: Alert, 74-year-old male, on room air, comfortable in no apparent distress. HEAD: Normocephalic and atraumatic EYES: Normal reaction of pupils, equal size. NOSE: Clear with pink turbinates. THROAT: No erythema or exudates. NECK: No masses, no JVD. CHEST: No chest wall deformity. Remote appearing sternotomy incision LUNGS: Equal air entry with no crackles, wheeze, rhonchi or dullness. No conversational dyspnea or accessory muscle use.. CVS: S1 and S2 normal with no audible murmur, irregular rhythm. No extra heart sounds ABDOMEN: No hepatosplenomegaly, active bowel sounds, no guarding or rigidity. SPINE: No scoliosis or deformity SKIN: No rashes. Previous excisional biopsy left upper shoulder CENTRAL NERVOUS SYSTEM: No focal deficits, tone is normal in all 4 extremities. EXTREMITIES: There is no peripheral edema, clubbing, or cyanosis. Peripheral pulses are intact. Results - Laboratory Findings CBC and BMP: 02/07/25 15:01 02/07/25 15:01 PT/INR, D-dimer PT 10.7 sec (10.0-12.5) 02/07/25 15:01 INR 1.0 (<1.2) 02/07/25 15:01 D-Dimer 1.27 mg/L FEU (<0.60) H 02/07/25 21:50 Abnormal lab findings: Abnormal Labs 02/07/25 02/07/25 02/07/25 15:01 15:01 15:01 Hgb 12.6 L Hct 38.9 L MCH 26.2 L MPV 9.0 L Lymphocytes # 0.54 L Eosinophils # 0.43 H D-Dimer BUN 30 H Glucose 101 H C-Reactive Protein 3.2 H 02/07/25 21:50 Hgb Hct MCH MPV Lymphocytes # Eosinophils # D-Dimer 1.27 H BUN Glucose C-Reactive Protein - Diagnostic Findings Chest x-ray: image reviewed CT scan - chest: image reviewed Assessment and Plan Assessment: Right lower lung pneumonia with parapneumonic effusion and mild pleural thickening Acute dyspnea, secondary to above COPD/asthma Chronic atrial fibrillation, normally anticoagulant Eliquis Hypertension History of CAD with previous stent placement History of aortic valve replacement, performed at [facility] History of diabetes mellitus History of hyperlipidemia History of osteoarthritis History of skin cancer, with removal Prior history of tobacco use Plan: Currently on room air Continue antibiotics I will discuss CT findings with Dr. Howard, further recommendations to follow potential thoracentesis or pigtail catheter Check procalcitonin level Blood culture sent Resume maintenance COPD/asthma medications We will continue to follow, additional recommendations forthcoming I have personally seen and examined the patient, performed the documentation and the assessment and plan as written. Number of minutes spent on the visit:20 This is a joint evaluation that was done along with the nurse practitioner. Th is evaluation was done and 32 minutes. The patient is 74, being seen for a right lower lobe pneumonia and possibly a small parapneumonic effusion. The patient has multiple comorbidities. The patient is known to have CAD, aortic valve replacement that was done at [facility] and the patient also has diabetes mellitus type 2, hyperlipidemia and degenerative arthritis. He is currently on room air oxygen. His blood work shows a negative viral screen. Procalcitonin level was negative. The white cell count is 6.8 with a hemoglobin of 12.6 and a platelet count of 293. Electrolytes are all within normal limits. CT of the chest was also done today and the patient has airspace cons olidation in the right lung base essentially involving the right lower lobe consistent with lobar pneumonia. There is also a right sided pleural effusion, small, minor loculation. Antibiotic coverage is currently with IV Zosyn the patient was started on IV Zosyn in the emergency department. Rest of the home medication have been resumed. He is known to have also atrial fibrillation. The patient remains in A-fib with a controlled rate. He is on long-term anticoagulation with Eliquis. He is also on metoprolol 50 mg p.o. twice daily and amiodarone 200 mg p.o. daily. CAT scan of the chest reviewed. The right- sided pleural effusion is small. Not amenable for thoracentesis or any further intervention at this point in time. Will monitor clinically and will repeat a chest x-ray. Time with Patient: Greater than 30
[2025-02-08 07:44] LABS: Glucose,Whole Blood 262 mg/dL (70-110)
--- NOTE | 2025-02-08 08:21 | P.HPIM ---
History of Present Illness H&P Date: 02/07/25 Chief Complaint: Trouble breathing and fluid coming out when lying down 74-year-old male with A-fib on Eliquis, peripheral arterial disease, history of aortic valve repair presents with difficulty breathing. For the past two to three weeks, the patient has been unable to sleep in bed due to fluid coming out when lying down. he has been sleeping in a recliner instead. He reports paroxysmal nocturnal dyspnea and orthopnea. Along with exertional dyspnea with mild exertion. Denies any fevers chills denies any upper respiratory infection symptoms denies any recent travel denies any history of congestive heart failure however he has been noticing some right leg swelling. The patient has a history of atrial fibrillation and is on blood thinners. Patient had recent cardiac workup with a stress test that was unremarkable Blood thinner for atrial fibrillation Plavix Eliquis 2.5mg (reduced from 5mg) review of systems Pertinent positives as noted in HPI. All other systems were reviewed and are negative on exam Constitutional: No acute distress, conversant, pleasant Eyes: Anicteric sclerae, moist conjunctiva, Pupils equal round reactive to light ENMT: NC/AT Oropharynx clear, no erythema, or exudates Neck: Supple, no masses, or JVD No carotid bruits No thyromegaly Lungs: Decreased breath sounds at the right lung base Clear to percussion Normal respiratory effort, no accessory muscle use Cardiovascular: Heart irregular in rate and rhythm, Systolic murmurs, no gallops, or rubs No peripheral leg edema bilaterally Abdominal: Soft Nontender, no guarding, rebound or rigidity Abdomen moving with respiration Normoactive bowel sounds Extremities: No digital cyanosis No clubbing Pedal pulses intact and symmetrical Radial pulses intact and symmetrical No calf tenderness Psychiatric: Alert and oriented to person, place and time Appropriate affect fair judgement Neuro Muscles Strength 5/5 in all 4 extremities Sensation to light touch grossly present throughout Cranial nerves II-XII grossly intact Past Medical History Past Medical History: Atrial Fibrillation, Asthma, Cancer, Diabetes Mellitus, GERD/Reflux, Hearing Disorder / Deafness, Hyperlipidemia, Hypertension, Osteoarthritis (OA), Prostate Disorder Additional Past Medical History / Comment(s): Neuropathy, hx pancreatitis, bilateral hearing aid use. Anemia,hearing aids, enlarged prostate History of Any Multi-Drug Resistant Organisms: None Reported Past Surgical History: Appendectomy, Heart Catheterization With Stent, Orthopedic Surgery Additional Past Surgical History / Comment(s): Right hand surgery, bilateral cataract surgery, bilateral eye surgery, colonoscopy. Aortic valve replacement,Egd. Open heart june 2023 Past Anesthesia/Blood Transfusion Reactions: No Reported Reaction Additional Past Anesthesia/Blood Transfusion Reaction / Comment(s): No reaction Date of Last Stent Placement:: 2015 Past Psychological History: No Psychological Hx Reported, PTSD Smoking Status: Former smoker Past Alcohol Use History: Occasional Past Drug Use History: None Reported - Past Family History Mother Family Medical History: No Reported History Son(s) Family Medical History: Pulmonary Embolus Medications and Allergies Home Medications Medication Instructions Recorded Confirmed Type Montelukast [Singulair] 10 mg PO DAILY 10/05/14 02/18/23 History Tamsulosin HCl [Flomax] 0.8 mg PO HS 08/31/17 02/18/23 History Insulin Glargine,Hum.rec.anlog 40 unit SQ DAILY 10/23/20 02/18/23 History [Lantus Solostar Pen] DULoxetine HCL [Cymbalta] 30 mg PO DAILY 02/19/22 02/18/23 History Finasteride [Proscar] 5 mg PO DAILY 02/19/22 02/18/23 History Empagliflozin [Jardiance] 25 mg PO DAILY 07/20/22 02/18/23 History Mometasone/Formoterol [Dulera 100 2 puff INHALATION RT-BID 07/20/22 02/18/23 History Mcg-5 Mcg Inhaler] Omeprazole [PriLOSEC] 20 mg PO DAILY 07/20/22 02/18/23 History Rosuvastatin Calcium [Crestor] 20 mg PO DAILY 07/20/22 02/18/23 History metFORMIN HCL ER [Glucophage XR] 1,000 mg PO BID 07/20/22 02/18/23 History Apixaban [Eliquis] 5 mg PO BID 09/03/22 02/18/23 History Insulin Aspart [NovoLOG Flexpen] 6 - 10 units SQ AC-TID 09/03/22 02/18/23 History Ipratropium [place] 0.06%Nasal 2 spray EA NOSTRIL TID 09/03/22 02/18/23 History [Atrovent Nasal 0.06%] Metoprolol Tartrate [Lopressor] 25 mg PO BID 09/03/22 02/18/23 History Ascorbic Acid [Vitamin C] 1,000 mg PO DAILY 02/18/23 02/18/23 History Ferrous Sulfate [Iron] 325 mg PO DAILY 02/18/23 02/18/23 History Allergies Allergy/AdvReac Type Severity Reaction Status Date / Time No Known Allergies Allergy Verified 02/07/25 13:55 Physical Exam Vitals: Vital Signs Temp Pulse Resp BP Pulse Ox 02/07/25 22:32 101 H 18 155/78 96 02/07/25 21:23 105 H 02/07/25 21:17 108 H 02/07/25 21:00 108 H 24 143/79 97 02/07/25 13:56 98.8 F 72 20 127/67 96 Intake and Output 02/07/25 02/07/25 02/08/25 14:59 22:59 06:59 Other: Weight 88.451 kg Results CBC & Chem 7: 02/07/25 15:01 02/07/25 15:01 Labs: Abnormal Lab Results - Last 24 Hours (Table) 02/07/25 02/07/25 02/07/25 Range/Units 15:01 15:01 15:01 Hgb 12.6 L (13.0-17.0) g/dL Hct 38.9 L (39.6-50.0) % MCH 26.2 L (27.0-32.0) pg MPV 9.0 L (9.5-12.2) fL Lymphocytes # 0.54 L (0.90-5.00) 10*3/uL Eosinophils # 0.43 H (0.04-0.35) 10*3/uL D-Dimer (<0.60) mg/L FEU BUN 30 H (9-20) mg/dL Glucose 101 H (74-99) mg/dL C-Reactive Protein 3.2 H (<1.0) mg/dL 02/07/25 Range/Units 21:50 Hgb (13.0-17.0) g/dL Hct (39.6-50.0) % MCH (27.0-32.0) pg MPV (9.5-12.2) fL Lymphocytes # (0.90-5.00) 10*3/uL Eosinophils # (0.04-0.35) 10*3/uL D-Dimer 1.27 H (<0.60) mg/L FEU BUN (9-20) mg/dL Glucose (74-99) mg/dL C-Reactive Protein (<1.0) mg/dL Assessment and Plan Assessment: 74-year-old male no history of congestive heart failure presenting with difficulty breathing, particularly when lying down, which has been ongoing for 2-3 weeks. The primary concern is the possibility of fluid overload or pulmonary edema, given the patient's history of atrial fibrillation and use of blood thinners. Differential diagnoses: 1. Congestive heart failure exacerbation 2. Pneumonia Blood work shows no leukocytosis white count 6.8 patient afebrile Hemoglobin 12.6 Renal function unremarkable with sodium 139 potassium 4.3 BUN 30 creatinine 1.1 D-dimer slightly elevated 1.27 Plan: 1. CT angio of the chest showed no evidence of pulmonary embolism, confirmed airspace consolidation in the right lung base which was also seen on chest x-ray Venous Doppler ultrasound of the right lower extremity is negative for any acute DVT EKG shows underlying A-fib no evidence of acute ST changes 2. Perform echocardiogram to evaluate cardiac function 3. Check BNP levels to assess for heart failure 4. Review and adjust current medications, particularly the blood thinners 5. Consider sleep study to rule out sleep apnea Follow-up blood culture Continue with empiric antibiotics azithromycin 500 mg IV piggyback daily and Rocephin 2 g IV piggyback daily Pulmonary consult . Instruct patient to elevate head of bed and continue sleeping in recliner as needed for comfort . Educate patient on signs of worsening condition and when to seek immediate medical attention Chronic conditions Hypertension, A-fib on blood thinners Peripheral arterial disease History of valvular disease status post aortic valve replacement Hyperlipidemia Diabetes mellitus Resume home medications amiodarone, Eliquis, aspirin statin, Continue with Farxiga and long-acting insulin Full code DVT prophylaxis on Eliquis for A-fib
[2025-02-08] MEDS: FUROSEMIDE 20 MG TAB PO SCH (09:12)
[2025-02-08] MEDS: DAPAGLIFLOZIN PROPANEDIOL 10 MG TABLET PO SCH (09:12)
[2025-02-08] MEDS: MONTELUKAST 10 MG TAB PO SCH (09:12)
[2025-02-08] MEDS: AMIODARONE 200 MG TAB PO SCH (09:13)
[2025-02-08] MEDS: FINASTERIDE 5 MG TAB PO SCH (09:13)
[2025-02-08] MEDS: ASCORBIC ACID 500 MG TAB PO SCH (09:13)
[2025-02-08] MEDS: DULoxetine HCL 30 MG CAPSULE.DR PO SCH (09:13)
[2025-02-08] MEDS: METOPROLOL TARTRATE 50 MG TAB PO SCH (09:14)
[2025-02-08] MEDS: FERROUS SULFATE 325 MG TAB PO SCH (09:14)
[2025-02-08] MEDS: ATORVASTATIN 40 MG TAB PO SCH (09:14)
[2025-02-08] MEDS: PANTOPRAZOLE 40 MG TABLET PO SCH (09:14)
[2025-02-08] MEDS: SYMBICORT 80-4.5 MCG INHALER INHALATION SCH (09:18)
[2025-02-08] MEDS: INSULIN GLARGINE (LANTUS) 100 UNIT/ML SYR SQ SCH (09:51)
[2025-02-08] MEDS: AZITHROMYCIN 500 MG in SODIUM CHLORIDE 0.9% 250 ML IVPB SCH (10:13)
[2025-02-08] MEDS ORDERED: DEXTROSE 50% SYRINGE 50 ML IVP PRN ×2 (12:18)
[2025-02-08 12:28] LABS: Glucose,Whole Blood 322 mg/dL (70-110)
[2025-02-08] MEDS: INSULIN LISPRO (HumaLOG) 100 UNIT/ML 10 mL VL SQ SCH (12:34)
--- NOTE | 2025-02-08 13:08 | P.PN ---
Subjective Progress Note Date: 02/08/25 History of present illness; 74-year-old male with A-fib on Eliquis, peripheral arterial disease, history of aortic valve repair who presents with difficulty breathing. For the past two to three weeks, the patient has been unable to sleep in bed due to fluid coming out when lying down. he has been sleeping in a recliner instead. He reports paroxysmal nocturnal dyspnea and orthopnea. Along with exertional dyspnea with mild exertion. Denies any fevers chills denies any upper respiratory infection symptoms denies any recent travel denies any history of congestive heart failure however he has been noticing some right leg swelling. The patient has a history of atrial fibrillation and is on blood thinners. Patient had recent cardiac workup with a stress test that was unremarkable. Blood thinner for atrial fibrillation, Plavix and Eliquis 2.5mg (reduced from 5mg) 02/08/2025patient seen and examined at bedside. He has orthopnea, which has improved with Lasix. He does have some peripheral edema which is also improved. No other complaints at this time. REVIEW OF SYSTEMS: Pertinent positives and negatives noted in HPI. PHYSICAL EXAMINATION: VITAL SIGNS: Reviewed GENERAL: Resting comfortably in bed. CARDIOVASCULAR: S1 and S2 present. No murmurs, rubs, or gallops. PULMONARY: Chest is clear to auscultation, no wheezing, rhonchi, or crackles. ABDOMEN: Soft, nontender, nondistended. No palpable organomegaly. NEUROLOGICAL: Alert and oriented. Gross neurological examination with no apparent focal deficits. EXTREMITIES: Trace pedal edema. SKIN: No apparent rashes. Today significant FINDINGS: proBNP 1080, procalcitonin <0.20 CTA chest interpreted as no pulmonary embolism, airspace consolidation of the right lung base preferentially involving right lower lobe consistent with multilobular pneumonia, right parapneumonic effusion with mild thickening of the pleura ASSESSMENT AND PLAN: In summary, patient is [id number] male with A-fib on Eliquis, peripheral arterial disease, history of aortic valve repair who presents with difficulty breathing. #Acute congestive heart failure exacerbation #Dyspnea likely due to above, less likely due to pneumonia #A-fib on blood thinners, rate controlled #History of valvular disease status post aortic valve replacement Discontinue antibiotics Continue bronchodilators -Last known echo with preserved EF 55% -proBNP 1080 -Cardiac monitoring -Low sodium diet <2g daily < 2L of total volume intake daily -Supplemental O2 as needed -Monitor BMP -Begin IV Lasix 40 mg daily Blood culture pending -Cardiology consulted Pulmonology consulted #Diabetes mellitus, type 2 Holding oral medications Begin Accu-Cheks and low-dose sliding scale, monitor for hypoglycemia Resume home long-acting insulin 35 units Chronic Medical Conditions: Hypertension, A-fib on blood thinners Peripheral arterial disease History of valvular disease status post aortic valve replacement Hyperlipidemia Diabetes mellitus Resume home medications amiodarone, Eliquis, aspirin stati Continue with Farxiga and long-acting insulin -Resume home medications DVT ppx: Continue home Eliquis Code status: Full code F: P.o. E: Replete as needed N: Heart healthy diet A: Ambulatory Anticipated discharge time and place: Pending clinical course Kaleb Lake MD Internal Medicine Resident, PGY1 Dictation was produced using [employer] dictation software. Please excuse any grammatical, word or spelling errors. I saw and evaluated the patient during the rodriguez and critical portions of this encounter, and discussed the case in detail with the resident author of this note, I agree with the Assessment and Plan, and my changes, if any, are highlighted in blue. Objective - Vital Signs Vital signs: Vital Signs Temp 98.8 F 02/07/25 13:56 Pulse 101 H 02/08/25 06:00 Resp 20 02/08/25 06:00 BP 121/94 02/08/25 06:00 Pulse Ox 96 02/08/25 06:00 FiO2 Intake & Output 02/07/25 02/08/25 02/08/25 18:59 06:59 18:59 Output Total 2700 Balance -2700 Weight 88.451 kg Output: Urine 2700 Other: # Bowel Movements 0 - Labs CBC & Chem 7: 02/07/25 15:01 02/07/25 15:01 Labs: Abnormal Lab Results - Last 24 Hours (Table) 02/07/25 02/07/25 02/07/25 Range/Units 15:01 15:01 15:01 Hgb 12.6 L (13.0-17.0) g/dL Hct 38.9 L (39.6-50.0) % MCH 26.2 L (27.0-32.0) pg MPV 9.0 L (9.5-12.2) fL Lymphocytes # 0.54 L (0.90-5.00) 10*3/uL Eosinophils # 0.43 H (0.04-0.35) 10*3/uL D-Dimer (<0.60) mg/L FEU BUN 30 H (9-20) mg/dL Glucose 101 H (74-99) mg/dL POC Glucose (mg/dL) (70-110) mg/dL C-Reactive Protein 3.2 H (<1.0) mg/dL 02/07/25 02/08/25 Range/Units 21:50 07:43 Hgb (13.0-17.0) g/dL Hct (39.6-50.0) % MCH (27.0-32.0) pg MPV (9.5-12.2) fL Lymphocytes # (0.90-5.00) 10*3/uL Eosinophils # (0.04-0.35) 10*3/uL D-Dimer 1.27 H (<0.60) mg/L FEU BUN (9-20) mg/dL Glucose (74-99) mg/dL POC Glucose (mg/dL) 262 H (70-110) mg/dL C-Reactive Protein (<1.0) mg/dL
[2025-02-08 17:14] LABS: Glucose,Whole Blood 165 mg/dL (70-110)
[2025-02-08 17:51] LABS: Influenza A Not Detected (Not Detectd); Influenza B Not Detected (Not Detectd); RSV Not Detected (Not Detectd)
[2025-02-08 19:48] LABS: Glucose,Whole Blood 94 mg/dL (70-110)
[2025-02-08] MEDS ORDERED: APIXABAN 5 MG TAB PO SCH ×2 (21:00)
[2025-02-08] MEDS: PIPERACILLIN-TAZOBACTAM 3.375 GM in SODIUM CHLORIDE 0.9% 100 ML IVPB SCH (22:00)
[2025-02-08] MEDS: APIXABAN 2.5 MG TABLET PO SCH (22:01)
[2025-02-09 06:09] LABS: Glucose,Whole Blood 166 mg/dL (70-110)
[2025-02-09] MEDS: INSULIN GLARGINE (LANTUS) 100 UNIT/ML SYR SQ SCH (06:37)
--- NOTE | 2025-02-09 07:46 | XR ---
EXAMINATION TYPE: XR chest 1V portable DATE OF EXAM: 02/09/2025 6:42 AM COMPARISON: Chest radiograph from one day prior. CLINICAL INDICATION: Male, 74 years old with history of PNA; TECHNIQUE: XR chest 1V portable Frontal view of the chest. FINDINGS: Lungs/Pleura: Blunting of the right costophrenic angle. There is no evidence of left pleural effusio n, focal consolidation, or pneumothorax Pulmonary vascularity: Pulmonary vascular congestion. Heart/mediastinum: Cardiomediastinal silhouette is enlarged. Left atrial appendage occlusion device i s present. Musculoskeletal: No acute osseous pathology. Midline sternotomy wires are noted. Other findings: None IMPRESSION: Small right pleural effusion with mild pulmonary edema [facility] Reilly Farah, , 02/09/2025 7:44 AM
[2025-02-09 07:49] LABS: Basophils # (A) 0.07 10*3/uL (0.00-0.10); Basophils % (A) 0.9 %; Eosinophils # (A) 0.53 10*3/uL (0.04-0.35); Eosinophils % (A) 7.2 %; HCT 39.2 % (39.6-50.0); HGB 12.5 g/dL (13.0-17.0); Lymphocytes # (A) 0.56 10*3/uL (0.90-5.00); Lymphocytes % (A) 7.6 %; MCH 25.9 pg (27.0-32.0); MCHC 31.9 g/dL (32.0-37.0); MCV 81.3 fL (80.0-97.0); Mean Platelet Volume 9.1 fL (9.5-12.2); Monocytes # (A) 0.69 10*3/uL (0.20-1.00); Monocytes % (A) 9.3 %; Neutrophils % (A) 74.6 %; Platelet Count 317 10*3/uL (140-440); RBC 4.82 10*6/uL (4.40-5.60); RDW 15.9 % (11.5-14.5); WBC 7.38 10*3/uL (4.50-10.00)
[2025-02-09 08:04] LABS: ALT 15 U/L (4-49); AST 21 U/L (17-59); African American GFR (CKD) 48 (>60 ml/min/1.73 sqM); Albumin 4.1 g/dL (3.5-5.0); Albumin/Globulin Ratio 1.4; Alkaline Phosphatase 116 U/L (38-126); Anion Gap 12 mmol/L; Blood Urea Nitrogen 34 mg/dL (9-20); Carbon Dioxide 30 mmol/L (22-30); Chloride 99 mmol/L (98-107); Globulin 2.9 g/dL; Glucose 162 mg/dL (74-99); Non-African American GFR(CKD) 42 (>60 ml/min/1.73 sqM); Sodium 141 mmol/L (137-145); Total Bilirubin 0.4 mg/dL (0.2-1.3)
[2025-02-09] MEDS: CLOPIDOGREL 75 MG TAB PO SCH (09:30)
[2025-02-09] MEDS: FUROSEMIDE 40 MG TAB PO SCH (09:30)
--- NOTE | 2025-02-09 12:07 | P.CRDCN ---
History of Present Illness Consult date: 02/09/25 Reason for Consult (text): shortness of breath History of present illness: The patient is a 74-year-old male who presented to the hospital with worsening shortness of breath. He states this has been ongoing for the last 2 weeks. He also reports having weakness and fatigue. No fever or chills. Patient does have a cardiac history including aortic valve replacement and atrial fibrillation. He does not follow with a local consulting database administrator, with [facility] DIAGNOSTICS: EKG shows atrial tachycardia Chest x-ray small right pleural effusion with mild pulmonary edema CT scan of the chest shows multilobular pneumonia. No evidence of pulmonary embolism Venous duplex negative for DVT Lab data: WBC 7.3, hemoglobin 12.5, hematocrit 39.2, platelet 317, sodium 141, potassium 4.0, BUN 34, creatinine 1.59, AST 21, ALT 15, BNP 1080, CRP 3.2 REVIEW OF SYSTEMS: No fever or chills. No cough or expectoration. No di aphoresis. Patient denies headache, dizziness, blurred vision, double vision. Patient denies any stomach discomfort. No nausea, vomiting. No hematochezia. No hematemesis. Denies any black stools or blood in his stools. Denies dysuria or hematuria. No muscle weakness or numbness. Positive for shortness of breath and fatigue PHYSICAL EXAMINATION: This is a 74-year-old male in no apparent distress at the time of my examination. HEENT: Head is atraumatic, normocephalic. Pupils are equal, round. Sclerae anicteric. Conjunctivae are clear. Mucous membranes of the mouth are moist. Neck is supple. There is no jugular venous distention. No carotid bruit is heard. CHEST EXAMINATION: Lungs are coarse to auscultation. No chest wall tenderness is noted on palpation or with deep breathing. Bilateral rhonchi, worse on the left HEART EXAMINATION: Irregular rate and rhythm. S1, S2 heard. No murmurs, gallops or rub. ABDOMEN: Soft, nontender. Bowel sounds are heard. No organomegaly noted. EXTREMITIES: 2+ peripheral pulses with no evidence of peripheral edema and no calf tenderness noted. NEUROLOGIC EXAMINATION: Patient is awake, alert and oriented x3. FINAL ASSESSMENT AND PLAN: Shortness of breath Multilobular pneumonia Atrial fibrillation, persistent History of aortic valve replacement PLAN: We Discontinue amiodarone Continue diuresis Awaiting echocardiogram results Recommend outpatient ablation for atrial fibrillation/atrial tachycardia and avoiding amiodarone due to toxicity Recommend PFT w/ DLCO I am dictating on behalf of Dr Blu Figueroa's history/physical and assessment/plan. Past Medical History Past Medical History: Atrial Fibrillation, Asthma, Cancer, Diabetes Mellitus, GERD/Reflux, Hearing Disorder / Deafness, Hyperlipidemia, Hypertension, Osteoarthritis (OA), Prostate Disorder Additional Past Medical History / Comment(s): Neuropathy, hx pancreatitis, bilateral hearing aid use. Anemia,hearing aids, enlarged prostate History of Any Multi-Drug Resistant Organisms: None Reported Past Surgical History: Appendectomy, Heart Catheterization With Stent, Orthopedic Surgery Additional Past Surgical History / Comment(s): Right hand surgery, bilateral cataract surgery, bilateral eye surgery, colonoscopy. Aortic valve replacement ,Egd. Open heart june 2023 Past Anesthesia/Blood Transfusion Reactions: No Reported Reaction Additional Past Anesthesia/Blood Transfusion Reaction / Comment(s): No reaction Date of Last Stent Placement:: 2015 Past Psychological History: No Psychological Hx Reported, PTSD Smoking Status: Former smoker Past Alcohol Use History: Occasional Past Drug Use History: None Reported - Past Family History Mother Family Medical History: No Reported History Son(s) Family Medical History: Pulmonary Embolus Medications and Allergies Home Medications Medication Instructions Recorded Confirmed Type Montelukast [Singulair] 10 mg PO DAILY 10/05/14 02/08/25 History Tamsulosin HCl [Flomax] 0.8 mg PO HS 08/31/17 02/08/25 History Insulin Glargine,Hum.rec.anlog 35 unit SQ DAILY 10/23/20 02/08/25 History [Lantus Solostar Pen] DULoxetine HCL [Cymbalta] 30 mg PO DAILY 02/19/22 02/08/25 History Finasteride [Proscar] 5 mg PO DAILY 02/19/22 02/08/25 History Empagliflozin [Jardiance] 25 mg PO DAILY 07/20/22 02/08/25 History Omeprazole [PriLOSEC] 20 mg PO DAILY 07/20/22 02/08/25 History Rosuvastatin Calcium [Crestor] 20 mg PO DAILY 07/20/22 02/08/25 History Insulin Aspart [NovoLOG Flexpen] 6 - 10 units SQ AC-TID 09/03/22 02/08/25 History Ferrous Sulfate [Iron] 325 mg PO DAILY 02/18/23 02/08/25 History Albuterol Sulfate [Albuterol 1 puff INHALATION RT-QID PRN 02/08/25 02/08/25 History Sulfate Hfa] Apixaban [Eliquis] 2.5 mg PO BID 02/08/25 02/08/25 History Clopidogrel [Plavix] 75 mg PO DAILY 02/08/25 02/08/25 History Allergies Allergy/AdvReac Type Severity Reaction Status Date / Time No Known Allergies Allergy Verified 02/07/25 13:55 Physical Exam Vitals: Vital Signs Temp Pulse Pulse Resp BP BP Pulse Ox 02/09/25 07:00 98.2 F 81 18 118/74 94 L 02/09/25 00:38 97.7 F 63 18 107/72 97 02/08/25 18:01 97.9 F 94 16 137/81 93 L 02/08/25 17:22 73 16 106/61 98 02/08/25 16:00 75 18 115/71 98 02/08/25 12:00 55 L 18 116/78 97 02/08/25 09:00 97 18 127/74 95 Intake and Output 02/08/25 02/09/25 02/09/25 22:59 06:59 14:59 Other: Weight 88.451 kg Results 02/09/25 07:19 02/09/25 07:19 Current Medications Generic Name Dose Route Start Last Admin Trade Name Freq PRN Reason Stop Dose Admin Albuterol Sulfate 2.5 mg 02/08/25 04:24 Albuterol Nebulized 2.5 Mg/3 Ml INHALATION RT-QID PRN Shortness Of Breath Or Wheezing Apixaban 2.5 mg 02/08/25 21:00 02/08/25 22:01 Apixaban 2.5 Mg Tablet PO 2.5 mg BID CORINNA Administration Protocol Ascorbic Acid 1,000 mg 02/08/25 09:00 02/08/25 09:13 Ascorbic Acid 500 Mg Tab PO 1,000 mg DAILY CORINNA Administration Atorvastatin Calcium 40 mg 02/08/25 09:00 02/08/25 09:14 Atorvastatin 40 Mg Tab PO 40 mg DAILY CORINNA Administration Budesonide/Formoterol Fumarate 2 puff 02/08/25 08:00 02/09/25 06:13 Symbicort 80-4.5 Mcg Inhaler INHALATION 2 puff RT-BID CORINNA Administration Clopidogrel Bisulfate 75 mg 02/09/25 09:00 Clopidogrel 75 Mg Tab PO DAILY CORINNA Dapagliflozin 10 mg 02/08/25 09:00 02/08/25 09:12 Dapagliflozin Propanediol 10 Mg Tablet PO 10 mg DAILY CORINNA Administration Dextrose/Water 25 ml 02/08/25 12:18 Dextrose 50% Syringe 50 Ml IVP PER PROTOCOL PRN Hypoglycemia Protocol Dextrose/Water 50 ml 02/08/25 12:18 Dextrose 50% Syringe 50 Ml IVP PER PROTOCOL PRN Hypoglycemia Protocol Duloxetine HCl 30 mg 02/08/25 09:00 02/08/25 09:13 Duloxetine Hcl 30 Mg Capsule.Dr PO 30 mg DAILY CORINNA Administration Ferrous Sulfate 325 mg 02/08/25 09:00 02/08/25 09:14 Ferrous Sulfate 325 Mg Tab PO 325 mg DAILY CORINNA Administration Finasteride 5 mg 02/08/25 09:00 02/08/25 09:13 Finasteride 5 Mg Tab PO 5 mg DAILY CORINNA Administration Furosemide 40 mg 02/09/25 09:00 Furosemide 40 Mg Tab PO DAILY CORINNA Piperacillin Sod/Tazobactam 100 mls @ 25 mls/hr 02/08/25 20:00 02/09/25 04:49 Sod 3.375 gm/ Sodium Chloride IVPB 25 mls/hr Q8H CORINNA Administration Protocol Insulin Glargine 35 unit 02/09/25 07:00 02/09/25 06:37 Insulin Glargine (Lantus) 100 Unit/Ml Syr SQ 35 unit DAILY@0700 CORINNA Administration Insulin Human Lispro 0 unit 02/08/25 12:30 02/09/25 06:37 Insulin Lispro (Humalog) 100 Unit/Ml 10 Ml Vl SQ 2 unit ACHS CORINNA Administration Protocol Metoprolol Tartrate 50 mg 02/08/25 09:00 02/08/25 22:01 Metoprolol Tartrate 50 Mg Tab PO 50 mg BID CORINNA Administration Miscellaneous Information 1 each 02/07/25 23:12 Pneumonia Protocol Utilized 1 Each Misc PO ONCE PRN Per Protocol Montelukast Sodium 10 mg 02/08/25 09:00 02/08/25 09:12 Montelukast 10 Mg Tab PO 10 mg DAILY CORINNA Administration Pantoprazole Sodium 40 mg 02/08/25 07:30 02/09/25 06:42 Pantoprazole 40 Mg Tablet PO 40 mg AC-[id number] CORINNA Administration Tamsulosin HCl 0.8 mg 02/07/25 23:15 02/08/25 22:00 Tamsulosin 0.4 Mg Cap.Er.24h PO 0.8 mg HS CORINNA Administration Intake and Output 02/08/25 02/09/25 02/09/25 22:59 06:59 14:59 Other: Weight 88.451 kg 02/07/25 15:01 02/07/25 15:01
--- NOTE | 2025-02-09 12:11 | P.EPPROC ---
- EP Procedure Note Electrophysiology Procedure Note: Patient presented with shortness of breath for several weeks He has been on amiodarone 200 mg p.o. daily I reviewed his chest x-ray and it shows increased markings bilaterally His twelve-lead EKG shows an atrial tachycardia about 280 to 300 ms upright in V1 and flat in the inferior leads I would recommend stopping amiodarone. His symptoms and his chest x-ray may represent amiodarone lung toxicity PFT with DLCO to look for a diffusion abnormality in the lungs as an explanation for his symptoms Chest x-ray shows airspace consolidation and thickening of the pleura Right atrial appendage clip noted I would also recommend an A-fib ablation Anticoagulation to continue
[2025-02-09 12:36] LABS: Glucose,Whole Blood 259 mg/dL (70-110)
--- NOTE | 2025-02-09 14:46 | P.PN ---
Subjective Progress Note Date: 02/09/25 History of present illness; 74-year-old male with A-fib on Eliquis, peripheral arterial disease, history of aortic valve repair who presents with difficulty breathing. For the past two to three weeks, the patient has been unable to sleep in bed due to fluid coming out when lying down. he has been sleeping in a recliner instead. He reports paroxysmal nocturnal dyspnea and orthopnea. Along with exertional dyspnea with mild exertion. Denies any fevers chills denies any upper respiratory infection symptoms denies any recent travel denies any history of congestive heart failure however he has been noticing some right leg swelling. The patient has a history of atrial fibrillation and is on blood thinners. Patient had recent cardiac workup with a stress test that was unremarkable. Blood thinner for atrial fibrillation, Plavix and Eliquis 2.5mg (reduced from 5mg) 02/08/2025patient seen and examined at bedside. He has orthopnea, which has improved with Lasix. He does have some peripheral edema which is also improved. No other complaints at this time. 02/09/2025- ongoing dyspnea, now even when upright. Pt has been tx with abx per pulm for pneumonia with parapneumonic effusion. REVIEW OF SYSTEMS: Pertinent positives and negatives noted in HPI. Gen: In NAD, non-toxic HEENT: normocephalic, atraumatic, hearing acuity is intant, mucous membranes moist CVS: perfusing all extremities well, no pitting edema, Respiratory: symmetric chest expansion, no accessory muscle use, diffuse whe ezing GI: soft, NTTP, ND, : no suprapubic tenderness, no CVA tenderness MSK/Derm: no rashes, cyanosis Neuro: CN II-XII intact, no motor weakness, Psych: cooperative, euthymic mood, judgment and insight is intact ASSESSMENT AND PLAN: In summary, patient is [id number] male with A-fib on Eliquis, peripheral arterial disease, history of aortic valve repair who presents with difficulty breathing. #Acute congestive heart failure exacerbation suspected #Pneumonia, community acquired with parapneumonic effusion #A-fib on blood thinners, rate controlled #History of valvular disease status post aortic valve replacement Continue antibiotics Continue bronchodilators -Last known echo with preserved EF 55% -proBNP 1080 -Cardiac monitoring -Low sodium diet <2g daily < 2L of total volume intake daily -Supplemental O2 as needed -Monitor BMP -Continue diuretics Blood culture pending -Cardiology consulted Pulmonology consulted #Diabetes mellitus, type 2 Holding oral medications Begin Accu-Cheks and low-dose sliding scale, monitor for hypoglycemia Resume home long-acting insulin 35 units Chronic Medical Conditions: Hypertension, A-fib on blood thinners Peripheral arterial disease History of valvular disease status post aortic valve replacement Hyperlipidemia Diabetes mellitus Resume home medications amiodarone, Eliquis, aspirin stati Continue with Farxiga and long-acting insulin -Resume home medications DVT ppx: Continue home Eliquis Code status: Full code F: P.o. E: Replete as needed N: Heart healthy diet A: Ambulatory Anticipated discharge time and place: Pending clinical course Objective - Vital Signs Vital signs: Vital Signs Temp 98.2 F 02/09/25 14:22 Pulse 67 02/09/25 14:22 Resp 18 02/09/25 14:22 BP 120/67 02/09/25 14:22 Pulse Ox 97 02/09/25 14:22 FiO2 Intake & Output 02/08/25 02/09/25 02/09/25 18:59 06:59 18:59 Weight 88.451 kg - Labs CBC & Chem 7: 02/09/25 07:19 02/09/25 07:19 Labs: Abnormal Lab Results - Last 24 Hours (Table) 02/08/25 02/09/25 02/09/25 Range/Units 17:12 06:07 07:19 Hgb 12.5 L (13.0-17.0) g/dL Hct 39.2 L (39.6-50.0) % MCH 25.9 L (27.0-32.0) pg MCHC 31.9 L (32.0-37.0) g/dL RDW 15.9 H (11.5-14.5) % MPV 9.1 L (9.5-12.2) fL Lymphocytes # 0.56 L (0.90-5.00) 10*3/uL Eosinophils # 0.53 H (0.04-0.35) 10*3/uL BUN (9-20) mg/dL Creatinine (0.66-1.25) mg/dL Glucose (74-99) mg/dL POC Glucose (mg/dL) 165 H 166 H (70-110) mg/dL 02/09/25 02/09/25 Range/Units 07:19 12:33 Hgb (13.0-17.0) g/dL Hct (39.6-50.0) % MCH (27.0-32.0) pg MCHC (32.0-37.0) g/dL RDW (11.5-14.5) % MPV (9.5-12.2) fL Lymphocytes # (0.90-5.00) 10*3/uL Eosinophils # (0.04-0.35) 10*3/uL BUN 34 H (9-20) mg/dL Creatinine 1.59 H (0.66-1.25) mg/dL Glucose 162 H (74-99) mg/dL POC Glucose (mg/dL) 259 H (70-110) mg/dL Microbiology - Last 24 Hours (Table) 02/07/25 22:16 Blood Culture - Preliminary Blood
[2025-02-09] MEDS: predniSONE 20 MG TAB PO SCH (15:19)
[2025-02-09] MEDS: IPRATROPIUM-ALBUTEROL 3 ML NEB INHALATION SCH (17:19)
[2025-02-09 17:21] LABS: Glucose,Whole Blood 199 mg/dL (70-110)
[2025-02-09 19:49] LABS: Glucose,Whole Blood 353 mg/dL (70-110)
--- NOTE | 2025-02-10 00:01 | P.PN ---
Subjective Progress Note Date: 02/09/25 Patient is a 74-year-old male with past medical history significant for previous aortic valve replacement at the [facility], chronic atrial fibrillation anticoagulated on Eliquis, coronary disease with previous stent, hypertension, diabetes mellitus, prior history of tobacco use, COPD/asthma, among other things. Patient presents the emergency department yesterday afternoon with a chief complaint of progressively worsening shortness of breath over the last 2 weeks. Workup in the emergency department including chest x-ray remarkable for right lower lobe infiltrate and small right pleural effusion. Follow-up chest CT angiogram which was unremarkable for pulmonary embolism. Airspace consolidation noted at the right lung base with associated loculated parapneumonic effusion with mild thickening pleura. Labs including a CBC unremarkable for leukocytosis, WBC count 6.8, hemoglobin 12.6, platelets 293. CMP was unremarkable, electrolytes WDL, creatinine 1.12, glucose 101. Troponin less than 0.012. NT proBNP 1080. Patient currently being evaluated in the emergency department. He is resting comfortably on room air. Does not appear in any respiratory distress. Denies fevers, chills. Endorsing cough with yellow sputum production. Denies hemoptysis.. Denies pleuritic chest pain. He does reportedly see Dr. Stahl in the pulmonary office for his COPD/asthma. Uses an albuterol inhaler as needed and Symbicort inhaler. States he came down with something at the end of November, treated with Z-Nicolás and steroids on outpatient basis. Denies any chest pain, heart palpitations, syncopal events, lower extremity edema. 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 Recently had a stress test and echocardiogram, which were reportedly unremarkable. Also, recently had skin cancer removed on his left shoulder. Current vital signs: Heart rate 62 bpm, blood pressure 121/82 mmHg, nontachypneic, SpO2 recorded 95% on room air. On 02/09/2025, condition is stable. The patient remains on IV Zosyn. No interval worsening shortness of breath. No fever or chills. Hemodynamically stable. The white cell count 7.3 with a hemoglobin 12.5 and a platelet count of 317. BUN 34 with a creatinine of 1.59 and a sodium levels at 141. He remains in atrial fibrillation. He was seen by Dr. Figueroa. The patient was taken off amiodarone and the patient was recommended to undergo a A-fib ablation procedure. Remains on Lasix 40 mg p.o. daily. Remains on metoprolol 50 mg p.o. twice daily. Remains on anticoagulation with Eliquis and Farxiga 10 mg p.o. daily. He is currently on a prednisone burst taper the patient remains on Lantus insulin 35 units on a daily basis and sliding scale coverage. Objective - Vital Signs Vital signs: Vital Signs Temp 98.2 F 02/09/25 07:00 Pulse 70 02/09/25 08:00 Resp 19 02/09/25 08:00 BP 118/74 02/09/25 07:00 Pulse Ox 94 L 02/09/25 07:00 FiO2 Intake & Output 02/08/25 02/09/25 02/09/25 18:59 06:59 18:59 Weight 88.451 kg - Exam GENERAL EXAM: Alert, 74-year-old male, on room air, comfortable in no apparent distress. HEAD: Normocephalic and atraumatic EYES: Normal reaction of pupils, equal size. NOSE: Clear with pink turbinates. THROAT: No erythema or exudates. NECK: No masses, no JVD. CHEST: No chest wall deformity. Remote appearing sternotomy incision LUNGS: Equal air entry with no crackles, wheeze, rhonchi or dullness. No conversational dyspnea or accessory muscle use.. CVS: S1 and S2 normal with no audible murmur, irregular rhythm. No extra heart sounds ABDOMEN: No hepatosplenomegaly, active bowel sounds, no guarding or rigidity. SPINE: No scoliosis or deformity SKIN: No rashes. Previous excisional biopsy left upper shoulder CENTRAL NERVOUS SYSTEM: No focal deficits, tone is normal in all 4 extremities. EXTREMITIES: There is no peripheral edema, clubbing, or cyanosis. Peripheral pu lses are intact. - Labs CBC & Chem 7: 02/09/25 07:19 02/09/25 07:19 Labs: Abnormal Lab Results - Last 24 Hours (Table) 02/08/25 02/08/25 02/09/25 Range/Units 12:27 17:12 06:07 Hgb (13.0-17.0) g/dL Hct (39.6-50.0) % MCH (27.0-32.0) pg MCHC (32.0-37.0) g/dL RDW (11.5-14.5) % MPV (9.5-12.2) fL Lymphocytes # (0.90-5.00) 10*3/uL Eosinophils # (0.04-0.35) 10*3/uL BUN (9-20) mg/dL Creatinine (0.66-1.25) mg/dL Glucose (74-99) mg/dL POC Glucose (mg/dL) 322 H 165 H 166 H (70-110) mg/dL 02/09/25 02/09/25 Range/Units 07:19 07:19 Hgb 12.5 L (13.0-17.0) g/dL Hct 39.2 L (39.6-50.0) % MCH 25.9 L (27.0-32.0) pg MCHC 31.9 L (32.0-37.0) g/dL RDW 15.9 H (11.5-14.5) % MPV 9.1 L (9.5-12.2) fL Lymphocytes # 0.56 L (0.90-5.00) 10*3/uL Eosinophils # 0.53 H (0.04-0.35) 10*3/uL BUN 34 H (9-20) mg/dL Creatinine 1.59 H (0.66-1.25) mg/dL Glucose 162 H (74-99) mg/dL POC Glucose (mg/dL) (70-110) mg/dL Microbiology - Last 24 Hours (Table) 02/07/25 22:16 Blood Culture - Preliminary Blood Assessment and Plan Assessment: Questionable right lower lung pneumonia with parapneumonic effusion and mild pleural thickening, currently on IV Zosyn Acute dyspnea, secondary to above, stable COPD/asthma Chronic atrial fibrillation, normally anticoagulant Eliquis Acute kidney injury Hypertension History of CAD with previous stent placement History of aortic valve replacement, performed at [facility] History of diabetes mellitus History of hyperlipidemia History of osteoarthritis History of skin cancer, with removal Prior history of tobacco use Plan: Currently on room air Continue antibiotics, remains on IV Zosyn Procalcitonin level is less than 0.2 Blood culture sent Resume maintenance COPD/asthma medications CT of the chest was also done and the patient has airspace consolidation in the right lung base essentially involving the right lower lobe consistent with lobar pneumonia. There is also a right sided pleural effusion, small, minor loculation. Antibiotic coverage is currently with IV Zosyn the patient was started on IV Zosyn in the emergency department. Rest of the home medication have been resumed. He is known to have also atrial fibrillation. The patient remains in A-fib with a controlled rate. He is on long-term anticoagulation with Eliquis. He is also on metoprolol 50 mg p.o. twice daily and amiodarone was discontinued The right-sided pleural effusion is small. Not amenable for thoracentesis or any further intervention at this point in time. Will monitor clinically and will repeat a chest x-ray.
[2025-02-10 05:52] LABS: Glucose,Whole Blood 226 mg/dL (70-110)
[2025-02-10 10:20] LABS: ALT 13 U/L (10-49); AST 16 U/L (14-35); Albumin 3.9 g/dL (3.8-4.9); Albumin/Globulin Ratio 1.56 Ratio (1.60-3.17); Alkaline Phosphatase 111 U/L (41-126); BUN/Creat Ratio 19.76 Ratio (12.00-20.00); Blood Urea Nitrogen 33.6 mg/dL (9.0-27.0); Calcium 8.8 mg/dL (8.7-10.3); Carbon Dioxide 25.3 mmol/L (21.6-31.8); Chloride 100 mmol/L (96-109); Globulin 2.5 g/dL (1.6-3.3); Glucose 230 mg/dL (70-110); Potassium 4.2 mmol/L (3.5-5.5); Sodium 141 mmol/L (135-145); Total Bilirubin 0.3 mg/dL (0.3-1.2); Total Protein 6.4 g/dL (6.2-8.2)
--- NOTE | 2025-02-10 11:35 | P.PN ---
Subjective Progress Note Date: 02/10/25 The patient is a 74-year-old male who presented to the hospital with worsening shortness of breath. He has subsequently been diagnosed with multilobular pneumonia. Patient has a known history of atrial fibrillation and therefore cardiology was consulted. [facility] and is on amiodarone. This has been discontinued based upon his chest x-ray. Patient interviewed and examined resting comfortably in bed. He states his breathing has improved overnight. No chest pain or pressure. GENERAL: Well-appearing, well-nourished and in no acute distress. NECK: Supple without JVD or thyromegaly. LUNGS: Breath sounds coarse to auscultation bilaterally. Respiration equal and unlabored. Bilateral rhonchi. HEART: Regular rate and rhythm without murmurs, rubs or gallops. S1 and S2 heard. EXTREMITIES: Normal range of motion, no edema. No clubbing or cyanosis. Peripheral pulses intact and strong. TELEMETRY: Atrial fibrillation, rate controlled IMPRESSION: Shortness of breath Multilobular pneumonia Atrial fibrillation, persistent History of aortic valve replacement PLAN: Recommend discontinuing amiodarone at discharge Outpatient PFT testing with DLCO Follow-up with Dr. Figueroa in office to discuss ablation I am dictating on behalf of Dr Blu Figueroa's history/physical and assessment/plan. Objective - Vital Signs Vital signs: Vital Signs Temp 97.7 F 02/10/25 00:42 Pulse 80 02/10/25 06:18 Resp 20 02/10/25 00:42 BP 119/74 02/10/25 00:42 Pulse Ox 95 02/10/25 00:42 FiO2 Intake & Output 02/09/25 02/10/25 02/10/25 18:59 06:59 18:59 Weight 86.8 kg - Labs CBC & Chem 7: 02/09/25 07:19 02/10/25 05:36 Labs: Abnormal Lab Results - Last 24 Hours (Table) 02/09/25 02/09/25 02/09/25 Range/Units 07:19 07:19 12:33 Hgb 12.5 L (13.0-17.0) g/dL Hct 39.2 L (39.6-50.0) % MCH 25.9 L (27.0-32.0) pg MCHC 31.9 L (32.0-37.0) g/dL RDW 15.9 H (11.5-14.5) % MPV 9.1 L (9.5-12.2) fL Lymphocytes # 0.56 L (0.90-5.00) 10*3/uL Eosinophils # 0.53 H (0.04-0.35) 10*3/uL BUN 34 H (9-20) mg/dL Creatinine 1.59 H (0.66-1.25) mg/dL Glucose 162 H (74-99) mg/dL POC Glucose (mg/dL) 259 H (70-110) mg/dL 02/09/25 02/09/25 02/10/25 Range/Units 17:20 19:47 05:51 Hgb (13.0-17.0) g/dL Hct (39.6-50.0) % MCH (27.0-32.0) pg MCHC (32.0-37.0) g/dL RDW (11.5-14.5) % MPV (9.5-12.2) fL Lymphocytes # (0.90-5.00) 10*3/uL Eosinophils # (0.04-0.35) 10*3/uL BUN (9-20) mg/dL Creatinine (0.66-1.25) mg/dL Glucose (74-99) mg/dL POC Glucose (mg/dL) 199 H 353 H 226 H (70-110) mg/dL Microbiology - Last 24 Hours (Table) 02/07/25 22:16 Blood Culture - Preliminary Blood
[2025-02-10 12:30] LABS: Glucose,Whole Blood 344 mg/dL (70-110)
--- NOTE | 2025-02-10 13:41 | P.PN ---
Subjective Progress Note Date: 02/10/25 History of present illness; 74-year-old male with A-fib on Eliquis, peripheral arterial disease, history of aortic valve repair who presents with difficulty breathing. For the past two to three weeks, the patient has been unable to sleep in bed due to fluid coming out when lying down. he has been sleeping in a recliner instead. He reports paroxysmal nocturnal dyspnea and orthopnea. Along with exertional dyspnea with mild exertion. Denies any fevers chills denies any upper respiratory infection symptoms denies any recent travel denies any history of congestive heart failure however he has been noticing some right leg swelling. The patient has a history of atrial fibrillation and is on blood thinners. Patient had recent cardiac workup with a stress test that was unremarkable. Blood thinner for atrial fibrillation, Plavix and Eliquis 2.5mg (reduced from 5mg) 02/08/2025patient seen and examined at bedside. He has orthopnea, which has improved with Lasix. He does have some peripheral edema which is also improved. No other complaints at this time. 02/09/2025- ongoing dyspnea, now even when upright. Pt has been tx with abx per pulm for pneumonia with parapneumonic effusion. 02/10/2025- Pts dyspnea feels improved with steroids and nebs. REVIEW OF SYSTEMS: Pertinent positives and negatives noted in HPI. Gen: In NAD, non-toxic HEENT: normocephalic, atraumatic, hearing acuity is intant, mucous membranes moist CVS: perfusing all extremities well, no pitting edema, Respiratory: symmetric chest expansion, no accessory muscle use, diffuse wheezing GI: soft, NTTP, ND, : no suprapubic tenderness, no CVA tenderness MSK/Derm: no rashes, cyanosis Neuro: CN II-XII intact, no motor weakness, Psych: cooperative, euthymic mood, judgment and insight is intact ASSESSMENT AND PLAN: In summary, patient is [id number] male with A-fib on Eliquis, peripheral arterial disease, history of aortic valve repair who presents with difficulty breathing. #Acute congestive heart failure exacerbation suspected #Pneumonia, community acquired with parapneumonic effusion #A-fib on blood thinners, rate controlled #History of valvular disease status post aortic valve replacement Continue antibiotics Continue bronchodilators -Last known echo with preserved EF 55% -proBNP 1080 -Cardiac monitoring -Low sodium diet <2g daily < 2L of total volume intake daily -Supplemental O2 as needed -Monitor BMP -Continue diuretics Blood culture pending -Cardiology consulted Pulmonology consulted #Diabetes mellitus, type 2 Holding oral medications Begin Accu-Cheks and low-dose sliding scale, monitor for hypoglycemia Resume home long-acting insulin 35 units Chronic Medical Conditions: Hypertension, A-fib on blood thinners Peripheral arterial disease History of valvular disease status post aortic valve replacement Hyperlipidemia Diabetes mellitus Resume home medications amiodarone, Eliquis, aspirin stati Continue with Farxiga and long-acting insulin -Resume home medications DVT ppx: Continue home Eliquis Code status: Full code F: P.o. E: Replete as needed N: Heart healthy diet A: Ambulatory Anticipated discharge time and place: Pending clinical course Objective - Vital Signs Vital signs: Vital Signs Temp 98.1 F 02/10/25 07:10 Pulse 92 02/10/25 07:10 Resp 17 02/10/25 13:32 BP 139/76 02/10/25 07:10 Pulse Ox 98 02/10/25 07:10 FiO2 Intake & Output 02/09/25 02/10/25 02/10/25 18:59 06:59 18:59 Intake Total 660 Balance 660 Weight 86.8 kg Intake: Oral 660 Other: Voiding Method Toilet - Labs CBC & Chem 7: 02/09/25 07:19 02/10/25 05:36 Labs: Abnormal Lab Results - Last 24 Hours (Table) 02/09/25 02/09/25 02/10/25 Range/Units 17:20 19:47 05:36 Anion Gap 15.70 H (4.00-12.00) mmol/L BUN 33.6 H (9.0-27.0) mg/dL Creatinine 1.7 H (0.6-1.5) mg/dL Est GFR (CKD-EPI) 41 L (>=60) Glucose 230 H (70-110) mg/dL POC Glucose (mg/dL) 199 H 353 H (70-110) mg/dL Albumin/Globulin Ratio 1.56 L (1.60-3.17) Ratio 02/10/25 02/10/25 Range/Units 05:51 12:29 Anion Gap (4.00-12.00) mmol/L BUN (9.0-27.0) mg/dL Creatinine (0.6-1.5) mg/dL Est GFR (CKD-EPI) (>=60) Glucose (70-110) mg/dL POC Glucose (mg/dL) 226 H 344 H (70-110) mg/dL Albumin/Globulin Ratio (1.60-3.17) Ratio Microbiology - Last 24 Hours (Table) 02/07/25 22:16 Blood Culture - Preliminary Blood
[2025-02-10] MEDS: LOPERAMIDE 2 MG CAP PO PRN (16:43)
[2025-02-10 17:33] LABS: Glucose,Whole Blood 543 mg/dL (70-110)
[2025-02-10] MEDS: INSULIN LISPRO (HumaLOG) 100 UNIT/ML 10 mL VL SQ ONE (18:52)
[2025-02-10 20:22] LABS: Glucose,Whole Blood 494 mg/dL (70-110)
--- NOTE | 2025-02-10 22:01 | P.PN ---
Subjective Progress Note Date: 02/10/25 Patient is a 74-year-old male with past medical history significant for previous aortic valve replacement at the [facility], chronic atrial fibrillation anticoagulated on Eliquis, coronary disease with previous stent, hypertension, diabetes mellitus, prior history of tobacco use, COPD/asthma, among other things. Patient presents the emergency department yesterday afternoon with a chief complaint of progressively worsening shortness of breath over the last 2 weeks. Workup in the emergency department including chest x-ray remarkable for right lower lobe infiltrate and small right pleural effusion. Follow-up chest CT angiogram which was unremarkable for pulmonary embolism. Airspace consolidation noted at the right lung base with associated loculated parapneumonic effusion with mild thickening pleura. Labs including a CBC unremarkable for leukocytosis, WBC count 6.8, hemoglobin 12.6, platelets 293. CMP was unremarkable, electrolytes WDL, creatinine 1.12, glucose 101. Troponin less than 0.012. NT proBNP 1080. Patient currently being evaluated in the emergency department. He is resting comfortably on room air. Does not appear in any respiratory distress. Denies fevers, chills. Endorsing cough with yellow sputum production. Denies hemoptysis.. Denies pleuritic chest pain. He does reportedly see Dr. Stahl in the pulmonary office for his COPD/asthma. Uses an albuterol inhaler as needed and Symbicort inhaler. States he came down with something at the end of November, treated with Z-Nicolás and steroids on outpatient basis. Denies any chest pain, heart palpitations, syncopal events, lower extremity edema. He follows with a director of surgery in [place]. Recently had a stress test and echocardiogram, which were reportedly unremarkable. Also, recently had skin cancer removed on his left shoulder. Current vital signs: Heart rate 62 bpm, blood pressure 121/82 mmHg, nontachypneic, SpO2 recorded 95% on room air. On 02/09/2025, condition is stable. The patient remains on IV Zosyn. No interval worsening shortness of breath. No fever or chills. Hemodynamically stable. The white cell count 7.3 with a hemoglobin 12.5 and a platelet count of 317. BUN 34 with a creatinine of 1.59 and a sodium levels at 141. He remains in atrial fibrillation. He was seen by Dr. Figueroa. The patient was taken off amiodarone and the patient was recommended to undergo a A-fib ablation procedure. Remains on Lasix 40 mg p.o. daily. Remains on metoprolol 50 mg p.o. twice daily. Remains on anticoagulation with Eliquis and Farxiga 10 mg p.o. daily. He is currently on a prednisone burst taper the patient remains on Lantus insulin 35 units on a daily basis and sliding scale coverage. On 02/10/2025, the patient remains on room air oxygen. Denies having any specific complaints. Continues to be on IV Zosyn. He has developed some mild diarrhea. Stool was sent for C. difficile evaluation. He has also developed hyperglycemia related to steroids and the patient was transitioned to oral prednisone. In terms of blood sugar control, the patient is on Lantus 55 units daily and NovoLog sign scale coverage. Remains on DuoNeb updrafts. Cardiology is seeing the patient regarding his atrial fibrillation. Amiodarone was discontinued based on cardiology recommendations. He has persistent chronic atrial fibrillation. Remains on anticoagulation with Eliquis. Remains on metoprolol 50 mg twice daily for rate control. He is post TAVR. Objective - Vital Signs Vital signs: Vital Signs Temp 98.1 F 02/10/25 07:10 Pulse 92 02/10/25 07:10 Resp 17 02/10/25 13:32 BP 139/76 02/10/25 07:10 Pulse Ox 98 02/10/25 07:10 FiO2 Intake & Output 02/09/25 02/10/25 02/10/25 18:59 06:59 18:59 Intake Total 660 Balance 660 Weight 86.8 kg Intake: Oral 660 Other: Voiding Method Toilet - Exam GENERAL EXAM: Alert, 74-year-old male, on room air, comfortable in no apparent distress. Patient remains on room air oxygen. HEAD: Normocephalic and atraumatic EYES: Normal reaction of pupils, equal size. NOSE: Clear with pink turbinates. THROAT: No erythema or exudates. NECK: No masses, no JVD. CHEST: No chest wall deformity. Remote appearing sternotomy incision LUNGS: Equal air entry with no crackles, wheeze, rhonchi or dullness. No conversational dyspnea or accessory muscle use.. CVS: S1 and S2 normal with no audible murmur, irregular rhythm. No extra heart sounds ABDOMEN: No hepatosplenomegaly, active bowel sounds, no guarding or rigidity. SPINE: No scoliosis or deformity SKIN: No rashes. Previous excisional biopsy left upper shoulder CENTRAL NERVOUS SYSTEM: No focal deficits, tone is normal in all 4 extremities. EXTREMITIES: There is no peripheral edema, clubbing, or cyanosis. Peripheral pulses are intact. - Labs CBC & Chem 7: 02/09/25 07:19 02/10/25 05:36 Labs: Abnormal Lab Results - Last 24 Hours (Table) 02/09/25 02/09/25 02/10/25 Range/Units 17:20 19:47 05:36 Anion Gap 15.70 H (4.00-12.00) mmol/L BUN 33.6 H (9.0-27.0) mg/dL Creatinine 1.7 H (0.6-1.5) mg/dL Est GFR (CKD-EPI) 41 L (>=60) Glucose 230 H (70-110) mg/dL POC Glucose (mg/dL) 199 H 353 H (70-110) mg/dL Albumin/Globulin Ratio 1.56 L (1.60-3.17) Ratio 02/10/25 02/10/25 Range/Units 05:51 12:29 Anion Gap (4.00-12.00) mmol/L BUN (9.0-27.0) mg/dL Creatinine (0.6-1.5) mg/dL Est GFR (CKD-EPI) (>=60) Glucose (70-110) mg/dL POC Glucose (mg/dL) 226 H 344 H (70-110) mg/dL Albumin/Globulin Ratio (1.60-3.17) Ratio Microbiology - Last 24 Hours (Table) 02/07/25 22:16 Blood Culture - Preliminary Blood Assessment and Plan Assessment: right lower lung pneumonia with parapneumonic effusion and mild pleural thickening, currently on IV Zosyn, clinically stable on room air oxygen Acute dyspnea, secondary to above, COPD/asthma Chronic atrial fibrillation, normally anticoagulant Eliquis, off amiodarone and the patient is currently on beta-blockers and anticoagulation with Eliquis Acute kidney injury, stable creatinine at 1.7 Hypertension History of CAD with previous stent placement History of aortic valve replacement, performed at [facility] History of diabetes mellitus History of hyperlipidemia History of osteoarthritis History of skin cancer, with removal Prior history of tobacco use Plan: Currently on room air Continue antibiotics, remains on IV Zosyn Procalcitonin level is less than 0.2 Blood culture sent, and the results are negative thus far Resume maintenance COPD/asthma medications CT of the chest was also done and the patient has airspace consolidation in the right lung base essentially involving the right lower lobe consistent with lobar pneumonia. There is also a right sided pleural effusion, small, minor loculation. Antibiotic coverage is currently with IV Zosyn the patient was started on IV Zosyn in the emergency department. Rest of the home medication have been resumed. He is known to have also atrial fibrillation. The patient remains in A-fib with a controlled rate. He is on long-term anticoagulation with Eliquis. He is also on metoprolol 50 mg p.o. twice daily and amiodarone was discontinued The right-sided pleural effusion is small. Not amenable for thoracentesis or any further intervention at this point in time. Will monitor clinically and will repeat a chest x-ray within the next 24 hours. Will continue to follow.
[2025-02-11 02:11] LABS: Glucose,Whole Blood 83 mg/dL (70-110)
[2025-02-11 05:49] LABS: Glucose,Whole Blood 153 mg/dL (70-110)
[2025-02-11] MEDS: INSULIN GLARGINE (LANTUS) 100 UNIT/ML SYR SQ SCH (06:08)
--- NOTE | 2025-02-11 08:51 | PN ---
PROGRESS NOTE SUBJECTIVE: Fermin is a 74-year-old gentleman with history of atrial fibrillation, who had been on amiodarone for a long time, was admitted to hospital with shortness of breath thought to be secondary to amiodarone toxicity that is currently being managed by a newspaper subscription solicitor. He has history of aortic valve replacement and persistent atrial fibrillation. Dr. Figueroa stopped the amiodarone and would consider atrial fibrillation ablation. This morning, the patient is doing well, remains in atrial fibrillation with controlled ventricular rate, stable hemodynamically and his symptoms have improved. OBJECTIVE: GENERAL: On exam, comfortable at rest. VITAL SIGNS: Stable. CHEST: Reveals good air entry bilaterally. HEART: Reveals first and second heart sounds, irregular rhythm and a systolic murmur at the apex. ABDOMEN: Soft. EXTREMITIES: Examination of extremities did not reveal any edema. Peripheral pulses are felt. CURRENT MEDICATIONS: Include: 1. Eliquis. 2. Lipitor. 3. Plavix. 4. Farxiga. 5. Cymbalta. 6. Lasix. 7. Insulin. 8. Lopressor. 9. Protonix. 10.Flomax. LABS: No new labs from this morning. ASSESSMENT: 1. Persistent atrial fibrillation with controlled ventricular rate. 2. History of aortic valve replacement. 3. 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 PLAN: The patient will be off amiodarone, evaluated by newspaper subscription solicitor. We will follow up with Dr. Figueroa in the office. Further workup and therapies through him. MMODL / IJN: [id number] /
[2025-02-11 09:36] LABS: African American GFR (CKD) 53 (>60 ml/min/1.73 sqM); Anion Gap 10 mmol/L; Blood Urea Nitrogen 33 mg/dL (9-20); Calcium 8.8 mg/dL (8.4-10.2); Carbon Dioxide 27 mmol/L (22-30); Chloride 101 mmol/L (98-107); Glucose 241 mg/dL (74-99); Non-African American GFR(CKD) 46 (>60 ml/min/1.73 sqM); Potassium 3.7 mmol/L (3.5-5.1); Sodium 138 mmol/L (137-145)
--- NOTE | 2025-02-11 10:37 | XR ---
EXAMINATION TYPE: XR chest 1V portable DATE OF EXAM: 02/11/2025 10:33 AM COMPARISON: 02/09/2025 CLINICAL INDICATION: Male, 74 years old with history of pneumonia, TECHNIQUE: XR chest 1V portable views of the chest are obtained. FINDINGS: Demonstrated are scattered senescent parenchymal change. Right basilar pleural parenchymal scarring is unchanged. There is no evidence for focal infiltrate. The heart is stable. Hilar and mediastinal structures are within normal limits. Degenerative changes are seen of the dorsal spine. IMPRESSION: 1. Chronic changes without evidence for acute pulmonary disease. [facility], , 02/11/2025 10:34 AM
[2025-02-11 12:10] LABS: Glucose,Whole Blood 255 mg/dL (70-110)
--- NOTE | 2025-02-11 13:00 | P.PN ---
Subjective Progress Note Date: 02/11/25 Patient is a 74-year-old male with past medical history significant for previous aortic valve replacement at the [facility], chronic atrial fibrillation anticoagulated on Eliquis, coronary disease with previous stent, hypertension, diabetes mellitus, prior history of tobacco use, COPD/asthma, among other things. Patient presents the emergency department yesterday afternoon with a chief complaint of progressively worsening shortness of breath over the last 2 weeks. Workup in the emergency department including chest x-ray remarkable for right lower lobe infiltrate and small right pleural effusion. Follow-up chest CT angiogram which was unremarkable for pulmonary embolism. Airspace consolidation noted at the right lung base with associated loculated parapneumonic effusion with mild thickening pleura. Labs including a CBC unremarkable for leukocytosis, WBC count 6.8, hemoglobin 12.6, platelets 293. CMP was unremarkable, electrolytes WDL, creatinine 1.12, glucose 101. Troponin less than 0.012. NT proBNP 1080. Patient currently being evaluated in the emergency department. He is resting comfortably on room air. Does not appear in any respiratory distress. Denies fevers, chills. Endorsing cough with yellow sputum production. Denies hemoptysis.. Denies pleuritic chest pain. He does reportedly see Dr. Stahl in the pulmonary office for his COPD/asthma. Uses an albuterol inhaler as needed and Symbicort inhaler. States he came down with something at the end of November, treated with Z-Nicolás and steroids on outpatient basis. Denies any chest pain, heart palpitations, syncopal events, lower extremity edema. He follows with a spragger in [place]. Recently had a s tress test and echocardiogram, which were reportedly unremarkable. Also, recently had skin cancer removed on his left shoulder. Current vital signs: Heart rate 62 bpm, blood pressure 121/82 mmHg, nontachypneic, SpO2 recorded 95% on room air. On 02/09/2025, condition is stable. The patient remains on IV Zosyn. No interval worsening shortness of breath. No fever or chills. Hemodynamically stable. The white cell count 7.3 with a hemoglobin 12.5 and a platelet count of 317. BUN 34 with a creatinine of 1.59 and a sodium levels at 141. He remains in atrial fibrillation. He was seen by Dr. Figueroa. The patient was taken off amiodarone and the patient was recommended to undergo a A-fib ablation procedure. Remains on Lasix 40 mg p.o. daily. Remains on metoprolol 50 mg p.o. twice daily. Remains on anticoagulation with Eliquis and Farxiga 10 mg p.o. daily. He is currently on a prednisone burst taper the patient remains on Lantus insulin 35 units on a daily basis and sliding scale coverage. On 02/10/2025, the patient remains on room air oxygen. Denies having any specific complaints. Continues to be on IV Zosyn. He has developed some mild diarrhea. Stool was sent for C. difficile evaluation. He has also developed hyperglycemia related to steroids and the patient was transitioned to oral prednisone. In terms of blood sugar control, the patient is on Lantus 55 units daily and NovoLog sign scale coverage. Remains on DuoNeb updrafts. Cardiology is seeing the patient regarding his atrial fibrillation. Amiodarone was discontinued based on cardiology recommendations. He has persistent chronic atrial fibrillation. Remains on anticoagulation with Eliquis. Remains on metoprolol 50 mg twice daily for rate control. He is post TAVR. The patient is seen today February 11, 2025 in follow-up on the regular medical floor. He is currently sitting up in bed. Awake and alert in no acute distress. Denies any worsening shortness of breath, cough or congestion. Still has some dyspnea on exertion. He is maintaining good O2 saturations in the 90s on room air oxygen. He has been afebrile. Hemodynamically stable. Follow-up chest x-ray reveals chronic changes but no acute pulmonary process. Blood culture revealed no growth. Sodium 138. Potassium 3.7. Bicarb 27. BUN 33. Creatinine 1.46. Glucose 241. He remains on DuoNeb and elations, Symbicort, prednisone taper. Anticoagulated with Eliquis. Remains on Zosyn. Remains on oral diuretics. Objective - Vital Signs Vital signs: Vital Signs Temp 98.5 F 02/11/25 07:15 Pulse 91 02/11/25 11:49 Resp 14 02/11/25 10:15 BP 112/67 02/11/25 07:15 Pulse Ox 94 L 02/11/25 07:15 FiO2 Intake & Output 02/10/25 02/11/25 02/11/25 18:59 06:59 18:59 Intake Total 1020 1020 Balance 1020 1020 Weight 87.2 kg Intake: Oral 1020 1020 Other: Voiding Method Toilet # Voids 3 2 # Bowel Movements 3 - Exam GENERAL EXAM: Alert, pleasant 74-year-old male, on room air oxygen, sitting up in bed, comfortable in no apparent distress. HEAD: Normocephalic. EYES: Normal reaction of pupils, equal size. NOSE: Clear with pink turbinates. THROAT: No erythema or exudates. NECK: No masses, no JVD. CHEST: No chest wall deformity. LUNGS: Equal air entry with no crackles, wheeze, rhonchi or dullness. CVS: S1 and S2 normal with no audible murmur, regular rhythm. ABDOMEN: No hepatosplenomegaly, normal bowel sounds, no guarding or rigidity. SPINE: No scoliosis or deformity SKIN: No rashes CENTRAL NERVOUS SYSTEM: No focal deficits, tone is normal in all 4 extremities. EXTREMITIES: There is no peripheral edema. No clubbing, no cyanosis. Peripheral pulses are intact. - Labs CBC & Chem 7: 02/09/25 07:19 02/11/25 08:59 Labs: Abnormal Lab Results - Last 24 Hours (Table) 02/10/25 02/10/25 02/11/25 Range/Units 17:30 20:21 05:48 BUN (9-20) mg/dL Creatinine (0.66-1.25) mg/dL Glucose (74-99) mg/dL POC Glucose (mg/dL) 543 H* 494 H 153 H (70-110) mg/dL 02/11/25 02/11/25 Range/Units 08:59 12:08 BUN 33 H (9-20) mg/dL Creatinine 1.46 H (0.66-1.25) mg/dL Glucose 241 H (74-99) mg/dL POC Glucose (mg/dL) 255 H (70-110) mg/dL Microbiology - Last 24 Hours (Table) 02/07/25 22:16 Blood Culture - Preliminary Blood Assessment and Plan Assessment: Acute right lower lung pneumonia with parapneumonic effusion and mild pleural thickening, currently on IV Zosyn, clinically stable on room air oxygen. Today's chest x-ray shows chronic changes but no acute pulmonary process Acute dyspnea, secondary to above, COPD/asthma Chronic atrial fibrillation, normally anticoagulant Eliquis, off amiodarone and the patient is currently on beta-blockers and anticoagulation with Eliquis Acute kidney injury, stable creatinine at 1.46 Hypertension History of CAD with previous stent placement History of aortic valve replacement, performed at [facility] History of diabetes mellitus History of hyperlipidemia History of osteoarthritis History of skin cancer, with removal Prior history of tobacco use Plan: The patient was seen and evaluated Chest x-ray, labs and medications reviewed Stable and on room air oxygen Cleared for discharge Complete a course of antibiotics Continue Symbicort Continue a prednisone taper Continue Singulair Continue albuterol HFA Anticoagulated with Eliquis Follow-up in our office in 1 week This patient was seen independently by the pulmonary nurse practitioner addressing pulmonary issues I have personally seen and examined the patient, performed the documentation and the assessment and plan as written. Number of minutes spent on the visit: 23 Dictation was produced using [employer] dictation software. Please excuse any grammatical, word or spelling errors.
[2025-02-11 14:43] VITALS: BP 137/79; PULSE 69; RESP 11; TEMP 98
--- NOTE | 2025-02-11 16:00 | P.DS ---
Providers Date of admission: 02/09/25 07:57 Expected date of discharge: 02/11/25 Attending physician: Benny Eller MD Consults: 02/07/25 23:16 Consult Physician Routine Consulting Provider: Brody Howard Consult Reason/Comments: asthma, PNA Do you want consulting provider notified?: Yes, Notify in am 02/08/25 12:33 Consult Physician Routine Consulting Provider: Terrence Mitchell Consult Reason/Comments: orthopnea, hx of aortic valve replacement Do you want consulting provider notified?: Yes Primary care physician: [facility] Course: Discharge diagnoses; #Acute congestive heart failure exacerbation suspected #Pneumonia, community acquired with parapneumonic effusion #A-fib on blood thinners, rate controlled #History of valvular disease status post aortic valve replacement #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 For the past two to three weeks, the patient has been unable to sleep in bed due to fluid coming out when lying down. he has been sleeping in a recliner instead. He reports paroxysmal nocturnal dyspnea and orthopnea. Along with exertional dyspnea with mild exertion. Denies any fevers chills denies any upper respiratory infection symptoms denies any recent travel denies any history of congestive heart failure however he has been noticing some right leg swelling. The patient has a history of atrial fibrillation and is on blood thinners. Patient had recent cardiac workup with a stress test that was unremarkable. Blood thinner for atrial fibrillation, Plavix and Eliquis 2.5mg (reduced from 5mg) During hospital stay patient treated for community-acquired pneumonia with acquired parapneumonic effusion and acute CHF exacerbation. He was seen by pulmonology and treated with antibiotics and continue to improve. He was also treated with IV Lasix and seen by cardiology and continue to improve. He is discharged home in stable condition. He will begin prednisone taper, continue short course of antibiotics, continue metoprolol 50 mg BD, Lasix daily for symptomatic CHF. Discontinue amiodarone. Follow-up BMP in 3 days. He will need to follow-up with his PCP, review assistant to discuss ablation, it help desk analyst for PFTs and DLCO. Gen: In NAD, non-toxic HEENT: normocephalic, atraumatic, hearing acuity is intant, mucous membranes moist CVS: perfusing all extremities well, no pitting edema, Respiratory: symmetric chest expansion, no accessory muscle use, improved wheeze GI: soft, NTTP, ND, : no suprapubic tenderness, no CVA tenderness MSK/Derm: no rashes, cyanosis Neuro: CN II-XII intact, no motor weakness, Psych: cooperative, euthymic mood, judgment and insight is intact Kaleb Lake MD Internal Medicine Resident, PGY1 Dictation was produced using [employer] dictation software. please excuse any grammatical, word or spelling errors. I saw and evaluated the patient during the rodriguez and critical portions of this encounter, and discussed the case in detail with the resident author of this note, I agree with the Assessment and Plan, and my changes, if any, are highlighted in blue. Patient Condition at Discharge: Stable Plan - Discharge Summary Discharge Rx Participant: Yes New Discharge Prescriptions: New Ciprofloxacin HCl [Cipro] 500 mg PO BID 2 Days #4 tab predniSONE [Deltasone] See Taper PO DAILY #11 tab Metoprolol Tartrate [Lopressor] 50 mg PO BID #60 tab Furosemide [Lasix] 40 mg PO DAILY #30 tablet Continue Montelukast [Singulair] 10 mg PO DAILY Tamsulosin HCl [Flomax] 0.8 mg PO HS Insulin Glargine,Hum.rec.anlog [Lantus Solostar Pen] 35 unit SQ DAILY DULoxetine HCL [Cymbalta] 30 mg PO DAILY Finasteride [Proscar] 5 mg PO DAILY Rosuvastatin Calcium [Crestor] 20 mg PO DAILY Insulin Aspart [NovoLOG Flexpen] 6 - 10 units SQ AC-TID Apixaban [Eliquis] 2.5 mg PO BID Omeprazole [PriLOSEC] 20 mg PO DAILY Empagliflozin [Jardiance] 25 mg PO DAILY Ferrous Sulfate [Iron] 325 mg PO DAILY Clopidogrel [Plavix] 75 mg PO DAILY Albuterol Sulfate [Albuterol Sulfate Hfa] 1 puff INHALATION RT-QID PRN PRN Reason: Shortness Of Breath Discharge Medication List Montelukast [Singulair] 10 mg PO DAILY 10/05/14 [History] Tamsulosin HCl [Flomax] 0.8 mg PO HS 08/31/17 [History] Insulin Glargine,Hum.rec.anlog [Lantus Solostar Pen] 35 unit SQ DAILY 10/23/20 [History] DULoxetine HCL [Cymbalta] 30 mg PO DAILY 02/19/22 [History] Finasteride [Proscar] 5 mg PO DAILY 02/19/22 [History] Empagliflozin [Jardiance] 25 mg PO DAILY 07/20/22 [History] Omeprazole [PriLOSEC] 20 mg PO DAILY 07/20/22 [History] Rosuvastatin Calcium [Crestor] 20 mg PO DAILY 07/20/22 [History] Insulin Aspart [NovoLOG Flexpen] 6 - 10 units SQ AC-TID 09/03/22 [History] Ferrous Sulfate [Iron] 325 mg PO DAILY 02/18/23 [History] Albuterol Sulfate [Albuterol Sulfate Hfa] 1 puff INHALATION RT-QID PRN 02/08/25 [History] Apixaban [Eliquis] 2.5 mg PO BID 02/08/25 [History] Clopidogrel [Plavix] 75 mg PO DAILY 02/08/25 [History] Ciprofloxacin HCl [Cipro] 500 mg PO BID 2 Days #4 tab 02/11/25 [Rx] Furosemide [Lasix] 40 mg PO DAILY #30 tablet 02/11/25 [Rx] Metoprolol Tartrate [Lopressor] 50 mg PO BID #60 tab 02/11/25 [Rx] predniSONE [Deltasone] See Taper PO DAILY #11 tab 02/11/25 [Rx] Follow up Appointment(s)/Referral(s): Blu Figueroa MD [STAFF PHYSICIAN] - 3 Weeks (Office will call with Follow up appointment date and time.) Kaleb Stahl DO [Doctor of Osteopathic Medicine] - 03/04/25 9:30 am Bharat Sullivan DO [Primary Care Provider] - 1-2 days Ambulatory/Diagnostic Orders: Basic Metabolic Panel [LAB.AMB] Time Frame: 3 Days, Location: None Selected Patient Instructions/Handouts: Heart Failure (DC), Pulmonary Edema (ED), Pulmonary Edema (DC), Community Acquired Pneumonia (ED), Community Acquired Pneumonia (DC) Activity/Diet/Wound Care/Special Instructions: FOLLOW UP DIRECTED, SOONER FOR WORSENING SYMPTOMS, PROBLEMS, OR CONCERNS. Discharge Disposition: HOME SELF-CARE
--- NOTE | 2025-02-13 17:46 | CDI ---
d Documentation Clarification Form Date: 02/13/2025 05:25:29 PM From: Lexis Cummins Phone: Admit Date: 02/09/2025 07:57:00 AM Patient Name: Fermin Stallworth Visit Number: [id number] Discharge Date: 02/11/2025 03:45:00 PM ATTENTION: The Clinical Documentation Specialists (CDI) and [facility] Coding Staff appreciate your assistance in clarifying documentation. Please respond to the clarification below the line at the bottom and electronically sign. The CDI & [facility] Coding staff will review the response and follow. up if needed. Please note: Queries are made part of the Legal Health Record. If you have any questions, please contact the author of this message via ITS. Doctor/Provider: Raji Hankins Your patient has the documented diagnosis of acutecongestive heart failureexacerbation per Progress Note 02/08. 02/10 and DCS. Additional information regarding the type and acuity of CHF is requested. History/Risk Factors: 74yo M, ACHF, PNA, persistent A Fib, Hx TAVR, PIPE, CKD II, DMII w PVD, HTN, HLD Clinical Indicators: 02/07/2506/ 13:56 21:00 21:17 T 98.8 WV 72 108 108 RR 20 24 BP127/67 143/79 O2 96 97 02/07/2506/ 21:23 22:32 23:00 WV 105 101 105 RR 18 20 BP155/78 140/107 O2 96 95 02/08/2506/ 00:00 01:00 02:00 WV 110 97 86 RR 20 18 18 BP141/79 150/86 118/81 O2 94 94 94 02/08/2506/ 03:00 04:00 05:00 WV 62 102 93 RR 16 18 20 BP121/82 109/78 120/86 O2 95 95 96 02/08/2506/ 06:00 09:00 12:00 WV 101 97 55 RR 20 18 18 BP121/94 127/74 116/78 O2 96 95 97 BNP: 1080 Echo: Last known echo with preserved EF 55% Chest X Ray: RLL infiltrateand small rightpleural effusion. Correlate for PNA. Follow. upisrecommended. Treatment: ProBNP 1080. Cardiacmonitoring. Low sodium diet <2g daily < 2L of total volume intake daily. Supplemental O2 as needed. MonitorBMP. Continue diuretics. Blood culture pending. Cardiology consulted. Pulmonology consulted In your professional opinion, can you please clarify the acuity and type of CHF if known? [ ] Acute Systolic Heart Failure (reduced EF) [ ] Acute on Chronic Systolic Heart Failure (reduced EF) [ x ] Acute Diastolic Heart Failure (preserved EF) [ ] Acute on Chronic Diastolic Heart Failure (preserved EF) [ ] Acute Systolic & Diastolic Heart Failure [ ] Acute on Chronic Heart Failure Systolic & Diastolic Heart Failure [ ] Other, please specify [ ] Unable to determine (Template Last Revised: September 2020) MTDD
== END 2025-02-11 15:45 | disposition home or self-care (01) | DRG 193 ==
LOC: EC 13:34 → 6NMEDSUR 23:12 → OBSVTOIN 02-09 07:57
PROVIDERS: ADMIT Internal Medicine; ATTEND Internal Medicine
DX: J18.1 Lobar pneumonia, unspecified organism (principal); I50.31 Acute diastolic (congestive) heart failure; I13.0 Hypertensive heart and chronic kidney disease with heart failure and stage 1 through stage 4 chronic kidney disease, or unspecified chronic kidney disease; I47.19 Other supraventricular tachycardia; J91.8 Pleural effusion in other conditions classified elsewhere; J44.0 Chronic obstructive pulmonary disease with (acute) lower respiratory infection; E11.22 Type 2 diabetes mellitus with diabetic chronic kidney disease; Z95.3 Presence of xenogenic heart valve; I48.19 Other persistent atrial fibrillation; N17.9 Acute kidney failure, unspecified; E11.51 Type 2 diabetes mellitus with diabetic peripheral angiopathy without gangrene; E11.65 Type 2 diabetes mellitus with hyperglycemia; Z79.4 Long term (current) use of insulin; H91.93 Unspecified hearing loss, bilateral; T46.2X5A Adverse effect of other antidysrhythmic drugs, initial encounter; N18.2 Chronic kidney disease, stage 2 (mild); E78.5 Hyperlipidemia, unspecified; R19.7 Diarrhea, unspecified; T38.0X5A Adverse effect of glucocorticoids and synthetic analogues, initial encounter; M19.90 Unspecified osteoarthritis, unspecified site; Z95.5 Presence of coronary angioplasty implant and graft; Z79.01 Long term (current) use of anticoagulants; Z79.02 Long term (current) use of antithrombotics/antiplatelets; Z79.84 Long term (current) use of oral hypoglycemic drugs; Z79.899 Other long term (current) drug therapy; Z87.891 Personal history of nicotine dependence; Z85.828 Personal history of other malignant neoplasm of skin; Z97.4 Presence of external hearing-aid; I25.10 Atherosclerotic heart disease of native coronary artery without angina pectoris; Z79.51 Long term (current) use of inhaled steroids
CPT/HCPCS: 36415; 71045; 71046; 71275; 80048; 80053; 83605; 83880; 84145; 84484; 85025; 85379; 85610; 85730; 86140; 87040; 87070; 87205; 87324; 87449; 87636; 93005; 94640; 94760; 96365; 96366; 96367; 96375; 99285